=== PATIENT | female | born 1950 | race Hispanic/Latino ===

== ENCOUNTER 2018-01-16 10:42 | Inpatient (IN) | payer BC, OTHER ==
[2018-01-16 11:30] LABS: Protime INR 1.19
[2018-01-16 11:31] LABS: Absolute Lymphocytes (CBC) 0.1 K/uL (0.7-4.9); Absolute Monocytes 0.2 K/uL (0.1-1.3); Absolute Neutrophil 7.3 K/uL (1.8-8.0); Basophils % 0.2 % (0-1.3); Eosinophils % 0.1 % (0-4.4); Hematocrit 30.7 % (36.0-45.0); Lymphocytes % 1.5 % (15.3-44.8); MCH 28.7 pg (27.0-35.0); MCV 85.2 fL (80-100); MPV 8.5 fL (7.6-11.3); Monocytes % 2.5 % (3.3-12.3); RBC Red Blood Cell Count 3.61 M/uL (3.86-4.86)
--- NOTE | 2018-01-16 11:34 | RAD REPORT ---
EXAM DESCRIPTION: CT - CTHCSPWOC - 01/16/2018 11:22 am CLINICAL HISTORY: Trauma, head and neck injury. PAIN COMPARISON: No comparisons TECHNIQUE: Axial 5 mm thick images of the head were obtained. Axial 2 mm thick images of the cervical spine were obtained with sagittal and coronal reconstruction images generated and reviewed. All CT scans are performed using dose optimization technique as appropriate and may include automated exposure control or mA/KV adjustment according to patient size. FINDINGS: CT HEAD WITHOUT CONTRAST: No acute hemorrhage, hydrocephalus or extra-axial collection is identified.Advanced generalized brain atrophy is present with advanced periventricular and deep white matter chronic microvascular ischemi c changes.No areas of brain edema or midline shift. The paranasal sinuses and mastoids are clear.The calvarium is intact. CT CERVICAL SPINE WITHOUT CONTRAST: No fracture or subluxation.Mild lower cervical degenerative change.No prevertebral soft tissues swell ing is identified. Carotid artery calcification noted. IMPRESSION: No acute intracranial or cervical spine findings.
--- NOTE | 2018-01-16 11:46 | RAD REPORT ---
EXAM DESCRIPTION: RAD - Chest Single View - 01/16/2018 11:32 am CLINICAL HISTORY: MALAISE Chest pain. COMPARISON: Chest Pa And Lat (2 Views) dated 03/03/2016; CHEST PA AND LAT 2 VIEW dated 05/04/2015; CHES T PA AND LAT 2 VIEW dated 04/10/2014; CHEST PA AND LAT 2 VIEW dated 09/11/2013 FINDINGS: Portable technique limits examination quality. Ill-defined opacities in the parahilar region noted, probably related to prior therapy. A small focal infiltrate could be masked by these findings. The heart is normal in size. Right-sided port catheter tip in SVC.No displaced fracture is seen.
[2018-01-16 11:55] LABS: Albumin 3.2 g/dL (3.4-5.0); Bilirubin Direct 0.2 mg/dL (0-0.2); Bilirubin Total 0.5 mg/dL (0.2-1.0); Magnesium 1.6 mg/dL (1.8-2.4); Potassium 3.9 mmol/L (3.5-5.1); Protein, Total 7.6 g/dL (6.4-8.2)
[2018-01-16 12:01] LABS: Troponin (Emerg Dept Use Only) 0.56 ng/mL (0.0-0.045)
[2018-01-16 12:14] LABS: Anisocytosis 1+; Blood Morphology Comment NOTED (NOT SEEN); Elliptocytes 1+; Platelet Estimate ADEQ; Urine White Blood Cell Casts OK
--- NOTE | 2018-01-16 13:00 | RAD REPORT ---
EXAM DESCRIPTION: RAD - Wrist Left 3 View - 01/16/2018 12:41 pm CLINICAL HISTORY: Fall, wrist pain COMPARISON: None. FINDINGS: No fracture is identified. There is no dislocation or periosteal reaction noted. Scaphoid bone appearance is within normal limits. There are mild degenerative changes involving the trapezium articulation with the scaphoid and first metacarpal. No foreign body. No abnormal soft tissue calcif ication. IMPRESSION: No fracture or acute finding. Degenerative changes are present around the trapezium. If the patient has continued, unexplained symptoms, repeat imaging can be performed in 7 days.
--- NOTE | 2018-01-16 13:02 | RAD REPORT ---
EXAM DESCRIPTION: RAD - Knee Left 3 View - 01/16/2018 12:41 pm CLINICAL HISTORY: Fall, knee pain COMPARISON: None. FINDINGS: No fracture, dislocation or periosteal reaction.Minimal medial compartment narrowing is se en with marginal spurring. Arterial calcifications are present. No soft tissue abnormality. IMPRESSION: Mild degenerative change with no acute bone or joint finding. Clinical concerns for internal derangement or occult bony injury could be further assessed with MR im aging.
--- NOTE | 2018-01-16 13:04 | RAD REPORT ---
EXAM DESCRIPTION: RAD - Pelvis - 01/16/2018 12:41 pm CLINICAL HISTORY: Fall, pelvic and hip pain COMPARISON: None. TECHNIQUE: AP imaging of the pelvis was obtained. FINDINGS: No fracture of the bony pelvis. No fracture, dislocation or other acute hip joint finding. Mild SI joint degenerative changes are present. There are mild right hip joint degenerative changes seen. Lower lumbar degenerative changes are present partially imaged. Patient has numerous round clips from prior hernia repair. Iliac artery stents are identifiable. There prominent vascular calcifications. Surgical clips are seen in each inguinal canal region. No suspicious soft tissue finding. IMPRESSION: Pelvis and hip joint degenerative changes are present as detailed. No fracture or acute finding.
--- NOTE | 2018-01-16 13:23 | RAD REPORT ---
EXAM DESCRIPTION: CT - Spine Lumbar Wo Con - 01/16/2018 1:08 pm CLINICAL HISTORY: Fall, back pain, leg pain COMPARISON: CT abdomen imaging December 2014 TECHNIQUE: Thin section axial imaging of the lumbar spine was performed. Sagittal and coronal recon struction images were generated and reviewed. All CT scans are performed using dose optimization technique as appropriate and may include automated exposure control or mA/KV adjustment according to patient size. FINDINGS: The L1-L3 bodies show a very slight or subtle anterior wedging with posterior wall height preserved. No fracture lines are identifiable on the axial imaging. When compared with the lateral sc out film from 2015, the L1-L3 vertebrae are not clearly different. L4-5 vertebrae are normal in heigh t. No alignment abnormalities. No acute compression fracture is confirmed. No lytic, sclerotic or expansile bony destructive process seen. No paraspinal mass identified. Mild for age mid and lower lumbar facet joint degenerative weinstein ges are present. No pars defect. Central canal detail is inherently limited. Degenerative gas is present in the anterior aspect of the L1-2 disc space. There is posterior disc space narrowing at L2-3 and L3-4. No central spinal stenosi s or significant foraminal encroachment seen at these levels. Disc bulge at L5-S1 contacts the S1 ner ve roots but does not cause central spinal stenosis. SI joint degenerative changes are present primar enedelia sclerotic change to each ileum at the joint. No sacral ala fractures seen. IMPRESSION: No acute lumbar finding confirmed. The slight wedging of L1-L3 is not clearly different from a 2015 CT study. L5-S1 disc bulge changes contacting the S1 nerve roots. This cannot be determined to be acute or wiring mechanic tam. Central canal detail is inherently limited. No significant canal encroachment or significant foramina l encroachment.
--- NOTE | 2018-01-16 13:54 | EDPHYS ---
Physician Documentation [facility] Name: Jamaica Perez Age: 67 yrs Sex: Female : 1950 Arrival Date: 01/16/2018 Time: 10:43 Bed 16 Private MD: ED Physician Adrian Argueta HPI: 01/16 13:36 This 67 yrs old Female presents to ER via EMS with complaints of Fall Injury. gs 13:36 Details of fall: The patient fell from an upright position. Onset: The symptoms/episode gs began/occurred acutely, at an unknown time. last known well about 9pm last night, fall occurred between 5-9 this am. Associated injuries: The patient sustained face, pelvis, left hand and left leg. Severity of symptoms: At their worst the symptoms were mild, in the emergency department the symptoms are unchanged. The patient has experienced similar episodes in the past, a few times. pt and daughter state has weakness in left leg is new was present on wakening. Historical: - Home Meds: 10:56 Qz-[id number] 133 mg oral tab [Active]; metformin 500 mg Oral Tb24 1 tab 2 times per tw2 day [Active]; prochlorperazine maleate 10 mg oral tab [Active]; zolpidem 5 mg Oral tab 1 tab once daily [Active]; hydrocodone-acetaminophen 5-325 mg Oral tab 1 tab every 6 hours [Active]; nitroglycerin 0.4 mg SL subl 1 tab [Active]; ondansetron HCl 8 mg Oral tab 1 tab every 8 hours [Active]; Ambrose Aspirin 325 mg oral tab 1 tab once daily [Active]; Vitamin D Oral [Active]; Januvia 100 mg oral tab 1 tab once daily [Active]; bisacodyl 5 mg Oral TbEC 1 tab [Active]; losartan 100 mg oral tab 1 tab once daily [Active]; atorvastatin 40 mg oral tab 1 tab once daily [Active]; isosorbide mononitrate 30 mg Oral Tb24 1 tab once daily [Active]; montelukast 10 mg oral tab 1 tab once daily [Active]; metoprolol tartrate 25 mg Oral tab 1 tab once daily [Active]; levocetirizine 5 mg oral tab 1 tab once daily [Active]; ProAir HFA 90 mcg/actuation inhalation HFAA 1 puff every 4 hours [Active]; - PMHx: 10:56 Diabetes - NIDDM; Hyperlipidemia; Hypertension; tw2 - Immunization history:: Adult Immunizations. - Social history:: Smoking status: . - Ebola Screening: : Patient denies travel to an Ebola-affected area in the 21 days before illness onset. ROS: 13:36 All other systems are negative. gs Exam: 13:36 Head/Face: Normocephalic, atraumatic. Eyes: Pupils equal round and reactive to light, gs extra-ocular motions intact. Lids and lashes normal. Conjunctiva and sclera are non-icteric and not injected. Cornea within normal limits. Periorbital areas with no swelling, redness, or edema. ENT: Nares patent. No nasal discharge, no septal abnormalities noted. Tympanic membranes are normal and external auditory canals are clear. Oropharynx with no redness, swelling, or masses, exudates, or evidence of obstruction, uvula midline. Mucous membranes moist. 13:36 Chest/axilla: Normal chest wall appearance and motion. Nontender with no deformity. No lesions are appreciated. Cardiovascular: Regular rate and rhythm with a normal S1 and S2. No gallops, murmurs, or rubs. Normal PMI, no JVD. No pulse deficits. Respiratory: Lungs have equal breath sounds bilaterally, clear to auscultation and percussion. No rales, rhonchi or wheezes noted. No increased work of breathing, no retractions or nasal flaring. Abdomen/GI: Soft, non-tender, with normal bowel sounds. No distension or tympany. No guarding or rebound. No evidence of tenderness throughout. 13:36 Back: No spinal tenderness. No costovertebral tenderness. Full range of motion. Skin: Warm, dry with normal turgor. Normal color with no rashes, no lesions, and no evidence of cellulitis. 13:36 Constitutional: The patient appears alert, awake. 13:36 Neck: C-spine: vertebral tenderness, that is mild. 13:36 ECG was reviewed by the Attending Physician. 13:36 Musculoskeletal/extremity: Extremities: noted in the left knee: ecchymosis, pain, noted in the dorsal aspect of left wrist: ecchymosis, pain, noted in the left hip and right hip: tenderness, Circulation is intact in all extremities. 13:36 Neuro: Orientation: is normal, Cranial nerves: CN II- XII are normal as tested, Cerebellar function: is grossly normal, Motor: moves all fours, strength is 5/5 in the right arm, left arm and left leg, Strength is 3/5 in the right leg, Sensation: no obvious gross deficits. Vital Signs: 10:45 BP 119 / 58; Pulse 67; Resp 17; Temp 98.1; Pulse Ox 98% on R/A; Pain 0/10; tw2 11:43 BP 114 / 51; Pulse 65; Resp 17; Pulse Ox 100% on R/A; tw2 12:27 BP 109 / 45; Pulse 65; Resp 17; Pulse Ox 98% on R/A; tw2 13:22 BP 105 / 90; Pulse 68; Resp 20; Pulse Ox 98% on R/A; tw2 14:22 BP 117 / 153; Pulse 65; Resp 17; Pulse Ox 97% on R/A; tw2 15:28 BP 111 / 55; Pulse 63; Resp 20; Pulse Ox 97% on R/A; tw2 10:45 pt denies pain but states "if you move me it will hurt" tw2 MDM: 11:02 Patient medically screened. gs 13:36 Differential diagnosis: closed head injury, fracture, cva, mets to spine. Data gs reviewed: vital signs, nurses notes. Response to treatment: the patient's symptoms have markedly improved after treatment. Physician consultation: Dnadre Haas MD and will see patient in inpatient room. 14:04 ED course: pt with weakness, no other signs of cva, out of window so no tpa, will have gs evelyn see, alex will also see. 01/16 11:03 Order name: Basic Metabolic Panel; Complete Time: 12:06 01/16 11:03 Order name: CBC with Diff; Complete Time: 13:31 01/16 11:03 Order name: LFT's; Complete Time: 12:06 01/16 11:03 Order name: Magnesium; Complete Time: 12:06 01/16 11:03 Order name: NT PRO-BNP; Complete Time: 12:06 01/16 11:03 Order name: PT-INR; Complete Time: 12:06 01/16 11:03 Order name: Troponin (emerg Dept Use Only); Complete Time: 12:06 01/16 11:03 Order name: XRAY Chest (1 view); Complete Time: 12:06 01/16 11:03 Order name: AMMONIA; Complete Time: 12: 01/16 11:48 Order name: CBC Smear Scan; Complete Time: 13:31 EDMS 01/16 12:09 Order name: CPK; Complete Time: 13:54 01/16 14:04 Order name: Troponin I EDHI 01/16 14:04 Order name: Troponin I EDHI 01/16 14:04 Order name: Troponin I EDHI 01/16 11:03 Order name: EKG; Complete Time: 11:04 01/16 11:03 Order name: Cardiac monitoring; Complete Time: 11: 01/16 11:03 Order name: IV Saline Lock; Complete Time: 11:19 01/16 11:03 Order name: CT Head C Spine; Complete Time: 12:06 01/16 12:09 Order name: Knee Left 3 View XRAY; Complete Time: 13:31 01/16 12:09 Order name: Wrist Left (3 View) XRAY; Complete Time: 13:31 01/16 12:09 Order name: Pelvis XRAY; Complete Time: 13:31 01/16 12:22 Order name: Diet Heart Healthy; Complete Time: 12:22 tw2 01/16 12:32 Order name: CT Lumbar Spine Wo Con; Complete Time: 13:31 01/16 14:04 Order name: CONS Physician Consult EDHI 01/16 14:04 Order name: CONS Physician Consult EDHI 01/16 14:04 Order name: Consistent Carb (ADA) [address] EDHI 01/16 14:04 Order name: EKG Electrocardiogram EDHI 01/16 14:04 Order name: EKG Electrocardiogram EDHI 01/16 11:03 Order name: Labs collected and sent; Complete Time: 11:19 01/16 11:03 Order name: O2 Per Protocol; Complete Time: 11: 01/16 11:03 Order name: O2 Sat Monitoring; Complete Time: 11:19 gs EC:36 Rate is 63 beats/min. Rhythm is regular. PA interval is normal. QRS interval is gs prolonged. Q waves are Old in leads V1, V2. T waves are Flattened. Clinical impression: Abnormal EKG without significant change. Interpreted by me. Administered Medications: 14:08 Drug: Aspirin Chewable Tablet 324 mg Route: PO; tw2 14:24 Follow up: Response: No adverse reaction tw2 Disposition: 01/16/18 13:53 Hospitalization ordered by Lior Daniels for Inpatient Admission. Preliminary diagnosis are Weakness, Unstable angina. - Bed requested for Telemetry/MedSurg (Inpatient). - Status is Inpatient Admission. tw2 - Condition is Stable. - Problem is new. - Symptoms are unchanged. UTI on Admission? No Critical care time excluding procedures: 13:36 Critical care time: Bedside Care: 10 minutes, Consultation: 10 minutes, Family gs Intervention: 10 minutes. Total time: 30 minutes Signatures: Dispatcher [employer] EDMS Ila Sequeira Tara, RN RN tw2 Adrian Argueta MD MD gs Corrections: (The following items were deleted from the chart) 15:21 13:53 Hospitalization Ordered by Lior Daniels MD for Inpatient Admission. Preliminary bd diagnosis is Weakness; Unstable angina. Bed requested for Telemetry/MedSurg (Inpatient). Status is Inpatient Admission. Condition is Stable. Problem is new. Symptoms are unchanged. UTI on Admission? No. gs 15:32 15:21 01/16/2018 13:53 Hospitalization Ordered by Lior Daniels MD for Inpatient tw2 Admission. Preliminary diagnosis is Weakness; Unstable angina. Bed requested for Telemetry/MedSurg (Inpatient). Status is Inpatient Admission. Condition is Stable. Problem is new. Symptoms are unchanged. UTI on Admission? No. bd
--- NOTE | 2018-01-16 13:54 | ER ---
Nurse's Notes [facility] Name: Jamaica Perez Age: 67 yrs Sex: Female : 1950 Arrival Date: 01/16/2018 Time: 10:43 Bed 16 Private MD: Diagnosis: Weakness;Unstable angina Presentation: 01/16 10:38 Presenting complaint: EMS states: pt was going to the bathroom this morning and fell, tw2 refused c collar, vs stable. Transition of care: patient was not received from another setting of care. Onset of symptoms was January 16, 2018. Risk Assessment: Do you want to hurt yourself or someone else? Patient reports no desire to harm self or others. Initial Sepsis Screen: Does the patient meet any 2 criteria? No. Patient's initial sepsis screen is negative. Does the patient have a suspected source of infection? No. Patient's initial sepsis screen is negative. Care prior to arrival: None. 10:38 Method Of Arrival: EMS: [facility] tw2 11:01 Acuity: LIV 3 tw2 Historical: - Home Meds: 10:56 Fb-Srzf-Xdvdeax 133 mg oral tab [Active]; metformin 500 mg Oral Tb24 1 tab 2 times per tw2 day [Active]; prochlorperazine maleate 10 mg oral tab [Active]; zolpidem 5 mg Oral tab 1 tab once daily [Active]; hydrocodone-acetaminophen 5-325 mg Oral tab 1 tab every 6 hours [Active]; nitroglycerin 0.4 mg SL subl 1 tab [Active]; ondansetron HCl 8 mg Oral tab 1 tab every 8 hours [Active]; Ambrose Aspirin 325 mg oral tab 1 tab once daily [Active]; Vitamin D Oral [Active]; Januvia 100 mg oral tab 1 tab once daily [Active]; bisacodyl 5 mg Oral TbEC 1 tab [Active]; losartan 100 mg oral tab 1 tab once daily [Active]; atorvastatin 40 mg oral tab 1 tab once daily [Active]; isosorbide mononitrate 30 mg Oral Tb24 1 tab once daily [Active]; montelukast 10 mg oral tab 1 tab once daily [Active]; metoprolol tartrate 25 mg Oral tab 1 tab once daily [Active]; levocetirizine 5 mg oral tab 1 tab once daily [Active]; ProAir HFA 90 mcg/actuation inhalation HFAA 1 puff every 4 hours [Active]; - PMHx: 10:56 Diabetes - NIDDM; Hyperlipidemia; Hypertension; tw2 - Immunization history:: Adult Immunizations. - Social history:: Smoking status: . - Ebola Screening: : Patient denies travel to an Ebola-affected area in the 21 days before illness onset. Screenin:46 Abuse screen: Denies threats or abuse. Nutritional screening: No deficits noted. tw2 Tuberculosis screening: No symptoms or risk factors identified. Fall Risk None identified. 12:55 Patient has been NPO before screening. The patient is alert, able to follow commands. tw2 The patient does not exhibit slurred or garbled speech The patient is not exhibiting difficulty speaking. The patient is exhibiting difficulty understanding words. The patient is able to swallow own secretions with no drooling or need for suction. Patient tolerated one teaspoon of water. No drooling, immediate coughing, gurgling, or clearing of the throat was noted. The patient tolerated 90mL of water. No drooling, immediate coughing, gurgling, or clearing of the throat was noted. The patient passed the bedside swallow screening. Oral medications may be given as ordered. Contact Physician for further diet orders. Assessment: 10:45 General: Appears in no apparent distress. slender, Behavior is calm, cooperative, tw2 appropriate for age. Pain: Complains of pain in right leg and left leg. Neuro: Level of Consciousness is awake, alert, obeys commands, Oriented to person, place, situation. Cardiovascular: Denies chest pain, shortness of breath, Heart tones S1 S2 Capillary refill < 3 seconds Patient's skin is warm and dry. Respiratory: Airway is patent Respiratory effort is even, unlabored, Respiratory pattern is regular, symmetrical, Breath sounds are clear bilaterally. GI: No signs and/or symptoms were reported involving the gastrointestinal system. Abdomen is flat, Bowel sounds present X 4 quads. : No signs and/or symptoms were reported regarding the genitourinary system. EENT: No signs and/or symptoms were reported regarding the EENT system. Derm: Bruising that is bright red, dark purple, on left arm, right leg and left leg. Musculoskeletal: Reports "i cant move my legs". 11:43 Reassessment: Patient appears in no apparent distress at this time. No changes from tw2 previously documented assessment. Patient and/or family updated on plan of care and expected duration. Pain level reassessed. Patient is alert, oriented x 3, equal unlabored respirations, skin warm/dry/pink. pt requesting some coffee at this time, provider notified. 12:27 Reassessment: Patient appears in no apparent distress at this time. No changes from tw2 previously documented assessment. Patient and/or family updated on plan of care and expected duration. Pain level reassessed. Patient is alert, oriented x 3, equal unlabored respirations, skin warm/dry/pink. 13:22 Reassessment: Patient appears in no apparent distress at this time. No changes from tw2 previously documented assessment. Patient and/or family updated on plan of care and expected duration. Pain level reassessed. Patient is alert, oriented x 3, equal unlabored respirations, skin warm/dry/pink. pt sitting upright eating lunch tray at this time. 14:22 Reassessment: Patient appears in no apparent distress at this time. No changes from tw2 previously documented assessment. Patient and/or family updated on plan of care and expected duration. Pain level reassessed. Patient is alert, oriented x 3, equal unlabored respirations, skin warm/dry/pink. 15:29 Reassessment: Patient appears in no apparent distress at this time. No changes from tw2 previously documented assessment. Patient and/or family updated on plan of care and expected duration. Pain level reassessed. Patient is alert, oriented x 3, equal unlabored respirations, skin warm/dry/pink. Vital Signs: 10:45 BP 119 / 58; Pulse 67; Resp 17; Temp 98.1; Pulse Ox 98% on R/A; Pain 0/10; tw2 11:43 BP 114 / 51; Pulse 65; Resp 17; Pulse Ox 100% on R/A; tw2 12:27 BP 109 / 45; Pulse 65; Resp 17; Pulse Ox 98% on R/A; tw2 13:22 BP 105 / 90; Pulse 68; Resp 20; Pulse Ox 98% on R/A; tw2 14:22 BP 117 / 153; Pulse 65; Resp 17; Pulse Ox 97% on R/A; tw2 15:28 BP 111 / 55; Pulse 63; Resp 20; Pulse Ox 97% on R/A; tw2 10:45 pt denies pain but states "if you move me it will hurt" tw2 ED Course: 10:39 Bed in low position. Call light in reach. Side rails up X2. Adult w/ patient. Pulse ox tw2 on. NIBP on. Warm blanket given. 10:43 Patient arrived in ED. tw2 10:45 Triage completed. tw2 10:45 Adrian Argueta MD is Attending Physician. gs 10:45 Arm band placed on. tw2 11:00 Dacia Nj RN is Primary Nurse. tw2 11:10 wet machine tender on. Pulse ox on. NIBP on. tw2 11:10 Inserted saline lock: 22 gauge in right antecubital area, using aseptic technique. tw2 Blood collected. 11:[address] vr 11:21 Radiology exam delayed due to PT IN CT. jb2 11:23 CT Head C Spine In Process Unspecified. EDMS 11:31 X-ray completed. Patient tolerated procedure well. jb2 11:31 Patient moved back from radiology. jb2 11:32 XRAY Chest (1 view) In Process Unspecified. EDMS 12:03 EKG done, by senior engineering tech. reviewed by Adrian Argueta MD. at1 12:40 X-ray completed. Portable x-ray completed in exam room. Patient tolerated procedure jb2 well. 12:41 Knee Left 3 View XRAY In Process Unspecified. EDMS 12:41 Wrist Left (3 View) XRAY In Process Unspecified. EDMS 12:41 Pelvis XRAY In Process Unspecified. EDMS 13:09 CT Lumbar Spine Wo Con In Process Unspecified. EDMS 13:51 Lior Daniels MD is Hospitalizing Provider. gs 14:28 Troponin I Sent. tw2 15:30 No provider procedures requiring assistance completed. Patient admitted, IV remains in tw2 place. Administered Medications: 14:08 Drug: Aspirin Chewable Tablet 324 mg Route: PO; tw2 14:24 Follow up: Response: No adverse reaction tw2 Outcome: 13:53 Decision to Hospitalize by Provider. gs 15:30 Admitted to Med/surg accompanied by tech, via stretcher, room 214, with oxygen, with tw2 chart, Report called to ron dugan 15:30 Condition: stable 15:30 Instructed on the need for admit. 15:32 Patient left the ED. tw2 Signatures: Dispatcher [employer] EDMS Cesar Rockwell jb2 Gemma Joyner Amanda, relief driller EKG Tat1 aDcia Nj RN RN tw2 Adrian Argueta MD MD gs Corrections: (The following items were deleted from the chart) 11:01 10:38 Acuity: LIV 4 tw2 tw2 12:53 11:43 Reassessment: Patient appears in no apparent distress at this time. No changes tw2 from previously documented assessment. Patient and/or family updated on plan of care and expected duration. Pain level reassessed. Patient is alert, oriented x 3, equal unlabored respirations, skin warm/dry/pink. tw2 13:18 12:55 Patient has been NPO before screening. The patient is alert, able to follow tw2 commands. The patient does not exhibit slurred or garbled speech The patient is not exhibiting difficulty speaking. The patient is exhibiting difficulty understanding words. The patient is able to swallow own secretions with no drooling or need for suction. Patient tolerated one teaspoon of water. No drooling, immediate coughing, gurgling, or clearing of the throat was noted. The patient tolerated 90mL of water. No drooling, immediate coughing, gurgling, or clearing of the throat was noted. tw2
[2018-01-16] MEDS ORDERED: ACETAMINOPHEN 500 MG TAB PO PRN (14:02)
[2018-01-16] MEDS ORDERED: ASPIRIN 81 MG CHEWABLE TABLET ONE (14:14)
[2018-01-16 16:02] VITALS: BMI 21.3
[2018-01-16 16:41] LABS: Urine Appearance CLOUDY; Urine Bilirubin NEGATIVE (NEG); Urine Blood TRACE (NEG); Urine Color YELLOW; Urine Glucose NEGATIVE (NEG); Urine Protein TRACE (NEG); Urine Urobilinogen 0.2 mg/dL (0.2-1.0)
[2018-01-16 16:48] LABS: Urine Microscopic Reflex ORDER UMIC
[2018-01-16 16:57] LABS: Urine Bacteria LOADED /HPF (<20); Urine Culture Reflex Order REFLEXED; Urine Mucus 2+ /HPF (NONE SEEN)
[2018-01-16] MEDS ORDERED: PNEUMOCOCCAL VACCINE 0.5 ML IMVAC ONE (17:00)
[2018-01-16] MEDS ORDERED: NITROGLYCERIN 0.4 MG SL PRN (21:57)
[2018-01-16] MEDS ORDERED: [UNRECOGNIZED DRUG - OTHER] PO PRN (21:57)
[2018-01-16] MEDS ORDERED: ACETAMINOPHEN PO PRN (21:57)
[2018-01-16] MEDS ORDERED: HYDROCODONE BIT PO PRN ×2 (21:57)
[2018-01-16] MEDS ORDERED: [UNRECOGNIZED DRUG - OTHER] PO PRN (21:57)
[2018-01-16] MEDS ORDERED: ZOLPIDEM TARTRATE 5 MG PO PRN (21:57)
--- NOTE | 2018-01-17 04:43 | EKG ---
Test Date: 2018-01-16 Test Time: 11:45:38 Radiation Technician: ANA/Ngozi MEASUREMENT RESULTS: Intervals: Rate: 63 NV: 188 QRSD: 154 QT: 474 QTc: 485 [place]: P: 58 NV: 188 QRS: -11 T: 20 INTERPRETIVE STATEMENTS: Normal sinus rhythm Right bundle branch block Septal infarct, age undetermined Abnormal ECG Compared to ECG 08/05/2010 08:35:36 Myocardial infarct finding now present Electronically Signed On 01-17-18 04:41:45 CDT by Antione Cm
[2018-01-17] MEDS ORDERED: HOME MED 1 EA UNK (Sitagliptin Phosphate [Januvia*] 100 MG) PO SCH (08:00)
[2018-01-17] MEDS: levoFLOXacin 500 MG TAB PO SCH (08:37)
[2018-01-17] MEDS: ASPIRIN EC 81 MG TAB PO SCH (08:48)
[2018-01-17] MEDS ORDERED: MAGNESIUM OXIDE PO SCH (09:00)
[2018-01-17] MEDS ORDERED: HOME MED 1 EA UNK (Losartan Potassium [Losartan Potassium] 100 MG) PO SCH (09:00)
[2018-01-17] MEDS ORDERED: METFORMIN HCL 500 MG PO SCH (09:00)
[2018-01-17] MEDS ORDERED: ISOSORBIDE MONONITRATE 30 MG PO SCH (09:00)
[2018-01-17] MEDS ORDERED: HOME MED 1 EA UNK (Metoprolol Tartrate [Metoprolol Tartrate] 25 MG) PO SCH (09:00)
[2018-01-17] MEDS ORDERED: FOLIC ACID PO SCH (09:00)
[2018-01-17] MEDS ORDERED: COLLAGEN HYDROLY PO SCH (09:00)
[2018-01-17] MEDS ORDERED: D3 PO SCH (09:00)
[2018-01-17] MEDS ORDERED: MAG AA CHELATE PO SCH (09:00)
--- NOTE | 2018-01-17 10:48 | ECHO ---
HEIGHT: 4 ft 11.5 in WEIGHT: 107 lb 4.8 oz DATE OF STUDY: 01/17/[address]: Lior Daniels MD 2-DIMENSIONAL: YES M.MODE: YES DOPPLER: YES COLOR FLOW: YES TDS: NO PORTABLE: NO DEFINITY: NO BUBBLE STUDY: NO DIAGNOSIS: ABNORMAL CARDIAC ENZYME CARDIAC HISTORY: CATHERIZATION: SURGERY: PROSTHETIC VALVE: PACEMAKER: MEASUREMENTS (cm) DIASTOLIC (NORMALS) SYSTOLIC (NORMALS) IVSd 0.8 (0.6-1.2) LA Diam 3.2 (1.9-4.0) LVEF 72% LVIDd 4.9 (3.5-5.7) LVIDs 2.9 (2.0-3.5) %FS 41% LVPWd 0.9 (0.6-1.2) Ao Diam 2.5 (2.0-3.7) 2 DIMENSIONAL ASSESSMENT: RIGHT ATRIUM: NORMAL LEFT ATRIUM: NORMAL RIGHT VENTRICLE: NORMAL LEFT VENTRICLE: NORMAL TRICUSPID VALVE: NORMAL MITRAL VALVE: NORMAL PULMONIC VALVE: NORMAL AORTIC VALVE: NORMAL PERICARDIAL EFFUSION: NONE AORTIC ROOT: NORMAL LEFT VENTRICULAR WALL MOTION: POSTERIOR WALL HYPOKINESIS. DOPPLER/COLOR FLOW: NORMAL COMMENTS: NORMAL LEFT VENTRICULAR EJECTION FRACTION WITH POSTERIOR WALL HYPOKINESIS. OTHERWISE 2D ECHOCARDIOGRAM WITH DOPPLER. TECHNOLOGIST: Uri DEE
--- NOTE | 2018-01-17 11:42 | PN ---
Date of Progress Note: 01/17/2018 Subjective: The patient was seen this morning for followup. She was lying in bed, not in distress. Her was present with her at bedside. The patient reported that she did get out of bed 2 terri es during nighttime without any assistance. was standing next to her as a standby assist, bu t she was able to go to the bathroom and ambulate without much difficulty. No nausea, vomiting, diar jazmyn reported. Objective: Vital signs: Reviewed. Last temperature this morning 97.1, pulse 56, respiratory rate 1 6, blood pressure 116/53. HEENT: Unremarkable. Lungs: Clear to auscultation. Heart: Sounds normal. Abdomen: Soft. Bowel sounds normal. No guarding, rigidity, tenderness, or distention. Extremities: No leg edema. She does have some bruising on the left lateral knee aspect from fall ye at home. Laboratory Data: Last troponin 1.58 last night. Impression: 1.Urinary tract infection. 2.Acute bronchitis. 3.Generalized weakness. 4.Lung cancer with metastatic disease to liver. 5.Coronary artery disease. 6.Carotid artery stenosis. 7.Peripheral vascular disease. 8.Hypertension. 9.Type 2 diabetes mellitus. 10.Hyperlipidemia. 11.Anemia due to chronic gastrointestinal blood loss. Plan: We will continue current medications, antibiotic Levaquin will be given to help with acute bro nchitis and urinary tract infection problem. We will go ahead and follow up with neurologist as well as preforms laminator. Echocardiogram will be done today and depending on preforms laminator's recommendation a nd echocardiogram, we will decide if any further intervention needed or not, but medical management w ill be preferable for her cardiac problems because of her other underlying significant comorbidities mainly lung cancer. CALISTA/MODL Voice ID: [id number] Report ID: [id number]
--- NOTE | 2018-01-17 14:09 | CON ---
CARDIOLOGY CONSULT Chief Complaint: The patient fell yesterday. She seemed to be a little bit confused about what day it was. History Of Present Illness: Ms. Perez has metastatic lung cancer. She has had this since 2014. There has never been a resection and she has gone through quite a bit of chemotherapy in the past and most recently a plan was made to switch her to Opdivo. Although I do not have any notes from the on cologists there at [facility] in [place], I have to believe based on what we know so far that her prognosis simply from the lung cancer is very poor. The patient has chest pains intermittently. e does not pay much attention to them. She has been told in the past that they are most likely from lung cancer and not from blocked arteries in the heart, but it seems like in the middle of last week, she had a different kind of pain or more severe pain, she mentioned to her . No medical atte ntion was sought. When she came to the hospital, she was found to have very elevated troponin levels , 0.56, 1.28, 1.58 are what we see. Her sodium is very low. Creatinine is good at 0.7. She has an elevated N-terminal proBNP. She has a hemoglobin of 10.6. Her platelet count is 294. She is not duffy ving chest pain presently. Physical Examination: General: She appears to be older than her stated age of 67. She is 4 feet 11 inches, 107 pounds. Lungs: Reveal decreased breath sounds in both bases. Heart: Regular rate and rhythm. No significant murmur. Abdomen: Soft. Extremities: Reveal palpable, but diminished pulses. The patient has a history of aortobifemoral by pass, several other grafts in the legs. An angiogram done in 2014 showed that all of those were in p retty good shape. She has claudication, but no threatened tissue loss or source that are becoming in fected. Diagnostic Studies: Her electrocardiogram shows right bundle-branch block and septal infarct. It se ems like the septal infarct is new compared to 2011. There is no injury or ischemia. There is an ol d and completed infarction. Impression: The patient probably has had an myocardial infarction. It is probably not acute. It ma y be subacute. I am not sure if she may have had a stroke as well. I will recommend we do a pharmac ologic nuclear stress test and see if we think there is a reasonable chance of helping her by doing a cardiac cath and a stent. Overall, her prognosis is very poor, so we are unlikely to put a stent if we do not see a large amount of ischemia present or if she has symptoms suggesting she is unstable. I think, this is a completed myocardial infarction and we will try and learn more about it before en gaging in a heart catheterization. ANNA/TELLO Voice ID: [id number] Report ID: [id number]
--- NOTE | 2018-01-17 18:24 | HP ---
Date of Admission: 01/16/2018 Chief Complaint: Fall and inability to get up. History Of Present Illness: A 67-year-old female patient, who lives at home with her , has sm all cell lung cancer metastatic to liver and is currently under treatment at [facility], [place] with immunot herapy. Her last dose of immunotherapy was yesterday. The patient has some cough, chest congestion, coughing up some yellowish-colored mucus in last day or 2 days. No fever. No nausea, vomiting, yanni rrhea. No bleeding. The patient said that she was trying to get out of bed and she lost her balance and fell down next to the bed and she was able to get up and she got up and was trying to go to the bathroom. She fell down again. 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 She is not sure how long she stayed on the floor, but as family tells me that she was probably on the floor for almost 4 hours and somehow she managed to crawl where her phone was an d she was able to contact her family members, who came and she was brought into emergency room. Afte r she was evaluated in the ER, she was admitted to the hospital under my service. When I saw her, he r and daughter were present at bedside. Allergies: NO KNOWN ALLERGIES. Medications: List reviewed. Review of Systems: Constitutional: As mentioned above. Respiratory: As mentioned above. All other systems reviewed a nd negative. Social History: Positive for smoking. Use of alcohol, negative. Family History: Not pertinent. Past Medical History: Significant for hypertension, hyperlipidemia, type 2 diabetes mellitus, march ry artery disease, peripheral vascular disease, depression, gastroesophageal reflux disease, anemia d ue to chronic GI blood loss, COPD, carotid artery disease, and lung cancer with metastatic disease to liver and she is going to [facility], [place] regularly for her treatment. Past Surgical History: Significant for hysterectomy. Physical Examination: Vital Signs: Temperature 98.1, pulse 67, respiratory rate 17, blood pressure 119/58, oxygen saturati on 98%. Height 4 feet 11 inches, weight 107 pounds. General: Awake, alert, oriented, not in distress. HEENT: Head atraumatic, normocephalic. Conjunctivae nonerythematous. Sclerae white. Mouth, no thr ush or edema noted. Ears/Nose, no mass, lesion, discharge noted. Neck: Supple. No JVD, lymph nodes, bruit, thyromegaly noted. Lungs: Bilateral good equal air entry. Clear to auscultation. No rhonchi. Minimum rales noted in endy ng bases, not using accessory muscles of respiration. Heart: Normal heart sounds, no murmur or gallop. Abdomen: Soft, bowel sounds normal. No guarding, rigidity, tenderness, mass, hepatosplenomegaly, dis tention, or bruit noted. Extremities: No leg edema. No calf tenderness. Skin: No rash, ulcer, cellulitis. Lymphatics: No lymph node enlargement in neck, supraclavicular, infraclavicular region. ON SITE CONSTRUCTION SUPERINTENDENT: The patient is able to elevate both lower extremity up to about 30 to 40 degrees against gravit y. No focal weakness noted. No other focal neurological signs. Chest: Unremarkable. External Genitalia: Deferred. Rectal: Deferred. Laboratory Data: White count 7.6, hemoglobin 10.3, platelets 294. INR 1.19. Sodium 126, which is c hronic for her. Potassium 3.9, chloride 94, bicarb 23, BUN 12, creatinine 0.70, glucose 179, magnesi um 1.6. Liver function tests unremarkable. Ammonia less than 10. Initial troponin 0.56. Second tr oponin 1.28. Urinalysis, 3+ esterase more than 50 WBC bacteria loaded. Chest x-ray, ill-defined opa city in the parahilar region probably related to prior therapies. A small focal infiltrate could be masked by this finding. EKG, normal sinus rhythm, no acute ST-T changes. Knee and pelvis x-ray, no fracture. Wrist x-ray, no fracture. Lumbosacral spine CT scan shows old compression fracture. No a cute finding noted. CAT scan of the head and cervical spine, no acute intracranial or cervical spine finding noted. Impression: 1.Urinary tract infection. 2.Acute bronchitis. 3.Lung cancer with metastatic disease to liver. 4.Hyponatremia, chronic. 5.Coronary artery disease. 6.Abnormal cardiac enzymes. 7.Carotid artery stenosis. 8.Hypertension. 9.Hyperlipidemia. 10.Type 2 diabetes mellitus. 11.Peripheral vascular disease. 12.Anemia due to chronic gastrointestinal blood loss. Plan: Admit the patient to hospital for further evaluation and management of this problem. The zehra ent is appropriate for inpatient and is expected to spend 2 midnights in hospital. We will consult C ardiology, consult Neurology. Get echo with Doppler tomorrow. Continue home medications per order. Continue aspirin and because of multiple other comorbidities, I would suggest medical management for her cardiac problem. I am not convinced that she had any acute coronary syndrome. She does have si gnificant vascular disease and we will see what manager costing has to say, but definitely will be inter ested in looking at the echocardiogram and her left ventricular wall motion. We will start empiric a ntibiotics, want to cover bronchitis as well as urinary tract infection symptoms and tomorrow, we lindsay l also have physical therapy assist the patient with ambulation. Details and plan of treatment discu ssed with the patient. CALISTA/TELLO Voice ID: [id number]
--- NOTE | 2018-01-17 18:33 | CON ---
Reason For Consultation: Consultation called because of syncope. History Of Present Illness: Ms. Perez is a 67-year-old right-handed patient with hypertension, mzb-prttyau-jxyalituu diabetes mellitus, and dyslipidemia, who fell yesterday morning. Reportedly, her said she was in bed when he left at 5:30 in the morning, and sometime after that, she apparently got up and got to the bathroom and must have fallen or passed out and remained on the floor for several hours. Her son called to check on her around 9 a.m. She did not answer and she apparently called him back around 9: 30. His sister went over and checked on her and found her confused, disoriented , and brought her to [facility]. The patient said she just recalls being on the floor and being confused about what was going on, and she actually she does not remember calling her son, even though she did, and he of course is able to confirm, that she did call. At [facility], she did not have apparent focal face, arm, or leg weakness. She did have a trauma series CT scan , which showed, in the brain, no acute intracranial abnormality such as fracture or hemorrhage, however, there was advanced generalized brain atrophy and advanced periventricular deep white matter small vessel ischemic disease. Cervical spine showed no significant abnormalities. She also had lumbar spine CT scan, which showed an L5-S1 disk bulge contacting the S1 nerve root, cannot be determined if it is acute or not. Also, there is a slight wedging of L1-L3, but that is not thought to be different from a 2005 CT scan. Her EKG showed normal sinus rhythm with right bundle branch block, septal infarct age undetermined. A chest x-ray showed ill-defined opacities in the perihilar region. There is a small focal infiltrate. Heart is of normal size. Right Port-A-Cath tip is in the superior vena cava and she just recently had chemo through that for GI cancer. Since her admission, she has actually been back to her baseline level of functioning per family. They have assisted her to the bathroom and she ambulates without difficulty. She does have, as per the patient, some left shoulder pain from an impact on the floor and left thigh and leg pain from impacting there, but there are no fractures in those areas. Her white blood cell count on admission was 7.6, hemoglobin 10.3, hematocrit 30.7. INR was 1.19, and a mildly low sodium and otherwise some elevation in rapid troponin and troponin 1, which is being evaluated by Cardiology. Her magnesium was found to be low. Past Medical History: As indicated. Allergies: NO KNOWN DRUG ALLERGIES. Current Medications: Aspirin 81 mg daily and she did receive some levofloxacin in the emergency room and since admission, otherwise home medications did include MG Plus protein 133 mg daily, metformin 500 mg twice daily, prochlorperazine 10 mg daily, zolpidem 5 mg at night, hydrocodone/acetaminophen 5/325 one every 6 hours, nitroglycerin 0.4 mg as needed, Zofran 8 mg every 8 hours as needed, losartan 100 mg daily, atorvastatin 40 mg daily, isosorbide 30 mg daily, montelukast 10 mg daily, metoprolol 25 mg daily, levocetirizine 5 mg daily, and ProAir HFA 90 mcg per inhalation every 4 hours. Social History: No alcohol, tobacco, or IV drug use. Resides at home with and family. Review of Systems: No recent fevers or chills. No myalgias or arthralgias. No recent headaches, rash, weight change, psychiatric complaints, or other positives other than mentioned above on a 10-point systems review. Physical Examination: Vital signs: Blood pressure 120/56, pulse 54, respiratory rate 17, temperature 97.1, oxygen saturation 98% on room air. Weight 107 pounds, height 4 feet and 11.5 inches. General: Ms. Perez is resting comfortably in bed. She does have a mild cough. HEENT: She is otherwise normocephalic. Slight bruising on the left shoulder, left thigh and legs, otherwise atraumatic. Sclerae are anicteric. Oropharynx is moist. Neck: Supple. Chest: Clear. Heart: Regular. Extremities: Show no significant edema, cyanosis, or clubbing. Neurological: She is alert and oriented to person, place, time, and situation. She follows all commands appropriately. Fully oriented again location, date, time. Cranial nerves reveal no deficits on 2 through 12. On motor examination , she has some limitation due to pain in the left shoulder and left leg, but has 5/5 strength proximally and distally. Sensory exam shows a stocking-glove loss to light touch and temperature in the arms and legs. Reflexes are trace in the upper and absent in the lower extremities. Coordination is intact in the upper and lower extremities. Gait: ambulated with assistance, although slightly lightheaded as she stood. Assessment: Ms. Perez is a 67-year-old patient, who has a syncopal episode of unclear etiology. Differential diagnosis should include a complex partial seizure and potentially a transient ischemic attack, although less likely, also should be included cardiac etiologies. Plan: 1. We will do EEG to rule out epileptogenic focus. 2. If able to she should have a brain MRI with and without contrast stroke protocol. 3. She should have orthostatic blood pressure testing at bedside, and the patient was also instructed that if she has systolic blood pressures that are lower than the 120s, she may hold the next dosage of her antihypertensive medication. She also was instructed to maintain a careful diary of blood pressure and pulse, and return that to Dr. Daniels, her primary care physician. Followup with Dr. Haas in one month. NATHALIE/TELLO Voice ID: [id number] Report ID: [id number]
[2018-01-17] MEDS ORDERED: ALBUTEROL SULFATE IH SCH (21:00)
[2018-01-17] MEDS ORDERED: HOME MED 1 EA UNK (Levocetirizine Dihydrochloride [Xyzal] 5 MG) PO SCH (21:00)
[2018-01-17] MEDS ORDERED: MONTELUKAST SODIUM 10 MG PO SCH (21:00)
[2018-01-17] MEDS ORDERED: ATORVASTATIN CALCIUM 40 MG PO SCH (21:00)
[2018-01-18] MEDS ORDERED: REGADENOSON 0.4 MG/5 ML SYR IV ONE (07:42)
[2018-01-18] MEDS: ASPIRIN EC 81 MG TAB PO SCH (09:00)
--- NOTE | 2018-01-18 11:19 | RAD REPORT ---
EXAM DESCRIPTION: NM - Rest Stress Cardiac Imaging - 01/18/2018 11:02 am CLINICAL HISTORY: Chest pain COMPARISON: REST STRESS CARDIAC 08/06/2010 TECHNIQUE: The patient was administered 10.1 mCi of Tc 99m Sestamibi prior to resting SPECT imaging of the heart. The patient was then administered 30.5 mCi of Tc 99m Sestamibi following exercise or ph armacologic stress. Multiplanar SPECT images were reviewed. FINDINGS: The end diastolic volume is 85 ml, the end systolic volume is 33 ml, and the ejection frac tion is 61 %. No stress-induced ischemic changes identifiable. No areas of significant scarring identifiable. The 2 011 study showed areas of diminished or fixed activity in the inferior wall and anterior wall. Those are not evident on this examination. Patient has no known revascularization procedure. Prior findings may have and diaphragm or breast attenuation artifact. IMPRESSION: No stress-induced ischemic change identifiable. No area of scarring confirmed. The apparent fixed defects in the anterior wall and inferior wall and 2011 are not evident on this ex amination. Ejection fraction and ventricular volumes are well within normal range.
[2018-01-18] MEDS: levoFLOXacin 500 MG TAB PO SCH (11:39)
--- NOTE | 2018-01-19 02:07 | PN ---
Date of Progress Note: 01/18/2018 History Of Present Illness: The patient was seen this morning for followup. No new complaints or pr oblems reported by patient. Physical Examination: General: Lying in bed, not in any distress. Vital Signs: Reviewed. HEENT: Examination unremarkable. Lungs: Clear to auscultation. Heart: Sounds normal. Abdomen: Soft. Bowel sounds normal. No guarding, rigidity, tenderness, or distention. Extremities: No leg edema. Laboratory Data: Labs reviewed. Urine culture results reviewed. Impression: 1.Coronary artery disease. 2.Acute bronchitis. 3.Urinary tract infection. 4.Peripheral vascular disease. 5.Lung cancer with metastatic disease to liver. 6.Generalized weakness. Plan: We will go ahead and continue to follow with supervisor [employer] and neurologist and consultation fro m both physicians appreciated. The patient is going to have MRI of brain per neurologist and stress test per supervisor turkey farm today. We will continue antibiotics and other medical management. CALISTA/MODL Voice ID: [id number] Report ID: [id number]
--- NOTE | 2018-01-19 08:21 | TREADPHA ---
DX: CHEST PAIN Date of Study: 01/18/2018 Ht: 4 11.5 Wt: 107 lb 4.8 oz Consulting Physician: LIZ MEDICATIONS: TYLENOL, LEVEQUIN, ASPIRIN, METFORMIN, XYZAL, METOPROLOL, LOSARTAN, HYDROCODONE HISTORY: 67 YEAR OLD FEMALE WITH COMPLAINTS OF CHEST PAIN. HISTORY OF HYPERTENSION AND DIABETES MELLITUS. PHYSICIAL EXAMINATION: RESTING B.P.: 116/54 RESTING H.R.: 47 RESTING EKG: SINUS BRADYCARDIA, RIGHT BUNDLE BRANCH BLOCK. PROTOCOL: LEXISCAN EXERCISE TIME: 3:30 B.P. AT PEAK STRESS: 118/52 IMPRESSION: LEXISCAN INJECTED. CARDIOLITE INJECTED PER PROTOCOL. SEE NUCLEAR MEDICINE REPORT. NO CHEST PAIN. NO SUPRAVENTRICULAR TACHYCARDIA. NO VENTRICULAR TACHYCARDIA.
[2018-01-19] MEDS: ASPIRIN EC 81 MG TAB PO SCH (09:00)
[2018-01-19] MEDS: levoFLOXacin 500 MG TAB PO SCH (09:58)
--- NOTE | 2018-01-19 10:54 | EEG ---
CHART: [id number] TEST ID#: [id number] DATE OF STUDY: 01/17/2018 THE EEG WAS RECORDED PORTABLE IN THE PATIENTS ROOM ON A 17 CHANNEL MACHINE. ELECTRODES WERE APPLIED IN THE USUAL MANNER USING THE INTERNATIONAL 10-20 SYSTEM. THE WAKING BACKGROUND RHYTHM IN THIS RECORD CONSISTS OF FAIRLY WELL DEVELOPED AND FAIRLY WELL ORGANIZED WAVES OF 8.5 HZ., MAXIMAL IN THE POSTERIOR HEAD REGIONS WHICH ATTENUATE NORMALLY WITH EYE OPENING. LOW-VOLTAGE 18-22 HZ ACTIVITY IS EXPRESSED IN THE FRONTAL REGIONS. OCCASIONAL RHYTHMIC 6-7 HZ ACTIVITY IS EXPRESSED IN THE CENTRAL AND TEMPORAL REGIONS. THERE ARE NO FOCAL OR LATERALIZING FEATURES. NO EPILEPTIFORM ACTIVITY APPEARS. SLEEP DID NOT OCCUR. HYPERVENTILATION WAS NOT PERFORMED. PHOTIC STIMULATION PRODUCED POOR DRIVING BILATERALLY. IMPRESSION: NORMAL EEG FOR THE AGE OF THE PATIENT IN [place].
[2018-01-19 11:08] VITALS: O2SAT 98
--- NOTE | 2018-01-19 14:30 | RAD REPORT ---
EXAM DESCRIPTION: MRI - MRA Neck W/Wo Cont - 01/19/2018 2:01 pm CLINICAL HISTORY: Syncope, fall with head injury COMPARISON: CT head and cervical January 16 TECHNIQUE: MR angiography of the cervical vasculature performed. Coronal imaging plane acquisition u tilized. A 12 millimeter MultiHance contrast volume was utilized. Coronal reformatted images were gen erated and reviewed. Vertical axis 3D rotational projections obtained using maximum intensity project ion protocol. FINDINGS: Aortic arch is 3 vessel. No focal stenosis of the innominate or left subclavian origin. Th ere is minimal narrowing at the origin of the left common carotid artery not felt to be clinically si gnificant. Right vertebral artery is dominant. No vertebral artery origins stenosis. No vasculitis, dissection o r significant vertebral artery finding. Bilateral common carotid and internal carotid artery show no stenosis, dissection or vasculitis findi ngs. No acute or significant carotid finding. Right external carotid artery is poorly visualized. Thi s is potentially due to external carotid stenosis which is generally not clinically significant. IMPRESSION: MRA neck imaging shows no significant finding involving the carotid and vertebral vascul ature.
--- NOTE | 2018-01-19 14:50 | RAD REPORT ---
EXAM DESCRIPTION: MRI - MRA Head Wo Cont - 01/19/2018 2:00 pm CLINICAL HISTORY: Syncope COMPARISON: None. TECHNIQUE: Axial and coronal 3D [id number] image acquisition was performed. 3D rotational images were generated with source and reconstruction images reviewed. Horizontal and vertical axis rotation al views generated using MIP protocol. FINDINGS: Major venous sinuses are patent. No aneurysm or vascular malformation. No basilar artery abnormality seen. Distal internal carotid art eries show no stenosis or significant disease process. The anterior, middle and posterior cerebral ar jarod distributions show no occlusion or significant vascular disease. No vasculitis or other diffuse vascular process seen. IMPRESSION: MRA head examination shows no significant or suspicious finding. No vascular finding see n to explain the extensive white matter disease on MRI imaging.
--- NOTE | 2018-01-19 15:10 | RAD REPORT ---
EXAM DESCRIPTION: MRI - Brain W/Wo Cont - 01/19/2018 2:01 pm CLINICAL HISTORY: Syncope COMPARISON: CT head and cervical April 18 TECHNIQUE: Sagittal and axial T1-weighted images were obtained. Axial PD/heavily T2-weighted and T2- FLAIR images were obtained along with axial DWI/ADC mapping sequences. Coronal heavily T2 weighted s equence obtained. Axial and coronal post-contrast T1-weighted images were also obtained. A 12 ml Mul tihance contrast following utilized. FINDINGS: No intracranial hemorrhage, mass or acute infarction. There is no edema or shift of midli ne structures. No extra-axial fluid collections. Pierson-matter/white matter junction is preserved. Sig nal voids are seen as a normal finding in the major intracranial vessels. No cortical edema or sulcal effacement. Underlying atrophy changes are mild with ventricular size in proportion. Patient has a v johana pronounced confluent T2/IR white matter signal abnormality throughout the entirety of the cerebra l hemispheres. There is a corresponding T1 signal intensity. Cerebellum is spared. Brainstem involvem ent is mild. Basal ganglia and thalamus spared. Post-contrast images show normal enhancement. No dural thickening. Mastoid air cells and paranasal sinuses are clear. IMPRESSION: No acute infarction. No hemorrhage, mass or acute focal intracranial finding. Confluent diffuse white matter hyperintensities seen throughout the cerebral hemisphere is sparing th e basal ganglia, thalamus and cerebellum. Minimal signal abnormality in the brainstem. Pattern is nonspecific and can be seen in numerous etiologies. Finding is likely related to an advanc ed for age small vessel disease process.
[2018-01-19 17:15] VITALS: BP 131/60; TEMP 97.6
--- NOTE | 2018-01-21 05:15 | DS ---
Date of Discharge: 01/19/2018 CALISTA/MODL Voice ID: [id number] Report ID: [id number] MTDD
--- NOTE | 2018-01-21 11:40 | PN ---
Date of Progress Note: 01/18/2018 Ms. Perez is a 67 years old, was admitted by Dr. Daniels on 01/16/[address] Foster on 12/26. The plan was not to perform a heart catheterization unless she has large ischemia on the [place] iscan. Lexiscan was done on 01/18/2018 showing no ischemia. Echocardiogram, which was done on 01/17, is normal. We will continue medical therapy. No plan for intervention. The patient can go h ome whenever it is okay with Dr. Daniels. CORIN/TELLO Voice ID: [id number] Report ID: [id number]
--- NOTE | 2018-01-21 12:28 | DS ---
Date of Discharge: 01/19/2018 Disposition: Discharged to go home. Physical Examination: HEENT: Unremarkable. Lungs: Clear to auscultation. Heart: Sounds normal. Abdomen: Soft. Bowel sounds normal. No guarding, rigidity, tenderness, distention. Extremities: No leg edema. Discharge Medications And Instructions: 1. Continue prior home medication except lower losartan 100 mg, take half tablet p.o. daily in the evening, and lower metoprolol 25-mg dose, take 1 pill every morning. 2. Take Levaquin 500 mg p.o. daily for 5 days starting tomorrow. 3. Check blood pressure 3 times a day and record it and bring readings and machine to office at the time of followup visit. 4. Follow up at my office in 2 weeks. Hospital Course: This is a 67-year-old female patient who was admitted to the hospital under my service after she presented to emergency room with fall at home and inability to get up. Please see dictated H and P for more information. After the patient was evaluated in ER, she was admitted to the hospital. Her initial white count was normal at 7.6, hemoglobin 10.3, platelets 294. She did have urinary tract infection and symptoms of acute bronchitis. She was started on antibiotic Levaquin. Urine culture results came back, and Levaquin was appropriate antibiotic for enterobacter that she was growing in her urine. Physical Therapy was consulted. She started ambulating well. We also obtained consultation from neurologist, Dr. Haas and her cardiac enzymes were abnormal when she came in, so we also obtained consultation from Dr. Foster. The patient did not have any complaints of chest pain. She does have history of underlying coronary artery disease, carotid artery stenosis, peripheral vascular disease, etc. The patient is undergoing treatment at [facility] for her metastatic lung cancer. Echocardiogram came back showing normal ejection fraction, normal wall motions. Database Technician also ordered a stress test and her stress test came back negative for stress-induced ischemia. CAT scan of the brain was negative for any acute changes and Dr. Haas did want to get MRI of the brain done, which was done today on the day of discharge, and as per stroke protocol, this was negative MRI. I believe that her inability to get up was primarily due to her debility, deconditioned body and significant weakness, that when she went down on to the floor she was not able to get up because of her weakness. She will benefit from physical therapy at home. She has requested home health and home physical therapy and to contact office on Monday so we can make arrangements for that. Database Technician , Dr. Foster thought that she probably could have had small subacute myocardial infarction and that is why he wanted to do stress test which was done and reported as mentioned earlier. The patient's overall condition was stable and she was discharged to go home in stable condition with above-mentioned medication and instructions. Final Diagnoses: 1. Subacute myocardial infarction. 2. Urinary tract infection. 3. Acute bronchitis. 4. 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 5. Hyponatremia, chronic. 6. Coronary artery disease. 7. Carotid artery stenosis. 8. Hypertension. 9. Hyperlipidemia. 10. Type 2 diabetes mellitus. 11. Peripheral vascular disease. 12. Anemia due to chronic gastrointestinal blood loss. CALISTA/MODL Voice ID: [id number] Report ID: [id number]
== END 2018-01-19 18:58 | disposition home or self-care (01) | DRG 689 ==
LOC: ER 10:42 → ERHOLD 14:01 → 2ND 15:29
PROVIDERS: ADMIT Internal Medicine; ATTEND Internal Medicine
DX: N39.0 Urinary tract infection, site not specified (principal); I21.A9 Other myocardial infarction type; C34.90 Malignant neoplasm of unspecified part of unspecified bronchus or lung; C78.7 Secondary malignant neoplasm of liver and intrahepatic bile duct; I10 Essential (primary) hypertension; E78.5 Hyperlipidemia, unspecified; E11.9 Type 2 diabetes mellitus without complications; I25.10 Atherosclerotic heart disease of native coronary artery without angina pectoris; I73.9 Peripheral vascular disease, unspecified; F32.9 Major depressive disorder, single episode, unspecified; K21.9 Gastro-esophageal reflux disease without esophagitis; D50.0 Iron deficiency anemia secondary to blood loss (chronic); J44.9 Chronic obstructive pulmonary disease, unspecified; J20.9 Acute bronchitis, unspecified; I65.29 Occlusion and stenosis of unspecified carotid artery; B96.89 Other specified bacterial agents as the cause of diseases classified elsewhere
CPT/HCPCS: 36415; 70450; 70544; 70549; 70553; 71045; 72125; 72131; 72170; 78452; 80048; 80076; 81003; 81015; 82140; 82550; 82962; 83735; 83880; 84484; 85025; 85610; 87070; 87077; 87086; 87088; 87186; 87205; 93005; 93017; 93306; 95816; 97163; 99285; A9500; A9577; J2785

== ENCOUNTER 2018-06-06 09:01 | Observation (INO) | payer BC, OTHER ==
[2018-06-04 12:28] LABS: Absolute Lymphocytes (CBC) 0.5 K/uL (0.7-4.9); Absolute Monocytes 0.4 K/uL (0.1-1.3); Absolute Neutrophil 5.8 K/uL (1.8-8.0); Basophils % 0.5 % (0-1.3); Hematocrit 33.8 % (36.0-45.0); Lymphocytes % 7.6 % (15.3-44.8); MPV 9.1 fL (7.6-11.3); Monocytes % 5.6 % (3.3-12.3); RBC Red Blood Cell Count 3.78 M/uL (3.86-4.86)
[2018-06-04 12:35] LABS: Potassium 4.4 mmol/L (3.5-5.1)
[2018-06-04 12:46] LABS: Protime INR 1.04
[2018-06-04 12:57] LABS: Blood Morphology Comment NOT SEEN (NOT SEEN); Platelet Estimate ADEQ
--- NOTE | 2018-06-04 13:02 | RAD REPORT ---
EXAM DESCRIPTION: RAD - Chest Pa And Lat (2 Views) - 06/04/2018 12:55 pm CLINICAL HISTORY: preop Chest pain. COMPARISON: Chest Single View dated 01/16/2018; Chest Pa And Lat (2 Views) dated 03/03/2016; CHEST PA AND LAT 2 VIEW dated 05/04/2015; CHEST PA AND LAT 2 VIEW dated 04/10/2014 FINDINGS: Mildly emphysematous lung talbert are seen with bilateral parahilar scarring. The heart is normal in size. Right-sided port catheter has tip in the SVC. IMPRESSION: No acute or aggressive intrathoracic finding. Bilateral parahilar pulmonary scarring is again noted, unchanged.
--- NOTE | 2018-06-04 15:16 | EKG ---
Test Date: 2018-06-04 Test Time: 11:05:05 Pipe Coverer And Insulator: MAXIMUS MEASUREMENT RESULTS: Intervals: Rate: 76 TN: 178 QRSD: 142 QT: 422 QTc: 474 [place]: P: 83 TN: 178 QRS: 2 T: 55 INTERPRETIVE STATEMENTS: Normal sinus rhythm Right atrial enlargement Right bundle branch block Abnormal ECG Compared to ECG 01/16/2018 11:45:38 Atrial abnormality now present Myocardial infarct finding no longer present Electronically Signed On 06-04-18 15:14:49 CDT by Lucas Foster
[2018-06-06] MEDS ORDERED: NA CHLORIDE 0.9% 500 ML ONE (09:31)
--- OUTSIDE RECORDS SUMMARY | 2018-06-06 09:35 | XMS REPORT | Clinical Summary ---
:1950 [facility] [address] [place] [address] Care Team Providers Name Role Phone Unavailable Primary Care Provider Unavailable Allergies No Known Allergies Medications No known medications Active Problems Not on file Social History Tobacco Use Types Packs/Day Years Used Date Never Smoker Smokeless Tobacco: Never Used Alcohol Use Drinks/Week oz/Week Comments No Alcohol Habits Answer Date Recorded How often do you have a drink containing alcohol? Never 05/11/2018 How many drinks containing alcohol do you have on a typical Not asked day when you are drinking? How often do you have six or more drinks on one occasion? Not asked Sex Assigned at Date Recorded Not on file Job Start Date Occupation Industry Not on file Not on file Not on file Travel History Travel Start Travel End No recent travel history available. Last Filed Vital Signs Vital Sign Reading Time Taken Blood Pressure 180/70 05/11/2018 1:26 PM SEO MANAGER Pulse 70 05/11/2018 1:26 PM SEO MANAGER Temperature 36.4 C (97.6 F) 05/11/2018 1:26 PM SEO MANAGER Respiratory Rate 22 05/11/2018 1:26 PM SEO MANAGER Oxygen Saturation 99% 05/11/2018 1:26 PM SEO MANAGER Inhaled Oxygen Concentration - - Weight - - Height - - Body Mass Index - - Plan of Treatment Not on file Results Not on fileafter 06/05/2017 Advance Directives Patient has advance care planning documents on file. For more information, please contact:[id number] [place] [address]
[2018-06-06] MEDS ORDERED: ONDANSETRON 4 MG/2 ML VIAL IV PRN (12:49)
[2018-06-06] MEDS ORDERED: ZOLPIDEM TARTRATE 10 MG TABLET PO PRN (12:49)
[2018-06-06 13:33] VITALS: BMI 21.4
[2018-06-06] MEDS ORDERED: METFORMIN HCL 500 MG TAB PO SCH (17:00)
[2018-06-06] MEDS: METOPROLOL TAR 25 MG TAB PO SCH (17:59)
[2018-06-06] MEDS: FENTANYL CITR 100 MCG/2 ML IV PRN ×2 (17:59→21:45)
--- NOTE | 2018-06-06 18:15 | HP ---
Date of Admission: 06/06/2018 Reason For Admission: Severe leg pain. She needs narcotics to be able to handle it. She was scheduled for angiogram with runoffs to see if we could improve her peripheral vascular disea se, but it could not be done because of the pain and other consideration, so she is admitted to the [facility] and the plan is for her to do an abdominal angiogram with runoff, possible IRRIGATION SPECIALIST tomorrow. Ms. Perez has a history of aortobifem bypass some 15 years ago. Since then, she smokes heavily an d continues to smoke. Does not think she could ever stop smoking. Presently, if she takes a few jeanne ps, she is in a lot of pain, even standing hurts her left leg, even straightening her left leg hurts. When she walks, there is claudication. So we are here to do an angiogram. 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 Dr. Pop Choi is the one who did her aortobifem. She also has a history of metastatic lung cance r. Physical Examination: General: She is alert, oriented, pleasant, not in distress. She appears to be her stated age of 67 or older. She is 4 feet 11 inches, 107 pounds. Lungs: Clear. Heart: Reveals an S4 gallop. No significant murmur. Abdomen: Reveals multiple bruits, especially in the right femoral region. Distal pulses are absent. I do not feel any popliteal pulses or pulses distal to that. Impression: The patient will need abdominal angiogram with runoffs, some attempt at seeing if we can help her regarding her very severe other medical problems and wondering if she would be a candidate for repeat vascular surgery. ANNA/TELLO Voice ID: [id number]
[2018-06-06] MEDS ORDERED: ATORVASTATIN 40 MG TAB PO SCH (21:00)
[2018-06-07] MEDS: FENTANYL CITR 100 MCG/2 ML IV PRN ×3 (01:27→18:19)
[2018-06-07 03:28] LABS: Urine Appearance CLOUDY; Urine Bilirubin NEGATIVE (NEG); Urine Blood 1+ (NEG); Urine Color YELLOW; Urine Glucose NEGATIVE (NEG); Urine Protein 1+ (NEG); Urine Specific Gravity <=1.005 (1.005-1.030); Urine Urobilinogen 0.2 mg/dL (0.2-1.0); Urine pH 6.5 (5.0-7.0)
[2018-06-07 03:29] LABS: Urine Microscopic Reflex ORDER UMIC
[2018-06-07 04:44] LABS: Urine Bacteria >50 /HPF (<20); Urine Culture Reflex Order REFLEXED
[2018-06-07] MEDS: METOPROLOL TAR 25 MG TAB PO SCH ×2 (05:16→17:26)
[2018-06-07] MEDS ORDERED: HEPA 1000U/500MLS 2,000 UNIT/1,000 ML BAG IV ONE (07:19)
[2018-06-07] MEDS ORDERED: HEPARIN 5000 UNIT/ML 1 ML VIAL ONE (07:20)
[2018-06-07] MEDS ORDERED: NITROGLYCERIN 100 MCG/ML SYR (for cath lab use only) IV ONE (07:20)
[2018-06-07] MEDS ORDERED: NICARDIPINE HCL 25 MG/10 ML IV ONE (07:20)
[2018-06-07] MEDS ORDERED: ATROPINE SULF 1 MG/10 ML SYR IV ONE (07:20)
[2018-06-07] MEDS ORDERED: LIDOCAINE 1% MPF 30 ML VIAL ONE (07:20)
[2018-06-07] MEDS ORDERED: NITROGLYCERIN/D5W 0 MG/0 ML BTL IV ONE (07:21)
[2018-06-07] MEDS ORDERED: NA CHLORIDE 0.9% 0 ML ONE (07:21)
[2018-06-07] MEDS ORDERED: NA CHLORIDE 0.9% 500 ML ONE (08:11)
[2018-06-07] MEDS ORDERED: FENTANYL CITR 100 MCG/2 ML ONE ×2 (08:12→08:29)
[2018-06-07] MEDS ORDERED: MIDAZOLAM HCL 2 MG/2 ML INJ ONE ×2 (08:12→08:29)
[2018-06-07] MEDS ORDERED: HYDRALAZINE HCL 20 MG/ML VIAL ONE (08:27)
--- NOTE | 2018-06-07 08:28 | RAD REPORT ---
EXAM DESCRIPTION: MRI - Lumbar Spine Wo Con - 06/06/2018 10:37 pm CLINICAL HISTORY: Left leg radiculopathy COMPARISON: December 2017 cat scan TECHNIQUE: Sagittal T1, T2 and STIR weighted sequences were obtained. Axial T1 and T2 sequences were obtained through the lumbar disc levels. FINDINGS: L1-2, L2-3, L3-4 and L4-5 demonstrate no significant abnormality Small to moderate broad-based left paracentral disc herniation L5-S1 abuts the right and left S1 nerv e roots. Facet hypertrophy is present. Mild narrowing of the neural foramina bilaterally No significant abnormal signal within the bones IMPRESSION: Small to moderate broad-based left paracentral disc herniation L5-S1
[2018-06-07] MEDS ORDERED: ASPIRIN EC 81 MG TAB PO SCH (09:00)
[2018-06-07] MEDS ORDERED: LOSARTAN POTASSIUM 50 MG TABLET PO SCH (09:00)
[2018-06-07] MEDS ORDERED: ISOSORBIDE MONO SR 30 MG TAB PO SCH (09:00)
[2018-06-07] MEDS ORDERED: AMLODIPINE 2.5 MG TAB PO SCH (09:00)
[2018-06-07] MEDS ORDERED: SITAGLIPTIN PHOS 100 MG TAB PO SCH (09:00)
[2018-06-07] MEDS ORDERED: CLOPIDOGREL 75 MG TABLET PO SCH (09:00)
--- NOTE | 2018-06-07 09:21 | OP ---
Surgeon: Lucas Foster MD Procedure: Abdominal aortogram with runoffs. There was no opportunity to do any vascular interventi on. Procedure Findings: The patient has a modest left renal artery stenosis. 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 Her aorta and iliac are all synthetic graft material from an old aortobifemoral byp ass. The grafts on both sides extend down to the superficial femoral artery, and the left graft limb and [place] artery are both totally occluded. On the right, the graft is patent. It gives rise to a small superficial femoral that has diffuse disease proximally and then is totally occluded in its mi dsection. There is no opportunity for any kind of revascularization, surgical or otherwise. Procedure In Detail: The patient was brought to the cardiac laborer shellfish processing in a fasting state, sedated wit h Versed and fentanyl. Prepared and draped in usual sterile fashion. No left femoral pulse could be obtained. The right femoral pulse was strong. We were able to enter it with an 18-gauge needle, ca nnulated with a short J-wire to place a 4-Filipino sheath, and then we were able to advance of a 4-Fren ch straight pigtail into the descending aorta. We did one injection, and made all of our findings in addition to what is noted above. There was pseudoaneurysm or an aneurysmal anastomosis of the graft to the right superficial femoral. At the end of the procedure, the pigtail catheter was withdrawn o joey a wire. Sheath was flushed, removed, and arteriotomy closure was done using manual pressure. ANNA/TELLO Voice ID: [id number] Report ID: [id number]
[2018-06-07 17:28] VITALS: BP 160/60
[2018-06-07 17:35] VITALS: TEMP 97.8
[2018-06-07 18:17] VITALS: O2SAT 98
--- NOTE | 2018-06-08 07:14 | DS ---
Date of Discharge: 06/07/2018 Discharge Diagnoses: Severe peripheral arterial disease. Degenerative disk disease of the lumbosacr al spine and severe leg pain. Also, metastatic small cell carcinoma of the lung with pulmonary metas tases, chronic obstructive pulmonary disease, diabetes, hypertension, dyslipidemia, coronary heart di sease. Medications On Discharge: Identical to pre-admission medications. Procedures While In The Hospital: Abdominal angiogram with runoffs. No intervention or revasculariz ation procedure is possible. Her followup will be in [address] Cm and we plan to refer her to a pain specialist of her choice for chronic pain management. ANNA/TELLO Voice ID: [id number] Report ID: [id number]
== END 2018-06-07 18:35 | disposition home or self-care (01) ==
LOC: CCL 09:01 → 2ND 10:53 → INTOOBSV 10:53
PROVIDERS: ADMIT Internal Medicine; ATTEND Internal Medicine
PROC: B40DYZZ Plain Radiography of Aorta and Bilateral Lower Extremity Arteries using Other Contrast (ICD-10-PCS; principal; 2018-06-07)
PROC: B40DYZZ Plain Radiography of Aorta and Bilateral Lower Extremity Arteries using Other Contrast (ICD-10-PCS; 2018-06-07)
DX: I77.9 Disorder of arteries and arterioles, unspecified (principal); I73.9 Peripheral vascular disease, unspecified; M51.37 Other intervertebral disc degeneration, lumbosacral region; C34.90 Malignant neoplasm of unspecified part of unspecified bronchus or lung; J44.9 Chronic obstructive pulmonary disease, unspecified; E11.9 Type 2 diabetes mellitus without complications; I10 Essential (primary) hypertension; E78.5 Hyperlipidemia, unspecified; I25.10 Atherosclerotic heart disease of native coronary artery without angina pectoris
CPT/HCPCS: 36200; 36415; 71046; 72148; 75630; 80048; 81003; 81015; 82962; 85025; 85610; 85730; 87077; 87086; 87088; 87186; 93005; C1893; G0378; J0360; J0583; J1644; J2250; J3010

== ENCOUNTER 2018-09-18 10:25 | Inpatient (IN) | payer BC, OTHER ==
--- OUTSIDE RECORDS SUMMARY | 2018-09-18 10:31 | XMS REPORT | Clinical Summary ---
:1950 Author Organization [facility] Address [address] [place] [address] Care Team Providers Name Role Phone Lior Daniels MD Primary Care Provider Allergies No Known Allergies Medications Medication Sig Dispensed Refills Start End Date Status Date magnesium oxide 250 Take 133 mg by 0 Active mg magnesium tablet mouth 2 (two) times a day. losartan (COZAAR) Take 100 mg by 0 Active 100 MG tablet mouth nightly. fluticasone 1 spray by Each 0 Active (FLONASE) 50 Nare route 2 mcg/actuation nasal (two) times a spray day. metoprolol tartrate Take 25 mg by 0 Active (LOPRESSOR) 25 mg mouth daily. tablet sitaGLIPtin Take 100 mg by 0 Active (JANUVIA) 100 MG mouth daily. tablet folic acid Take 1 mg by 0 Active (FOLVITE) 1 MG mouth daily. tablet aspirin (ECOTRIN) Take 81 mg by 0 Active 81 MG enteric mouth daily. coated tablet albuterol (ACCUNEB) Take 2.5 mg by 0 Active 2.5 mg /3 mL (0.083 nebulization %) nebulizer every 6 (six) solution hours as needed for wheezing. montelukast Take 10 mg by 0 Active (SINGULAIR) 10 mg mouth nightly. tablet zolpidem (AMBIEN) Take 5 mg by 0 Active 10 mg tablet mouth nightly as needed for sleep. atorvastatin Take 40 mg by 0 Active (LIPITOR) 40 MG mouth nightly. tablet rivaroxaban Take 1 tablet 0 Active (XARELTO) 2.5 mg (2.5 mg total) 9 tablet tablet by mouth 2 (two) times a day. sodium chloride 1 Take 1 tablet (1 90 tablet 0 06/19/19 Active gram tablet g total) by 9 mouth 3 (three) times a day with meals. cholecalciferol, Take 2,000 Units 0 Active vitamin D3, by mouth daily. (VITAMIN D3) 2,000 unit capsule capsule isosorbide Take 30 mg by 0 06/20/19 Discontinued mononitrate (IMDUR) mouth nightly. 19 30 MG [address] 0.4 mg 0 07/15/19 Discontinued (NITROSTAT) 0.4 MG under the tongue 19 SL tablet every 5 (five) minutes as needed for chest pain. metFORMIN Take 500 mg by 0 06/20/19 Discontinued (GLUCOPHAGE) 500 mg mouth 2 (two) 19 tablet times a day with meals. HYDROcodone-acetami Take 1 tablet by 0 06/20/19 Discontinued nophen (NORCO) mouth every 6 19 5-325 mg per tablet (six) hours as needed for moderate pain. albuterol (PROAIR Inhale 2 puffs 0 06/20/19 Discontinued HFA,PROVENTIL every 6 (six) 19 HFA,VENTOLIN HFA) hours as needed 90 mcg/actuation for wheezing. inhaler isosorbide Take 1 tablet 30 tablet 0 07/15/19 Discontinued mononitrate (IMDUR) (60 mg total) by 12 13 60 MG 24 hr tablet mouth nightly. bisacodyl Insert 1 0 07/05/19 Discontinued (DULCOLAX) 10 mg suppository (10 19 suppository mg total) into the rectum daily as needed for constipation for up to 30 days. docusate sodium Take 1 capsule 60 capsule 0 07/05/19 Discontinued (COLACE) 100 MG (100 mg total) 9 capsule by mouth 2 (two) times a day for 30 days. gabapentin Take 2 capsules 180 capsule 0 07/15/19 Discontinued (NEURONTIN) 100 mg (200 mg total) 9 capsule by mouth 3 (three) times a day. polyethylene glycol Take 17 g by 30 packet 0 07/05/19 Discontinued (MIRALAX) 17 gram mouth daily for 9 19 packet 30 days. ondansetron ODT Take 1 tablet (4 0 07/20/19 (ZOFRAN-ODT) 4 MG mg total) by 12 13 disintegrating mouth every 8 tablet (eight) hours as needed for nausea or vomiting for up to 30 days. acetaminophen-codei Take 1 tablet by 0 07/20/19 ne (TYLENOL WITH mouth every 6 9 CODEINE #3) 300-30 (six) hours as mg per tablet needed for moderate pain for up to 30 days. acetaminophen Take 2 tablets 30 tablet 1 08/14/19 (TYLENOL) 325 MG (650 mg total) 9 19 tablet by mouth every 6 (six) hours as needed for fever (GREATER than 100.4) for up to 30 days. gabapentin Take 1 capsule 90 capsule 0 08/14/19 (NEURONTIN) 300 mg (300 mg total) 9 19 capsule by mouth 3 (three) times a day for 30 days. doxycycline Take 1 capsule 60 capsule 0 08/14/19 (VIBRAMYCIN) 100 MG (100 mg total) 9 19 capsule by mouth 2 (two) times a day with meals for 30 days. 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 Overview: Added automatically from request for surgery [id number] Ischemia of extremity 06/11/2018 Overview: Added automatically from request for surgery [id number] PVD (peripheral vascular disease) 06/11/2018 Encounters Date Type Specialty Care Team Description 09/01/19 Emergency Emergency Medicine Farida Rosas Pain in both lower extremities (Primary Dx); 19 MD Tim Generalized weakness; Leukocytosis, unspecified type 07/16/19 Intake Access N/A 19 07/11/19 Anesthesia Cardiothoracic Olivia Rollins 19 Event Surgery MD Bro 07/11/19 Surgery Cardiothoracic Tej, Zahra, RIGHT GROIN EXPLORATION, 19 Surgery RIGHT GROIN GRAFT EXCISION, RIGHT GROIN WOUND VAC PLACEMENT 07/05/19 Anesthesia Gastroenterology Luc, 19 Event Yosef Thompson MD 07/05/19 Surgery Gastroenterology Cade Delgado MD ESOPHAGOGASTRODUODENOSCOPY 19 (EGD) 07/04/19 [facility] Internal Eagle Martin Gastrointestinal hemorrhage with melena (Primary Dx); 19 - Encounter Medicine MD Flaco Symptomatic anemia; 07/15/19 Avery, Aneurysm of femoral artery (HCC); 19 MD Nani PVD (peripheral vascular disease) (HCC) Eagle Lopez MD 07/04/19 Telephone Cardiovascular Edith, 19 SUMA West 06/19/19 Telephone Cardiovascular Maxim, John Polanco RN 06/14/19 Surgery General Surgery LEFT ABOVE KNEE AMPUTATION , 19 GROIN EXPLORATION , OPEN THROMBECTOMY WITH PATCH ANGIOPLASTY , BILATERAL LEG ARTERIOGRAM 06/14/19 Anesthesia General Surgery Priscilla May 19 Event Santino, COMMERCIAL SHRIMPING CAPTAIN 06/13/19 Surgery Procedural Jay Left heart cath w lv gram 19 Cardiology MD Valentín cors [45019 (CPT)] 06/12/19 [facility] Avery, PVD (peripheral vascular disease) (HCC) (Primary Dx); 19 - Encounter Medicine Arben Thayer MD Atherosclerosis of [place] artery of left lower extremity with intermittent claudication (HCC); 06/20/19 Nathaniel Wynne, Ischemia of extremity 19 06/12/19 Office Visit Cardiovascular Luke Taylor PAD (peripheral artery disease) ([facility]) (Primary Dx); 19 MD Wendy Smoking; 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 06/12/19 Prep for Cardiovascular Maxim Atherosclerosis of [place] artery of left lower extremity with intermittent claudication (HCC) (Primary Dx) ; 19 Surgery Sherri, SUNDAR Ischemia of extremity 06/12/19 Orders Only Cardiovascular Maxim Atherosclerosis of [place] artery of left lower extremity with intermittent claudication (HCC) (Primary Dx) ; 19 SUNDAR Polanco Ischemia of extremity after 09/17/2017 Social History Tobacco Use Types Packs/Day Years Used Date Former Smoker 15 Quit: 06/14/2018 Smokeless Tobacco: Never Used Alcohol Use Drinks/Week oz/Week Comments Yes "Quit drinking 3 months ago" Alcohol Habits Answer Date Recorded How often [...] Vital Sign Reading Time Taken Blood Pressure 127/88 08/31/2018 2:13 PM CDT Pulse 92 08/31/2018 2:13 PM CDT Temperature 36.6 C (97.8 F) 08/31/2018 2:13 PM CDT Respiratory Rate 17 08/31/2018 2:13 PM CDT Oxygen Saturation 98% 08/31/2018 2:13 PM CDT Inhaled Oxygen Concentration - - Weight 47.2 kg (104 lb) 08/31/2018 2:13 PM CDT Height 149.9 cm (4' 11") 08/31/2018 2:13 PM CDT Body Mass Index 21.01 08/31/2018 2:13 PM CDT Plan of Treatment Health Maintenance Due Date Last Done Comments DIABETIC RETINAL EYE EXAM 1950 DIABETIC FOOT EXAM 10/31/1961 BREAST CANCER SCREENING 10/31/2001 COLONOSCOPY SCREENING 10/31/2001 SHINGLES VACCINES (#1) 10/31/2001 65+ PNEUMOCOCCAL VACCINE (1 of 2 - PCV13) 10/31/2016 INFLUENZA VACCINE 10/25/2018 01/15/2018 Implants Implanted Type Area State Archivist Device Shelf Model / Identifier Expiration Serial / Date Lot Patch Photofix Bovine Pericardium Sz 0.8cm X 8cm Tapred - Sx - [id number] Cardiovascular Left: [employer] 01/29/2020 [id number] / Implanted: Qty: 1 on 06/13/2018 by Luke Taylor MD Implants N/A X / [id number] Clip Ligtng Weck Hemoclip Plus W/ Tape Ti Sm Strngpnt - [id number] Medical Clips N/A: WECK CLOSURE [id number] / Implanted: 07/10/2018 (Quantity not on file) for Internal Use N/A SYSTEMS / Clip Ligtng Weck Hemoclip Plus W/ Tape Ti Sm Strngpnt - [id number] Medical Clips N/A: WECK CLOSURE [id number] / Implanted: 07/10/2018 (Quantity not on file) for Internal Use N/A SYSTEMS / Clip Ligtng Weck Hemoclip Plus W/ Tape Ti Lg - [id number] Medical Clips N/A: TELEFLEX [id number] / Implanted: 07/10/2018 (Quantity not on file) for Internal Use N/A MEDICAL / Clip Resolution 360 Mr Cndtl 235cm 2.8mm 11mm Opening - [id number] Surgical N /A: C ENDOSCOPY [id number] / Implanted: 07/04/2018 (Quantity not on file) Implants; N/A / Expanders; Extenders; Surgical Wires Gasquet Perph Vasclr Ptfe 1.2x10cm 1.65mm - [id number] Vascular Graft N/A: BARD 03/23/2023 [id number] / Implanted: 07/10/2018 (Quantity not on file) N/A PERIPHERAL / VASCULAR [id number] Graft Vasclr Propaten Thn-Wl Strtch Rmvbl Ringed [id number] 8mm - [id number] - [id number] Vascular Graft N/A: W L GORE 10/06/2021 [id number] / Implanted: Qty: 1 on 07/10/2018 by Zahra Burnham MD N/A [id number] / [id number] Port A Cath Chest Procedures Procedure Name Priority Date/Time Associated Comments Diagnosis B NATRIURETIC PEPTIDE STAT 08/31/2018 5:18 Results for this PM CDT procedure are in the results section. XR CHEST 1 VW PORTABLE STAT 08/31/2018 5:15 Results for this PM CDT procedure are in the results section. TROPONIN STAT 08/31/2018 3:25 Results for this PM CDT procedure are in the results section. ESTIMATED GFR STAT 08/31/2018 3:25 Results for this PM CDT procedure are in the results section. COMPREHENSIVE METABOLIC STAT 08/31/2018 3:25 Results for this PANEL PM CDT procedure are in the results section. PARTIAL THROMBOPLASTIN STAT 08/31/2018 3:25 Results for this TIME (PTT) PM CDT procedure are in the results section. PROTHROMBIN TIME WITH STAT 08/31/2018 3:25 Results for this INR PM CDT procedure are in the results section. HC COMPLETE BLD COUNT STAT 08/31/2018 3:25 Results for this W/AUTO DIFF PM CDT procedure are in the results section. ECG 12-LEAD STAT 08/31/2018 2:34 Results for this PM CDT procedure are in the results section. POC GLUCOSE Routine 07/14/2018 12:08 Results for this PM CDT procedure are in the results section. POC GLUCOSE Routine 07/14/2018 7:55 Results for this AM CDT procedure are in the results section. ESTIMATED GFR Routine 07/14/2018 5:00 Results for this AM CDT procedure are in the results section. COMPREHENSIVE METABOLIC Routine 07/14/2018 5:00 Results for this PANEL AM CDT procedure are in the results section. HC COMPLETE BLD COUNT Routine 07/14/2018 5:00 Results for this W/AUTO DIFF AM CDT procedure are in the results section. MAGNESIUM LEVEL Routine 07/14/2018 5:00 Results for this AM CDT procedure are in the results section. POC GLUCOSE Routine 07/13/2018 9:22 Results for this PM CDT procedure are in the results section. POC GLUCOSE Routine 07/13/2018 5:30 Results for this PM CDT procedure are in the results section. POC GLUCOSE Routine 07/13/2018 12:16 Results for this PM CDT procedure are in the results section. ECG 12-LEAD Routine 07/13/2018 10:16 Results for this AM CDT procedure are in the results section. POC GLUCOSE Routine 07/13/2018 8:10 Results for this AM CDT procedure are in the results section. HC COMPLETE BLD COUNT Routine 07/13/2018 4:28 Results for this W/AUTO DIFF AM CDT procedure are in the results section. ESTIMATED GFR Routine 07/13/2018 4:00 Results for this AM CDT procedure are in the results section. COMPREHENSIVE METABOLIC Routine 07/13/2018 4:00 Results for this PANEL AM CDT procedure are in the results section. POC GLUCOSE Routine 07/12/2018 11:11 Results for this PM CDT procedure are in the results section. HEMOGLOBIN & HEMATOCRIT Routine 07/12/2018 8:59 Results for this PM CDT procedure are in the results section. POC GLUCOSE Routine 07/12/2018 5:16 Results for this PM CDT procedure are in the results section. POC GLUCOSE Routine 07/12/2018 11:59 Results for this AM CDT procedure are in the results section. HEMOGLOBIN & HEMATOCRIT Routine 07/12/2018 11:20 Results for this AM CDT procedure are in the results section. PREPARE RBC Routine 07/12/2018 10:40 Results for this AM CDT procedure are in the results section. TYPE AND SCREEN Routine 07/12/2018 10:40 Results for this AM CDT procedure are in the results section. ECG 12-LEAD Routine 07/12/2018 9:50 Results for this AM CDT procedure are in the results section. SMEAR REVIEW Routine 07/12/2018 6:11 Results for this AM CDT procedure are in the results section. COMPREHENSIVE METABOLIC Routine 07/12/2018 6:11 Results for this PANEL AM CDT procedure are in the results section. HC COMPLETE BLD COUNT Routine 07/12/2018 6:11 Results for this W/AUTO DIFF AM CDT procedure are in the results section. ESTIMATED GFR Routine 07/12/2018 6:11 Results for this AM CDT procedure are in the results section. PHOSPHORUS LEVEL Routine 07/12/2018 6:11 Results for this AM CDT procedure are in the results section. IONIZED CALCIUM Routine 07/12/2018 6:11 Results for this AM CDT procedure are in the results section. MAGNESIUM LEVEL Routine 07/12/2018 6:11 Results for this AM CDT procedure are in the results section. POC GLUCOSE Routine 07/11/2018 9:51 Results for this PM CDT procedure are in the results section. POC GLUCOSE Routine 07/11/2018 5:04 Results for this PM CDT procedure are in the results section. POC GLUCOSE Routine 07/11/2018 11:46 Results for this AM CDT procedure are in the results section. POC GLUCOSE Routine 07/11/2018 7:25 Results for this AM CDT procedure are in the results section. XR CHEST 1 VW PORTABLE Routine 07/11/2018 6:47 Results for this AM CDT procedure are in the results section. POC GLUCOSE Routine 07/11/2018 4:49 Results for this AM CDT procedure are in the results section. ECG 12-LEAD Routine 07/11/2018 4:04 Results for this AM CDT procedure are in the results section. POC GLUCOSE Routine 07/11/2018 12:23 Results for this AM CDT procedure are in the results section. ESTIMATED GFR Routine 07/11/2018 12:07 Results for this AM CDT procedure are in the results section. SMEAR REVIEW Routine 07/11/2018 12:07 Results for this AM CDT procedure are in the results section. PARTIAL THROMBOPLASTIN Routine 07/11/2018 12:07 Results for this TIME (PTT) AM CDT procedure are in the results section. PROTHROMBIN TIME WITH Routine 07/11/2018 12:07 Results for this INR AM CDT procedure are in the results section. IONIZED CALCIUM Routine 07/11/2018 12:07 Results for this AM CDT procedure are in the results section. PHOSPHORUS LEVEL Routine 07/11/2018 12:07 Results for this AM CDT procedure are in the results section. MAGNESIUM LEVEL Routine 07/11/2018 12:07 Results for this AM CDT procedure are in the results section. BASIC METABOLIC PANEL Routine 07/11/2018 12:07 Results for this AM CDT procedure are in the results section. HC COMPLETE BLD COUNT Routine 07/11/2018 12:07 Results for this W/AUTO DIFF AM CDT procedure are in the results section. POC GLUCOSE Routine 07/10/2018 9:09 Results for this PM CDT procedure are in the results section. XR CHEST 1 VW PORTABLE STAT 07/10/2018 5:43 Results for this PM CDT procedure are in the results section. ECG 12-LEAD STAT 07/10/2018 5:10 Results for this PM CDT procedure are in the results section. POC GLUCOSE Routine 07/10/2018 5:05 Results for this PM CDT procedure are in the results section. SMEAR REVIEW Routine 07/10/2018 4:39 Results for this PM CDT procedure are in the results section. ESTIMATED GFR Routine 07/10/2018 4:39 Results for this PM CDT procedure are in the results section. PARTIAL THROMBOPLASTIN Routine 07/10/2018 4:39 Results for this TIME (PTT) PM CDT procedure are in the results section. PROTHROMBIN TIME WITH Routine 07/10/2018 4:39 Results for this INR PM CDT procedure are in the results section. PHOSPHORUS LEVEL Routine 07/10/2018 4:39 Results for this PM CDT procedure are in the results section. MAGNESIUM LEVEL Routine 07/10/2018 4:39 Results for this PM CDT procedure are in the results section. HC COMPLETE BLD COUNT Routine 07/10/2018 4:39 Results for this W/AUTO DIFF PM CDT procedure are in the results section. BASIC METABOLIC PANEL Routine 07/10/2018 4:39 Results for this PM CDT procedure are in the results section. IONIZED CALCIUM, Routine 07/10/2018 4:30 Results for this ARTERIAL PM CDT procedure are in the results section. ARTERIAL BLOOD GAS Routine 07/10/2018 4:30 Results for this PM CDT procedure are in the results section. GLUCOSE LEVEL, SYRINGE STAT 07/10/2018 3:03 Results for this PM CDT procedure are in the results section. IONIZED CALCIUM, STAT 07/10/2018 3:03 Results for this ARTERIAL PM CDT procedure are in the results section. HEMOGLOBIN, SYRINGE STAT 07/10/2018 3:03 Results for this PM CDT procedure are in the results section. POTASSIUM, SYRINGE STAT 07/10/2018 3:03 Results for this PM CDT procedure are in the results section. SODIUM LEVEL, SYRINGE STAT 07/10/2018 3:03 Results for this PM CDT procedure are in the results section. ARTERIAL BLOOD GAS, STAT 07/10/2018 3:03 Results for this CORRECTED PM CDT procedure are in the results section. ACTIVATED CLOTTING TIME Routine 07/10/2018 3:00 Results for this PM CDT procedure are in the results section. ACTIVATED CLOTTING TIME Routine 07/10/2018 2:51 Results for this PM CDT procedure are in the results section. ACTIVATED CLOTTING TIME Routine 07/10/2018 2:37 Results for this PM CDT procedure are in the results section. TISSUE CULTURE Timed 07/10/2018 2:31 Results for this PM CDT procedure are in the results section. AFB STAIN Timed 07/10/2018 2:31 Results for this PM CDT procedure are in the results section. AFB CULTURE Timed 07/10/2018 2:31 Results for this PM CDT procedure are in the results section. FUNGUS SMEAR Timed 07/10/2018 2:31 Results for this PM CDT procedure are in the results section. GRAM STAIN Timed 07/10/2018 2:31 Results for this PM CDT procedure are in the results section. FUNGUS CULTURE Timed 07/10/2018 2:31 Aneurysm of Results for this PM CDT femoral artery procedure are in (HCC) the results section. ANAEROBIC CULTURE Timed 07/10/2018 2:31 Aneurysm of Results for this PM CDT femoral artery procedure are in (HCC) the results section. FUNGUS SMEAR Timed 07/10/2018 2:29 Results for this PM CDT procedure are in the results section. FUNGUS CULTURE Timed 07/10/2018 2:29 Results for this PM CDT procedure are in the results section. ANAEROBIC CULTURE Timed 07/10/2018 2:29 Results for this PM CDT procedure are in the results section. AFB STAIN Timed 07/10/2018 2:29 Results for this PM CDT procedure are in the results section. GRAM STAIN Timed 07/10/2018 2:29 Results for this PM CDT procedure are in the results section. AFB CULTURE Timed 07/10/2018 2:29 Aneurysm of Results for this PM CDT femoral artery procedure are in (HCC) the results section. TISSUE CULTURE Timed 07/10/2018 2:29 Aneurysm of Results for this PM CDT femoral artery procedure are in (HCC) the results section. ACTIVATED CLOTTING TIME Routine 07/10/2018 2:25 Results for this PM CDT procedure are in the results section. TRANSFUSE RED BLOOD Routine 07/10/2018 1:40 CELLS PM CDT ARTERIAL BLOOD GAS, STAT 07/10/2018 1:25 Results for this CORRECTED PM CDT procedure are in the results section. SODIUM LEVEL, SYRINGE STAT 07/10/2018 1:25 Results for this PM CDT procedure are in the results section. POTASSIUM, SYRINGE STAT 07/10/2018 1:25 Results for this PM CDT procedure are in the results section. IONIZED CALCIUM, STAT 07/10/2018 1:25 Results for this ARTERIAL PM CDT procedure are in the results section. HEMOGLOBIN, SYRINGE STAT 07/10/2018 1:25 Results for this PM CDT procedure are in the results section. GLUCOSE LEVEL, SYRINGE STAT 07/10/2018 1:25 Results for this PM CDT procedure are in the results section. ACTIVATED CLOTTING TIME Routine 07/10/2018 1:10 Results for this PM CDT procedure are in the results section. ACTIVATED CLOTTING TIME Routine 07/10/2018 1:03 Results for this PM CDT procedure are in the results section. ACTIVATED CLOTTING TIME Routine 07/10/2018 12:57 Results for this PM CDT procedure are in the results section. ACTIVATED CLOTTING TIME Routine 07/10/2018 12:40 Results for this PM CDT procedure are in the results section. ACTIVATED CLOTTING TIME Routine 07/10/2018 12:35 Results for this PM CDT procedure are in the results section. ACTIVATED CLOTTING TIME Routine 07/10/2018 12:21 Results for this PM CDT procedure are in the results section. GLUCOSE LEVEL, SYRINGE STAT 07/10/2018 12:10 Results for this PM CDT procedure are in the results section. IONIZED CALCIUM, STAT 07/10/2018 12:10 Results for this ARTERIAL PM CDT procedure are in the results section. HEMOGLOBIN, SYRINGE STAT 07/10/2018 12:10 Results for this PM CDT procedure are in the results section. SODIUM LEVEL, SYRINGE STAT 07/10/2018 12:10 Results for this PM CDT procedure are in the results section. POTASSIUM, SYRINGE STAT 07/10/2018 12:10 Results for this PM CDT procedure are in the results section. ARTERIAL BLOOD GAS, STAT 07/10/2018 12:10 Results for this CORRECTED PM CDT procedure are in the results section. ARTERIAL LINE Routine 07/10/2018 10:56 AM CDT Procedure Note - Toni Lao CRNA - 07/10/2018 10:56 AM CDT Arterial line Performed by: Toni Lao CRNA Authorized by: Olivia Rollins MD Patient Location: OR Staff: Anesthesiologist: Olivia Rollins MD Performed by: Anesthesiologist Pre-procedure: patient identified, IV checked, site and side verified, risks and benefits discussed, procedure verified, surgical consent complete, patient position confirmed, monitors and equipment checked and pre-op evaluation complete MSBT: antiseptic used, all elements of maximal sterile barrier technique followed, hand hygiene performed, cap/gown used by other personnel and solutions labeled Indications: Indications: multiple ABGs and hemodynamic monitoring Anesthesia: Anesthesia: General Procedure Details: Arterial Line placement: Placed post induction Line placement site: Brachial Line placement side: Right Arterial line gauge: 20 G Number of attempts: 1 Ultrasound guidance used: Yes Post-procedure: Post-procedure: Sterile dressing applied Post procedure circulation, sensation, movement: Normal and unchanged Patient tolerance: Patient tolerated the procedure well with no immediate complications [place] AN ELECTIVE ENDOTRACHEAL AIRWAY Routine 07/10/2018 10:55 AM CDT Procedure Note - Toni Lao CRNA - 07/10/2018 10:55 AM CDT Airway Performed by: Toni Lao CRNA Authorized by: Olivia Rollins MD Location: OR Urgency: Elective Difficult Airway: No Anesthesiologist: Olivia Rollins MD Resident/COMMERCIAL SHRIMPING CAPTAIN/AA: Toni Lao CRNA Performed by: resident/COMMERCIAL SHRIMPING CAPTAIN/AA Preoxygenated with 100% O2: Yes C-spine Precautions Maintained Throughout: Yes Mask Ventilation: Easy mask Final Airway Type: Endotracheal airway Final Endotracheal Airway: ETT Cuffed: Yes Technique Used: Direct laryngoscopy Devices/Methods Used in Placement: Intubating stylet Blade Type: Dubose Laryngoscope Blade/Videolaryngoscope Blade Size: 2 ETT Size (mm): 7.0 Cuff at minimum occlusion pressure: Yes Measured from: Lips ETT to Lips (cm): 21 ETT to Teeth (cm): 21 Placement Verified by: CO2 detection, direct visualization and equal breath sounds Laryngoscopic view: Grade IIa - partial view of glottis Rapid Sequence Induction (RSI): No Modified RSI: No Number of Attempts at Approach: 1 Easy, atraumatic intubation ARTERIAL BLOOD GAS, CORRECTED STAT 07/10/2018 Results for 10:41 AM CDT this procedure are in the results section. SODIUM LEVEL, SYRINGE STAT 07/10/2018 Results for 10:41 AM CDT this procedure are in the results section. POTASSIUM, SYRINGE STAT 07/10/2018 Results for 10:41 AM CDT this procedure are in the results section. HEMOGLOBIN, SYRINGE STAT 07/10/2018 Results for 10:41 AM CDT this procedure are in the results section. GLUCOSE LEVEL, SYRINGE STAT 07/10/2018 Results for 10:41 AM CDT this procedure are in the results section. IONIZED CALCIUM, ARTERIAL STAT 07/10/2018 Results for 10:41 AM CDT this procedure are in the results section. ACTIVATED CLOTTING TIME Routine 07/10/2018 Results for 10:38 AM CDT this procedure are in the results section. GRAM STAIN Routine 07/10/2018 Results for 7:54 AM CDT this procedure are in the results section. URINE CULTURE Routine 07/10/2018 Results for 7:54 AM CDT this procedure are in the results section. POC GLUCOSE Routine 07/10/2018 Results for 7:29 AM CDT this procedure are in the results section. SMEAR REVIEW Routine 07/10/2018 Results for 5:12 AM CDT this procedure are in the results section. HC COMPLETE BLD COUNT W/AUTO Routine 07/10/2018 Results for DIFF 5:12 AM CDT this procedure are in the results section. URINALYSIS SCREEN AND Routine 07/10/2018 Results for MICROSCOPY, WITH REFLEX TO 5:02 AM CDT this CULTURE procedure are in the results section. ESTIMATED GFR Routine 07/10/2018 Results for 4:00 AM CDT this procedure are in the results section. COMPREHENSIVE METABOLIC PANEL Routine 07/10/2018 Results for 4:00 AM CDT this procedure are in the results section. POC GLUCOSE Routine 07/09/2018 Results for 8:51 PM CDT this procedure are in the results section. PROTHROMBIN TIME WITH INR Routine 07/09/2018 Results for 5:09 PM CDT this procedure are in the results section. PARTIAL THROMBOPLASTIN TIME Routine 07/09/2018 Results for (PTT) 5:09 PM CDT this procedure are in the results section. US HEPATIC Routine 07/09/2018 Results for 4:03 PM CDT this procedure are in the results section. POC GLUCOSE Routine 07/09/2018 Results for 2:59 PM CDT this procedure are in the results section. POC GLUCOSE Routine 07/09/2018 Results for 11:56 AM CDT this procedure are in the results section. OCCULT BLOOD, STOOL Routine 07/09/2018 Results for 8:50 AM CDT this procedure are in the results section. POC GLUCOSE Routine 07/09/2018 Results for 8:13 AM CDT this procedure are in the results section. SMEAR REVIEW Routine 07/09/2018 Results for 5:00 AM CDT this procedure are in the results section. HC COMPLETE BLD COUNT W/AUTO Routine 07/09/2018 Results for DIFF 5:00 AM CDT this procedure are in the results section. ESTIMATED GFR Routine 07/09/2018 Results for 4:00 AM CDT this procedure are in the results section. COMPREHENSIVE METABOLIC PANEL Routine 07/09/2018 Results for 4:00 AM CDT this procedure are in the results section. GRAM STAIN Routine 07/08/2018 Results for 9:04 PM CDT this procedure are in the results section. URINE CULTURE Routine 07/08/2018 Results for 9:04 PM CDT this procedure are in the results section. POC GLUCOSE Routine 07/08/2018 Results for 8:59 PM CDT this procedure are in the results section. CT ANGIOGRAM ABDOMINAL AORTA STAT 07/08/2018 Results for AND BILATERAL ILIOFEMORAL 8:08 PM CDT this RUNOFF W WO CONTRAST procedure are in the results section. URINALYSIS SCREEN AND Routine 07/08/2018 Results for MICROSCOPY, WITH REFLEX TO 6:57 PM CDT this CULTURE procedure are in the results section. POC GLUCOSE Routine 07/08/2018 Results for 4:30 PM CDT this procedure are in the results section. POC GLUCOSE Routine 07/08/2018 Results for 11:55 AM CDT this procedure are in the results section. US DUPLEX ARTERIAL LOWER STAT 07/08/2018 Results for EXTREMITY RIGHT 10:34 AM CDT this procedure are in the results section. POC GLUCOSE Routine 07/08/2018 Results for 8:13 AM CDT this procedure are in the results section. CT CHEST WO CONTRAST STAT 07/08/2018 Results for 7:38 AM CDT this procedure are in the results section. CBC WITH PLATELET AND Routine 07/08/2018 Results for DIFFERENTIAL 5:20 AM CDT this procedure are in the results section. ESTIMATED GFR Routine 07/08/2018 Results for 4:00 AM CDT this procedure are in the results section. COMPREHENSIVE METABOLIC PANEL Routine 07/08/2018 Results for 4:00 AM CDT this procedure are in the results section. TRANSFUSE RED BLOOD CELLS Routine 07/08/2018 1:09 AM CDT POC GLUCOSE Routine 07/08/2018 Results for 12:27 AM CDT this procedure are in the results section. POC GLUCOSE Routine 07/07/2018 Results for 10:01 PM CDT this procedure are in the results section. CT ABDOMEN PELVIS WO CONTRAST Routine 07/07/2018 Results for 7:18 PM CDT this procedure are in the results section. POC GLUCOSE Routine 07/07/2018 Results for 4:42 PM CDT this procedure are in the results section. TRANSFUSE RED BLOOD CELLS Routine 07/07/2018 3:19 PM CDT POC GLUCOSE Routine 07/07/2018 Results for 11:56 AM CDT this procedure are in the results section. PREPARE RBC Routine 07/07/2018 Results for 11:15 AM CDT this procedure are in the results section. PREPARE RBC Routine 07/07/2018 Results for 11:15 AM CDT this procedure are in the results section. TYPE AND SCREEN Routine 07/07/2018 Results for 11:15 AM CDT this procedure are in the results section. OCCULT BLOOD, STOOL Routine 07/07/2018 Results for 10:33 AM CDT this procedure are in the results section. POC GLUCOSE Routine 07/07/2018 Results for 8:10 AM CDT this procedure are in the results section. SMEAR REVIEW Routine 07/07/2018 Results for 5:49 AM CDT this procedure are in the results section. HC COMPLETE BLD COUNT W/AUTO Routine 07/07/2018 Results for DIFF 5:49 AM CDT this procedure are in the results section. POC GLUCOSE Routine 07/06/2018 Results for 10:09 PM CDT this procedure are in the results section. POC GLUCOSE Routine 07/06/2018 Results for 4:53 PM CDT this procedure are in the results section. POC GLUCOSE Routine 07/06/2018 Results for 11:54 AM CDT this procedure are in the results section. POC GLUCOSE Routine 07/06/2018 Results for 8:09 AM CDT this procedure are in the results section. ESTIMATED GFR Routine 07/06/2018 Results for 4:00 AM CDT this procedure are in the results section. COMPREHENSIVE METABOLIC PANEL Routine 07/06/2018 Results for 4:00 AM CDT this procedure are in the results section. SMEAR REVIEW Routine 07/06/2018 Results for 3:30 AM CDT this procedure are in the results section. HC COMPLETE BLD COUNT W/AUTO Routine 07/06/2018 Results for DIFF 3:30 AM CDT this procedure are in the results section. POC GLUCOSE Routine 07/05/2018 Results for 11:21 PM CDT this procedure are in the results section. POC GLUCOSE Routine 07/05/2018 Results for 5:29 PM CDT this procedure are in the results section. POC GLUCOSE Routine 07/05/2018 Results for 12:07 PM CDT this procedure are in the results section. HEMOGLOBIN & HEMATOCRIT Routine 07/05/2018 Results for 10:33 AM CDT this procedure are in the results section. POC GLUCOSE Routine 07/05/2018 Results for 8:45 AM CDT this procedure are in the results section. POC GLUCOSE Routine 07/05/2018 Results for 6:30 AM CDT this procedure are in the results section. SMEAR REVIEW Routine 07/05/2018 Results for 5:00 AM CDT this procedure are in the results section. CBC WITH PLATELET AND Routine 07/05/2018 Results for DIFFERENTIAL 5:00 AM CDT this procedure are in the results section. ESTIMATED GFR Routine 07/05/2018 Results for 4:00 AM CDT this procedure are in the results section. COMPREHENSIVE METABOLIC PANEL Routine 07/05/2018 Results for 4:00 AM CDT this procedure are in the results section. POC GLUCOSE Routine 07/05/2018 Results for 12:59 AM CDT this procedure are in the results section. POC GLUCOSE Routine 07/04/2018 Results for 9:31 PM CDT this procedure are in the results section. POC GLUCOSE Routine 07/04/2018 Results for 6:12 PM CDT this procedure are in the results section. POC GLUCOSE Routine 07/04/2018 Results for 1:57 PM CDT this procedure are in the results section. SURGICAL PATHOLOGY REQUEST Routine 07/04/2018 Results for 1:32 PM CDT this procedure are in the results section. POC GLUCOSE Routine 07/04/2018 Results for 12:59 PM CDT this procedure are in the results section. COLONOSCOPY 07/04/2018 Gastrointestinal 11:00 AM CDT hemorrhage with melena ESOPHAGOGASTRODUODENOSCOPY 07/04/2018 Gastrointestinal (EGD) 11:00 AM CDT hemorrhage with melena POC GLUCOSE Routine 07/04/2018 Results for 8:30 AM CDT this procedure are in the results section. POC GLUCOSE Routine 07/04/2018 Results for 5:09 AM CDT this procedure are in the results section. MANUAL DIFFERENTIAL Routine 07/04/2018 Results for 4:20 AM CDT this procedure are in the results section. CBC WITH PLATELET AND Routine 07/04/2018 Results for DIFFERENTIAL 4:20 AM CDT this procedure are in the results section. ESTIMATED GFR Routine 07/04/2018 Results for 4:00 AM CDT this procedure are in the results section. COMPREHENSIVE METABOLIC PANEL Routine 07/04/2018 Results for 4:00 AM CDT this procedure are in the results section. POC GLUCOSE Routine 07/04/2018 Results for 1:11 AM CDT this procedure are in the results section. POC GLUCOSE Routine 07/03/2018 Results for 9:06 PM CDT this procedure are in the results section. TRANSFUSE RED BLOOD CELLS STAT 07/03/2018 4:48 PM CDT TRANSFUSE RED BLOOD CELLS STAT 07/03/2018 4:31 PM CDT PREPARE RBC STAT 07/03/2018 Results for 12:07 PM CDT this procedure are in the results section. SMEAR REVIEW STAT 07/03/2018 Results for 12:07 PM CDT this procedure are in the results section. ESTIMATED GFR STAT 07/03/2018 Results for 12:07 PM CDT this procedure are in the results section. COMPREHENSIVE METABOLIC PANEL STAT 07/03/2018 Results for 12:07 PM CDT this procedure are in the results section. TYPE AND SCREEN STAT 07/03/2018 Results for 12:07 PM CDT this procedure are in the results section. PARTIAL THROMBOPLASTIN TIME STAT 07/03/2018 Results for (PTT) 12:07 PM CDT this procedure are in the results section. PROTHROMBIN TIME WITH INR STAT 07/03/2018 Results for 12:07 PM CDT this procedure are in the results section. HC COMPLETE BLD COUNT W/AUTO STAT 07/03/2018 Results for DIFF 12:07 PM CDT this procedure are in the results section. ECG 12-LEAD STAT 07/03/2018 Results for 11:49 AM CDT this procedure are in the results section. POC GLUCOSE Routine 06/19/2018 Results for 12:13 PM CDT this procedure are in the results section. POC GLUCOSE Routine 06/19/2018 Results for 7:54 AM CDT this procedure are in the results section. POC GLUCOSE Routine 06/18/2018 Results for 9:36 PM CDT this procedure are in the results section. POC GLUCOSE Routine 06/18/2018 Results for 4:55 PM CDT this procedure are in the results section. POC GLUCOSE Routine 06/18/2018 Results for 11:48 AM CDT this procedure are in the results section. ESTIMATED GFR Routine 06/18/2018 Results for 5:20 AM CDT this procedure are in the results section. MAGNESIUM LEVEL Routine 06/18/2018 Results for 5:20 AM CDT this procedure are in the results section. BASIC METABOLIC PANEL Routine 06/18/2018 Results for 5:20 AM CDT this procedure are in the results section. POC GLUCOSE Routine 06/17/2018 Results for 9:03 PM CDT this procedure are in the results section. POC GLUCOSE Routine 06/17/2018 Results for 4:39 PM CDT this procedure are in the results section. POC GLUCOSE Routine 06/17/2018 Results for 11:56 AM CDT this procedure are in the results section. POC GLUCOSE Routine 06/17/2018 Results for 7:39 AM CDT this procedure are in the results section. ESTIMATED GFR Routine 06/17/2018 Results for 4:55 AM CDT this procedure are in the results section. BASIC METABOLIC PANEL Routine 06/17/2018 Results for 4:55 AM CDT this procedure are in the results section. HC COMPLETE BLD COUNT W/AUTO Routine 06/17/2018 Results for DIFF 4:55 AM CDT this procedure are in the results section. POC GLUCOSE Routine 06/16/2018 Results for 9:23 PM CDT this procedure are in the results section. POC GLUCOSE Routine 06/16/2018 Results for 4:57 PM CDT this procedure are in the results section. POC GLUCOSE Routine 06/16/2018 Results for 12:56 PM CDT this procedure are in the results section. POC GLUCOSE Routine 06/16/2018 Results for 7:21 AM CDT this procedure are in the results section. ESTIMATED GFR Routine 06/16/2018 Results for 4:45 AM CDT this procedure are in the results section. BASIC METABOLIC PANEL Routine 06/16/2018 Results for 4:45 AM CDT this procedure are in the results section. HC COMPLETE BLD COUNT W/AUTO Routine 06/16/2018 Results for DIFF 4:45 AM CDT this procedure are in the results section. POC GLUCOSE Routine 06/15/2018 Results for 9:02 PM CDT this procedure are in the results section. POC GLUCOSE Routine 06/15/2018 Results for 5:12 PM CDT this procedure are in the results section. POC GLUCOSE Routine 06/15/2018 Results for 12:15 PM CDT this procedure are in the results section. POC GLUCOSE Routine 06/15/2018 Results for 7:28 AM CDT this procedure are in the results section. ESTIMATED GFR Timed 06/15/2018 Results for 6:00 AM CDT this procedure are in the results section. MAGNESIUM LEVEL Timed 06/15/2018 Results for 6:00 AM CDT this procedure are in the results section. BASIC METABOLIC PANEL Timed 06/15/2018 Results for 6:00 AM CDT this procedure are in the results section. HEPARIN PF4 ANTIBODY (IGG) STAT 06/15/2018 Results for 4:48 AM CDT this procedure are in the results section. ESTIMATED GFR Routine 06/15/2018 Results for 2:35 AM CDT this procedure are in the results section. ANTI XA, UNFRACTIONATED Routine 06/15/2018 Results for 2:35 AM CDT this procedure are in the results section. MAGNESIUM LEVEL Routine 06/15/2018 Results for 2:35 AM CDT this procedure are in the results section. COMPREHENSIVE METABOLIC PANEL Routine 06/15/2018 Results for 2:35 AM CDT this procedure are in the results section. HC COMPLETE BLD COUNT W/AUTO Routine 06/15/2018 Results for DIFF 2:35 AM CDT this procedure are in the results section. POC GLUCOSE Routine 06/14/2018 Results for 9:57 PM CDT this procedure are in the results section. ANTI XA, UNFRACTIONATED Routine 06/14/2018 Results for 6:00 PM CDT this procedure are in the results section. POC GLUCOSE Routine 06/14/2018 Results for 4:48 PM CDT this procedure are in the results section. POC GLUCOSE Routine 06/14/2018 Results for 11:53 AM CDT this procedure are in the results section. POC GLUCOSE Routine 06/14/2018 Results for 7:24 AM CDT this procedure are in the results section. MAGNESIUM LEVEL Routine 06/14/2018 Results for 4:15 AM CDT this procedure are in the results section. ESTIMATED GFR Routine 06/14/2018 Results for 4:15 AM CDT this procedure are in the results section. BASIC METABOLIC PANEL Routine 06/14/2018 Results for 4:15 AM CDT this procedure are in the results section. HC COMPLETE BLD COUNT W/AUTO Routine 06/14/2018 Results for DIFF 4:15 AM CDT this procedure are in the results section. PROTHROMBIN TIME WITH INR Routine 06/14/2018 Results for 4:15 AM CDT this procedure are in the results section. PARTIAL THROMBOPLASTIN TIME Routine 06/14/2018 Results for (PTT) 4:15 AM CDT this procedure are in the results section. PHOSPHORUS LEVEL Routine 06/14/2018 Results for 4:12 AM CDT this procedure are in the results section. IONIZED CALCIUM Routine 06/14/2018 Results for 4:12 AM CDT this procedure are in the results section. POC GLUCOSE Routine 06/14/2018 Results for 12:59 AM CDT this procedure are in the results section. ESTIMATED GFR Routine 06/13/2018 Results for 8:06 PM CDT this procedure are in the results section. BASIC METABOLIC PANEL Routine 06/13/2018 Results for 8:06 PM CDT this procedure are in the results section. PROTHROMBIN TIME WITH INR Routine 06/13/2018 Results for 8:06 PM CDT this procedure are in the results section. PARTIAL THROMBOPLASTIN TIME Routine 06/13/2018 Results for (PTT) 8:06 PM CDT this procedure are in the results section. HC COMPLETE BLD COUNT W/AUTO Routine 06/13/2018 Results for DIFF 8:06 PM CDT this procedure are in the results section. ARTERIAL BLOOD GAS Routine 06/13/2018 Results for 8:06 PM CDT this procedure are in the results section. PHOSPHORUS LEVEL STAT 06/13/2018 Results for 8:06 PM CDT this procedure are in the results section. MAGNESIUM LEVEL STAT 06/13/2018 Results for 8:06 PM CDT this procedure are in the results section. OR FL < 1 HOUR Routine 06/13/2018 Results for 7:22 PM CDT this procedure are in the results section. HEMOGLOBIN, SYRINGE Routine 06/13/2018 Results for 6:52 PM CDT this procedure are in the results section. IONIZED CALCIUM, ARTERIAL Routine 06/13/2018 Results for 6:52 PM CDT this procedure are in the results section. MAGNESIUM LEVEL Routine 06/13/2018 Results for 6:52 PM CDT this procedure are in the results section. POTASSIUM, SYRINGE Routine 06/13/2018 Results for 6:52 PM CDT this procedure are in the results section. SODIUM LEVEL, SYRINGE Routine 06/13/2018 Results for 6:52 PM CDT this procedure are in the results section. GLUCOSE LEVEL, SYRINGE Routine 06/13/2018 Results for 6:52 PM CDT this procedure are in the results section. ARTERIAL BLOOD GAS, CORRECTED Routine 06/13/2018 Results for 6:52 PM CDT this procedure are in the results section. MAGNESIUM LEVEL Routine 06/13/2018 Results for 6:02 PM CDT this procedure are in the results section. IONIZED CALCIUM, ARTERIAL Routine 06/13/2018 Results for 6:02 PM CDT this procedure are in the results section. GLUCOSE LEVEL, SYRINGE Routine 06/13/2018 Results for 6:02 PM CDT this procedure are in the results section. HEMOGLOBIN, SYRINGE Routine 06/13/2018 Results for 6:02 PM CDT this procedure are in the results section. POTASSIUM, SYRINGE Routine 06/13/2018 Results for 6:02 PM CDT this procedure are in the results section. SODIUM LEVEL, SYRINGE Routine 06/13/2018 Results for 6:02 PM CDT this procedure are in the results section. ARTERIAL BLOOD GAS, CORRECTED Routine 06/13/2018 Results for 6:02 PM CDT this procedure are in the results section. ACTIVATED CLOTTING TIME Routine 06/13/2018 Results for 5:48 PM CDT this procedure are in the results section. TRANSFUSE RED BLOOD CELLS Routine 06/13/2018 5:39 PM CDT TRANSFUSE RED BLOOD CELLS Routine 06/13/2018 5:24 PM CDT GLUCOSE LEVEL, SYRINGE Routine 06/13/2018 Results for 4:24 PM CDT this procedure are in the results section. MAGNESIUM LEVEL Routine 06/13/2018 Results for 4:24 PM CDT this procedure are in the results section. IONIZED CALCIUM, ARTERIAL Routine 06/13/2018 Results for 4:24 PM CDT this procedure are in the results section. HEMOGLOBIN, SYRINGE Routine 06/13/2018 Results for 4:24 PM CDT this procedure are in the results section. POTASSIUM, SYRINGE Routine 06/13/2018 Results for 4:24 PM CDT this procedure are in the results section. SODIUM LEVEL, SYRINGE Routine 06/13/2018 Results for 4:24 PM CDT this procedure are in the results section. ARTERIAL BLOOD GAS, CORRECTED Routine 06/13/2018 Results for 4:24 PM CDT this procedure are in the results section. CENTRAL LINE Routine 06/13/2018 3:21 PM CDT Procedure Note - Prakash Reese MD - 06/13/2018 3:21 PM CDT Central line Performed by: Prakash Reese MD Authorized by: Prakash Reese MD Patient Location: OR Start Time: 06/13/2018 3:00 PM End Time: 06/13/2018 3:01 PM Staff: Anesthesiologist: Prakash Reese MD Performed by: Anesthesiologist Preprocedure:patient identified, IV checked, site and side verified, risks and benefits discussed, procedure verified, surgical consent complete, patient position confirmed, monitors and equipment checked and pre-op evaluation complete MSBT: antiseptic used during central venous catheter insertion, all elements of maximal sterile barrier technique followed, hand hygiene performed prior to central venous catheter insertion, cap/gown used by other personnel during central venous catheter insertion, solutions labeled and all ports not used during insertion clamped TIme Out Performed: 06/13/2018 2:10 PM Indications: Indications: Central pressure monitoring and vascular access Anesthesia: Anesthesia: General Procedure details: Patient position: Supine Catheter Type: Double lumen Catheter Size: 8 Fr Catheter Site: internal jugular vein Catheter site laterality: Left Pre-procedure: Landmarks identified Ultrasound guidance used: Yes Ultrasound image saved: Yes Pressure transduced: Pressure transduced prior to dilator Number of attempts: 1 Successful placement: Yes Guidewire removal: Guidewire removal is confirmed Guidewire removal witnessed by: Priscilla May CRNA Post-procedure: Post-procedure: line sutured, sterile dressing applied per protocol and ports flushed with saline Post-procedure: Sterile caps on all hubs and blood cleaned with CHG Assessment: Blood return through all ports and free fluid flow Patient tolerance: Patient tolerated the procedure well with no immediate complications ARTERIAL LINE Routine 06/13/2018 3:17 PM CDT Procedure Note - Prakash Reese MD - 06/13/2018 3:17 PM CDT Arterial line Performed by: Prakash Reese MD Authorized by: Prakash Reese MD Patient Location: OR Start Time: 06/13/2018 2:10 PM End Time: 06/13/2018 2:13 PM Staff: Anesthesiologist: Prakash Reese MD Resident/JAY/AA: Priscilla May CRNA Performed by: Resident/JAY/AA Pre-procedure: patient identified, IV checked, site and side verified, risks and benefits discussed, procedure verified, surgical consent complete, patient position confirmed, monitors and equipment checked and pre-op evaluation complete MSBT: antiseptic used, all elements of maximal sterile barrier technique followed, hand hygiene performed, cap/gown used by other personnel and solutions labeled TIme Out Performed: 06/13/2018 2:10 PM Indications: Indications: hemodynamic monitoring Anesthesia: Anesthesia: Local infiltration Procedure Details: Arterial Line placement: Placed pre-induction Line placement site: Radial Line placement side: Left Arterial line gauge: 20 G Number of attempts: 2 Ultrasound guidance used: No Post-procedure: Post-procedure: Sterile dressing applied Post procedure circulation, sensation, movement: Normal and unchanged Patient tolerance: Patient tolerated the procedure well with no immediate complications MN AN ELECTIVE ENDOTRACHEAL AIRWAY Routine 06/13/2018 3:16 PM CDT Procedure Note - Prakash Reese MD - 06/13/2018 3:16 PM CDT Airway Date/Time: 06/13/2018 2:40 PM Performed by: Prakash Reese MD Authorized by: Prakash Reese MD Location: OR Urgency: Elective Difficult Airway: No Anesthesiologist: Prakash Reese MD Resident/COMMERCIAL SHRIMPING CAPTAIN/AA: Priscilla May CRNA Performed by: resident/COMMERCIAL SHRIMPING CAPTAIN/AA Preoxygenated with 100% O2: Yes C-spine Precautions Maintained Throughout: Yes Mask Ventilation: Easy mask Final Airway Type: Endotracheal airway Final Endotracheal Airway: ETT Cuffed: Yes Technique Used: Direct laryngoscopy Devices/Methods Used in Placement: Intubating stylet Insertion Site: Oral Blade Type: Dubose Laryngoscope Blade/Videolaryngoscope Blade Size: 2 ETT Size (mm): 7.0 Cuff at minimum occlusion pressure: Yes Measured from: Lips ETT to Lips (cm): 21 Placement Verified by: CO2 detection and direct visualization Laryngoscopic view: Grade IIa - partial view of glottis Rapid Sequence Induction (RSI): No Modified RSI: No Number of Attempts at Approach: 1 Placed LMA succesfullly then decided to use ETT since the case with be long in duration. MAGNESIUM LEVEL Routine 06/13/2018 2:55 PM CDT GLUCOSE LEVEL, SYRINGE Routine 06/13/2018 2:55 PM CDT HEMOGLOBIN, SYRINGE Routine 06/13/2018 2:55 PM CDT IONIZED CALCIUM, ARTERIAL Routine 06/13/2018 2:55 PM CDT POTASSIUM, SYRINGE Routine 06/13/2018 2:55 PM CDT SODIUM LEVEL, SYRINGE Routine 06/13/2018 2:55 PM CDT ARTERIAL BLOOD GAS, Routine 06/13/2018 2:55 PM CDT Results for this CORRECTED procedure are in the results section. ACTIVATED CLOTTING TIME Routine 06/13/2018 2:53 PM CDT POC GLUCOSE Routine 06/13/2018 11:31 AM CDT ESTIMATED GFR Timed 06/13/2018 9:37 AM CDT ANTI XA, UNFRACTIONATED Routine 06/13/2018 9:37 AM CDT MAGNESIUM LEVEL Timed 06/13/2018 9:37 AM CDT BASIC METABOLIC PANEL Timed 06/13/2018 9:37 AM CDT SURGICAL PATHOLOGY REQUEST Routine 06/13/2018 8:25 AM CDT POC GLUCOSE Routine 06/13/2018 7:38 AM CDT XR CHEST 1 VW PORTABLE STAT 06/13/2018 7:00 AM CDT US DUPLEX ARTERIAL LOWER Routine 06/13/2018 12:19 AM CDT Results for this EXTREMITY BILATERAL procedure are in the results section. MAGNESIUM LEVEL Timed 06/13/2018 12:00 AM CDT ESTIMATED GFR Timed 06/13/2018 12:00 AM CDT HC COMPLETE BLD COUNT W/AUTO Routine 06/13/2018 12:00 AM CDT Results for this DIFF procedure are in the results section. BASIC METABOLIC PANEL Timed 06/13/2018 12:00 AM CDT ANTI XA, UNFRACTIONATED STAT 06/12/2018 11:30 PM CDT POC GLUCOSE Routine 06/12/2018 8:50 PM CDT AORTAGRAM ABDOMEN WITH RUN Routine 06/12/2018 4:49 PM CDT Results for this OFF procedure are in the results section. CV LEFT HEART CATH LV GRAM Routine 06/12/2018 4:49 PM CDT Results for this WITH CORS procedure are in the results section. OSMOLALITY, URINE Routine 06/12/2018 12:43 PM CDT SODIUM LEVEL, URINE, RANDOM Routine 06/12/2018 12:43 PM CDT ECHOCARDIOGRAM 2D COMPLETE W Routine 06/12/2018 12:36 PM CDT Results for this MMODE SPECTRAL COLOR DOPPLER procedure are in the ([id number]) results section. ESTIMATED GFR Routine 06/12/2018 11:35 AM CDT BASIC METABOLIC PANEL Routine 06/12/2018 11:35 AM CDT ANTI XA, UNFRACTIONATED Routine 06/12/2018 11:35 AM CDT SODIUM LEVEL Routine 06/12/2018 11:35 AM CDT OSMOLALITY, SERUM Routine 06/12/2018 11:35 AM CDT POC GLUCOSE Routine 06/12/2018 11:15 AM CDT POC GLUCOSE Routine 06/12/2018 7:39 AM CDT ECG PRE/POST OP Routine 06/12/2018 6:45 AM CDT PREPARE RBC Routine 06/12/2018 3:15 AM CDT TYPE AND SCREEN Routine 06/12/2018 3:15 AM CDT ESTIMATED GFR Routine 06/12/2018 3:15 AM CDT ANTI XA, UNFRACTIONATED Routine 06/12/2018 3:15 AM CDT MAGNESIUM LEVEL Routine 06/12/2018 3:15 AM CDT BASIC METABOLIC PANEL Routine 06/12/2018 3:15 AM CDT HC COMPLETE BLD COUNT W/AUTO Routine 06/12/2018 3:15 AM CDT Results for this DIFF procedure are in the results section. URINE CULTURE Routine 06/12/2018 1:42 AM CDT GRAM STAIN Routine 06/12/2018 1:42 AM CDT OSMOLALITY, URINE Routine 06/12/2018 1:00 AM CDT SODIUM LEVEL, URINE, RANDOM Routine 06/12/2018 1:00 AM CDT URINALYSIS SCREEN AND Routine 06/12/2018 1:00 AM CDT Results for this MICROSCOPY, WITH REFLEX TO procedure are in the CULTURE results section. OCCULT BLOOD, STOOL Routine 06/11/2018 11:20 PM CDT POC GLUCOSE Routine 06/11/2018 8:46 PM CDT TROPONIN Routine 06/11/2018 6:53 PM CDT ESTIMATED GFR Routine 06/11/2018 6:53 PM CDT MAGNESIUM LEVEL Routine 06/11/2018 6:53 PM CDT COMPREHENSIVE METABOLIC Routine 06/11/2018 6:53 PM CDT Results for this PANEL procedure are in the results section. PARTIAL THROMBOPLASTIN TIME Routine 06/11/2018 6:53 PM CDT Results for this (PTT) procedure are in the results section. PROTHROMBIN TIME WITH INR Routine 06/11/2018 6:53 PM CDT HC COMPLETE BLD COUNT W/AUTO Routine 06/11/2018 6:53 PM CDT Results for this DIFF procedure are in the results section. ANTI XA, UNFRACTIONATED STAT 06/11/2018 6:50 PM CDT POC GLUCOSE Routine 06/11/2018 4:53 PM CDT after 09/17/2017 Results B natriuretic peptide (08/31/2018 5:18 PM CDT) BNP 207 (H) 0 - 100 pg/mL [facility] Specimen Performing Organization Address City/State/Zipcode Phone Number [facility] DEPARTMENT OF PATHOLOGY AND [address] [place] [address] GENOMIC MEDICINE [facility] [address] [place] [address] XR Chest 1 Vw Portable (08/31/2018 5:15 PM CDT)Only the most recent of4 resultswithin the time period is included. Specimen Narrative Performed At EXAMINATION:XR CHEST 1 VW PORTABLE RADIANT CLINICAL HISTORY: sob COMPARISON:07/11/2018 IMPRESSION: Cardiomediastinal silhouette stable with bilateral hilar mass irregular parenchymal consolidation. Mild diffuse interstitial prominence and emphysematous change, similar to prior study. No new infiltrate noted. There is no pneumothorax or significant effusion. A right jugular chest port extends to SVC. Bones are mildly demineralized. [facility] Procedure Note Hm Interface, Radiology Results Incoming - 08/31/2018 5:24 PM CDT EXAMINATION: XR CHEST 1 VW PORTABLE CLINICAL HISTORY: sob COMPARISON: 07/11/2018 IMPRESSION: Cardiomediastinal silhouette stable with bilateral hilar mass irregular parenchymal consolidation. Mild diffuse interstitial prominence and emphysematous change, similar to prior study. No new infiltrate noted. There is no pneumothorax or significant effusion. A right jugular chest port extends to SVC. Bones are mildly demineralized. [facility] Performing Organization Address City/[facility] Phone Number [facility] [address] [place] [phone] Estimated GFR (08/31/2018 3:25 PM CDT)Only the most recent of25 resultswithin the time period is included. Pathologist [facility] Estimated GFR >=90 mL/min/1.73 [facility] Comment: [address] CatergoryUnitsInterpretation G1 >=90 Normal or high G2 60-89Mildly decreased [id number] to moderately decreased [id number] to severely decreased G4 15-29Severely decreased G5 <15Kidney failure The eGFR was calculated using the Chronic Kidney Disease Epidemiology Collaboration (CKD-EPI) equation. Interpretation is based on recommendations of the National Kidney Foundation-Kidney Disease Outcomes Quality Initiative (NKF-KDOQI) published in 2014. Specimen Plasma specimen Performing Organization Address City/[facility]/Zipcode Phone Number [facility] DEPARTMENT OF PATHOLOGY AND [address] [place] [address] GEN[address] [address] Troponin (08/31/2018 3:25 PM CDT)Only the most recent of2 resultswithin the time period is included. Pathologist [facility] Troponin 0.017 0.000 - 0.040 [facility] Comment: ng/mL [facility] changed methodology effective: 07/31/2018 at 10:00 am The new method has a 99th percentile cutoff of 0.040 ng/mL Specimen Plasma specimen Performing Organization Address City/[facility] Phone Number [facility] DEPARTMENT OF PATHOLOGY AND [address] [place] [phone] [place] [address] Partial thromboplastin time, activated (08/31/2018 3:25 PM CDT)Only the most recent of8 resultswithin the time period is included. Pathologist [facility] PTT 34.9 23.0 - 36.0 [facility] Comment: [facility] PTT therapeutic range for unfractionated heparin is 61.0-112.0 seconds which corresponds to Anti-Xa 0.3-0.7 U/ml. Specimen Blood Performing Organization Address [facility] Phone Number [facility] DEPARTMENT OF PATHOLOGY AND [address] [place] [address] Prothrombin time with INR (08/31/2018 3:25 PM CDT)Only the most recent of8 resultswithin the time period is included. [facility] Prothrombin time 14.0 11.5 - 14.5 [facility] INR 1.1 [facility] Comment: YAZDANISM [facility] International Normalized Ratio (INR) is a therapeutic HOSPITAL monitoring tool for patients who are stable on oral anticoagulant therapy. An INR of 2.0-3.0 is suggested for deep vein thrombosis/pulmonary embolism. Specimen Blood Performing Organization Address [facility] Phone Number [facility] DEPARTMENT OF PATHOLOGY AND [address] [place] [phone] [place] [phone] CBC with platelet and differential (08/31/2018 3:25 PM CDT)Only the most recent of22 resultswithin the time period is included. Pathologist [facility] WBC 12.34 (H) 4.50 - 11.00 [facility] RBC 3.31 (L) 4.20 - 5.50 [facility] HGB 10.9 (L) 12.0 - 16.0 [facility] g/dL [facility] HCT 34.1 (L) 37.0 - 47.0 % [facility] MCV 103.0 (H) 82.0 - 100.0 [facility] MCH 32.9 27.0 - 34.0 pg [facility] MCHC 32.0 31.0 - 37.0 [facility] g/dL HOSPITAL RDW - SD 55.8 (H) 37.0 - 55.0 fL [facility] MPV 10.5 8.8 - 13.2 fL [facility] Platelet count 262 150 - 400 k/uL [facility] Nucleated RBC 0.00 /100 WBC [facility] Neutrophils 91.6 (H) 39.0 - 69.0 % [facility] Lymphocytes 3.0 (L) 25.0 - 45.0 % [facility] Monocytes 4.2 0.0 - 10.0 % [facility] Eosinophils 0.2 0.0 - 5.0 % [facility] Basophils 0.4 0.0 - 1.0 % [facility] Immature granulocytes 0.6Comment: 0.0 - 1.0 % [facility] "[facility] granulocytes" (promyelocytes , myelocytes, metamyelocytes ) Specimen Blood Performing Organization Address City/State/Zipcode Phone Number [facility] DEPARTMENT OF PATHOLOGY AND [address] [place] [address] GENOMIC MEDICINE [address] [address] Comprehensive metabolic panel (08/31/2018 3:25 PM CDT)Only the most recent of13 resultswithin the time period is included. Sodium 130 (L) 135 - 148 [facility] mEq/L [facility] Potassium 3.7 3.5 - 5.0 [facility] mEq/L [facility] Chloride 93 (L) 98 - 112 mEq/L [facility] CO2 20 (L) 24 - 31 mEq/L [facility] Anion gap 17@ANIO (H) 7 - 15 mEq/L [facility] BUN 12 8 - 23 mg/dL [facility] Creatinine 0.63 0.50 - 0.90 [facility] mg/dL HOSPITAL Glucose 244 (H) 65 - 99 mg/dL [facility] Calcium 9.2 8.8 - 10.2 [facility] mg/dL [facility] Protein 7.5 6.3 - 8.3 g/dL [facility] Comment: HOSPITAL Sneads 4.6-7.0 g/dL 1 week 4.4-7.6 g/dL 7 months-1year5.1-7.3 g/dL 1-2 years5.6-7.5 g/dL >3 years6.0-8.0 g/dL 18-150 6.3-8.3 g/dL Albumin 3.0 (L) 3.5 - 5.0 g/dL [facility] A/G ratio 0.7 0.7 - 3.8 [facility] Alkaline phosphatase 105 (H) 35 - 104 U/L [facility] AST 19 10 - 35 U/L [facility] ALT 9 5 - 50 U/L [facility] Total bilirubin 0.3 0.0 - 1.2 [facility] mg/dL HOSPITAL Specimen Plasma specimen Performing Organization Address City/[facility] Phone Number [facility] DEPARTMENT OF PATHOLOGY AND [address] [place] [address] GEN[address] MED[address] [address] ECG 12 lead (08/31/2018 2:34 PM CDT)Only the most recent of6 resultswithin the time period is included. Ventricular rate 91 [facility] Atrial rate 91 [facility] MN interval 170 [facility] QRSD interval 152 [facility] QT interval 400 [facility] QTC interval 492 [facility] P axis 1 80 [facility] QRS axis 1 5 [facility] T wave axis 36 [facility] EKG impression Normal sinus rhythm-Right bundle branch block-Abnormal ECG-In automated comparison with ECG of 13-JUL-2018 10:16,-Criteria for Septal infarct are no longer present-T wave inversion more evident in Anterior leads- Specimen Narrative Performed At Performing Organization Address City/[facility] Phone Number [facility] MUSE [address] [place] [address] POC glucose (07/14/2018 12:08 PM CDT)Only the most recent of78 resultswithin the time period is included. POC glucose 133 (H) 65 - 99 mg/dL [facility] Comment: HOSPITAL COUNT INCLUDES THE [facility] Notified RN Meter ID: [id number] Jet Engine Mechanic: Miah Soto Specimen Performing Organization Address City/State/Zipcode Phone Number [facility] DEPARTMENT OF PATHOLOGY AND [address] [place] [phone] [address] Magnesium level (07/14/2018 5:00 AM CDT)Only the most recent of17 resultswithin the time period is included. Magnesium 1.4 (L) 1.6 - 2.4 mg/dL [facility] Specimen Plasma specimen Performing Organization Address City/[facility] Phone Number [facility] DEPARTMENT OF PATHOLOGY AND [address] [place] [phone] [address] Hemoglobin & hematocrit (07/12/2018 8:59 PM CDT)Only the most recent of3 resultswithin the time period is included. HGB 9.6 (L) 12.0 - 16.0 g/dL [facility] HCT 29.2 (L) 37.0 - 47.0 % [facility] Specimen Performing Organization Address [facility] Phone Number [facility] DEPARTMENT OF PATHOLOGY AND [address] [place] [phone] [place] [phone] Prepare RBC, 2 Units (07/12/2018 10:40 AM CDT)Only the most recent of5 resultswithin the time period is included. Product name Red Blood Cells [facility] -[facility], [facility] Unit number [id number] [facility] Product code [id number] [facility] Dispense status Transfused [facility] Blood expiration [facility] Blood type code 5100 [facility] Blood type O POSITIVE [facility] Product name Red Blood Cells [facility] 1, [facility] Unit number [id number] [facility] Product code [id number] [facility] Dispense status Transfused [facility] Blood expiration [id number] [facility] Blood type code 5100 [facility] Blood type O POSITIVE [facility] Specimen Blood Performing Organization Address City/[facility] Phone Number [facility] DEPARTMENT OF PATHOLOGY AND [address] [place], [place] [phone] [place] [phone] Type and screen (07/12/2018 10:40 AM CDT)Only the most recent of4 resultswithin the time period is included. ABO grouping O [facility] Rh type POS [facility] Antibody screen (gel) NEG [facility] Specimen Blood Performing Organization Address [facility] Phone Number [facility] DEPARTMENT OF PATHOLOGY AND [address] [place] [address] Smear review (07/12/2018 6:11 AM CDT)Only the most recent of9 resultswithin the time period is included. Platelet slide review Kimberly slt decr [facility] Anisocytosis Moderate [facility] Basophilic stippling Occasional [facility] Ovalocytes Moderate [facility] Parsons cells Moderate (A) [facility] Specimen Performing Organization Address [facility] Phone Number [facility] DEPARTMENT OF PATHOLOGY AND [address] [place] [phone] Phosphorus level (07/12/2018 6:11 AM CDT)Only the most recent of5 resultswithin the time period is included. Phosphorus 2.8 2.4 - 4.5 mg/dL [facility] Specimen Plasma specimen Performing Organization Address [facility] Phone Number [facility] DEPARTMENT OF PATHOLOGY AND [address] [place] [phone] Ionized calcium (07/12/2018 6:11 AM CDT)Only the most recent of3 resultswithin the time period is included. pH 7.66 [facility] Ionized calcium 1.07 (L) 1.11 - 1.32 [facility] mmol/L HOSPITAL Specimen Plasma specimen Performing Organization Address [facility] Phone Number [facility] DEPARTMENT OF PATHOLOGY AND [address] [place], [place] [phone] [address] [address] Basic metabolic panel (07/11/2018 12:07 AM CDT)Only the most recent of12 resultswithin the time period is included. Sodium 134 (L) 135 - 148 mEq/L [facility] Potassium 3.9 3.5 - 5.0 mEq/L [facility] Chloride 106 98 - 112 mEq/L [facility] CO2 18 (L) 24 - 31 mEq/L [facility] Anion gap 10@ANIO 7 - 15 mEq/L [facility] BUN 17 8 - 23 mg/dL [facility] Creatinine 0.61 0.50 - 0.90 mg/dL [facility] Glucose 245 (H) 65 - 99 mg/dL [facility] Calcium 8.2 (L) 8.8 - 10.2 mg/dL [facility] Specimen Plasma specimen Performing Organization Address City/[facility] Phone Number [facility] DEPARTMENT OF PATHOLOGY AND [address] [place] [address] Ionized calcium, arterial (07/10/2018 4:30 PM CDT)Only the most recent of9 resultswithin the time period is included. Ionized calcium, 1.16 1.11 - 1.32 [facility] arterial mmol/L HOSPITAL Specimen Blood Performing Organization Address [facility] Phone Number [facility] DEPARTMENT OF PATHOLOGY AND [address] [place] [phone] Arterial blood gas (07/10/2018 4:30 PM CDT)Only the most recent of2 resultswithin the time period is included. pH, arterial 7.36 7.35 - 7.45 [facility] pCO2, arterial 35 35 - 45 mmHg [facility] pO2, arterial 135 (H) 80 - 90 mmHg [facility] Bicarbonate, 19.7 (L) 21.0 - 28.0 [facility] mmol/L HOSPITAL Base excess, -5 (L) -2 - 2 mEq/L [facility] [place] [place] O2 saturation, 99 95 - 100 % [facility] [place] [place] Specimen Blood Performing Organization Address City/[facility] Phone Number [facility] DEPARTMENT OF PATHOLOGY AND [address] [place], [place] [phone] [place] [address] Sodium level, syringe (07/10/2018 3:03 PM CDT)Only the most recent of8 resultswithin the time period is included. Sodium, syringe 134 (L) 135 - 148 mEq/L [facility] Specimen Blood Performing Organization Address City/[facility] Phone Number [facility] DEPARTMENT OF PATHOLOGY AND [address] [place] [phone] Potassium, syringe (07/10/2018 3:03 PM CDT)Only the most recent of8 resultswithin the time period is included. Potassium, syringe 3.9 3.5 - 5.0 mEq/L [facility] Specimen Blood Performing Organization Address [facility] Phone Number [facility] DEPARTMENT OF PATHOLOGY AND [address] [place] [phone] Hemoglobin, syringe (07/10/2018 3:03 PM CDT)Only the most recent of8 resultswithin the time period is included. Hemoglobin, syringe 9.3 (L) 12.0 - 16.0 g/dL [facility] Specimen Blood Performing Organization Address [facility] Phone Number [facility] DEPARTMENT OF PATHOLOGY AND [address] [place] [phone] Glucose level, syringe (07/10/2018 3:03 PM CDT)Only the most recent of8 resultswithin the time period is included. Glucose, syringe 183 (H) 65 - 99 mg/dL [facility] Specimen Blood Performing Organization Address City/[facility] Phone Number [facility] DEPARTMENT OF PATHOLOGY AND [address] [place] [phone] Arterial blood gas, corrected (07/10/2018 3:03 PM CDT)Only the most recent of8 resultswithin the time period is included. pH, arterial 7.32 (L) 7.35 - 7.45 [facility] pCO2, arterial 36 35 - 45 mmHg [facility] pO2, arterial 255 (H) 80 - 90 mmHg [facility] Temperature, Celsius 37.0 Degrees C [facility] O2 saturation, 100 95 - 100 % [facility] HOSPITAL pH, arterial 7.32 [facility] HOSPITAL pCO2, arterial 36 mmHg [facility] HOSPITAL pO2, arterial 255 mmHg [facility] HOSPITAL Base excess, arterial -7 (L) -2 - 2 mEq/L [facility] Specimen Blood Performing Organization Address City/[facility] Phone Number [facility] DEPARTMENT OF PATHOLOGY AND [address] [place] [phone] [place] [phone] Activated clotting time (07/10/2018 3:00 PM CDT)Only the most recent of13 resultswithin the time period is included. Activated clotting 86 (L) 96 - 152 sec [facility] time Comment: HOSPITAL Meter ID: [id number] Jet Engine Mechanic: Shilo Muñoz Specimen Performing Organization Address [facility] Phone Number [facility] DEPARTMENT OF PATHOLOGY AND [address] [place] [phone] [place] [phone] Fungus smear (07/10/2018 2:31 PM CDT)Only the most recent of2 resultswithin the time period is included. Fungus smear No fungi observed. [facility] Comment: HOSPITAL Specimen Information Specimen Source: Tissue Specimen Site: RIGHT FEMORAL FRAFT Specimen Tissue Performing Organization Address [facility] Phone Number [facility] DEPARTMENT OF PATHOLOGY AND [address] [place] [phone] AFB culture (07/10/2018 2:31 PM CDT)Only the most recent of2 resultswithin the time period is included. AFB culture No growth after 6 weeks of incubation. [facility] isolate Comment: HOSPITAL Specimen Information Specimen Source: Tissue Specimen Site: RIGHT FEMORAL FRAFT Specimen Tissue Performing Organization Address City/[facility] Phone Number [facility] DEPARTMENT OF PATHOLOGY AND [address] [place] [address] [place] [address] Tissue culture (07/10/2018 2:31 PM CDT)Only the most recent of2 resultswithin the time period is included. Tissue culture No growth after 3 days. [facility] isolate Comment: HOSPITAL Specimen Information Specimen Source: Tissue Specimen Site: RIGHT FEMORAL FRAFT Specimen Tissue Performing Organization Address City/[facility] Phone Number [facility] DEPARTMENT OF PATHOLOGY AND [address] [place] [phone] [place] [phone] Gram stain (07/10/2018 2:31 PM CDT)Only the most recent of5 resultswithin the time period is included. Gram stain isolate Rare WBC's [facility] No organisms seen HOSPITAL Comment: Specimen Information Specimen Source: Tissue Specimen Site: RIGHT FEMORAL FRAFT Specimen Tissue Performing Organization Address [facility] Phone Number [facility] DEPARTMENT OF PATHOLOGY AND [address] [place] [phone] [place] [phone] AFB stain (07/10/2018 2:31 PM CDT)Only the most recent of2 resultswithin the time period is included. AFB stain No acid fast bacilli (AFB) seen. [facility] Comment: HOSPITAL Specimen Information Specimen Source: Tissue Specimen Site: RIGHT FEMORAL FRAFT Specimen Tissue Performing Organization Address [facility] Phone Number [facility] DEPARTMENT OF PATHOLOGY AND [address] [place] [phone] [place] [phone] Fungus culture (07/10/2018 2:31 PM CDT)Only the most recent of2 resultswithin the time period is included. Fungus culture No growth after 4 weeks of incubation. [facility] isolate Comment: HOSPITAL Specimen Information Specimen Source: Tissue Specimen Site: RIGHT FEMORAL FRAFT Specimen Tissue - Other- Detailed Description Required Performing Organization Address City/[facility] Phone Number [facility] DEPARTMENT OF PATHOLOGY AND [address] [place] [phone] [address] Anaerobic culture (07/10/2018 2:31 PM CDT)Only the most recent of2 resultswithin the time period is included. Anaerobic culture No anaerobic organisms isolated. [facility] Comment: HOS[facility]ITAL Specimen Information Specimen Source: Tissue Specimen Site: RIGHT FEMORAL FRAFT Specimen Tissue - Other- Detailed Description Required Performing Organization Address City/State/Zipcode Phone Number [facility] DEPARTMENT OF PATHOLOGY AND [address] [place] [address] Transfuse RBC (07/10/2018 1:40 PM CDT)Only the most recent of6 resultswithin the time period is included.Urine culture (07/10/2018 7:54 AM CDT)Only the most recent of3 resultswithin the time period is included. Urine culture Mixed michael <=10-3 col/cc [facility] isolate Comment: HOSPITAL Specimen Information Specimen Source: Urine Specimen Site: Catheterized Specimen Urine - Catheterized Performing Organization Address City/[facility] Phone Number [facility] DEPARTMENT OF PATHOLOGY AND [address] [place] [address] Urinalysis screen and microscopy, with reflex to culture (07/10/2018 5:02 AM CDT)Only the most recent of3 resultswithin the time period is included. Specimen site Catheterized [facility] Color, UA Straw [facility] Appearance, UA Clear [facility] Specific gravity, UA 1.006 1.001 - 1.035 [facility] pH, UA 7.0 5.0 - 8.5 [facility] Protein, UA Negative Negative [facility] Glucose, UA Negative Negative [facility] Ketones, UA Negative Negative [facility] Bilirubin, UA Negative Negative [facility] Blood, UA Large (A) Negative [facility] Nitrite, UA Negative Negative [facility] Urobilinogen, UA <2.0 <2.0 [facility] Leukocyte esterase, Small (A) Negative [facility] Epithelial cells, UA 1 /HPF [facility] Round epithelial <1 0 - 1 /HPF [facility] WBC, UA 11 (H) 0 - 4 /HPF [facility] RBC, UA <1 0 - 5 /HPF [facility] Bacteria, UA None seen None seen [facility] Yeast, UA Many (A) [facility] Yeast with None seen [facility] pseudohyphae, HOSPITAL Amorphous crystals Few [facility] Specimen Urine Performing Organization Address City/[facility]/Zipcode Phone Number [facility] DEPARTMENT OF PATHOLOGY AND [address] [place] [phone] [address] [place] Hepatic (07/09/2018 4:03 PM CDT) Specimen Narrative Performed At EXAMINATION:US HEPATIC [facility] CLINICAL HISTORY:Hepatitis (non A) COMPARISON:None. TECHNIQUE:Ultrasound evaluation of the liver. IMPRESSION: LIVER:No focal lesions.Normal echogenicity. BILIARY:Common bile duct measures 6 mm, upper normal caliber. Gallbladder is mildly distended without evidence of stones. VASCULATURE:Portal vein is patent and normal in size. PERITONEUM:No ascites in the right upper quadrant. [facility]-[id number] Procedure Note Hm Interface, Radiology Results Incoming - 07/09/2018 4:42 PM CDT EXAMINATION: US HEPATIC CLINICAL HISTORY: Hepatitis (non A) COMPARISON: None. TECHNIQUE: Ultrasound evaluation of the liver. IMPRESSION: LIVER: No focal lesions. Normal echogenicity. BILIARY: Common bile duct measures 6 mm, upper normal caliber. Gallbladder is mildly distended without evidence of stones. VASCULATURE: Portal vein is patent and normal in size. PERITONEUM: No ascites in the right upper quadrant. [facility]-[id number] Performing Organization Address City/[facility] Phone Number [facility] [address] [place] [phone] Occult blood, stool (07/09/2018 8:50 AM CDT)Only the most recent of3 resultswithin the time period is included. Occult blood, Negative for occult blood. [facility] stool Comment: HOSPITAL Specimen Information Specimen Source: Stool Specimen Site: Nonpreserved Specimen Stool - Nonpreserved Performing Organization Address City/State/Zipcode Phone Number [facility] DEPARTMENT OF PATHOLOGY AND [address] [place] [phone] [address] CTA Abdominal Aorta And Bilateral Iliofemoral Runoff W Wo Contrast (07/08/2018 8:08 PM CDT) Specimen Narrative Performed At EXAMINATION:CT ANGIOGRAM ABDOMINAL AORTA AND BILATERAL ILIOFEMORAL HM [facility] RUNOFF W WO CONTRAST CLINICAL HISTORY:hx of aortobifemR PSAevaluate anastomosis TECHNIQUE: Multiple CT angiographic images of the abdomen, pelvis, and bilateral lower extremities were obtained during intravenous administration of iodinated contrast. Multiple computerized reformatted images as well as 3-D volume rendered images were also obtained. CT imaging was performed with iterative reconstruction techniques and/or automated exposure control to reduce radiation dose. COMPARISON:CT, 07/07/2018 FINDINGS: Soft tissue findings: Lung bases demonstrate peripheral interstitial scarring and dependent atelectasis. No focal consolidation. No sizable pleural effusion. Heart is within normal limits of size. No sizable pericardial effusion. Visualized esophagus is unremarkable. Liver is without evidence of suspicious focal hepatic lesion. Gallbladder is unremarkable in appearance. Pancreas is without evidence of suspicious focal pancreatic mass or pancreatic ductal dilatation. Spleen demonstrates physiological heterogenous arterial attenuation. Stomach is unremarkable in appearance. Small and large bowel are normal in caliber. No focal fluid collection or free fluid is seen. No pneumoperitoneum is identified. Evidence for prior ventral abdominal wall repair. Bilateral adrenal glands are unremarkable in appearance. Kidneys enhance symmetrically in the cortical/medullary phase. No evidence for irregular renal mass, obstructing calculus, hydronephrosis, or hydroureter. Bladder is unremarkable in appearance. Uterus is surgically absent. No lymphadenopathy is identified. Small left paracentral fat-containing hernia measuring 1 cm at the base seen (axial image 136, series 2). No acute osseous abnormality identified. CTA: Partially visualized pulmonary arteries are patent and without evidence of intraluminal filling defect. Partially visualized nondilated descending thoracic aorta demonstrates a mild amount of atherosclerotic calcifications but is otherwise unremarkable. Nondilated suprarenal abdominal aorta demonstrates a mild amount of atherosclerotic calcifications. Mild calcification seen at the origin of the celiac artery. No significant plaque seen at the origin of the superior mesenteric artery. Moderate plaque/calcifications seen at the origins of the bilateral main renal arteries. Nondilated infrarenal abdominal aorta demonstrates advanced plaque and calcifications with occlusion at the bifurcation and bilateral nulato common iliac arteries extending distally. The patient is status post infrarenal aortobifemoral graft which is patent throughout. It is again important to note that there is contour irregularity and a saccular outpouching at the right femoral anastomotic site (for example, axial image 145, series 2), concerning for a pseudoaneurysm. No active extravasation seen on the current imaging. Targeted ultrasound is again recommended for further evaluation. The nulato right femoral arteries demonstrate a moderate amount of atherosclerotic calcifications but are patent to the level of the ankle-foot. The patient is status post left [id number]-ytv-exaz amputation. The nulato left femoral profundus demonstrates a moderate amount of atherosclerotic changes. The left superficial femoral artery is occluded shortly after its takeoff. 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 Of note, there is contour irregularity at the right femoral anastomotic site with a saccular outpouching concerning for a pseudoaneurysm. No evidence for active extravasation on the current examination. Again, targeted ultrasound is recommended for further evaluation. 2.Patient is status post left lzsok-rxx-hydl amputation. 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 3.Partially visualized right breast demonstrates subareolar nodularity. Correlate findings with most recent mammography report. If not performed within the last year, repeat mammographic imaging is recommended. 4.Additional chronic findings as listed. [facility]-[id number] Procedure Note [facility], Radiology Results Incoming - 07/08/2018 8:31 PM CDT EXAMINATION: CT ANGIOGRAM ABDOMINAL AORTA AND BILATERAL ILIOFEMORAL RUNOFF W WO CONTRAST CLINICAL HISTORY: hx of aortobifem R PSA evaluate anastomosis TECHNIQUE: Multiple CT angiographic images of the abdomen, pelvis, and bilateral lower extremities were obtained during intravenous administration of iodinated contrast. Multiple computerized reformatted images as well as 3-D volume rendered images were also obtained. CT imaging was performed with iterative reconstruction techniques and/or automated exposure control to reduce radiation dose. COMPARISON: CT, 07/07/2018 FINDINGS: Soft tissue findings: Lung bases demonstrate peripheral interstitial scarring and dependent atelectasis. No focal consolidation. No sizable pleural effusion. Heart is within normal limits of size. No sizable pericardial effusion. Visualized esophagus is unremarkable. Liver is without evidence of suspicious focal hepatic lesion. Gallbladder is unremarkable in appearance. Pancreas is without evidence of suspicious focal pancreatic mass or pancreatic ductal dilatation. Spleen demonstrates physiological heterogenous arterial attenuation. Stomach is unremarkable in appearance. Small and large bowel are normal in caliber. No focal fluid collection or free fluid is seen. No pneumoperitoneum is identified. Evidence for prior ventral abdominal wall repair. Bilateral adrenal glands are unremarkable in appearance. Kidneys enhance symmetrically in the cortical/medullary phase. No evidence for irregular renal mass, obstructing calculus, hydronephrosis, or hydroureter. Bladder is unremarkable in appearance. Uterus is surgically absent. No lymphadenopathy is identified. Small left paracentral fat-containing hernia measuring 1 cm at the base seen ( axial image 136, series 2). No acute osseous abnormality identified. CTA: Partially visualized pulmonary arteries are patent and without evidence of intraluminal filling defect. Partially visualized nondilated descending thoracic aorta demonstrates a mild amount of atherosclerotic calcifications but is otherwise unremarkable. Nondilated suprarenal abdominal aorta demonstrates a mild amount of atherosclerotic calcifications. Mild calcification seen at the origin of the celiac artery. No significant plaque seen at the origin of the superior mesenteric artery. Moderate plaque/calcifications seen at the origins of the bilateral main renal arteries. Nondilated infrarenal abdominal aorta demonstrates advanced plaque and calcifications with occlusion at the bifurcation and bilateral nulato common iliac arteries extending distally. The patient is status post infrarenal aortobifemoral graft which is patent throughout. It is again important to note that there is contour irregularity and a saccular outpouching at the right femoral anastomotic site (for example, axial image 145, series 2), concerning for a pseudoaneurysm. No active extravasation seen on the current imaging. Targeted ultrasound is again recommended for further evaluation. The nulato right femoral arteries demonstrate a moderate amount of atherosclerotic calcifications but are patent to the level of the ankle-foot. The patient is status post left miwwy-srk-keos amputation. The nulato left femoral profundus demonstrates a moderate amount of atherosclerotic changes. The left superficial femoral artery is occluded shortly after its takeoff. IMPRESSION: 1. 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 Of note, there is contour irregularity at the right femoral anastomotic site with a saccular outpouching concerning for a pseudoaneurysm. No evidence for active extravasation on the current examination. Again, targeted ultrasound is recommended for further evaluation. 2. Patient is status post left dmvqn-czs-bnjw amputation. 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 3. Partially visualized right breast demonstrates subareolar nodularity. Correlate findings with most recent mammography report. If not performed within the last year, repeat mammographic imaging is recommended. 4. Additional chronic findings as listed. [facility]-[id number] Performing Organization Address City/State/Zipcode Phone Number [facility] [address] [place] [address] Us duplex arterial lower extremity (07/08/2018 10:34 AM CDT)Only the most recent of2 resultswithin the time period is included. Specimen Narrative Performed At [facility] Lower Extremity Arterial Duplex Report [id number] [facility], [facility] [address], [place] [address] Pat.Name:Teresa MENDEZ.ID:[id number] .Date: 07/08/2018 Refer.MD:EAGLE LOPEZ MD Exam Time: 9:42:00 AMStudy Type:LE Arterial DOBAge:1950,67YSex: FEMALE Sonogrphr: Alison Matthew. Stat.:Inpatient Room:[id number]: [facility] - 4: [id number] Echo Event ID:[id number] Order ID:[id number] Reason for Study:Right groin pain and swelling; Rule out pseudoaneurysm. Diabetic, HTN. Hystory of bypasses. Procedures:Colorflow, Grayscale/2D, Pulsed wave Doppler Race:C SUMMARY: DUPLEX SCAN OBSERVATIONS: RIGHT:The common femoral artery and vein is visualized .A simple pseudoaneurysm is visualized with colorflow and Doppler signals present .The pseudoaneurysm measures 2.60 cm x 2.28 cm.No neck can be tracked.Distally the superficial femoral artery and vein are present. PRELIMINARY FINDINGS: 1.A simple pseudoaneurysm is visualized with colorflow and Doppler signals present .The pseudoaneurysm measures 2.60 cm x 2.28 cm there is partially thrombosed. PHYSICIAN INTERPRETATION: A simple pseudoaneurysm is visualized with colorflow and Doppler signals present .The pseudoaneurysm measures 2.60 cm x 2.28 cm there is partially thrombosed. Signed 07/08/2018 02:06 PM Ryan Cox MD, RPVI Procedure Note Interface, Radiology Results In - 07/08/2018 2:06 PM CDT [facility] Lower Extremity Arterial Duplex Report [id number] [facility] [address], [place] [address] Pat.Name: J[place] MENDEZ.ID: [id number] .Date: 07/08/2018 Refer.MD: EAGLE LOPEZ MD Exam Time: 9:42:00 AM Study Type:LE Arterial Age: 9 1950,67Y Sex: FEMALE Sonogrphr: LU Matthew Pat. Stat.:Inpatient Room: [address] Vol: FE, CPT - 4: [address] Echo Event ID:[id number] Order ID: [id number] Reason for Study:Right groin pain and swelling; Rule out pseudoaneurysm. Diabetic, HTN. Hystory of bypasses. Procedures:Colorflow, Grayscale/2D, Pulsed wave Doppler Race: C SUMMARY: DUPLEX SCAN OBSERVATIONS: RIGHT: The common femoral artery and vein is visualized . A simple pseudoaneurysm is visualized with colorflow and Doppler signals present .The pseudoaneurysm measures 2.60 cm x 2.28 cm. No neck can be tracked. Distally the superficial femoral artery and vein are present. PRELIMINARY FINDINGS: 1. A simple pseudoaneurysm is visualized with colorflow and Doppler signals present .The pseudoaneurysm measures 2.60 cm x 2.28 cm there is partially thrombosed. PHYSICIAN INTERPRETATION: A simple pseudoaneurysm is visualized with colorflow and Doppler signals present .The pseudoaneurysm measures 2.60 cm x 2.28 cm there is partially thrombosed. Signed 07/08/2018 02:06 PM Ryan Cox MD, ANDREVI Performing Organization Address City/State/Zipcode Phone Number [facility] [id number] Chest Wo Contrast (07/08/2018 7:38 AM CDT) Specimen Narrative Performed At EXAMINATION: CT CHEST WO CONTRAST HM [facility] CLINICAL HISTORY: r o PNA vs mass TECHNIQUE: Multiple axial images of the chest were obtained without intravenous contrast. The lack of intravenous contrast reduces the sensitivity of detecting solid organ disease and evaluating vasculature. Sagittal and coronal computerized reformatted images were also obtained. Radiation dose reduction technique was utilized. COMPARISON: None. IMPRESSION: 1.There is pulmonary consolidation involving both hilar regions of the lungs, affecting mostly the superior segments of the lower lobes. There is some paramediastinal fibrosis seen in the upper lobes. Appearance is not typical for acute pneumonia. Findings may be related to tumor and/or radiation fibrosis. Suggest comparison with prior cross-sectional imaging of the chest. 2.Emphysematous changes are seen in the upper lobes. 2 small less than 1 cm nodules are seen in the right upper lobe which cannot cephalic. Peripheral fibrotic changes are seen in both lower lobes. 3.There is a portable Central venous catheter present. 4.There are no enlarged mediastinal lymph nodes. 5.There are coronary artery calcifications. 6.There are no pleural effusions. 7.Limited scans through the upper abdomen do not demonstrate any masses. 8.Bone settings do not demonstrate any destructive lesions. [facility]-[id number] Procedure Note Interface, Radiology Results Incoming - 07/08/2018 8:01 AM CDT EXAMINATION: CT CHEST WO CONTRAST CLINICAL HISTORY: r o PNA vs mass TECHNIQUE: Multiple axial images of the chest were obtained without intravenous contrast. The lack of intravenous contrast reduces the sensitivity of detecting solid organ disease and evaluating vasculature. Sagittal and coronal computerized reformatted images were also obtained. Radiation dose reduction technique was utilized. COMPARISON: None. IMPRESSION: 1. There is pulmonary consolidation involving both hilar regions of the lungs , affecting mostly the superior segments of the lower lobes. There is some paramediastinal fibrosis seen in the upper lobes. Appearance is not typical for acute pneumonia. Findings may be related to tumor and/or radiation fibrosis. Suggest comparison with prior cross-sectional imaging of the chest. 2. Emphysematous changes are seen in the upper lobes. 2 small less than 1 cm nodules are seen in the right upper lobe which cannot cephalic. Peripheral fibrotic changes are seen in both lower lobes. 3. There is a portable Central venous catheter present. 4. There are no enlarged mediastinal lymph nodes. 5. There are coronary artery calcifications. 6. There are no pleural effusions. 7. Limited scans through the upper abdomen do not demonstrate any masses. 8. Bone settings do not demonstrate any destructive lesions. [facility]-[id number] Performing Organization Address City/State/Zipcode Phone Number [facility] [phone] [place] [address] CT Abdomen Pelvis Wo Contrast (07/07/2018 7:18 PM CDT) Specimen Narrative Performed At EXAMINATION:CT ABDOMEN PELVIS WO CONTRAST [facility] CLINICAL HISTORY:r o retroperitoneal hemarrhage TECHNIQUE: Multiple axial images of the abdomen and pelvis were obtained without intravenous administration of iodinated contrast. Sagittal and coronal computerized reformatted images were also obtained. The lack of intravenous contrast reduces the sensitivity of detecting solid organ disease. CT imaging was performed with iterative reconstruction technique and/or automated exposure control to reduce radiation dose. COMPARISON:None. IMPRESSION: Confluent airspace infiltration of the lower lobes is seen at the edge of the film series, suspicious for multifocal pneumonia or masses. This would be better assessed with dedicated CT chest. Chronic interstitial changes are seen of the lower lobes. There is a 0.7 cm nodule in the lingula. Coronary artery calcifications, aortic valve, and mitral valve calcifications are seen. Liver, gallbladder, spleen, pancreas, adrenal glands are normal. Kidneys, ureters and bladder are normal. No free intraperitoneal fluid or air. Anterior abdominal wall mesh hernia repair is identified. Diverticulosis is seen without diverticulitis. Appendix is not seen. No gastrointestinal tract obstruction. Atherosclerotic vascular calcifications are seen. Changes of aorto bifemoral bypass graft are noted. At the anastomosis with the common femoral artery on the right, a saccular outpouching is seen measuring 2.8 x 2.5 cm, concerning for pseudoaneurysm. This would be better assessed with dedicated right inguinal region vascular ultrasound. No acute osseous abnormalities. Summary: Changes of aortobifemoral bypass graft are seen. At the anastomosis with the right common femoral artery, there is a 2.8 x 2.5 cm saccular outpouching, concerning for pseudoaneurysm. This would be better assessed with dedicated right inguinal region vascular ultrasound. Confluent airspace infiltration of the lower lobes is seen at the edge of the film series, suspicious for multifocal pneumonia or masses. This would be better assessed with dedicated CT chest. A 0.7 cm nodule is seen in the lingula. Findings were discussed with and read back by Nurse Maher at 07/07/2018 11:31 PM who verbalized understanding. [facility]-[id number] Procedure Note Interface, Radiology Results Incoming - 07/07/2018 11:38 PM CDT EXAMINATION: CT ABDOMEN PELVIS WO CONTRAST CLINICAL HISTORY: r o retroperitoneal hemarrhage TECHNIQUE: Multiple axial images of the abdomen and pelvis were obtained without intravenous administration of iodinated contrast. Sagittal and coronal computerized reformatted images were also obtained. The lack of intravenous contrast reduces the sensitivity of detecting solid organ disease. CT imaging was performed with iterative reconstruction technique and/or automated exposure control to reduce radiation dose. COMPARISON: None. IMPRESSION: Confluent airspace infiltration of the lower lobes is seen at the edge of the film series, suspicious for multifocal pneumonia or masses. This would be better assessed with dedicated CT chest. Chronic interstitial changes are seen of the lower lobes. There is a 0.7 cm nodule in the lingula. Coronary artery calcifications, aortic valve, and mitral valve calcifications are seen. Liver, gallbladder, spleen, pancreas, adrenal glands are normal. Kidneys, ureters and bladder are normal. No free intraperitoneal fluid or air. Anterior abdominal wall mesh hernia repair is identified. Diverticulosis is seen without diverticulitis. Appendix is not seen. No gastrointestinal tract obstruction. Atherosclerotic vascular calcifications are seen. Changes of aorto bifemoral bypass graft are noted. At the anastomosis with the common femoral artery on the right, a saccular outpouching is seen measuring 2.8 x 2.5 cm, concerning for pseudoaneurysm. This would be better assessed with dedicated right inguinal region vascular ultrasound. No acute osseous abnormalities. Summary: Changes of aortobifemoral bypass graft are seen. At the anastomosis with the right common femoral artery, there is a 2.8 x 2.5 cm saccular outpouching, concerning for pseudoaneurysm. This would be better assessed with dedicated right inguinal region vascular ultrasound. Confluent airspace infiltration of the lower lobes is seen at the edge of the film series, suspicious for multifocal pneumonia or masses. This would be better assessed with dedicated CT chest. A 0.7 cm nodule is seen in the lingula. Findings were discussed with and read back by Nurse Maher at 07/07/2018 11:31 PM who verbalized understanding. [facility]-[id number] Performing Organization Address City/State/Zipcode Phone Number [facility] [address] [place] [address] Surgical pathology request (07/04/2018 1:32 PM CDT)Only the most recent of2 resultswithin the time period is included. [facility] DEPARTMENT OF PATHOLOGY AND GENOMIC MEDICINE Surgical pathology See link below [facility] DEPARTMENT OF report for PDF Lab PATHOLOGY AND Report GENOMIC MEDICINE Result status This is Final [facility] DEPARTMENT OF Report for PATHOLOGY AND [id number] GENOMIC MEDICINE Specimen Performing Organization Address City/[facility]/Zipcode Phone Number [facility] DEPARTMENT OF PATHOLOGY AND [address] [place] [address] Manual differential (07/04/2018 4:20 AM CDT) [facility] Manual differential PERFORMED [facility] Neutrophils 85.0 (H) 39.0 - 69.0 % [facility] Lymphocytes 5.0 (L) 25.0 - 45.0 % [facility] Monocytes 10.0 0.0 - 10.0 % [facility] Eosinophils 0.0 0.0 - 5.0 % [facility] Basophils 0.0 0.0 - 1.0 % [facility] Metamyelocytes 0 % [facility] Promyelocytes 0 % [facility] Platelet slide review Kimberly adequate [facility] Anisocytosis Moderate [facility] Specimen Performing Organization Address City/[facility] Phone Number [facility] DEPARTMENT OF PATHOLOGY AND [address] [place] [address] Heparin PF4 antibody (IgG) (06/15/2018 4:48 AM CDT) [facility] Heparin PF4 Ab OD 0.072 0.000 - 0.399 [facility] Heparin PF4 Ab, IgG Negative Negative [facility] Specimen Blood Performing Organization Address City/[facility]/Zipcode Phone Number [facility] DEPARTMENT OF PATHOLOGY AND [address] [place] [address] Anti Xa, unfractionated (06/15/2018 2:35 AM CDT)Only the most recent of7 resultswithin the time period is included. Pathologist [facility] Anti Xa, 0.23Comment: U/mL [place] unfractionated Therapeutic Range: YAZDANISM SUGAR 0.30 - 0.70 U/mL [facility] Specimen Blood Performing Organization Address City/[facility]/Zipcode Phone Number [facility] DEPARTMENT OF PATHOLOGY [address] [place] [address] AND [facility] MEDICINE [place] YAZDANISM [place] [address] [facility] [place] [address] HOSPITAL OR [place] < 1 Hour (06/13/2018 7:22 PM CDT) Specimen Narrative Performed At OR [place] 1 HOUR [facility] CLINICAL HISTORY: IMPRESSION: Fluoroscopy was provided. No radiologist present.Please see procedure report for discussion of procedure, findings and fluoroscopic time. [id number] Procedure Note Interface, Radiology Results Incoming - 06/13/2018 7:33 PM CDT [place] 1 HOUR CLINICAL HISTORY: IMPRESSION: Fluoroscopy was provided. No radiologist present. Please see procedure report for discussion of procedure, findings and fluoroscopic time. [id number] Performing Organization Address [facility] Phone Number [facility] [phone] [place] [address] Cv botany laboratory assistant procedure (06/12/2018 4:49 PM CDT) Specimen Narrative Performed At Procedure(s): Lightning Gaming[employer] Left heart cath w lv gram cors Abdominal Angiogram with Run off Tolerated procedure well Condition: stable Complications:None; patient tolerated the procedure well. Findings: RCA is large vessel calcified with moderate disease in proximal to mid RCA. 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 Total volume, urine 60 mL [facility] Urine sodium 74 mEq/L [place] YAZDANISM concentration [facility] Urine sodium excretion 4Comment: [place] YAZDANISM Varies with [facility] diet. HOSPITAL Specimen Urine Performing Organization Address City/[facility]/Zipcode Phone Number [facility] DEPARTMENT OF PATHOLOGY [address] [place] [address] AND GENOMIC MEDICINE [address] Osmolality, urine (06/12/2018 12:43 PM CDT)Only the most recent of2 resultswithin the time period is included. Osmolality, urine 239 50 - 1,400 mOsm/kg [facility] Specimen Urine Performing Organization Address City/[facility]/Zipcode Phone Number [facility] DEPARTMENT OF PATHOLOGY [address] [place] [address] [address] Echocardiogram complete w contrast and 3D if needed (06/12/2018 12:36 PM CDT) Velocity Ratio (V1/V2) 0.85 m/s [facility] IVS,d 0.77 cm [facility] EF 59.64 % [facility] LVPWD,d 0.78 cm [facility] AoV Mean PG 2.17 mmHg [facility] AV LVOT peak gradient 2.53 mmHg [facility] MV valve area p 1/2 method 2.99 cm2 [facility] PV Pk Grad 3.18 mmHg [facility] E/A ratio 0.53 [facility] E wave decelartion time 253.72 msec [facility] LVOT Diam,S 1.94 cm [facility] LVOT area 2.95 cm2 [facility] LVOT Vmax 0.80 m/s [facility] LVOT VTI 0.17 m [facility] AoV Peak PG 3.55 mmHg [facility] MV Peak E Agusto 0.42 m/s [facility] MV stenosis pressure 1/2 time 73.58 ms [facility] MV Peak A Agusto 0.80 m/s [facility] Ao Root Diameter 2.92 cm [facility] AoV Area, Vmax 2.50 cm2 [facility] AoV Area, VTI 2.53 cm2 HM [facility] AoV Vmax 0.94 m/s HM [facility] IVS/LVPW,2D 0.99 HM [facility] Left Atrium Dimension Anterior 2.67 cm HM [facility] LV,d 4.35 cm HM [facility] LV,s 2.98 cm HM [facility] PV VMAX 0.89 m/s HM [facility] TR Vpeak 1.66 mm/s HM [facility] MV E A ratio 0.53 HM [facility] TR pk grad 11.08 mmHg HM [facility] MR peak grad 12.26 mmHg HM [facility] Ao Root Diameter 2.92 cm HM [facility] LV SYS VOL 34.54 ml HM [facility] LV SPANGLER VOL 85.59 ml HM [facility] LV SV Teich 2D 51.05 ml HM [facility] LV Vol s Teich PSAX 34.54 ml HM [facility] AoV Vmn 0.71 [facility] LV FS Cube 2D 31.48 [facility] LV FS Teich 2D 31.48 [facility] AoV VTI 0.20 m HM [facility] LV EF,2D 67.84 % [facility] MR Vmax 1.75 m/s [facility] MV AE ratio 1.90 [facility] LVOT Vmn 0.53 [facility] Aov area Vmn 2.19 cm2 HM [facility] LVOT mean grad 1.26 mmHg HM [facility] MAX Pred HR 153.39 [facility] 85 of MPHR 130.38 [facility] Calc MPHR 153.39 bpm HM [facility] LV SV Cube 2D 56.03 ml HM [facility] LV vol d cube 2D 82.60 ml HM [facility] LV vol s cube 2D 26.57 ml HM [facility] MV Decel slope 1.67 m/s2 HM [facility] Pred Exer Dur R1 7.19 [facility] Pred METS R1 6.04 HM [facility] Specimen Narrative Performed At Left ventricular systolic function is normal. HM [facility] Left Ventricular ejection fraction is 60 - 65%. Spectral Doppler shows impaired relaxation pattern of left ventricular diastolic filling. Stage I diastolic dysfunction. Right Ventricle: Normal right ventricular size, wall thickness and global function. No evidence of pulmonary hypertension present. Pericardium: No pericardial effusion seen. Performing Organization Address City/State/Zipcode Phone Number [facility] [address] [place] [address] Sodium level (06/12/2018 11:35 AM CDT) Sodium 120 (LL) 135 - 148 mEq/L [facility] Comment: [facility] Final results called to and read back by Tiffany uW/Hetal 06/12/201812: 13 OST Specimen Plasma specimen Performing Organization Address City/[facility]/Zipcode Phone Number [facility] DEPARTMENT OF PATHOLOGY [id number] [place] [address] Osmolality, serum (06/12/2018 11:35 AM CDT) Osmolality 256 (L) 275 - 295 mOsm/kg [facility] Specimen Blood Performing Organization Address [facility]/Zipcode Phone Number [facility] DEPARTMENT OF PATHOLOGY [address] [place] [address] ECG Pre/Post Op (06/12/2018 6:45 AM CDT) Ventricular rate 77 [facility] Atrial rate 77 [facility] MN interval 176 [facility] QRSD interval 138 [facility] QT interval 428 [facility] QTC interval 484 [facility] P axis 1 75 [facility] QRS axis 1 -15 [facility] T wave axis 47 [facility] EKG impression Normal sinus [facility] rhythm-Right bundle branch block-Abnormal ECG-No previous ECGs available-Electronicall y Signed By Napoleon Jamison MD (2024) on 06/14/2018 4:45:25 AM Specimen Narrative Performed At Performing Organization Address City/[facility] Phone Number [facility] MUSE [address] [place] [address] after 09/17/2017 Advance Directives Patient has advance care planning documents, and code status on file. For more information, please contact:Gene Charlton[address] [place] [address] Code Status Date Activated Date Inactivated Comments Full Code 07/04/2018 12:36 PM 07/14/2018 9:20 PM Code Status decision reached by: Patient
--- OUTSIDE RECORDS SUMMARY | 2018-09-18 10:33 | XMS REPORT ---
:1950 Author Organization [facility] Address [address] [place] [address] Care Team Providers Name Role Phone Unavailable Unavailable Unavailable Payers Payer Name Policy Type Policy Number Effective Date Expiration Date Problems This patient has no known problems. Allergies, Adverse Reactions, Alerts Allergy Name Allergy Status Severity Reaction(s) Onset Inactive Treating Comments Type Date Date Clinician No Known DA Active U 2018- Allergies 5- 00:00: 00 No Known Drug DA Active U 2000-0 Intolerances 5-17 00:00: 00 Medications This patient has no known medications. Results Test Description Test Time Test Comments Text Results Atomic Results Result Comments GLUCOSE BEDSIDE TESTING 2018-08-01 16:50:00 Test Item Value Reference Range Comments GLUCOSE BEDSIDE TESTING (test code=GLUBED) 144 mg/dL 70-110 GLUCOSE BEDSIDE [id number] 12:12:00 Test Item Value Reference Range Comments GLUCOSE BEDSIDE TESTING (test code=GLUBED) 128 mg/dL 70-110 GLUCOSE BEDSIDE [id number] 07:56:00 Test Item Value Reference Range Comments GLUCOSE BEDSIDE TESTING (test code=GLUBED) 105 mg/dL 70-110 GLUCOSE BEDSIDE [id number] 20:53:00 Test Item Value Reference Range Comments GLUCOSE BEDSIDE TESTING (test code=GLUBED) 157 mg/dL 70-110 GLUCOSE BEDSIDE [id number] 17:15:00 Test Item Value Reference Range Comments GLUCOSE BEDSIDE TESTING (test code=GLUBED) 190 mg/dL 70-110 GLUCOSE BEDSIDE [id number] 11:57:00 Test Item Value Reference Range Comments GLUCOSE BEDSIDE TESTING (test code=GLUBED) 121 mg/dL 70-110 GLUCOSE BEDSIDE [id number] 08:12:00 Test Item Value Reference Range Comments GLUCOSE BEDSIDE TESTING (test code=GLUBED) 120 mg/dL 70-110 BASIC METABOLIC [id number] 05:25:00 Test Item Value Reference Range Comments SODIUM (test code=NA) 140 mmol/L 134-147 POTASSIUM (test code=K) 3.3 mmol/L 3.4-5.0 CHLORIDE (test code=CL) 108 mmol/L 100-108 CARBON DIOXIDE (test code=CO2) 26 mmol/L 21-32 ANION GAP (test code=GAP) 6.0 GAP calc 4.0-15.0 GLUCOSE (test code=GLU) 135 MG/DL 70-110 BLOOD UREA NITROGEN (test code=BUN) 7 MG/DL 7-18 GLOMERULAR FILTRATION RATE (test >=60 max estimate estGFR >60 code=GFR) CREATININE (test code=CREAT) 0.5 MG/DL 0.6-1.0 CALCIUM (test code=CA) 7.9 MG/DL 8.5-10.1 CBC W/AUTO [id number] 04:53:00 Test Item Value Reference Range Comments WHITE BLOOD CELL (test code=WBC) 5.7 K/mm3 3.5-11.0 RED BLOOD CELL (test code=RBC) 2.62 M/mm3 4.70-6.10 HEMOGLOBIN (test code=HGB) 8.5 G/DL 10.4-14.9 HEMATOCRIT (test code=HCT) 27.3 % 31.5-44.1 MEAN CELL VOLUME (test code=MCV) 104.2 Fl 84.5-98.6 MEAN CELL HGB (test code=MCH) 32.4 pg 27.0-34.2 MEAN CELL HGB CONCETRATION (test code=MCHC) 31.1 G/DL 31.5-34.0 RED CELL DISTRIBUTION WIDTH (test code=RDW) 18.9 SD 11.5-14.5 PLATELET COUNT (test code=PLT) 201.0 K/mm3 150-450 MEAN PLATELET VOLUME (test code=MPV) 10.60 fL 7.0-10.5 NEUTROPHIL % (test code=NT%) 79.4 % 40-76 LYMPHOCYTE % (test code=LY%) 10.9 % 20.5-51.1 MONOCYTE % (test code=MO%) 8.8 % 1.7-9.3 EOSINOPHIL % (test code=EO%) 0.7 % 0.0-6.0 BASOPHIL % (test code=BA%) 0.2 % 0.0-2.0 NEUTROPHIL # (test code=NT#) 4.53 K/mm3 1.8-7.6 LYMPHOCYTE # (test code=LY#) 0.6 K/mm3 0.6-3.2 MONOCYTE # (test code=MO#) 0.5 K/mm3 0.3-1.1 EOSINOPHIL # (test code=EO#) 0.0 K/mm3 0.0-0.4 BASOPHIL # (test code=BA#) 0.0 K/mm3 0.0-0.1 MANUAL DIFF REQUIRED (test code=MDIFF) NO DIFF/SCN CRITERIA GLUCOSE BEDSIDE [id number] 20:48:00 Test Item Value Reference Range Comments GLUCOSE BEDSIDE TESTING (test code=GLUBED) 183 mg/dL 70-110 GLUCOSE BEDSIDE [id number] 17:46:00 Test Item Value Reference Range Comments GLUCOSE BEDSIDE TESTING (test code=GLUBED) 153 mg/dL 70-110 GLUCOSE BEDSIDE [id number] 12:16:00 Test Item Value Reference Range Comments GLUCOSE BEDSIDE TESTING (test code=GLUBED) 231 mg/dL 70-110 - XR CHEST 2 [id number] 10:00:00 Name: CONSUELO MENDEZ [place] : 1950 Age/S: 67 / F [id number] Unit #: [id number] Loc: [place] [address] Phys: Bea Childers MD Acct: [id number] Dis Date: Status: ADM IN PHONE #: [phone] Exam Date: 07/30/2018 0958 FAX #: Reason: pneumonia, lung ca EXAMS: CPT: [id number] XR CHEST 2 V [id number] Fluoro Time: DAP (Gy m2): Air Kerma (mGy): Chest x-ray 2 views History: pneumonia, lung ca Comparison: July 25, 2018 Location: R16 Number of images: 2 The heart appears unchanged in size. There are patchy opacities in the perihilar regions bilaterally. The bones appear unchanged. Please refer tothe recent CT scan of the chest report performed July 25, 2018 for more detailed information of the findings in the lungs. IMPRESSION: There are patchy opacities in the perihilar regions bilaterally. This could be due to pneumonia. An underlying neoplastic process is possible. Compared to the prior exam, there has been little change. at 1000 Reported and signed by: Eagle Maguire M.D. CC: Bea Childers MD; Heavenly Reyes MD; Sophia Kennedy MD PAGE 1 Signed Report Name: [place] : 1950 Age/S: 67 / F [id number] Unit #: [id number] Loc: [place] [address] Phys: Bea Childers MD Acct: [id number] Dis Date : Status: ADM IN PHONE #: [phone] Exam Date: 07/30/2018 0958 FAX #: Reason: pneumonia, lung ca EXAMS: CPT : [id number] XR CHEST 2 V [id number] Fluoro Time: DAP (Gy m2): Air Kerma (mGy): < Continued> Technologist: Yoandy Brar, RT(R)(CT) Trnscb Date/Time: 07/30/2018 (1000) [email or web address] Orig Print D/T: S: 07/30/2018 (1003) PAGE 2 Signed ReportGLUCOSE BEDSIDE [id number] 07:56:00 Test Item Value Reference Range Comments GLUCOSE BEDSIDE TESTING (test code=GLUBED) 78 mg/dL 70-110 GLUCOSE BEDSIDE [id number] 20:05:00 Test Item Value Reference Range Comments GLUCOSE BEDSIDE TESTING (test code=GLUBED) 82 mg/dL 70-110 GLUCOSE BEDSIDE [id number] 17:04:00 Test Item Value Reference Range Comments GLUCOSE BEDSIDE TESTING (test code=GLUBED) 152 mg/dL 70-110 GLUCOSE BEDSIDE [id number] 11:44:00 Test Item Value Reference Range Comments GLUCOSE BEDSIDE TESTING (test code=GLUBED) 80 mg/dL 70-110 CBC W/AUTO [id number] 11:03:00 Test Item Value Reference Range Comments WHITE BLOOD CELL (test 8.1 K/mm3 3.5-11.0 code=WBC) RED BLOOD CELL (test code=RBC) 2.69 M/mm3 4.70-6.10 HEMOGLOBIN (test code=HGB) 8.8 G/DL 10.4-14.9 HEMATOCRIT (test code=HCT) 27.8 % 31.5-44.1 MEAN CELL VOLUME (test 103.3 Fl 84.5-98.6 code=MCV) MEAN CELL HGB (test code=MCH) 32.7 pg 27.0-34.2 MEAN CELL HGB CONCETRATION 31.7 G/DL 31.5-34.0 (test code=MCHC) RED CELL DISTRIBUTION WIDTH 19.3 SD 11.5-14.5 (test code=RDW) PLATELET COUNT (test code=PLT) 216.0 K/mm3 150-450 MEAN PLATELET VOLUME (test 9.90 fL 7.0-10.5 code=MPV) NEUTROPHIL % (test code=NT%) 86.8 % 40-76 LYMPHOCYTE % (test code=LY%) 6.0 % 20.5-51.1 MONOCYTE % (test code=MO%) 6.8 % 1.7-9.3 EOSINOPHIL % (test code=EO%) 0.4 % 0.0-6.0 BASOPHIL % (test code=BA%) 0.0 % 0.0-2.0 NEUTROPHIL # (test code=NT#) 7.00 K/mm3 1.8-7.6 LYMPHOCYTE # (test code=LY#) 0.5 K/mm3 0.6-3.2 MONOCYTE # (test code=MO#) 0.6 K/mm3 0.3-1.1 EOSINOPHIL # (test code=EO#) 0.0 K/mm3 0.0-0.4 BASOPHIL # (test code=BA#) 0.0 K/mm3 0.0-0.1 MANUAL DIFF REQUIRED (test NO DIFF/SCN CRITERIA SLIDE REVIEW CONSISTANT code=MDIFF) WITH AUTO DIFFERENTIAL. BASIC METABOLIC [id number] 09:34:00 Test Item Value Reference Range Comments SODIUM (test code=NA) 137 mmol/L 134-147 POTASSIUM (test code=K) 3.4 mmol/L 3.4-5.0 CHLORIDE (test code=CL) 106 mmol/L 100-108 CARBON DIOXIDE (test code=CO2) 25 mmol/L 21-32 ANION GAP (test code=GAP) 6.0 GAP calc 4.0-15.0 GLUCOSE (test code=GLU) 92 MG/DL 70-110 BLOOD UREA NITROGEN (test code=BUN) 8 MG/DL 7-18 GLOMERULAR FILTRATION RATE (test >=60 max estimate estGFR >60 code=GFR) CREATININE (test code=CREAT) 0.5 MG/DL 0.6-1.0 CALCIUM (test code=CA) 8.1 MG/DL 8.5-10.1 CBC W/AUTO [id number] 09:27:00 Test Item Value Reference Range Comments WHITE BLOOD CELL (test code=WBC) 8.1 K/mm3 3.5-11.0 RED BLOOD CELL (test code=RBC) 2.69 M/mm3 4.70-6.10 HEMOGLOBIN (test code=HGB) 8.8 G/DL 10.4-14.9 HEMATOCRIT (test code=HCT) 27.8 % 31.5-44.1 MEAN CELL VOLUME (test code=MCV) 103.3 Fl 84.5-98.6 MEAN CELL HGB (test code=MCH) 32.7 pg 27.0-34.2 MEAN CELL HGB CONCETRATION (test code=MCHC) 31.7 G/DL 31.5-34.0 RED CELL DISTRIBUTION WIDTH (test code=RDW) 19.3 SD 11.5-14.5 PLATELET COUNT (test code=PLT) 216.0 K/mm3 150-450 MEAN PLATELET VOLUME (test code=MPV) 9.90 fL 7.0-10.5 NEUTROPHIL % (test code=NT%) % 40-76 LYMPHOCYTE % (test code=LY%) % 20.5-51.1 MONOCYTE % (test code=MO%) % 1.7-9.3 EOSINOPHIL % (test code=EO%) % 0.0-6.0 BASOPHIL % (test code=BA%) % 0.0-2.0 NEUTROPHIL # (test code=NT#) K/mm3 1.8-7.6 LYMPHOCYTE # (test code=LY#) K/mm3 0.6-3.2 MONOCYTE # (test code=MO#) K/mm3 0.3-1.1 EOSINOPHIL # (test code=EO#) K/mm3 0.0-0.4 BASOPHIL # (test code=BA#) K/mm3 0.0-0.1 MANUAL DIFF REQUIRED (test code=MDIFF) DIFF/SCN CRITERIA GLUCOSE BEDSIDE [id number] 07:33:00 Test Item Value Reference Range Comments GLUCOSE BEDSIDE TESTING (test code=GLUBED) 87 mg/dL 70-110 VANCOMYCIN [id number] 01:34:00 Test Item Value Reference Range Comments VANCOMYCIN TROUGH (test code=VANCT) 5.9 mcG/ML 5-15 GLUCOSE BEDSIDE [id number] 19:40:00 Test Item Value Reference Range Comments GLUCOSE BEDSIDE TESTING (test code=GLUBED) 129 mg/dL 70-110 GLUCOSE BEDSIDE [id number] 18:04:00 Test Item Value Reference Range Comments GLUCOSE BEDSIDE TESTING (test code=GLUBED) 143 mg/dL 70-110 GLUCOSE BEDSIDE [id number] 11:29:00 Test Item Value Reference Range Comments GLUCOSE BEDSIDE TESTING (test code=GLUBED) 188 mg/dL 70-110 GLUCOSE BEDSIDE [id number] 07:51:00 Test Item Value Reference Range Comments GLUCOSE BEDSIDE TESTING (test code=GLUBED) 112 mg/dL 70-110 GLUCOSE BEDSIDE [id number] 20:00:00 Test Item Value Reference Range Comments GLUCOSE BEDSIDE TESTING (test code=GLUBED) 161 mg/dL 70-110 GLUCOSE BEDSIDE [id number] 16:40:00 Test Item Value Reference Range Comments GLUCOSE BEDSIDE TESTING (test code=GLUBED) 170 mg/dL 70-110 GLUCOSE BEDSIDE [id number] 11:49:00 Test Item Value Reference Range Comments GLUCOSE BEDSIDE TESTING (test code=GLUBED) 163 mg/dL 70-110 GLUCOSE BEDSIDE [id number] 07:37:00 Test Item Value Reference Range Comments GLUCOSE BEDSIDE TESTING (test code=GLUBED) 156 mg/dL 70-110 CBC W/AUTO [id number] 06:30:00 Test Item Value Reference Range Comments WHITE BLOOD CELL (test 9.9 K/mm3 3.5-11.0 code=WBC) RED BLOOD CELL (test code=RBC) 2.59 M/mm3 4.70-6.10 HEMOGLOBIN (test code=HGB) 8.4 G/DL 10.4-14.9 HEMATOCRIT (test code=HCT) 26.7 % 31.5-44.1 MEAN CELL VOLUME (test 103.1 Fl 84.5-98.6 code=MCV) MEAN CELL HGB (test code=MCH) 32.4 pg 27.0-34.2 MEAN CELL HGB CONCETRATION 31.5 G/DL 31.5-34.0 (test code=MCHC) RED CELL DISTRIBUTION WIDTH 19.6 SD 11.5-14.5 (test code=RDW) PLATELET COUNT (test code=PLT) 237.0 K/mm3 150-450 MEAN PLATELET VOLUME (test 10.50 fL 7.0-10.5 code=MPV) NEUTROPHIL % (test code=NT%) 89.8 % 40-76 LYMPHOCYTE % (test code=LY%) 3.7 % 20.5-51.1 MONOCYTE % (test code=MO%) 6.5 % 1.7-9.3 EOSINOPHIL % (test code=EO%) 0.0 % 0.0-6.0 BASOPHIL % (test code=BA%) 0.0 % 0.0-2.0 NEUTROPHIL # (test code=NT#) 8.87 K/mm3 1.8-7.6 LYMPHOCYTE # (test code=LY#) 0.4 K/mm3 0.6-3.2 MONOCYTE # (test code=MO#) 0.6 K/mm3 0.3-1.1 EOSINOPHIL # (test code=EO#) 0.0 K/mm3 0.0-0.4 BASOPHIL # (test code=BA#) 0.0 K/mm3 0.0-0.1 MANUAL DIFF REQUIRED (test NO DIFF/SCN CRITERIA SLIDE REVIEW CONSISTANT code=MDIFF) WITH AUTO DIFFERENTIAL. BASIC METABOLIC [id number] 05:36:00 Test Item Value Reference Range Comments SODIUM (test code=NA) 138 mmol/L 134-147 POTASSIUM (test code=K) 3.8 mmol/L 3.4-5.0 CHLORIDE (test code=CL) 110 mmol/L 100-108 CARBON DIOXIDE (test code=CO2) 21 mmol/L 21-32 ANION GAP (test code=GAP) 7.0 GAP calc 4.0-15.0 GLUCOSE (test code=GLU) 190 MG/DL 70-110 BLOOD UREA NITROGEN (test code=BUN) 16 MG/DL 7-18 GLOMERULAR FILTRATION RATE (test >=60 max estimate estGFR >60 code=GFR) CREATININE (test code=CREAT) 0.5 MG/DL 0.6-1.0 CALCIUM (test code=CA) 7.9 MG/DL 8.5-10.1 CBC W/AUTO [id number] 05:20:00 Test Item Value Reference Range Comments WHITE BLOOD CELL (test code=WBC) 9.9 K/mm3 3.5-11.0 RED BLOOD CELL (test code=RBC) 2.59 M/mm3 4.70-6.10 HEMOGLOBIN (test code=HGB) 8.4 G/DL 10.4-14.9 HEMATOCRIT (test code=HCT) 26.7 % 31.5-44.1 MEAN CELL VOLUME (test code=MCV) 103.1 Fl 84.5-98.6 MEAN CELL HGB (test code=MCH) 32.4 pg 27.0-34.2 MEAN CELL HGB CONCETRATION (test code=MCHC) 31.5 G/DL 31.5-34.0 RED CELL DISTRIBUTION WIDTH (test code=RDW) 19.6 SD 11.5-14.5 PLATELET COUNT (test code=PLT) 237.0 K/mm3 150-450 MEAN PLATELET VOLUME (test code=MPV) 10.50 fL 7.0-10.5 NEUTROPHIL % (test code=NT%) 89.8 % 40-76 LYMPHOCYTE % (test code=LY%) 3.7 % 20.5-51.1 MONOCYTE % (test code=MO%) 6.5 % 1.7-9.3 EOSINOPHIL % (test code=EO%) 0.0 % 0.0-6.0 BASOPHIL % (test code=BA%) 0.0 % 0.0-2.0 NEUTROPHIL # (test code=NT#) 8.87 K/mm3 1.8-7.6 LYMPHOCYTE # (test code=LY#) 0.4 K/mm3 0.6-3.2 MONOCYTE # (test code=MO#) 0.6 K/mm3 0.3-1.1 EOSINOPHIL # (test code=EO#) 0.0 K/mm3 0.0-0.4 BASOPHIL # (test code=BA#) 0.0 K/mm3 0.0-0.1 MANUAL DIFF REQUIRED (test code=MDIFF) NO DIFF/SCN CRITERIA GLUCOSE BEDSIDE [id number] 20:10:00 Test Item Value Reference Range Comments GLUCOSE BEDSIDE TESTING (test code=GLUBED) 254 mg/dL 70-110 GLUCOSE BEDSIDE [id number] 16:51:00 Test Item Value Reference Range Comments GLUCOSE BEDSIDE TESTING (test code=GLUBED) 290 mg/dL 70-110 GLUCOSE BEDSIDE [id number] 12:14:00 Test Item Value Reference Range Comments GLUCOSE BEDSIDE TESTING (test code=GLUBED) 248 mg/dL 70-110 GLUCOSE BEDSIDE [id number] 08:46:00 Test Item Value Reference Range Comments GLUCOSE BEDSIDE TESTING (test code=GLUBED) 237 mg/dL 70-110 BASIC METABOLIC [id number] 07:54:00 Test Item Value Reference Range Comments SODIUM (test code=NA) 135 mmol/L 134-147 POTASSIUM (test code=K) 3.7 mmol/L 3.4-5.0 CHLORIDE (test code=CL) 105 mmol/L 100-108 CARBON DIOXIDE (test code=CO2) 19 mmol/L 21-32 ANION GAP (test code=GAP) 11.0 GAP calc 4.0-15.0 GLUCOSE (test code=GLU) 195 MG/DL 70-110 BLOOD UREA NITROGEN (test code=BUN) 17 MG/DL 7-18 GLOMERULAR FILTRATION RATE (test >=60 max estimate estGFR >60 code=GFR) CREATININE (test code=CREAT) 0.6 MG/DL 0.6-1.0 CALCIUM (test code=CA) 8.5 MG/DL 8.5-10.1 Completed by Nursing: [id number] 07:54:00 Test Item Value Reference Range Comments TROPONIN-I (test 1.430 NG/ML 0.000-0.045 Negative: </=0.045 Positive: code=TROPI) >/=0.046 Correlation with serial results, other cardiac markers, and clinical findings is necessary to determine the clinical significance of this result. Quantitative results using different methodologies should not be compared to one another as numerical results may varyby method. Completed by Nursing: NOCBC W/AUTO [id number] 07:38:00 Test Item Value Reference Range Comments WHITE BLOOD CELL (test 11.4 K/mm3 3.5-11.0 code=WBC) RED BLOOD CELL (test code=RBC) 3.42 M/mm3 4.70-6.10 HEMOGLOBIN (test code=HGB) 11.1 G/DL 10.4-14.9 HEMATOCRIT (test code=HCT) 34.3 % 31.5-44.1 MEAN CELL VOLUME (test 100.3 Fl 84.5-98.6 code=MCV) MEAN CELL HGB (test code=MCH) 32.5 pg 27.0-34.2 MEAN CELL HGB CONCETRATION 32.4 G/DL 31.5-34.0 (test code=MCHC) RED CELL DISTRIBUTION WIDTH 19.5 SD 11.5-14.5 (test code=RDW) PLATELET COUNT (test code=PLT) 232.0 K/mm3 150-450 MEAN PLATELET VOLUME (test 11.00 fL 7.0-10.5 code=MPV) NEUTROPHIL % (test code=NT%) 95.3 % 40-76 LYMPHOCYTE % (test code=LY%) 2.4 % 20.5-51.1 MONOCYTE % (test code=MO%) 2.2 % 1.7-9.3 EOSINOPHIL % (test code=EO%) 0.0 % 0.0-6.0 BASOPHIL % (test code=BA%) 0.1 % 0.0-2.0 NEUTROPHIL # (test code=NT#) 10.85 K/mm3 1.8-7.6 LYMPHOCYTE # (test code=LY#) 0.3 K/mm3 0.6-3.2 MONOCYTE # (test code=MO#) 0.3 K/mm3 0.3-1.1 EOSINOPHIL # (test code=EO#) 0.0 K/mm3 0.0-0.4 BASOPHIL # (test code=BA#) 0.0 K/mm3 0.0-0.1 MANUAL DIFF REQUIRED (test NO DIFF/SCN CRITERIA SLIDE REVIEW CONSISTANT code=MDIFF) WITH AUTO DIFFERENTIAL. BASIC METABOLIC [id number] 07:36:00 Test Item Value Reference Range Comments SODIUM (test code=NA) mmol/L 134-147 POTASSIUM (test code=K) mmol/L 3.4-5.0 CHLORIDE (test code=CL) mmol/L 100-108 CARBON DIOXIDE (test code=CO2) mmol/L 21-32 ANION GAP (test code=GAP) GAP calc 4.0-15.0 GLUCOSE (test code=GLU) MG/DL 70-110 BLOOD UREA NITROGEN (test code=BUN) MG/DL 7-18 GLOMERULAR FILTRATION RATE (test code=GFR) estGFR >60 CREATININE (test code=CREAT) MG/DL 0.6-1.0 CALCIUM (test code=CA) MG/DL 8.5-10.1 Completed by Nursing: [id number] 07:36:00 Test Item Value Reference Range Comments TROPONIN-I (test 1.430 NG/ML 0.000-0.045 Negative: </=0.045 Positive: code=TROPI) >/=0.046 Correlation with serial results, other cardiac markers, and clinical findings is necessary to determine the clinical significance of this result. Quantitative results using different methodologies should not be compared to one another as numerical results may varyby method. Completed by Nursing: NOCBC W/AUTO [id number] 07:07:00 Test Item Value Reference Range Comments WHITE BLOOD CELL (test code=WBC) 11.4 K/mm3 3.5-11.0 RED BLOOD CELL (test code=RBC) 3.42 M/mm3 4.70-6.10 HEMOGLOBIN (test code=HGB) 11.1 G/DL 10.4-14.9 HEMATOCRIT (test code=HCT) 34.3 % 31.5-44.1 MEAN CELL VOLUME (test code=MCV) 100.3 Fl 84.5-98.6 MEAN CELL HGB (test code=MCH) 32.5 pg 27.0-34.2 MEAN CELL HGB CONCETRATION (test code=MCHC) 32.4 G/DL 31.5-34.0 RED CELL DISTRIBUTION WIDTH (test code=RDW) 19.5 SD 11.5-14.5 PLATELET COUNT (test code=PLT) 232.0 K/mm3 150-450 MEAN PLATELET VOLUME (test code=MPV) 11.00 fL 7.0-10.5 NEUTROPHIL % (test code=NT%) % 40-76 LYMPHOCYTE % (test code=LY%) % 20.5-51.1 MONOCYTE % (test code=MO%) % 1.7-9.3 EOSINOPHIL % (test code=EO%) % 0.0-6.0 BASOPHIL % (test code=BA%) % 0.0-2.0 NEUTROPHIL # (test code=NT#) K/mm3 1.8-7.6 LYMPHOCYTE # (test code=LY#) K/mm3 0.6-3.2 MONOCYTE # (test code=MO#) K/mm3 0.3-1.1 EOSINOPHIL # (test code=EO#) K/mm3 0.0-0.4 BASOPHIL # (test code=BA#) K/mm3 0.0-0.1 MANUAL DIFF REQUIRED (test code=MDIFF) DIFF/SCN CRITERIA CBC W/AUTO [id number] 06:46:00 Test Item Value Reference Range Comments WHITE BLOOD CELL (test 11.1 K/mm3 3.5-11.0 code=WBC) RED BLOOD CELL (test code=RBC) 2.16 M/mm3 4.70-6.10 HEMOGLOBIN (test code=HGB) 6.9 G/DL 10.4-14.9 HEMATOCRIT (test code=HCT) 22.2 % 31.5-44.1 MEAN CELL VOLUME (test 102.8 Fl 84.5-98.6 code=MCV) MEAN CELL HGB (test code=MCH) 31.9 pg 27.0-34.2 MEAN CELL HGB CONCETRATION 31.1 G/DL 31.5-34.0 (test code=MCHC) RED CELL DISTRIBUTION WIDTH 19.2 SD 11.5-14.5 (test code=RDW) PLATELET COUNT (test code=PLT) 220.0 K/mm3 150-450 MEAN PLATELET VOLUME (test 10.80 fL 7.0-10.5 code=MPV) NEUTROPHIL % (test code=NT%) 91.0 % 40-76 LYMPHOCYTE % (test code=LY%) 4.8 % 20.5-51.1 MONOCYTE % (test code=MO%) 4.0 % 1.7-9.3 EOSINOPHIL % (test code=EO%) 0.1 % 0.0-6.0 BASOPHIL % (test code=BA%) 0.1 % 0.0-2.0 NEUTROPHIL # (test code=NT#) 10.07 K/mm3 1.8-7.6 LYMPHOCYTE # (test code=LY#) 0.5 K/mm3 0.6-3.2 MONOCYTE # (test code=MO#) 0.4 K/mm3 0.3-1.1 EOSINOPHIL # (test code=EO#) 0.0 K/mm3 0.0-0.4 BASOPHIL # (test code=BA#) 0.0 K/mm3 0.0-0.1 MANUAL DIFF REQUIRED (test NO DIFF/SCN CRITERIA SLIDE REVIEW CONSISTANT code=MDIFF) WITH AUTO DIFFERENTIAL. BASIC METABOLIC [id number] 06:07:00 Test Item Value Reference Range Comments SODIUM (test code=NA) 140 mmol/L 134-147 POTASSIUM (test code=K) 3.0 mmol/L 3.4-5.0 CHLORIDE (test code=CL) 113 mmol/L 100-108 CARBON DIOXIDE (test code=CO2) 18 mmol/L 21-32 ANION GAP (test code=GAP) 9.0 GAP calc 4.0-15.0 GLUCOSE (test code=GLU) 148 MG/DL 70-110 BLOOD UREA NITROGEN (test code=BUN) 15 MG/DL 7-18 GLOMERULAR FILTRATION RATE (test >=60 max estimate estGFR >60 code=GFR) CREATININE (test code=CREAT) 0.4 MG/DL 0.6-1.0 CALCIUM (test code=CA) 6.8 MG/DL 8.5-10.1 CBC W/AUTO [id number] 06:00:00 Test Item Value Reference Range Comments WHITE BLOOD CELL (test code=WBC) 11.1 K/mm3 3.5-11.0 RED BLOOD CELL (test code=RBC) 2.16 M/mm3 4.70-6.10 HEMOGLOBIN (test code=HGB) 6.9 G/DL 10.4-14.9 HEMATOCRIT (test code=HCT) 22.2 % 31.5-44.1 MEAN CELL VOLUME (test code=MCV) 102.8 Fl 84.5-98.6 MEAN CELL HGB (test code=MCH) 31.9 pg 27.0-34.2 MEAN CELL HGB CONCETRATION (test code=MCHC) 31.1 G/DL 31.5-34.0 RED CELL DISTRIBUTION WIDTH (test code=RDW) 19.2 SD 11.5-14.5 PLATELET COUNT (test code=PLT) 220.0 K/mm3 150-450 MEAN PLATELET VOLUME (test code=MPV) 10.80 fL 7.0-10.5 NEUTROPHIL % (test code=NT%) % 40-76 LYMPHOCYTE % (test code=LY%) % 20.5-51.1 MONOCYTE % (test code=MO%) % 1.7-9.3 EOSINOPHIL % (test code=EO%) % 0.0-6.0 BASOPHIL % (test code=BA%) % 0.0-2.0 NEUTROPHIL # (test code=NT#) K/mm3 1.8-7.6 LYMPHOCYTE # (test code=LY#) K/mm3 0.6-3.2 MONOCYTE # (test code=MO#) K/mm3 0.3-1.1 EOSINOPHIL # (test code=EO#) K/mm3 0.0-0.4 BASOPHIL # (test code=BA#) K/mm3 0.0-0.1 MANUAL DIFF REQUIRED (test code=MDIFF) DIFF/SCN CRITERIA [id number] 01:26:00 Test Item Value Reference Range Comments TROPONIN-I (test 2.330 NG/ML 0.000-0.045 Negative: </=0.045 Positive: code=TROPI) >/=0.046 Correlation with serial results, other cardiac markers, and clinical findings is necessary to determine the clinical significance of this result. Quantitative results using different methodologies should not be compared to one another as numerical results may varyby method. Completed by Nursing: NOLACTIC [id number] 01:08:00 Test Item Value Reference Range Comments LACTIC ACID (test code=LACT) 1.0 mmol/L 0.4-2.0 UA RFLX MICR CULT IF [id number] 22:53:00 Test Item Value Reference Range Comments UA COLOR (test code=COLU) YELLOW discript YEL/STRAW UA APPEARANCE (test code=APPU) CLEAR discript CLEAR UA GLUCOSE DIPSTICK (test code=DGLUU) NEGATIVE mg/dL NEG UA BILIRUBIN DIPSTICK (test code=BILU) NEGATIVE mg/DL (NEG) 0 UA KETONE DIPSTICK (test code=KETU) NEGATIVE mg/DL (NEG) 0 UA SPECIFIC GRAVITY (test code=SGU) 1.000 SG 1.005-1.030 UA BLOOD DIPSTICK (test code=KERA) 250 (3+) Richy/mcL (NEG) 0 UA PH DIPSTICK (test code=JEN) 7.0 pH UNITS 5.0-7.0 UA PROTEIN DIPSTICK (test code=PROU) 1+ mg/DL <30 UA UROBILINIOGEN DIPSTICK (test NORMAL mg/DL (NORM) <2.0 code=URO) UA NITRITE DIPSTICK (test code=JOSELINE) NEGATIVE SCREEN NEG UA LEUKOCYTE ESTERASE DIPSTICK (test NEGATIVE Leuk/mcL (NEG) 0 code=LEUU) UA WBC (test code=WBCU) NONE SEEN #WBC/HPF 0-3 UA RBC (test code=RBCU) 5-10 #RBC/HPF 0-3 UA BACTERIA (test code=BACU) 1+ /HPF NONE-TRACE UA SQUAMOUS CELLS (test code=SQU) 1+ /HPF NONE UA CULTURE NEEDED? (test code=UACULT) NO, WBC<10 Criteria Culture CHK SOURCE OF URINE: CLEAN CATCHless than 18 yrs old, neutropenic, or urological surgery? NOPrimary Indication for Culture: Delirium No Other SourceTROPONIN- [id number] 22:24:00 Test Item Value Reference Range Comments TROPONIN-I (test 2.060 NG/ML 0.000-0.045 Negative: </=0.045 Positive: code=TROPI) >/=0.046 Correlation with serial results, other cardiac markers, and clinical findings is necessary to determine the clinical significance of this result. Quantitative results using different methodologies should not be compared to one another as numerical results may varyby method. Completed by Nursing: EMILIANO ROBX MICR CULT IF [id number] 22:04:00 Test Item Value Reference Range Comments UA COLOR (test code=COLU) YELLOW discript YEL/STRAW UA APPEARANCE (test code=APPU) CLEAR discript CLEAR UA GLUCOSE DIPSTICK (test code=DGLUU) NEGATIVE mg/dL NEG UA BILIRUBIN DIPSTICK (test code=BILU) NEGATIVE mg/DL (NEG) 0 UA KETONE DIPSTICK (test code=KETU) NEGATIVE mg/DL (NEG) 0 UA SPECIFIC GRAVITY (test code=SGU) 1.000 SG 1.005-1.030 UA BLOOD DIPSTICK (test code=KERA) 250 (3+) Richy/mcL (NEG) 0 UA PH DIPSTICK (test code=JEN) 7.0 pH UNITS 5.0-7.0 UA PROTEIN DIPSTICK (test code=PROU) 1+ mg/DL <30 UA UROBILINIOGEN DIPSTICK (test code=URO) NORMAL mg/DL (NORM) <2.0 UA NITRITE DIPSTICK (test code=JOSELINE) NEGATIVE SCREEN NEG UA LEUKOCYTE ESTERASE DIPSTICK (test NEGATIVE Leuk/mcL (NEG) 0 code=LEUU) UA CULTURE NEEDED? (test code=UACULT) Criteria Culture CHK SOURCE OF URINE: CLEAN CATCHless than 18 yrs old, neutropenic, or urological surgery? NOPrimary Indication for Culture: Delirium No Other Source- CT CHEST W/ [id number] 21:31:00 Name: CONSUELO MENDEZ [place] : 1950 Age/S: 67 / F [id number] [address] Unit #: [id number] Loc: [place] [address] Phys: Heavenly Reyes MD Acct: [id number] Dis Date: Status: ADM IN PHONE #: [phone] Exam Date: 07/25/2018 2103 FAX #: Reason: SEPSIS EXAMS: CPT: [id number] CT CHEST W/CONTRAST 07732 Location:T18 Chest CT , 07/25/18 TECHNIQUE: Chest CT with IV contrast was performed on a helical scanner. Patient given 75 mL of Isovue 300 for contrast scanning from thoracic inlet through diaphragms. Direct 5 mm contiguous axial slice thickness acquired . Theexamination was conducted on a [facility] helical CT scanner utilizing low-dose radiation technique. Automatic exposure time was utilized to reduce radiation dose CLINICAL HISTORY: Sepsis. COMPARISON EXAMS: Chest x-ray exam conducted on 07/25/08 FINDINGS: There is presence of bullous emphysematous changes in the upper lobes with probable interstitial fibrosis seen also medially in both upper lobes in particular. There is presence of dense consolidation in the superior segment of both lower lobes ,left greater right ,somewhat accounting for the chest x-ray findings. Additionally identified is a hypodense lesion with wall enhancement in the superior segment of the left lower lobe. This in particular is seen on images #26 through 28 of series 2 and on sagittal imaging on image #82. It measures approximately 2.5 cm in transverse dimension by 2.1 cm in AP dimension by approximately 2.1 cm in CC dimension. It is of concern for a lung abscess versus a necrotic tumor. Finding does abut the pleural surface with very small amount of left- sided pleural effusion. No definite discrete endobronchial lesion is identified. Chronic interstitial fibrosis and honeycombing seen more inferiorly in both lower lobes. Do not see any definite pathologically enlarged hilar or mediastinal nodes. No large central PE. There is presence of coronary artery vascular calcifications. No active CHF. IMPRESSION: Infiltrates seenin both superior segments of both lower lobes of concern for multilobar pneumonia, left moreso than right. Additionally seen is a necrotic appearing lesion with wall enhancement in the superior segment of the left lower lobe of concern for abscess formation versus possible necrotic tumor. Bullous emphysematous particularly involving the upper lobes and interstitial fibrosis seen elsewhere as noted above PAGE 1 Signed Report (CONTINUED) Name: CONSUELO MENDEZ : 1950 Age/S: 67 / F [id number] [address] Unit #: [id number] Loc: [place] [address] Phys: Heavenly Reyes MD Acct: [id number] Dis Date: Status: ADM IN PHONE #: [phone] Exam Date: 07/25/2018 2105 FAX #: Reason: SEPSIS EXAMS: CPT: [id number] CT CHEST W/CONTRAST 17997 <Continued> at 2130 Reported and signed by: Ameena Oswald M.D. CC: Ashutosh Myles MD; Tracey SANCHEZ; Heavenly Reyes MD; Sophia Kennedy MD Technologist:COY MEADOWS, RT(R)(CT)(MR) CTDI: DLP : Trnscb Date/Time: 07/25/2018 (2130) [email or web address] Orig Print D/T: S: 07/25/2018 (5625) CTDI: DLP: PAGE 2 Signed ReportTROPONIN I [id number] 21:14:00 Test Item Value Reference Range Comments TROPONIN I RAPID (test 0.14 ng/mL 0.00-0.08 Results above 0.08 are code=TROPIRAP) consistent with NACB IFCCCommittee recommendations to use the 99th percentile of anormal population as a reference decision-limit. - The use of serial sampling and testingprotocol is arecommended practice.- An elevated troponinlevel alone is often not sufficientfor diagnosis of myocardial infraction. CBC W/AUTO [id number] 20:11:00 Test Item Value Reference Range Comments WHITE BLOOD CELL (test 12.1 K/mm3 3.5-11.0 code=WBC) RED BLOOD CELL (test code=RBC) 3.84 M/mm3 4.70-6.10 HEMOGLOBIN (test code=HGB) 12.6 G/DL 10.4-14.9 HEMATOCRIT (test code=HCT) 38.6 % 31.5-44.1 MEAN CELL VOLUME (test 100.5 Fl 84.5-98.6 code=MCV) MEAN CELL HGB (test code=MCH) 32.8 pg 27.0-34.2 MEAN CELL HGB CONCETRATION 32.6 G/DL 31.5-34.0 (test code=MCHC) RED CELL DISTRIBUTION WIDTH 18.9 SD 11.5-14.5 (test code=RDW) PLATELET COUNT (test code=PLT) 258.0 K/mm3 150-450 MEAN PLATELET VOLUME (test 10.60 fL 7.0-10.5 code=MPV) NEUTROPHIL % (test code=NT%) 88.6 % 40-76 LYMPHOCYTE % (test code=LY%) 3.7 % 20.5-51.1 MONOCYTE % (test code=MO%) 7.4 % 1.7-9.3 EOSINOPHIL % (test code=EO%) 0.2 % 0.0-6.0 BASOPHIL % (test code=BA%) 0.1 % 0.0-2.0 NEUTROPHIL # (test code=NT#) 10.72 K/mm3 1.8-7.6 LYMPHOCYTE # (test code=LY#) 0.5 K/mm3 0.6-3.2 MONOCYTE # (test code=MO#) 0.9 K/mm3 0.3-1.1 EOSINOPHIL # (test code=EO#) 0.0 K/mm3 0.0-0.4 BASOPHIL # (test code=BA#) 0.0 K/mm3 0.0-0.1 MANUAL DIFF REQUIRED (test NO DIFF/SCN CRITERIA SLIDE REVIEW CONSISTANT code=MDIFF) WITH AUTO DIFFERENTIAL. - XR CHEST 1 [id number] 20:00:00 Name: CONSUELO MENDEZ [place] : 1950 Age/S: 67 / F [address] [address] Unit #: [id number] Loc: [place] [address] Phys: Alex Sheffield MD Acct: [id number] Dis Date: Status: REG ER PHONE #: [phone] Exam Date: 07/25/20181917 FAX #: Reason: Suspected Sepsis EXAMS: CPT: [id number] XR CHEST 1 V 83387 Fluoro Time: DAP (Gy m2): Air Kerma (mGy): Single View Chest. Location: Clinical Indication: 67-year-old with sepsis Comparison: None Findings: An AP view of the chest was obtained. A right IJ chest port is present. Heart size is normal. There is nodular prominence of the bilateral pulmonary abdullahi, left greater than right. No pneumothorax or pleural effusion. No acute osseous abnormality. Prior abdominal wall hernia repair. There appears to be a right arm "midline" catheter. Impression: Nodular prominence of the pulmonary abdullahi, left greater than right. Differential considerations include neoplasm, pneumonia, and atelectasis. This may be better characterized with CT chest if clinically warranted. at 2000 Reported and signed by: Gustavo Miranda M.D. CC : Alex Sheffield MD; Sophia Kennedy MD PAGE 1 Signed Report Name: CONSUELO MENDEZ [place] : 1950 Age/S: 67 / F [address] [address] Unit #: [id number] Loc: [place] [address] Phys: Alex Sheffield MD Acct: [id number] Dis Date: Status: REG ER PHONE #: [phone] Exam Date: 07/25 FAX #: Reason: Suspected Sepsis EXAMS: CPT:[id number] XR CHEST 1 V 10078 Fluoro Time: DAP (Gy m2): Air Kerma (mGy): <Continued> Technologist: Zulma Crowley, RT(R)(CT)(MRI) Trnscb Date/Time: 07/25/2018 (1999) [email or web address] OrigPrint D/T: S: 07/25/2018 (2002) PAGE 2 Signed Report- CT HEAD/BRAIN W/O [id number] 19:43:00 Name: CONSUELO MENDEZ : 1950 Age/S: 67 / F [address] [address] Unit #: [id number] Loc: [place] [address] Phys: Alex Sheffield MD Acct: [id number] Dis Date : Status: REG ER PHONE #: [phone] Exam Date: 07/25/20181911 FAX #: Reason: AMS EXAMS: CPT: [id number] CT HEAD/BRAIN W /O CONT 31845 EXAM: CT Head without contrast Location code:J9 HISTORY: Altered mental status COMPARISON: None available. TECHNIQUE: Multiple transaxial images of the brain were obtained without intravenous contrast using 5mm slices. FINDINGS: There is no acute intracranial hemorrhage. There is no mass, mass effect, midline shift or extra-axial fluid collection.The ventricles and sulci are mildly enlarged. Low- attenuation is notedthroughout the periventricular and deep white matter of the supratentorium. Pierson-white differentiation is maintained. There is no evidence for acute major vessel infarct. Paranasal sinuses,mastoid air cells and visualized orbital contents are within normal limits. Osseous structures are within normal limits. IMPRESSION: 1. No acute hemorrhage. 2. Confluent high T2 signal is noted throughout the periventricular and deep white matter of the supratentorium which is nonspecific and may be related to vasculopathy, advanced chronic small vessel ischemia, or an infectious or inflammatory condition. Please clinically correlate. at 1943 Reported and signed by: Wes Souza M.D. CC: Alex Sheffield MD; Sophia Arndt Technologist:Zulma Crowley, RT( R)(CT)(MRI) CTDI: DLP: Trnscb Date/Time: 07/25/2018(1942) [email or web address] Orig Print D/T: S: 07/25/2018 (1945) CTDI : DLP: PAGE 1 Signed ReportCBC W/AUTO [id number] 19:15:00 Test Item Value Reference Range Comments WHITE BLOOD CELL (test code=WBC) 12.1 K/mm3 3.5-11.0 RED BLOOD CELL (test code=RBC) 3.84 M/mm3 4.70-6.10 HEMOGLOBIN (test code=HGB) 12.6 G/DL 10.4-14.9 HEMATOCRIT (test code=HCT) 38.6 % 31.5-44.1 MEAN CELL VOLUME (test code=MCV) 100.5 Fl 84.5-98.6 MEAN CELL HGB (test code=MCH) 32.8 pg 27.0-34.2 MEAN CELL HGB CONCETRATION (test code=MCHC) 32.6 G/DL 31.5-34.0 RED CELL DISTRIBUTION WIDTH (test code=RDW) 18.9 SD 11.5-14.5 PLATELET COUNT (test code=PLT) 258.0 K/mm3 150-450 MEAN PLATELET VOLUME (test code=MPV) 10.60 fL 7.0-10.5 NEUTROPHIL % (test code=NT%) % 40-76 LYMPHOCYTE % (test code=LY%) % 20.5-51.1 MONOCYTE % (test code=MO%) % 1.7-9.3 EOSINOPHIL % (test code=EO%) % 0.0-6.0 BASOPHIL % (test code=BA%) % 0.0-2.0 NEUTROPHIL # (test code=NT#) K/mm3 1.8-7.6 LYMPHOCYTE # (test code=LY#) K/mm3 0.6-3.2 MONOCYTE # (test code=MO#) K/mm3 0.3-1.1 EOSINOPHIL # (test code=EO#) K/mm3 0.0-0.4 BASOPHIL # (test code=BA#) K/mm3 0.0-0.1 MANUAL DIFF REQUIRED (test code=MDIFF) DIFF/SCN CRITERIA LACTIC ACID [id number] 19:15:00 Test Item Value Reference Range Comments LACTIC ACID POC (test code=LACTP) 1.21 MMOL/L 0.90-1.70 COMPREHENSIVE METABOLIC [id number] 19:03:00 Test Item Value Reference Range Comments SODIUM (test code=NA) 130 mmol/L 134-147 POTASSIUM (test code=K) 4.6 mmol/L 3.4-5.0 CHLORIDE (test code=CL) 96 mmol/L 100-108 CARBON DIOXIDE (test code=CO2) 26 mmol/L 21-32 ANION GAP (test code=GAP) 8.0 GAP calc 4.0-15.0 GLUCOSE (test code=GLU) 146 MG/DL 70-110 BLOOD UREA NITROGEN (test code=BUN) 23 MG/DL 7-18 GLOMERULAR FILTRATION RATE (test >=60 max estimate estGFR >60 code=GFR) CREATININE (test code=CREAT) 0.7 MG/DL 0.6-1.0 TOTAL PROTEIN (test code=PROT) 8.7 G/DL 6.4-8.2 ALBUMIN (test code=ALB) 3.1 G/DL 3.4-5.0 GLOBULIN (test code=GLOB) 5.6 GM/dL ALBUMIN/GLOBULIN RATIO (test 0.6 RATIO 1.2-2.2 code=A/G) CALCIUM (test code=CA) 9.3 MG/DL 8.5-10.1 BILIRUBIN TOTAL (test code=BILT) 3.50 MG/DL 0.2-1.2 SGOT/AST (test code=AST) 82 Unit/L 15-37 SGPT/ALT (test code=ALT) 29 Unit/L 12-78 ALKALINE PHOSPHATASE TOTAL (test 158 Unit/L 45-117 code=ALKP) CBC W/AUTO [id number] 19:27:00 Test Item Value Reference Range Comments WHITE BLOOD CELL (test 4.2 K/mm3 3.5-11.0 code=WBC) RED BLOOD CELL (test code=RBC) 2.55 M/mm3 4.70-6.10 HEMOGLOBIN (test code=HGB) 8.0 G/DL 10.4-14.9 HEMATOCRIT (test code=HCT) 25.3 % 31.5-44.1 MEAN CELL VOLUME (test 99.2 Fl 84.5-98.6 code=MCV) MEAN CELL HGB (test code=MCH) 31.4 pg 27.0-34.2 MEAN CELL HGB CONCETRATION 31.6 G/DL 31.5-34.0 (test code=MCHC) RED CELL DISTRIBUTION WIDTH 20.9 SD 11.5-14.5 (test code=RDW) PLATELET COUNT (test code=PLT) 255.0 K/mm3 150-450 MEAN PLATELET VOLUME (test 10.80 fL 7.0-10.5 code=MPV) NEUTROPHIL % (test code=NT%) 74.5 % 40-76 LYMPHOCYTE % (test code=LY%) 10.5 % 20.5-51.1 MONOCYTE % (test code=MO%) 14.1 % 1.7-9.3 EOSINOPHIL % (test code=EO%) 0.7 % 0.0-6.0 BASOPHIL % (test code=BA%) 0.2 % 0.0-2.0 NEUTROPHIL # (test code=NT#) 3.11 K/mm3 1.8-7.6 LYMPHOCYTE # (test code=LY#) 0.4 K/mm3 0.6-3.2 MONOCYTE # (test code=MO#) 0.6 K/mm3 0.3-1.1 EOSINOPHIL # (test code=EO#) 0.0 K/mm3 0.0-0.4 BASOPHIL # (test code=BA#) 0.0 K/mm3 0.0-0.1 MANUAL DIFF REQUIRED (test NO DIFF/SCN CRITERIA SLIDE REVIEW CONSISTANT code=MDIFF) WITH AUTO DIFFERENTIAL. CBC W/AUTO [id number] 18:32:00 Test Item Value Reference Range Comments WHITE BLOOD CELL (test code=WBC) 4.2 K/mm3 3.5-11.0 RED BLOOD CELL (test code=RBC) 2.55 M/mm3 4.70-6.10 HEMOGLOBIN (test code=HGB) 8.0 G/DL 10.4-14.9 HEMATOCRIT (test code=HCT) 25.3 % 31.5-44.1 MEAN CELL VOLUME (test code=MCV) 99.2 Fl 84.5-98.6 MEAN CELL HGB (test code=MCH) 31.4 pg 27.0-34.2 MEAN CELL HGB CONCETRATION (test code=MCHC) 31.6 G/DL 31.5-34.0 RED CELL DISTRIBUTION WIDTH (test code=RDW) 20.9 SD 11.5-14.5 PLATELET COUNT (test code=PLT) 255.0 K/mm3 150-450 MEAN PLATELET VOLUME (test code=MPV) 10.80 fL 7.0-10.5 NEUTROPHIL % (test code=NT%) % 40-76 LYMPHOCYTE % (test code=LY%) % 20.5-51.1 MONOCYTE % (test code=MO%) % 1.7-9.3 EOSINOPHIL % (test code=EO%) % 0.0-6.0 BASOPHIL % (test code=BA%) % 0.0-2.0 NEUTROPHIL # (test code=NT#) K/mm3 1.8-7.6 LYMPHOCYTE # (test code=LY#) K/mm3 0.6-3.2 MONOCYTE # (test code=MO#) K/mm3 0.3-1.1 EOSINOPHIL # (test code=EO#) K/mm3 0.0-0.4 BASOPHIL # (test code=BA#) K/mm3 0.0-0.1 MANUAL DIFF REQUIRED (test code=MDIFF) DIFF/SCN CRITERIA - CT ABD PELVIS W/O [id number] 13:51:00 Name: CONSUELO MENDEZ [place] : 1950 Age/S: 67 / F [address] [facility] [address] Unit #: [id number] Loc: [place] [address] Phys: Sophia Kennedy MD Acct: [id number] Dis Date: Status : REG REF PHONE #: [phone] Exam Date: 07/01/2018 1321 FAX #: Reason: R/O RETRO PERITONEAL BLEED EXAMS: CPT: [id number] CT ABD PELVIS W/O CONT 43149 NoncontrastCT of the abdomen and pelvis CLINICAL INDICATION: Rule out Retroperitoneal bleed Comparison none Location R [address] is obtained from lung bases to inferior pubic rami without contrast and with axial, coronal and sagittal reconstructions provided. One or more the following dose reduction techniques were used: Automated exposure control , adjustment of mA and/or kV according to patient size, and use of iterative reconstruction technique. DLP 221.93 mGy-cm. There is honeycombing at thelung bases consistent with mild to moderate interstitial fibrosis. Lung bases are otherwise clear. Heart is normal in size. Great vessels are normal in caliber. The unenhanced liver, spleen, gallbladder, stomach, pancreas, kidneys and adrenal glands are unremarkable. 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 On the right there is a 3 cm, lobulated fluid collection in the right groin, contiguous with the right common femoral artery which could represent pseudoaneurysm or hematoma. Consideration for correlation with ultrasound is recommended. There is no evidence of retroperitoneal hematoma. The urinary bladder is dilated measuring 12 cm in AP diameter, 11 cm in width and nearly 15 cm in length. The unopacified bowel demonstrates increased feces consistent with constipation. There is extensive radiopaque abdominal mesh in place in the anterior abdominal wall. Uterus is not identified. Bony structures are without gross destructive lesions. IMPRESSION: PAGE 1 Signed Report ( CONTINUED) Name: [facility] : 1950 Age/S: 67 / F [address] [address] Unit #: [id number] Loc: [place] [address] Phys: Sophia Kennedy MD Acct: [id number] Dis Date: Status: REG REF PHONE #: [phone] Exam Date: 07/01/2018 1326 FAX #: Reason: R/O RETRO PERITONEAL BLEED EXAMS: CPT: [id number] CT ABD PELVIS W/O CONT 36951 <Continued> 1. Aortobiiliac bypass graft. 2. Marked bladder distention measuring over 12 cm. 3. 3 cm lobulated fluid collection within the right groin may represent hematoma or pseudoaneurysm. Correlation with Doppler ultrasound may be appropriate. 4. Lower lobe pulmonary interstitial fibrosis at 1351 Reported and signed by: Oneida Sexton M.D. CC: Sophia Kennedy MD Technologist:RT Jose(R)(CT) CTDI: DLP : Trnscb Date/Time: 07/01/2018 (9171) t.[email or web address] Orig Print D/T: S: 07/01/2018 (2950) CTDI: DLP: PAGE 2 Signed ReportCBC W/AUTO [id number] 22:11:00 Test Item Value Reference Range Comments WHITE BLOOD CELL (test code=WBC) 4.7 K/mm3 3.5-11.0 RED BLOOD CELL (test code=RBC) 2.00 M/mm3 4.70-6.10 HEMOGLOBIN (test code=HGB) 6.3 G/DL 10.4-14.9 HEMATOCRIT (test code=HCT) 20.4 % 31.5-44.1 MEAN CELL VOLUME (test code=MCV) 102.0 Fl 84.5-98.6 MEAN CELL HGB (test code=MCH) 31.5 pg 27.0-34.2 MEAN CELL HGB CONCETRATION (test code=MCHC) 30.9 G/DL 31.5-34.0 RED CELL DISTRIBUTION WIDTH (test code=RDW) 22.1 SD 11.5-14.5 PLATELET COUNT (test code=PLT) 380.0 K/mm3 150-450 MEAN PLATELET VOLUME (test code=MPV) 10.40 fL 7.0-10.5 NEUTROPHIL % (test code=NT%) 74.5 % 40-76 LYMPHOCYTE % (test code=LY%) 13.7 % 20.5-51.1 MONOCYTE % (test code=MO%) 9.0 % 1.7-9.3 EOSINOPHIL % (test code=EO%) 2.4 % 0.0-6.0 BASOPHIL % (test code=BA%) 0.4 % 0.0-2.0 NEUTROPHIL # (test code=NT#) 3.48 K/mm3 1.8-7.6 LYMPHOCYTE # (test code=LY#) 0.6 K/mm3 0.6-3.2 MONOCYTE # (test code=MO#) 0.4 K/mm3 0.3-1.1 EOSINOPHIL # (test code=EO#) 0.1 K/mm3 0.0-0.4 BASOPHIL # (test code=BA#) 0.0 K/mm3 0.0-0.1 MANUAL DIFF REQUIRED (test code=MDIFF) NO DIFF/SCN CRITERIA RBC [id number] 22:11:00 Test Item Value Reference Range Comments POIKILOCYTOSIS (test code=POIK) TRACE ON SCAN NONE ANISOCYTOSIS (test code=ANISO) 1+ NONE ELLIPTOCYTES (test code=ELL) TRACE ON SCAN NONE NINI CELLS (test code=BUR) TRACE ON SCAN NONE CBC W/AUTO [id number] 22:10:00 Test Item Value Reference Range Comments WHITE BLOOD CELL (test code=WBC) 4.7 K/mm3 3.5-11.0 RED BLOOD CELL (test code=RBC) 2.00 M/mm3 4.70-6.10 HEMOGLOBIN (test code=HGB) 6.3 G/DL 10.4-14.9 HEMATOCRIT (test code=HCT) 20.4 % 31.5-44.1 MEAN CELL VOLUME (test code=MCV) 102.0 Fl 84.5-98.6 MEAN CELL HGB (test code=MCH) 31.5 pg 27.0-34.2 MEAN CELL HGB CONCETRATION (test code=MCHC) 30.9 G/DL 31.5-34.0 RED CELL DISTRIBUTION WIDTH (test code=RDW) 22.1 SD 11.5-14.5 PLATELET COUNT (test code=PLT) 380.0 K/mm3 150-450 MEAN PLATELET VOLUME (test code=MPV) 10.40 fL 7.0-10.5 NEUTROPHIL % (test code=NT%) 74.5 % 40-76 LYMPHOCYTE % (test code=LY%) 13.7 % 20.5-51.1 MONOCYTE % (test code=MO%) 9.0 % 1.7-9.3 EOSINOPHIL % (test code=EO%) 2.4 % 0.0-6.0 BASOPHIL % (test code=BA%) 0.4 % 0.0-2.0 NEUTROPHIL # (test code=NT#) 3.48 K/mm3 1.8-7.6 LYMPHOCYTE # (test code=LY#) 0.6 K/mm3 0.6-3.2 MONOCYTE # (test code=MO#) 0.4 K/mm3 0.3-1.1 EOSINOPHIL # (test code=EO#) 0.1 K/mm3 0.0-0.4 BASOPHIL # (test code=BA#) 0.0 K/mm3 0.0-0.1 MANUAL DIFF REQUIRED (test code=MDIFF) NO DIFF/SCN CRITERIA CBC W/AUTO [id number] 22:10:00 Test Item Value Reference Range Comments WHITE BLOOD CELL (test code=WBC) 4.7 K/mm3 3.5-11.0 RED BLOOD CELL (test code=RBC) 2.00 M/mm3 4.70-6.10 HEMOGLOBIN (test code=HGB) 6.3 G/DL 10.4-14.9 HEMATOCRIT (test code=HCT) 20.4 % 31.5-44.1 MEAN CELL VOLUME (test code=MCV) 102.0 Fl 84.5-98.6 MEAN CELL HGB (test code=MCH) 31.5 pg 27.0-34.2 MEAN CELL HGB CONCETRATION (test code=MCHC) 30.9 G/DL 31.5-34.0 RED CELL DISTRIBUTION WIDTH (test code=RDW) 22.1 SD 11.5-14.5 PLATELET COUNT (test code=PLT) 380.0 K/mm3 150-450 MEAN PLATELET VOLUME (test code=MPV) 10.40 fL 7.0-10.5 NEUTROPHIL % (test code=NT%) 74.5 % 40-76 LYMPHOCYTE % (test code=LY%) 13.7 % 20.5-51.1 MONOCYTE % (test code=MO%) 9.0 % 1.7-9.3 EOSINOPHIL % (test code=EO%) 2.4 % 0.0-6.0 BASOPHIL % (test code=BA%) 0.4 % 0.0-2.0 NEUTROPHIL # (test code=NT#) 3.48 K/mm3 1.8-7.6 LYMPHOCYTE # (test code=LY#) 0.6 K/mm3 0.6-3.2 MONOCYTE # (test code=MO#) 0.4 K/mm3 0.3-1.1 EOSINOPHIL # (test code=EO#) 0.1 K/mm3 0.0-0.4 BASOPHIL # (test code=BA#) 0.0 K/mm3 0.0-0.1 MANUAL DIFF REQUIRED (test code=MDIFF) NO DIFF/SCN CRITERIA
[2018-09-18 11:07] LABS: Absolute Lymphocytes (CBC) 0.7 K/uL (0.7-4.9); Basophils % 0.5 % (0-1.3); Eosinophils % 0.1 % (0-4.4); Hematocrit 40.1 % (36.0-45.0); Lymphocytes % 4.2 % (15.3-44.8); MPV 8.4 fL (7.6-11.3); Monocytes % 3.2 % (3.3-12.3); RBC Red Blood Cell Count 4.06 M/uL (3.86-4.86)
--- NOTE | 2018-09-18 11:12 | RAD REPORT ---
EXAM DESCRIPTION: CT - Head Brain Wo Cont - 09/18/2018 11:01 am CLINICAL HISTORY: CONFUSED Headache, drowsiness COMPARISON: Brain W/Wo Cont dated 01/19/2018; MRA Neck W/Wo Cont dated 01/19/2018; Head C Spine Mpr Wo Con dated 01/16/2018 TECHNIQUE: All CT scans are performed using dose optimization technique as appropriate and may inclu de automated exposure control or mA/KV adjustment according to patient size. FINDINGS: No intracranial hemorrhage, hydrocephalus or extra-axial fluid collection.Mild brain atrop hy is seen.Significant periventricular hypodensity and deep white matter hypodensity is seen, unchang ed. This is likely chronic microvascular ischemia, but is somewhat advanced for age. The paranasal sinuses and mastoids are clear. The calvarium is intact. IMPRESSION: No acute intracranial abnormality.
--- NOTE | 2018-09-18 11:17 | RAD REPORT ---
EXAM DESCRIPTION: RAD - Chest Single View - 09/18/2018 11:12 am CLINICAL HISTORY: CONGESTION Chest pain. COMPARISON: Chest Single View dated 08/10/2018; Chest Pa And Lat (2 Views) dated 08/09/2018Chest Pa An d Lat (2 Views) dated 06/04/2018; Chest Single View dated 01/16/2018; Chest Pa And Lat (2 Views) dated 03/03/2016; CHEST PA AND LAT 2 VIEW dated 05/04/2015 FINDINGS: Portable technique limits examination quality. Poorly defined bilateral parahilar opacities are noted, that appeared chronic. A focal pulmonary infi ltrate is not seen. The heart is normal in size. Right-sided port catheter its tip in the SVC.
[2018-09-18 11:19] LABS: Protime INR 1.05
[2018-09-18 11:24] LABS: ALT/SGPT 14 U/L (12-78); AST/SGOT 12 U/L (15-37); Alkaline Phosphatase 104 U/L (45-117); BUN Blood Urea Nitrogen 8 mg/dL (7-18); Bicarbonate 27 mmol/L (21-32); Bilirubin Direct 0.1 mg/dL (0-0.2); Bilirubin Total 0.4 mg/dL (0.2-1.0); CKMB Creatine Kinase MB < 1.0 ng/mL (0.3-3.6); Creatine Phosphokinase 12 U/L (26-192); Glucose Level 107 mg/dL (74-106); Lipase 56 U/L (73-393); Potassium 3.9 mmol/L (3.5-5.1); Protein, Total 7.9 g/dL (6.4-8.2); Sodium Level 132 mmol/L (136-145); Troponin (Emerg Dept Use Only) < 0.02 ng/mL (0.0-0.045)
[2018-09-18] MEDS ORDERED: CEFEPIME 1 GM/100 ML BAG IV ONE (11:24)
[2018-09-18] MEDS ORDERED: NA CHLORIDE 0.9% 2,000 ML ONE (11:24)
[2018-09-18 11:26] LABS: Urine Bacteria LOADED /HPF (<20); Urine Culture Reflex Order NOT NEEDED; Urine RBC NONE SEEN /HPF (NONE SEEN)
[2018-09-18] MEDS ORDERED: VANCOMYCIN/NS 1 gm 1 GM/250 ML BAG IV ONE (11:30)
[2018-09-18] MEDS ORDERED: ACETAMINOPHEN 160 MG/5 ML UCUP ONE (11:47)
[2018-09-18 11:49] LABS: Blood Morphology Comment NOT SEEN (NOT SEEN); Platelet Estimate ADEQ; Urine White Blood Cell Casts OK
--- NOTE | 2018-09-18 12:17 | ER ---
Nurse's Notes [facility] Name: Jamaica Perez Age: 67 yrs Sex: Female : 1950 Arrival Date: 09/18/2018 Time: 10:37 Bed 8 Private MD: Diagnosis: Sepsis due to other Gram-negative organisms;Cystitis, unspecified without hematuria Presentation: 09/18 10:38 Transition of care: patient was not received from another setting of care. Onset of ph symptoms was September 18, 2018. Risk Assessment: Do you want to hurt yourself or someone else? Patient reports no desire to harm self or others. Initial Sepsis Screen: Does the patient meet any 2 criteria? Altered Mental Status. HR > 90 bpm. Yes Does the patient have a suspected source of infection? Yes: Dysuria/Frequency/Urgency/UTI. 10:38 Acuity: LIV 2 ph 10:38 Method Of Arrival: EMS: [facility] ph 10:38 Presenting complaint: EMS states: pt family/caretakers report the pt having a decrease sg in awareness at home, reports her just being very quiet and not wanting to move, pt is normal aa\T\Ox4, also reports having urinary incontinence in adult briefs for a day. Care prior to arrival: Glucose check: 134. Historical: - Allergies: 11:00 No Known Allergies; sg - PMHx: 11:00 Diabetes - NIDDM; Hyperlipidemia; Hypertension; sg 11:00 Sepsis; sg - Immunization history:: Adult Immunizations unknown. - Social history:: Smoking status: unknown Patient/guardian denies using alcohol, street drugs, The patient lives with family. - Ebola Screening: : Patient negative for fever greater than or equal to 101.5 degrees Fahrenheit, and additional compatible Ebola Virus Disease symptoms Patient denies exposure to infectious person Patient denies travel to an Ebola-affected area in the 21 days before illness onset No symptoms or risks identified at this time. - Family history:: not pertinent. Screenin:00 Abuse screen: Denies threats or abuse. Denies injuries from another. Nutritional sg screening: No deficits noted. Tuberculosis screening: No symptoms or risk factors identified. Never had TB. Fall Risk None identified. Assessment: 10:38 Reassessment: Codee sepsis activated green sheet on chart. sg 10:42 Reassessment: pt cleaned of urine incontinence, placed into a clean gown, a new brief sg has been applied. General: Appears ill, well groomed, well developed, well nourished, Behavior is drowsy, listless. Pain: Complains of pain in right leg Noted to be grimacing, when right leg moved for straight cath insertion. Neuro: Level of Consciousness is listless, Facial symmetry appears normal. Cardiovascular: Heart tones S1 S2 present Patient's skin is warm and dry. Respiratory: Airway is patent Respiratory effort is even, unlabored, Respiratory pattern is regular, symmetrical, Breath sounds are clear. GI: Abdomen is flat, non-distended. : Genitalia appear normal smells of urine, a urine saturated brief is noted. EENT: No deficits noted. Derm: Skin is moist, Skin is normal, Wound noted right femoral area and medial aspect of left knee. Musculoskeletal: Circulation, motion, and sensation intact. Swelling absent Left BKA. 11:45 Reassessment: pt family remains at bedside at this time, pt appears more alert and sg responsive, answering daughter questions appropriately, bed in low and locked position, call light within reach, IV ABX infusing as ordered, pt IVF infusing as ordered, awaiting update from , will continue to [facility]. 12:20 Reassessment: Patient appears in no apparent distress at this time. Patient and/or sg family updated on plan of care and expected duration. Pain level reassessed. pt denies any pain at this time, awaiting new orders, pt family remains at bedside at this time Patient states feeling better. 12:30 Reassessment: notified pt family requesting to speak with him at this time, sg awaiting new orders, will continue to monitor Patient denies pain at this time. 13:21 Reassessment: Patient appears in no apparent distress at this time. Patient and/or sg family updated on plan of care and expected duration. Pain level reassessed. pt family remains at bedside at this time, notified pt family requesting to speak with him Patient states feeling better. 13:25 Reassessment: at bedside updating pt and pt family at this time. sg 14:19 Reassessment: Patient appears in no apparent distress at this time. Patient and/or ss family updated on plan of care and expected duration. Pain level reassessed. pt family at bedside at this time, tolerating PO diet tray at this time, pt alert and oriented at this time, instructed on a bed assignment, pt and pt family stated understanding, will continue to monitor. Vital Signs: 10:37 BP 146 / 55; Pulse 103; Resp 18; Temp 99.6(A); Pulse Ox 96% on R/A; ph 10:45 Temp 102.4(R); sg 11:04 Weight 56.7 kg (R); sg 11:25 Pulse 94; Resp 20; Pulse Ox 98% on R/A; sg 11:46 BP 132 / 85; Pulse 90; Resp 18 S; Pulse Ox 98% on R/A; sg 13:00 BP 116 / 44; Pulse 76; Resp 18 S; Pulse Ox 98% on R/A; sg 13:24 Temp 98.2; sg 14:28 BP 113 / 49; Pulse 84; Resp 18; Temp 98.4; Pulse Ox 99% on R/A; Pain 0/10; ss 14:41 BP 120 / 64; Pulse 76; Resp 19 S; Pulse Ox 99% on R/A; sg 15:15 BP 118 / 50; Pulse 80; Resp 17 S; Pulse Ox 99% on R/A; sg 11:04 per family sg ED Course: 10:37 Patient arrived in ED. ph 10:40 Initial lab(s) drawn, by me, sent to lab. First set of blood cultures drawn by me. sg Inserted saline lock: 22 gauge in right antecubital area, using aseptic technique. Blood collected. 10:42 Kadi Belle MD is Attending Physician. ma2 10:43 Triage completed. ph 10:45 Patient has correct armband on for positive identification. Bed in low position. Call ss light in reach. ekg monitor on. Pulse ox on. NIBP on. Warm blanket given. Head of bed elevated. 10:50 Straight cath inserted, using sterile technique, 16 Fr. Specimen obtained. Returned sg clear yellow urine. Patient tolerated well. 300 mL output noted. 10:52 Wound culture swab sent to lab. sg 10:59 Anselmo Lainez, RN is Primary Nurse. sg 10:59 Arm band placed on. sg 11:[address] via stretcher. sg 11:04 CT Head Brain wo Cont In Process Unspecified. EDMS 11:15 Chest Single View XRAY In Process Unspecified. EDMS 11:16 EKG done, by technology assistant. reviewed by Kadi Belle MD. 3 12:16 Lior Daniels MD is Hospitalizing Provider. ma2 14:22 No provider procedures requiring assistance completed. Patient admitted, IV remains in ss place. intact, No redness/swelling at site. 14:41 Assisted with bedpan. sg 15:38 Assisted with bedpan. sg Administered Medications: 11:10 Drug: NS 0.9% (30 ml/kg) 30 ml/kg Route: IV; Rate: bolus; Site: right antecubital; sg 13:00 Follow up: Response: No adverse reaction; IV Status: Completed infusion; IV Intake: sg 1900ml 11:10 Drug: Cefepime 1 grams Route: IVPB; Rate: 200 ml/hr; Infused Over: 30 mins; Site: right sg antecubital; 11:40 Follow up: Response: No adverse reaction; IV Status: Completed infusion ss 11:38 Drug: Tylenol 15 mg/kg Route: PO; sg 12:11 Follow up: Response: No adverse reaction sg 12:00 Drug: vancoMYCIN 1 grams Route: IVPB; Infused Over: 2 hrs; Site: right antecubital; sg 14:00 Follow up: Response: No adverse reaction; IV Status: Completed infusion ss Intake: 13:00 IV: 1900ml; Total: 1900ml. sg Output: 15:15 Urine: 500ml (Voided); Total: 500ml. sg Outcome: 12:17 Decision to Hospitalize by Provider. ma2 15:27 Admitted to Tele accompanied by tech, family with patient, via stretcher, room 406, sg with chart, Report called to Germania KWOK 15:27 Condition: improved 15:27 Instructed on the need for admit, safety practices. 15:45 Patient left the ED. Signatures: Dispatcher [employer] EDAnselmo Carter RN RN sg Smirch, Shelby, RN RN Deana Huntley RN RN Kadi Belle MD MD ct2 Daisy Young 3 Corrections: (The following items were deleted from the chart) 11:28 11:20 NS 0.9% (30 ml/kg) 30 ml/kg IV at bolus in right antecubital sg sg 13:06 13:00 Reassessment: sg sg
--- NOTE | 2018-09-18 12:17 | EDPHYS ---
Physician Documentation [facility] Name: Jamaica Perez Age: 67 yrs Sex: Female : 1950 Arrival Date: 09/18/2018 Time: 10:37 Bed 8 Private MD: ED Physician Kadi Belle HPI: 09/18 12:12 This 67 yrs old Female presents to ER via EMS with complaints of Altered ma2 Mental Status, Urinary Incontinence. 12:12 The patient presents with confusion. Onset: The symptoms/episode began/occurred ma2 gradually. Onset: The symptoms/episode began/occurred 2 day(s) ago. Associated signs and symptoms: Pertinent negatives: agitation, blurred vision, diaphoresis, diarrhea. Current symptoms: In the emergency department the patient's symptoms are unchanged from the initial presentation. The patient has experienced a previous episode, The patient has experienced similar episodes in the past. Historical: - Allergies: 11:00 No Known Allergies; sg - PMHx: 11:00 Diabetes - NIDDM; Hyperlipidemia; Hypertension; sg 11:00 Sepsis; sg - Immunization history:: Adult Immunizations unknown. - Social history:: Smoking status: unknown Patient/guardian denies using alcohol, street drugs, The patient lives with family. - Ebola Screening: : Patient negative for fever greater than or equal to 101.5 degrees Fahrenheit, and additional compatible Ebola Virus Disease symptoms Patient denies exposure to infectious person Patient denies travel to an Ebola-affected area in the 21 days before illness onset No symptoms or risks identified at this time. - Family history:: not pertinent. ROS: 12:12 Constitutional: Negative for fever, chills, and weight loss. ma2 12:12 All other systems are negative. Exam: 12:12 Constitutional: This is a well developed, well nourished patient who is awake, alert, ma2 and in no acute distress. Chest/axilla: Normal chest wall appearance and motion. Nontender with no deformity. No lesions are appreciated. Cardiovascular: Regular rate and rhythm with a normal S1 and S2. No gallops, murmurs, or rubs. Normal PMI, no JVD. No pulse deficits. Respiratory: Lungs have equal breath sounds bilaterally, clear to auscultation and percussion. No rales, rhonchi or wheezes noted. No increased work of breathing, no retractions or nasal flaring. Abdomen/GI: Soft, non-tender, with normal bowel sounds. No distension or tympany. No guarding or rebound. No evidence of tenderness throughout. MS/ Extremity: Pulses equal, no cyanosis. Neurovascular intact. Full, normal range of motion. Neuro: Awake and alert, GCS 15, oriented to person, place, time, and situation. Cranial nerves II-XII grossly intact. Motor strength 5/5 in all extremities. Sensory grossly intact. Cerebellar exam normal. Normal gait. Vital Signs: 10:37 BP 146 / 55; Pulse 103; Resp 18; Temp 99.6(A); Pulse Ox 96% on R/A; ph 10:45 Temp 102.4(R); sg 11:04 Weight 56.7 kg (R); sg 11:25 Pulse 94; Resp 20; Pulse Ox 98% on R/A; sg 11:46 BP 132 / 85; Pulse 90; Resp 18 S; Pulse Ox 98% on R/A; sg 13:00 BP 116 / 44; Pulse 76; Resp 18 S; Pulse Ox 98% on R/A; sg 13:24 Temp 98.2; sg 14:28 BP 113 / 49; Pulse 84; Resp 18; Temp 98.4; Pulse Ox 99% on R/A; Pain 0/10; ss 14:41 BP 120 / 64; Pulse 76; Resp 19 S; Pulse Ox 99% on R/A; sg 15:15 BP 118 / 50; Pulse 80; Resp 17 S; Pulse Ox 99% on R/A; sg 11:04 per family sg MDM: 10:42 Patient medically screened. [facility] 12:12 Differential Diagnosis: pneumonia, sepsis, UTI, volume depletion. Data reviewed: vital [facility] signs, nurses notes. Counseling: I had a detailed discussion with the patient and/or guardian regarding: the historical points, exam findings, and any diagnostic results supporting the discharge/admit diagnosis, the presence of at least one elevated blood pressure reading (>120/80) during this emergency department visit, the need for outpatient follow up. Response to treatment: the patient's symptoms have markedly improved after treatment. 12:15 ED course: discussed with dr. Daniels . ca2 09/18 10:44 Order name: Wound Culture ca2 09/18 10:44 Order name: Urine Culture ca09/18 10:44 Order name: Basic Metabolic Panel; Complete Time: 12:10 ca09/18 10:44 Order name: Blood Culture Adult (2) ca09/18 10:44 Order name: CBC with Diff; Complete Time: 12:10 ca09/18 10:44 Order name: Ckmb; Complete Time: 12:10 ca09/18 10:44 Order name: CPK; Complete Time: 12:10 ca09/18 10:44 Order name: Lactate; Complete Time: 12:10 09/18 10:44 Order name: LFT's; Complete Time: 12:10 ca09/18 10:44 Order name: Lipase; Complete Time: 12:10 ca09/18 10:44 Order name: Procalcitonin; Complete Time: 12:10 09/18 10:44 Order name: Protime (+inr); Complete Time: 12:10 ca09/18 10:44 Order name: Ptt, Activated; Complete Time: 12:10 ca09/18 10:44 Order name: Troponin (emerg Dept Use Only); Complete Time: 12:10 ca09/18 10:44 Order name: Urine Microscopic Only; Complete Time: 12:10 ca09/18 10:44 Order name: Chest Single View XRAY; Complete Time: 12:10 09/18 10:44 Order name: Accucheck; Complete Time: 11:03 ca09/18 10:44 Order name: Cardiac monitoring; Complete Time: 11:03 ca09/18 10:44 Order name: EKG - Nurse/Tech; Complete Time: 11:03 ca09/18 10:44 Order name: IV Saline Lock - Large Bore; Complete Time: 11:03 ca09/18 10:44 Order name: Labs collected and sent; Complete Time: 11:03 ca09/18 10:44 Order name: CT Head Brain wo Cont; Complete Time: 12:10 ca09/18 10:59 Order name: Urine Dipstick--Ancillary (enter results) ag 09/18 11:50 Order name: CBC Smear Scan; Complete Time: 12:10 EDMS 09/18 12:03 Order name: EKG Electrocardiogram; Complete Time: 12:04 EDMS 09/18 13:33 Order name: Diet Ada 1800 Leighton; Complete Time: 13:34 jb1 09/18 10:44 Order name: O2 Per Protocol; Complete Time: 11:03 [facility] 09/18 10:44 Order name: O2 Sat Monitoring; Complete Time: 11:03 [facility] 09/18 10:44 Order name: Urine Dipstick-Ancillary (obtain specimen); Complete Time: 11:03 [facility] 09/18 11:03 Order name: Straight Cath; Complete Time: 11:03 sg Administered Medications: 11:10 Drug: NS 0.9% (30 ml/kg) 30 ml/kg Route: IV; Rate: bolus; Site: right antecubital; sg 13:00 Follow up: Response: No adverse reaction; IV Status: Completed infusion; IV Intake: sg 1900ml 11:10 Drug: Cefepime 1 grams Route: IVPB; Rate: 200 ml/hr; Infused Over: 30 mins; Site: right sg antecubital; 11:40 Follow up: Response: No adverse reaction; IV Status: Completed infusion 11:38 Drug: Tylenol 15 mg/kg Route: PO; sg 12:11 Follow up: Response: No adverse reaction sg 12:00 Drug: vancoMYCIN 1 grams Route: IVPB; Infused Over: 2 hrs; Site: right antecubital; sg 14:00 Follow up: Response: No adverse reaction; IV Status: Completed infusion Disposition: 09/18/18 12:17 Hospitalization ordered by Lior Daniels for Inpatient Admission. Preliminary diagnosis are Sepsis due to other Gram-negative organisms, Cystitis, unspecified without hematuria. - Bed requested for Telemetry/MedSurg (Inpatient). - Status is Inpatient Admission. ss - Condition is Stable. - Problem is new. - Symptoms are unchanged. UTI on Admission? Yes Signatures: Dispatcher [facility] Hospital[facility]ice Hankins RN RN dw Gay, Steven, RN RN sg Smirch, Shelby, RN RN Deana Huntley RN RN Kadi Belle MD MD ca2 Corrections: (The following items were deleted from the chart) 13:54 12:17 Hospitalization Ordered by Lior Daniels MD for Inpatient Admission. Preliminary dw diagnosis is Sepsis due to other Gram-negative organisms; Cystitis, unspecified without hematuria. Bed requested for Telemetry/MedSurg (Inpatient). Status is Inpatient Admission. Condition is Stable. Problem is new. Symptoms are unchanged. UTI on Admission? Yes. ma2 15:45 13:54 09/18/2018 12:17 Hospitalization Ordered by Lior Daniels MD for Inpatient ss Admission. Preliminary diagnosis is Sepsis due to other Gram-negative organisms; Cystitis, unspecified without hematuria. Bed requested for Telemetry/MedSurg (Inpatient). Status is Inpatient Admission. Condition is Stable. Problem is new. Symptoms are unchanged. UTI on Admission? Yes. dw
[2018-09-18 13:55] LABS: Urine Blood NEGATIVE (NEG); Urine Glucose NEGATIVE (NEG); Urine Protein 1+ (NEG)
--- NOTE | 2018-09-18 14:48 | EKG ---
Test Date: 2018-09-18 Test Time: 11:12:16 Surgery Scheduling Coordinator: ALONZO MEASUREMENT RESULTS: Intervals: Rate: 101 VT: 160 QRSD: 148 QT: 368 QTc: 477 [place]: P: 70 VT: 160 QRS: -64 T: 63 INTERPRETIVE STATEMENTS: Sinus tachycardia Right bundle branch block Left anterior fascicular block Bifascicular block Abnormal ECG Compared to ECG 06/04/2018 11:05:05 Left anterior fascicular block now present Bifascicular block now present Sinus rhythm no longer present Atrial abnormality no longer present Electronically Signed On 09-18-18 14:47:11 CDT by Antione Cm
[2018-09-18] MEDS: D5 0.45 NS 1,000 ML IV SCH ×2 (17:10→21:00)
[2018-09-18 17:21] VITALS: BMI 25.2
[2018-09-18] MEDS ORDERED: CEFEPIME 1 GM/VIAL IV SCH (21:00)
[2018-09-18] MEDS: CEFEPIME/SWI 1gm 10 ML IV SCH (22:42)
[2018-09-18] MEDS ORDERED: HYDROCODONE/APAP 5/325 MG TAB PO PRN (22:49)
--- NOTE | 2018-09-19 02:43 | HP ---
Date of Admission: 09/18/2018 Chief Complaint: Confusion, fever, and urinary complaints. History Of Present Illness: This is a 67-year-old female patient who had left [id number] amputat ion for peripheral vascular disease in June of this year and she has a small wound on the dorsum asp ect of the stump, which is improving with home health care dressing changes as she reported today whe n I saw her. She was brought into the emergency room today by family because of confusion, altered m ental status that started today. Yesterday, she was doing fine like her normal usual self. For last 2 days, she is having some burning sensation on urination and her urine has a very strong order and she talked to her home health nurse who advised her to take some cranberry pills that she started yes terday. Today, she ends up in emergency room. After she was evaluated, she was admitted to the hosp ital. She has some lower abdominal pain which is nothing new for her, also has back pain which she s ays nothing new for her. Allergies: NO KNOWN ALLERGIES. Medications: List reviewed. Review of Systems: Genitourinary: As mentioned above. Musculoskeletal: As mentioned above. GI: As mentioned above. All other systems reviewed and negative. Social History: Positive for smoking. Use of alcohol negative. Family History: Not pertinent. Past Surgical History: Significant for hysterectomy and left above-knee amputation done in June of this year due to peripheral vascular disease. Past Medical History: Hypertension, hyperlipidemia, type 2 diabetes mellitus, coronary artery diseas e, peripheral vascular disease, which was determined to be inoperable after doing angiogram this year in May 2018. Past medical history also significant for depression, gastroesophageal reflux diseas e, anemia due to chronic GI blood loss, COPD, carotid artery disease, lung cancer with metastatic dis ease to liver and the patient is undergoing immunotherapy at [facility] about every 2 weeks . Her next scheduled treatment is this week on Monday. Physical Examination: Vital Signs: When she first came into emergency room, temperature 99.3 and . Initial puls e rate 103, saturation 96%. General: Awake, alert, oriented, not in distress. HEENT: Head atraumatic, normocephalic. Conjunctivae nonerythematous. Sclerae white. Mouth, no thr ush or edema noted. Ears/Nose, no mass, lesion, discharge noted. Neck: Supple. No JVD, lymph nodes, bruit, thyromegaly noted. Lungs: Bilateral good equal air entry. Clear to auscultation. No rhonchi. No rales. Heart: Presence of systolic murmur. No gallop. Abdomen: Soft, bowel sounds normal. No guarding, rigidity, tenderness, mass, hepatosplenomegaly, di stention, or bruit noted. Extremities: Left leg shows above-knee amputation with dorsum aspect of the stump has 3-4 mm open wo und, which was actually covered with the dressing. No discharge, bleeding. No redness surrounding. Skin: No rash, ulcer, cellulitis. Lymphatics: No lymph node enlargement in neck, supraclavicular, infraclavicular region. Neuro: No focal neurological deficit. Chest: Unremarkable. External Genitalia: Deferred. Rectal: Deferred. Laboratory Data: White count , platelets 288. Sodium 132, potassium 3.9, chloride 97, bic arb 27, BUN 8, creatinine 0.61, glucose 107. Lactic acid 1, procalcitonin less than 0.05. Liver fun ction tests unremarkable. Urinalysis; 1+ leukocyte esterase, WBC TNTC, bacteria loaded. Chest x-ray ; poorly defined bilateral opacities, focal pulmonary infiltrate not seen. CAT scan of th e head; no acute intracranial changes. EKG; sinus tachycardia, right bundle-branch block, left anter ior fascicular block. Impression: 1.Acute pyelonephritis. 2.Rule out sepsis. 3.Hyponatremia. 4.Peripheral vascular disease. 5.Lung cancer with metastatic disease to liver. 6.COPD. 7.Carotid artery stenosis. 8.Gastroesophageal reflux disease. 9.Hypertension. 10.Hyperlipidemia. 11.Type 2 diabetes mellitus. 12.Coronary artery disease. 13.Depression. Plan: Admit the patient to hospital for further evaluation and management of this problem. The zehra ent is appropriate for inpatient and is expected to spend 2 midnights in hospital. At this point, th ere is no evidence of sepsis, but we definitely have concerns about it. We will see what the blood c ulture looks like. IV fluid was given in the emergency room. We will continue IV antibiotics per or virgilio. Follow up on culture results. Depending on final report on the culture, we will decide about c ulture-specific antibiotics. The patient's home medications will be continued per order. I did ask the patient if she would allow us to access her Port-A-Cath and at this time, she is refusing for us to access that and she wants us to continue to use her peripheral IV access. I have advised the zehra ent's family that they should contact her [facility] physician tomorrow to notify that she is in the hospital with kidney infection problem and she should cancel her immunotherapy for this week and upo n discharge from the hospital, she should continue to follow up at [facility] for continuation of he r immunotherapy. I will see her tomorrow for followup. I have ordered renal ultrasound, which will be done tomorrow morning. The patient to stay n.p.o. after midnight. CALISTA/ALLENL Voice ID: [id number]
[2018-09-19] MEDS: D5 0.45 NS 1,000 ML IV SCH ×2 (05:00→18:37)
[2018-09-19] MEDS ORDERED: VANCOMYCIN/NS 1 gm 1 GM/250 ML BAG IV SCH (06:00)
[2018-09-19 06:05] LABS: Absolute Lymphocytes (CBC) 0.7 K/uL (0.7-4.9); Basophils % 0.1 % (0-1.3); Eosinophils % 0.1 % (0-4.4); Hematocrit 31.4 % (36.0-45.0); Lymphocytes % 5.7 % (15.3-44.8); MPV 8.4 fL (7.6-11.3); Monocytes % 3.5 % (3.3-12.3); RBC Red Blood Cell Count 3.16 M/uL (3.86-4.86)
[2018-09-19 06:25] LABS: ALT/SGPT 12 U/L (12-78); AST/SGOT 11 U/L (15-37); Albumin 2.3 g/dL (3.4-5.0); Alkaline Phosphatase 90 U/L (45-117); BUN Blood Urea Nitrogen 6 mg/dL (7-18); Bicarbonate 25 mmol/L (21-32); Bilirubin Direct 0.1 mg/dL (0-0.2); Bilirubin Total 0.4 mg/dL (0.2-1.0); Glucose Level 142 mg/dL (74-106); Lipase 29 U/L (73-393); Potassium 3.2 mmol/L (3.5-5.1); Sodium Level 132 mmol/L (136-145)
[2018-09-19] MEDS ORDERED: ZOLPIDEM TARTRATE 5 MG TABLET PO PRN (08:09)
[2018-09-19] MEDS ORDERED: MONTELUKAST 10 MG TAB PO PRN (08:09)
[2018-09-19] MEDS ORDERED: HOME MED 1 EA UNK (Levocetirizine Dihydrochloride [Allergy Relief] 5 MG) PO PRN (08:09)
[2018-09-19] MEDS: FLUTICASONE 50MCG NASAL SPRAY NAS SCH (09:00)
[2018-09-19] MEDS: [UNRECOGNIZED DRUG - OTHER] IH SCH (09:00)
--- NOTE | 2018-09-19 09:59 | RAD REPORT ---
EXAM DESCRIPTION: US - Renal Ultrasound-Complete - 09/19/2018 9:28 am CLINICAL HISTORY: acute pyelonephritis Flank pain COMPARISON: RP EXAM COMPLETE dated 11/07/2011 FINDINGS: Both kidneys are normal in size, shape and echotexture. The right kidney measures 11.1 x 5.2 x 5.0 cm. No hydronephrosis, focal mass or perinephric fluid. The left kidney measures 9.3 x 5.3 x 4.7 cm. No hydronephrosis, focal mass or perinephric fluid. The urinary bladder is incompletely distended without gross abnormality seen. IMPRESSION: Unremarkable renal sonogram.
[2018-09-19] MEDS: GABAPENTIN 400 MG CAP PO SCH ×3 (10:11→20:25)
[2018-09-19] MEDS: FERROUS SULFATE 325 MG TAB PO SCH (10:11)
[2018-09-19] MEDS: VITAMIN D 1000 UNIT TAB PO SCH (10:11)
[2018-09-19] MEDS: MAGNESIUM OXIDE 400 MG TAB PO SCH ×2 (10:12→20:25)
[2018-09-19] MEDS: PANTOPRAZOLE 40MG TABLET PO SCH ×2 (10:12→20:26)
[2018-09-19] MEDS: HYDROCODONE/APAP 5/325 MG TAB PO PRN ×2 (10:12→20:25)
[2018-09-19] MEDS: predniSONE 5 MG TAB PO SCH ×2 (10:12→20:25)
[2018-09-19] MEDS: FOLIC ACID 1 MG TABLET PO SCH (10:13)
[2018-09-19] MEDS: CEFEPIME/SWI 1gm 10 ML IV SCH ×2 (10:13→20:25)
--- NOTE | 2018-09-19 10:15 | RAD REPORT ---
EXAM DESCRIPTION: RAD - Hip Bilateral With Pelvis - 09/19/2018 9:52 am CLINICAL HISTORY: fall History of fall, left-sided pain COMPARISON: Pelvis dated 01/16/2018 FINDINGS: Mild osteoarthritic changes involve both hips. No AVN pattern. No acute fracture or disloc ation. Extensive bilateral vascular stenting seen. IMPRESSION: No acute finding evident.
--- NOTE | 2018-09-19 10:17 | RAD REPORT ---
EXAM DESCRIPTION: RAD - Spine Lumbar W obliques - 09/19/2018 9:52 am CLINICAL HISTORY: fall Radiculopathy COMPARISON: No comparisons FINDINGS: Vertebral body heights appear maintained. No compression fracture noted. Disc spaces are m aintained. Mild spondylosis in the form of disc thinning and posterior osteophyte seen lower lumbar l evels. Vascular calcification is noted. IMPRESSION: No acute lumbar spine finding evident.
[2018-09-19] MEDS: SODIUM CHLORIDE 1 GM TAB PO SCH ×3 (12:42→20:25)
[2018-09-19] MEDS: VANCOMYCIN/NS 1 gm 1 GM/250 ML BAG IV SCH (18:41)
[2018-09-19] MEDS ORDERED: ATORVASTATIN 40 MG TAB PO SCH (21:00)
[2018-09-19] MEDS ORDERED: ZOLPIDEM TARTRATE 5 MG TABLET PO SCH (21:00)
[2018-09-19] MEDS ORDERED: POTASSIUM CL SA 10 MEQ TAB PO ONE (21:24)
--- NOTE | 2018-09-20 01:50 | PN ---
Date of Progress Note: 09/19/2018 Subjective: The patient was seen this morning for followup. She was lying in bed, not in distress. No new complaints or problems reported by her. No abdominal pain. No nausea, vomiting. Objective: Vital Signs: Reviewed. HEENT: Examination unremarkable. Lungs: Clear to auscultation. Heart: Sounds normal. Abdomen: Soft. Bowel sounds normal. No guarding, rigidity, tenderness, or distention. Extremities: No leg edema. Laboratory Data: White count 12.5, hemoglobin 10.5, platelets 227. Sodium 132, potassium 3.2, chlor misti 101, bicarb 25, BUN 6, creatinine 0.41, glucose 142. Liver function tests unremarkable. Blood c ulture negative. Urine culture pending. Bilateral hip and pelvis x-ray shows mild osteoarthritic changes involving both hips. No avascular n ecrosis. No fracture. Extensive vascular calcification noted. X-ray of lumbar spine, no evidence o f any compression fracture. Osteophytes with mild spondylosis present in lumbar spine region. Vascu lar calcification present. Renal ultrasound unremarkable. Impression: 1.Acute pyelonephritis. 2.Rule out sepsis. 3.Peripheral vascular disease. 4.Iron deficiency anemia due to chronic gastrointestinal blood loss. 5.Hypokalemia. Plan: We will go ahead and continue current antibiotics. The patient is responding well to antibiot ics. White count is improving. We will follow up on culture results. Once final report on the cult ure is available, we will decide about culture specific antibiotics to discharge home with. Home med ications will be continued per order and we will see her tomorrow for followup. We will go ahead and repeat blood work tomorrow morning and r eplace potassium per order. CALISTA/MODL Voice ID: [id number] Report ID: [id number]
[2018-09-20] MEDS: D5 0.45 NS 1,000 ML IV SCH (05:00)
[2018-09-20 05:28] LABS: Absolute Lymphocytes (CBC) 0.5 K/uL (0.7-4.9); Basophils % 0.3 % (0-1.3); Eosinophils % 0.1 % (0-4.4); Lymphocytes % 4.3 % (15.3-44.8); MPV 8.4 fL (7.6-11.3); Monocytes % 2.6 % (3.3-12.3); RBC Red Blood Cell Count 3.35 M/uL (3.86-4.86)
[2018-09-20 05:34] VITALS: O2SAT 97
[2018-09-20 05:43] LABS: BUN Blood Urea Nitrogen 5 mg/dL (7-18); Bicarbonate 26 mmol/L (21-32); Glucose Level 207 mg/dL (74-106); Magnesium 1.9 mg/dL (1.8-2.4); Sodium Level 135 mmol/L (136-145)
[2018-09-20] MEDS: VANCOMYCIN/NS 1 gm 1 GM/250 ML BAG IV SCH (06:18)
[2018-09-20 06:22] VITALS: TEMP 97.5
[2018-09-20] MEDS: [UNRECOGNIZED DRUG - OTHER] IH SCH (09:00)
[2018-09-20] MEDS: FLUTICASONE 50MCG NASAL SPRAY NAS SCH (09:00)
[2018-09-20] MEDS: SODIUM CHLORIDE 1 GM TAB PO SCH (09:51)
[2018-09-20] MEDS: VITAMIN D 1000 UNIT TAB PO SCH (09:51)
[2018-09-20] MEDS: MAGNESIUM OXIDE 400 MG TAB PO SCH (09:51)
[2018-09-20] MEDS: FOLIC ACID 1 MG TABLET PO SCH (09:52)
[2018-09-20] MEDS: FERROUS SULFATE 325 MG TAB PO SCH (09:52)
[2018-09-20] MEDS: PANTOPRAZOLE 40MG TABLET PO SCH (09:52)
[2018-09-20] MEDS: GABAPENTIN 400 MG CAP PO SCH (09:52)
[2018-09-20] MEDS: predniSONE 5 MG TAB PO SCH (09:52)
[2018-09-20] MEDS: CEFEPIME/SWI 1gm 10 ML IV SCH (09:53)
[2018-09-20 10:29] VITALS: BP 117/65
--- NOTE | 2018-09-21 07:07 | DS ---
Date of Discharge: 09/20/2018 Disposition: Discharged to go home. Physical Examination: HEENT: Unremarkable. Lungs: Clear to auscultation. Heart: Sounds normal. Abdomen: Soft. Bowel sounds normal. No guarding, rigidity, tenderness, or distention. Extremities: No leg edema. Laboratory Data: Upon admission, white count 17.7, hemoglobin 13.2, platelets 288. This morning; wh ite count 11.9, hemoglobin 10.9, platelets 240. Last chemistry today; sodium 135, potassium 4, chlor misti 104, bicarb 26, 0.46, glucose 207. Her urine culture grew klebsiella and wound cultur e also grew same organism. Hospital Course: A 67-year-old female patient admitted to the hospital after she came into emergency room with confusion, fever, urinary complaints. Please see dictated H and P for more information. The patient was evaluated in the ER, admitted to hospital. Blood culture was done. Urine culture wa s done. Wound culture was done in the emergency room. The patient has right groin superficial wound which is improving as the patient's family reported and wound care dressing changes being provided b y home health nursing staff. The patient has not been to my office in a long time. 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 She was started on IV fluid, IV antibiotics. Overall, her condition improved. White count came down to almost john l and final report on the culture came back today. Blood culture remained negative. X-ray of lumbar spine and bilateral hip shows evidence of arthritis. No fracture. Renal ultrasound was unremarkabl e. Final Diagnoses: 1.Acute pyelonephritis. 2.Hyponatremia. 3.Peripheral vascular disease. 4.Lung cancer with metastatic disease to liver. 5.Chronic obstructive pulmonary disease. 6.Carotid artery stenosis. 7.Gastroesophageal reflux disease. 8.Hypertension. 9.Hyperlipidemia. 10.Type 2 diabetes mellitus. 11.Coronary artery disease. 12.Depression. 13.Iron deficiency anemia secondary to chronic gastrointestinal loss. Discharge Medications And Instructions: 1.Continue all prior home medications. 2.Follow up at my office in October 2018. 3.Augmentin 500 mg twice a day for 10 days. CALISTA/MODL Voice ID: [id number] Report ID: [id number]
== END 2018-09-20 10:00 | disposition home health service (06) | DRG 690 ==
LOC: ER 10:25 → ERHOLD 12:22 → 4TH 15:27
PROVIDERS: ADMIT Internal Medicine; ATTEND Internal Medicine
DX: N10 Acute pyelonephritis (principal); E87.1 Hypo-osmolality and hyponatremia; C34.90 Malignant neoplasm of unspecified part of unspecified bronchus or lung; C78.7 Secondary malignant neoplasm of liver and intrahepatic bile duct; K92.2 Gastrointestinal hemorrhage, unspecified; T87.89 Other complications of amputation stump; Y83.5 Amputation of limb(s) as the cause of abnormal reaction of the patient, or of later complication, without mention of misadventure at the time of the procedure; B96.1 Klebsiella pneumoniae [K. pneumoniae] as the cause of diseases classified elsewhere; E11.51 Type 2 diabetes mellitus with diabetic peripheral angiopathy without gangrene; J44.9 Chronic obstructive pulmonary disease, unspecified; I65.29 Occlusion and stenosis of unspecified carotid artery; F17.210 Nicotine dependence, cigarettes, uncomplicated; K21.9 Gastro-esophageal reflux disease without esophagitis; E78.5 Hyperlipidemia, unspecified; I25.10 Atherosclerotic heart disease of native coronary artery without angina pectoris; F32.9 Major depressive disorder, single episode, unspecified; D50.0 Iron deficiency anemia secondary to blood loss (chronic); E87.6 Hypokalemia; M47.9 Spondylosis, unspecified; M16.0 Bilateral primary osteoarthritis of hip; Z89.612 Acquired absence of left leg above knee
CPT/HCPCS: 36415; 51702; 70450; 71045; 72110; 73521; 76770; 80048; 80076; 80202; 81003; 81015; 82550; 82553; 82962; 83605; 83690; 83735; 84145; 84484; 85025; 85610; 85730; 87040; 87070; 87077; 87086; 87088; 87186; 87205; 93005; 96365; 96366; 96367; 96368; 99285; J0692; J3370; J7030; J7512

== ENCOUNTER 2018-09-27 09:16 | Inpatient (IN) | payer BC, OTHER ==
--- OUTSIDE RECORDS SUMMARY | 2018-09-27 09:23 | XMS REPORT | Clinical Summary ---
:1950 Author Organization [place] [facility] Address [address] [place] [address] Care Team Providers Name Role Phone Lior [...] Gastrointestinal hemorrhage with melena 07/03/2018 Atherosclerosis of [place] artery of left lower extremity with intermittent [...] Cade Delgado MD ESOPHAGOGASTRODUODENOSCOPY 19 (EGD) 07/04/19 [facility] Internal [place] Gastrointestinal hemorrhage with melena [...] General Surgery Priscilla May 19 Event Santino, ASSISTANT CUSTOMER SERVICE MANAGER 06/13/19 Surgery Procedural Jay Left heart cath w lv gram 19 Cardiology MD Valentín cors [33398 (CPT)] 06/12/19 [facility] Avery, PVD (peripheral vascular disease) (HCC) (Primary Dx); 19 - Encounter Medicine Arben Thayer MD Atherosclerosis of [place] artery of left lower extremity with intermittent claudication (HCC); 06/20/19 Nathaniel Wynne, Ischemia of extremity 19 06/12/19 Office Visit Cardiovascular Luke Taylor PAD (peripheral artery disease) ([facility]) (Primary Dx); 19 MD Wendy Smoking; 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 06/12/19 Prep for Cardiovascular Maxim Atherosclerosis of [place] artery of left lower extremity with intermittent claudication (HCC) (Primary Dx) ; 19 Surgery Sherri, SUNDAR Ischemia of extremity 06/12/19 Orders Only Cardiovascular Maxim Atherosclerosis of [place] artery of left lower extremity with intermittent claudication (HCC) (Primary Dx) ; 19 SUNDAR Polanco Ischemia of extremity after 09/26/2017 Social History Tobacco Use Types Packs/Day Years [...] VACCINE 10/25/2018 01/15/2018 Implants Implanted Type Area Lang Path Therapist Device Shelf Model / Identifier Expiration Serial / Date Lot Patch Photofix Bovine Pericardium Sz 0.8cm X 8cm Tapred - Sx - [id number] Cardiovascular Left: [employer] 01/29/2020 [id number] / Implanted: Qty: 1 on 06/13/2018 by Luke Taylor MD Implants N/A X / [id number] Clip Ligtng Weck Hemoclip Plus W/ Tape Ti Sm Strngpnt - [id number] Medical Clips N/A: WECK CLOSURE [id number] / Implanted: 07/10/2018 (Quantity not on file) for Internal Use N/A SYSTEMS / Clip Ligtng Weck Hemoclip Plus W/ Tape Ti Sm Strngpnt - [id number] Medical Clips N/A: WECK CLOSURE [id number] / Implanted: 07/10/2018 (Quantity not on file) for Internal Use N/A SYSTEMS / Clip Ligtng Weck Hemoclip Plus W/ Tape Ti Lg - [id number] Medical Clips N/A: TELEFLEX [id number] / Implanted: 07/10/2018 (Quantity not on file) for Internal Use N/A MEDICAL / Clip Resolution 360 Mr Cndtl 235cm 2.8mm 11mm Opening - [id number] Surgical N /A: C ENDOSCOPY [id number] / Implanted: 07/04/2018 (Quantity not on file) Implants; N/A / Expanders; Extenders; Surgical Wires [place] Perph Vasclr Ptfe 1.2x10cm 1.65mm - [id number] Vascular Graft N/A: BARD 03/23/2023 [id number] / Implanted: 07/10/2018 (Quantity not on file) N/A PERIPHERAL / VASCULAR [id number] Graft Vasclr Propaten Thn-Wl Strtch Rmvbl Ringed [id number] 8mm - [id number] - [id number] Vascular Graft N/A: W L GORE 10/06/2021 [id number] / Implanted: Qty: 1 on 07/10/2018 by Zahra Burnham MD N/A [id number] / [id number] Port A Cath Chest Procedures Procedure Name [...] the procedure well with no immediate complications [place] AN ELECTIVE ENDOTRACHEAL AIRWAY Routine 07/10/2018 10:55 AM CDT Procedure Note - Toni Lao CRNA - 07/10/2018 10:55 AM CDT Airway Performed by: Toni Lao CRNA Authorized by: Olivia Rollins MD Location: OR Urgency: Elective Difficult Airway: No Anesthesiologist: Olivia Rollins MD Resident/ASSISTANT CUSTOMER SERVICE MANAGER/AA: Toni Lao CRNA Performed by: resident/ASSISTANT CUSTOMER SERVICE MANAGER/AA Preoxygenated with 100% O2: Yes C-spine Precautions [...] Time: 06/13/2018 2:13 PM Staff: Anesthesiologist: Prakash eRese MD Resident/JAY/AA: Priscilla May CRNA Performed by: [...] the procedure well with no immediate complications [place] AN ELECTIVE ENDOTRACHEAL AIRWAY Routine 06/13/2018 3:16 PM CDT Procedure Note - Prakash Reese MD - 06/13/2018 3:16 PM CDT Airway Date/Time: 06/13/2018 2:40 PM Performed by: Prakash Reese MD Authorized by: Prakash Reese MD Location: OR Urgency: Elective Difficult Airway: No Anesthesiologist: Prakash Reese MD Resident/ASSISTANT CUSTOMER SERVICE MANAGER/AA: Priscilla May CRNA Performed by: resident/ASSISTANT CUSTOMER SERVICE MANAGER/AA Preoxygenated with 100% O2: Yes C-spine Precautions [...] SPECTRAL COLOR DOPPLER procedure are in the (58045) results section. ESTIMATED GFR Routine 06/12/2018 11:35 [...] GLUCOSE Routine 06/11/2018 4:53 PM CDT after 09/26/2017 Results B natriuretic peptide (08/31/2018 5:18 PM CDT) BNP 207 (H) 0 - 100 pg/mL [facility] Specimen Performing Organization Address City/State/Zipcode Phone Number [facility] DEPARTMENT OF PATHOLOGY AND [address] [place] [address] GENOMIC MEDICINE [facility] [address] [place] [address] XR Chest 1 Vw Portable (08/31/2018 5:15 [...] are mildly demineralized. HMRM-SPHYAAL Performing Organization Address City/[facility] [place] [facility] Centercode Phone Number [facility] [address] [place] [phone] Estimated GFR (08/31/2018 3:25 PM CDT)Only the most recent of25 resultswithin the time period is included. Pathologist [facility] Estimated GFR >=90 mL/min/1.73 [facility] Comment: [address] CatergoryUnitsInterpretation G1 >=90 Normal or high G2 60-89Mildly decreased Y0j62-09Dkivrz to moderately decreased M4j94-20Nhcyfojvdb to severely decreased G4 15-29Severely decreased G5 <15Kidney failure The eGFR was calculated using the Chronic Kidney Disease Epidemiology Collaboration (CKD-EPI) equation. Interpretation is based on recommendations of the National Kidney Foundation-Kidney Disease Outcomes Quality Initiative (NKF-KDOQI) published in 2014. Specimen Plasma specimen Performing Organization Address City/[facility]/Zipcode Phone Number [facility] DEPARTMENT OF PATHOLOGY AND [address] [place] [address] [address] [address] Troponin (08/31/2018 3:25 PM CDT)Only the most recent of2 resultswithin the time period is included. Pathologist [facility] Troponin 0.017 0.000 - 0.040 [facility] Comment: ng/mL [facility] changed methodology effective: 07/31/2018 at 10:00 am The new method has a 99th percentile cutoff of 0.040 ng/mL Specimen Plasma specimen Performing Organization Address City/[facility]/[place] [facility] Cent[facility]ode Phone Number [facility] DEPARTMENT OF PATHOLOGY AND [address] [place] [phone] [place] [address] Partial thromboplastin time, activated (08/31/2018 3:25 PM CDT)Only the most recent of8 resultswithin the time period is included. Pathologist [facility] PTT 34.9 23.0 - 36.0 [facility] Comment: [facility] PTT therapeutic range for unfractionated heparin is 61.0-112.0 seconds which corresponds to Anti-Xa 0.3-0.7 U/ml. Specimen Blood Performing Organization Address [facility] [place] [facility] Centercode Phone Number [facility] DEPARTMENT OF PATHOLOGY AND [address] [place] [address] Prothrombin time with INR (08/31/2018 3:25 PM CDT)Only the most recent of8 resultswithin the time period is included. [facility] Prothrombin time 14.0 11.5 - 14.5 [facility] INR 1.1 [place] Comment: SIKHISM [facility] International Normalized Ratio (INR) is a therapeutic HOSPITAL monitoring tool for patients who are stable on oral anticoagulant therapy. An INR of 2.0-3.0 is suggested for deep vein thrombosis/pulmonary embolism. Specimen Blood Performing Organization Address [facility] [place] [facility] Centercoid Phone Number [facility] DEPARTMENT OF PATHOLOGY AND [address] [place] [phone] [place] [phone] CBC with platelet and differential (08/31/2018 3:25 PM CDT)Only the most recent of22 resultswithin the time period is included. Pathologist [facility] WBC 12.34 (H) 4.50 - 11.00 [facility] RBC 3.31 (L) 4.20 - 5.50 [facility] HGB 10.9 (L) 12.0 - 16.0 [facility] g/dL [facility] HCT 34.1 (L) 37.0 - 47.0 % [facility] MCV 103.0 (H) 82.0 - 100.0 [facility] MCH 32.9 27.0 - 34.0 pg [facility] MCHC 32.0 31.0 - 37.0 [facility] g/dL HOSPITAL RDW - SD 55.8 (H) 37.0 - 55.0 fL [facility] MPV 10.5 8.8 - 13.2 fL [facility] Platelet count 262 150 - 400 k/uL [facility] Nucleated RBC 0.00 /100 WBC [facility] Neutrophils 91.6 (H) 39.0 - 69.0 % [facility] Lymphocytes 3.0 (L) 25.0 - 45.0 % [facility] Monocytes 4.2 0.0 - 10.0 % [facility] Eosinophils 0.2 0.0 - 5.0 % [facility] Basophils 0.4 0.0 - 1.0 % [facility] Immature granulocytes 0.6Comment: 0.0 - 1.0 % [facility] "[facility] granulocytes" (promyelocytes , myelocytes, metamyelocytes ) Specimen Blood Performing Organization Address City/State/Zipcode Phone Number [facility] DEPARTMENT OF PATHOLOGY AND [address] [place] [address] GENOM[address] MED[address] [address] Comprehensive metabolic panel (08/31/2018 3:25 PM CDT)Only the most recent of13 resultswithin the time period is included. Sodium 130 (L) 135 - 148 [facility] mEq/L [facility] Potassium 3.7 3.5 - 5.0 [facility] mEq/L [facility] Chloride 93 (L) 98 - 112 mEq/L [facility] CO2 20 (L) 24 - 31 mEq/L [facility] Anion gap 17@ANIO (H) 7 - 15 mEq/L [facility] BUN 12 8 - 23 mg/dL [facility] Creatinine 0.63 0.50 - 0.90 [facility] mg/dL HOSPITAL Glucose 244 (H) 65 - 99 mg/dL [facility] Calcium 9.2 8.8 - 10.2 [facility] mg/dL [facility] Protein 7.5 6.3 - 8.3 g/dL [facility] Comment: HOSPITAL 4.6-7.0 g/dL 1 week 4.4-7.6 g/dL 7 months-1year5.1-7.3 g/dL 1-2 years5.6-7.5 g/dL >3 years6.0-8.0 g/dL 18-150 6.3-8.3 g/dL Albumin 3.0 (L) 3.5 - 5.0 g/dL [facility] A/G ratio 0.7 0.7 - 3.8 [facility] Alkaline phosphatase 105 (H) 35 - 104 U/L [facility] AST 19 10 - 35 U/L [facility] ALT 9 5 - 50 U/L [facility] Total bilirubin 0.3 0.0 - 1.2 [facility] mg/dL HOSPITAL Specimen Plasma specimen Performing Organization Address City/[facility]/[place] [facility] Centercode Phone Number [facility] DEPARTMENT OF PATHOLOGY AND [address] [place] [address] GENOMIC MED[address] [address] ECG 12 lead (08/31/2018 2:34 PM CDT)Only the most recent of6 resultswithin the time period is included. Ventricular rate 91 [facility] MUSE Atrial rate 91 HM MUSE [place] interval 170 HM MUSE QRSD interval 152 [...] Specimen Narrative Performed At Performing Organization Address City/[facility] [place] [facility] Centercode Phone Number [facility] MUSE [address] [place] [address] POC glucose (07/14/2018 12:08 PM CDT)Only the most recent of78 resultswithin the time period is included. POC glucose 133 (H) 65 - 99 mg/dL [facility] Comment: HOSPITAL [facility] Notified RN Meter ID: [id number] Forestry Crew Chief: Miah Soto Specimen Performing Organization Address City/State/Zipcode Phone Number [facility] DEPARTMENT OF PATHOLOGY AND [address] [place] [phone] [address] Magnesium level (07/14/2018 5:00 AM CDT)Only the most recent of17 resultswithin the time period is included. Magnesium 1.4 (L) 1.6 - 2.4 mg/dL [facility] Specimen Plasma specimen Performing Organization Address City/[facility] [place] [facility] Centercode Phone Number [facility] DEPARTMENT OF PATHOLOGY AND [address] [place] [phone] [address] Hemoglobin & hematocrit (07/12/2018 8:59 PM CDT)Only the most recent of3 resultswithin the time period is included. HGB 9.6 (L) 12.0 - 16.0 g/dL [facility] HCT 29.2 (L) 37.0 - 47.0 % [facility] Specimen Performing Organization Address [facility] Phone Number [facility] DEPARTMENT OF PATHOLOGY AND [address] [place] [phone] [place] [phone] Prepare RBC, 2 Units (07/12/2018 10:40 AM CDT)Only the most recent of5 resultswithin the time period is included. Product name Red Blood Cells [facility] -1, [facility] Unit number [id number] [facility] Product code [id number] [facility] Dispense status Transfused [facility] Blood expiration [facility] Blood type code 5100 [facility] Blood type O POSITIVE [facility] Product name Red Blood Cells [facility] 1, [facility] Unit number [id number] [facility] Product code [id number] [facility] Dispense status Transfused [facility] Blood expiration [id number] [facility] Blood type code 5100 [facility] Blood type O POSITIVE [facility] Specimen Blood Performing Organization Address City/[facility] [place] [facility] Centercode Phone Number [facility] DEPARTMENT OF PATHOLOGY AND [address] [place], [place] [phone] [place] [phone] Type and screen (07/12/2018 10:40 AM CDT)Only the most recent of4 resultswithin the time period is included. ABO grouping O [facility] Rh type POS [facility] Antibody screen (gel) NEG [facility] Specimen Blood Performing Organization Address [facility] Phone Number [facility] DEPARTMENT OF PATHOLOGY AND [address] [place] [address] Smear review (07/12/2018 6:11 AM CDT)Only the most recent of9 resultswithin the time period is included. Platelet slide review Kimberly slt decr [facility] Anisocytosis Moderate [facility] Basophilic stippling Occasional [facility] Ovalocytes Moderate [facility] [place] cells Moderate (A) [facility] Specimen Performing Organization Address [facility] Phone Number [facility] DEPARTMENT OF PATHOLOGY AND [address] [place] [phone] Phosphorus level (07/12/2018 6:11 AM CDT)Only the most recent of5 resultswithin the time period is included. Phosphorus 2.8 2.4 - 4.5 mg/dL [facility] Specimen Plasma specimen Performing Organization Address [facility] Phone Number [facility] DEPARTMENT OF PATHOLOGY AND [address] [place] [phone] Ionized calcium (07/12/2018 6:11 AM CDT)Only the most recent of3 resultswithin the time period is included. pH 7.66 [facility] Ionized calcium 1.07 (L) 1.11 - 1.32 [facility] mmol/L HOSPITAL Specimen Plasma specimen Performing Organization Address [facility] [place] [facility] Centercode Phone Number [facility] DEPARTMENT OF PATHOLOGY AND [address] [place], [place] [phone] [address] Basic metabolic panel (07/11/2018 12:07 AM CDT)Only the most recent of12 resultswithin the time period is included. Sodium 134 (L) 135 - 148 mEq/L [facility] Potassium 3.9 3.5 - 5.0 mEq/L [facility] Chloride 106 98 - 112 mEq/L [facility] CO2 18 (L) 24 - 31 mEq/L [facility] Anion gap 10@ANIO 7 - 15 mEq/L [facility] BUN 17 8 - 23 mg/dL [facility] Creatinine 0.61 0.50 - 0.90 mg/dL [facility] Glucose 245 (H) 65 - 99 mg/dL [facility] Calcium 8.2 (L) 8.8 - 10.2 mg/dL [facility] Specimen Plasma specimen Performing Organization Address City/[facility] Phone Number [facility] DEPARTMENT OF PATHOLOGY AND [address] [place] [address] Ionized calcium, arterial (07/10/2018 4:30 PM CDT)Only the most recent of9 resultswithin the time period is included. Ionized calcium, 1.16 1.11 - 1.32 [facility] arterial mmol/L HOSPITAL Specimen Blood Performing Organization Address [facility] Phone Number [facility] DEPARTMENT OF PATHOLOGY AND [address] [place] [phone] Arterial blood gas (07/10/2018 4:30 PM CDT)Only the most recent of2 resultswithin the time period is included. pH, arterial 7.36 7.35 - 7.45 [facility] pCO2, arterial 35 35 - 45 mmHg [facility] pO2, arterial 135 (H) 80 - 90 mmHg [facility] Bicarbonate, 19.7 (L) 21.0 - 28.0 [facility] mmol/L HOSPITAL Base excess, -5 (L) -2 - 2 mEq/L [facility] O2 saturation, 99 95 - 100 % [facility] Specimen Blood Performing Organization Address City/[facility] [place] [facility] Centercode Phone Number [facility] DEPARTMENT OF PATHOLOGY AND [address] [place], [place] [phone] [place] [address] Sodium level, syringe (07/10/2018 3:03 PM CDT)Only the most recent of8 resultswithin the time period is included. Sodium, syringe 134 (L) 135 - 148 mEq/L [facility] Specimen Blood Performing Organization Address City/[facility] [place] [facility] Centercode Phone Number [facility] DEPARTMENT OF PATHOLOGY AND [address] [place] [phone] Potassium, syringe (07/10/2018 3:03 PM CDT)Only the most recent of8 resultswithin the time period is included. Potassium, syringe 3.9 3.5 - 5.0 mEq/L [facility] Specimen Blood Performing Organization Address [facility] [place] [facility] Centercoid Phone Number [facility] DEPARTMENT OF PATHOLOGY AND [address] [place] [phone] Hemoglobin, syringe (07/10/2018 3:03 PM CDT)Only the most recent of8 resultswithin the time period is included. Hemoglobin, syringe 9.3 (L) 12.0 - 16.0 g/dL [facility] Specimen Blood Performing Organization Address [facility] Phone Number [facility] DEPARTMENT OF PATHOLOGY AND [address] [place] [phone] Glucose level, syringe (07/10/2018 3:03 PM CDT)Only the most recent of8 resultswithin the time period is included. Glucose, syringe 183 (H) 65 - 99 mg/dL [facility] Specimen Blood Performing Organization Address City/[facility] [place] [facility] Centercode Phone Number [facility] DEPARTMENT OF PATHOLOGY AND [address] [place] [phone] Arterial blood gas, corrected (07/10/2018 3:03 PM CDT)Only the most recent of8 resultswithin the time period is included. pH, arterial 7.32 (L) 7.35 - 7.45 [facility] pCO2, arterial 36 35 - 45 mmHg [facility] pO2, arterial 255 (H) 80 - 90 mmHg [facility] Temperature, Celsius 37.0 Degrees C [facility] O2 saturation, 100 95 - 100 % [facility]OSPITAL pH, arterial 7.32 [facility] pCO2, arterial 36 mmHg [facility] pO2, arterial 255 mmHg [facility] Base excess, arterial -7 (L) -2 - 2 mEq/L [facility] Specimen Blood Performing Organization Address City/[facility] [place] [facility] Centercoid Phone Number [facility] DEPARTMENT OF PATHOLOGY AND [address] [place] [phone] [place] [phone] Activated clotting time (07/10/2018 3:00 PM CDT)Only the most recent of13 resultswithin the time period is included. Activated clotting 86 (L) 96 - 152 sec [facility] time Comment: HOSPITAL Meter ID: [id number] Forestry Crew Chief: Shilo uMñoz Specimen Performing Organization Address [facility] Phone Number [facility] DEPARTMENT OF PATHOLOGY AND [address] [place] [phone] [place] [phone] Fungus smear (07/10/2018 2:31 PM CDT)Only the most recent of2 resultswithin the time period is included. Fungus smear No fungi observed. [facility] Comment: HOSPITAL Specimen Information Specimen Source: Tissue Specimen Site: RIGHT FEMORAL FRAFT Specimen Tissue Performing Organization Address [facility] Phone Number [facility] DEPARTMENT OF PATHOLOGY AND [address] [place] [phone] AFB culture (07/10/2018 2:31 PM CDT)Only the most recent of2 resultswithin the time period is included. AFB culture No growth after 6 weeks of incubation. [facility] [facility] isolate Comment: HOSPITAL Specimen Information Specimen Source: Tissue Specimen Site: RIGHT FEMORAL FRAFT Specimen Tissue Performing Organization Address City/[facility] Phone Number [facility] DEPARTMENT OF PATHOLOGY AND [address] [place] [address] [place] [address] Tissue culture (07/10/2018 2:31 PM CDT)Only the most recent of2 resultswithin the time period is included. Tissue culture No growth after 3 days. [facility] isolate Comment: HOSPITAL Specimen Information Specimen Source: Tissue Specimen Site: RIGHT FEMORAL FRAFT Specimen Tissue Performing Organization Address City/[facility] Phone Number [facility] DEPARTMENT OF PATHOLOGY AND [address] [place] [phone] [place] [phone] Gram stain (07/10/2018 2:31 PM CDT)Only the most recent of5 resultswithin the time period is included. Gram stain isolate Rare WBC's [facility] No organisms seen HOSPITAL Comment: Specimen Information Specimen Source: Tissue Specimen Site: RIGHT FEMORAL FRAFT Specimen Tissue Performing Organization Address [facility] Phone Number [facility] DEPARTMENT OF PATHOLOGY AND [address] [place] [phone] [place] [phone] AFB stain (07/10/2018 2:31 PM CDT)Only the most recent of2 resultswithin the time period is included. AFB stain No acid fast bacilli (AFB) seen. [facility] Comment: HOSPITAL Specimen Information Specimen Source: Tissue Specimen Site: RIGHT FEMORAL FRAFT Specimen Tissue Performing Organization Address [facility] Phone Number [facility] DEPARTMENT OF PATHOLOGY AND [address] [place] [phone] [place] [phone] Fungus culture (07/10/2018 2:31 PM CDT)Only the most recent of2 resultswithin the time period is included. Fungus culture No growth after 4 weeks of incubation. [facility] isolate Comment: HOSPITAL Specimen Information Specimen Source: Tissue Specimen Site: RIGHT FEMORAL FRAFT Specimen Tissue - Other- Detailed Description Required Performing Organization Address City/[facility] [place] [facility]ode Phone Number [facility] DEPARTMENT OF PATHOLOGY AND [address] [place] [phone] [address] Anaerobic culture (07/10/2018 2:31 PM CDT)Only the most recent of2 resultswithin the time period is included. Anaerobic culture No anaerobic organisms isolated. [facility] Comment: [facility] Specimen Information Specimen Source: Tissue Specimen Site: RIGHT FEMORAL FRAFT Specimen Tissue - Other- Detailed Description Required Performing Organization Address City/State/Zipcode Phone Number [facility] DEPARTMENT OF PATHOLOGY AND [address] [place] [address] Transfuse RBC (07/10/2018 1:40 PM CDT)Only the most recent of6 resultswithin the time period is included.Urine culture (07/10/2018 7:54 AM CDT)Only the most recent of3 resultswithin the time period is included. Urine culture Mixed michael <=10-3 col/cc [facility] isolate Comment: HOSPITAL Specimen Information Specimen Source: Urine Specimen Site: Catheterized Specimen Urine - Catheterized Performing Organization Address City/[facility] Phone Number [facility] DEPARTMENT OF PATHOLOGY AND [address] [place] [address] Urinalysis screen and microscopy, with reflex to culture (07/10/2018 5:02 AM CDT)Only the most recent of3 resultswithin the time period is included. Specimen site Catheterized [facility] Color, UA Straw [facility] Appearance, UA Clear [facility] Specific gravity, UA 1.006 1.001 - 1.035 [facility] pH, UA 7.0 5.0 - 8.5 [facility] Protein, UA Negative Negative [facility] Glucose, UA Negative Negative [facility] Ketones, UA Negative Negative [facility] Bilirubin, UA Negative Negative [facility] Blood, UA Large (A) Negative [facility] Nitrite, UA Negative Negative [facility] Urobilinogen, UA <2.0 <2.0 [facility] Leukocyte esterase, Small (A) Negative [facility] Epithelial cells, UA 1 /HPF [facility] Round epithelial <1 0 - 1 /HPF [facility] WBC, UA 11 (H) 0 - 4 /HPF [facility] RBC, UA <1 0 - 5 /HPF [facility] Bacteria, UA None seen None seen [facility] Yeast, UA Many (A) [facility] Yeast with None seen [facility] pseudohyphae, HOSPITAL Amorphous crystals Few [facility] Specimen Urine Performing Organization Address City/[facility]/Zipcode Phone Number [facility] DEPARTMENT OF PATHOLOGY AND [address] [place] [phone] [address] [place] Hepatic (07/09/2018 4:03 PM CDT) Specimen Narrative Performed At EXAMINATION:[facility]PAT[facility] CLINICAL HISTORY:Hepatitis (non A) COMPARISON:None. TECHNIQUE:Ultrasound evaluation of the liver. IMPRESSION: LIVER:No focal lesions.Normal echogenicity. BILIARY:Common bile duct measures 6 mm, upper normal caliber. Gallbladder is mildly distended without evidence of stones. VASCULATURE:Portal vein is patent and normal in size. PERITONEUM:No ascites in the right upper quadrant. [id number]-[id number] Procedure Note Hm Interface, Radiology Results Incoming [...] No ascites in the right upper quadrant. [id number]-[id number] Performing Organization Address City/[facility] [place] [facility] Cent[facility]ode Phone Number [facility] [address] [place] [phone] Occult blood, stool (07/09/2018 8:50 AM CDT)Only the most recent of3 resultswithin the time period is included. Occult blood, Negative for occult blood. [facility] stool Comment: HOSPITAL Specimen Information Specimen Source: Stool Specimen Site: Nonpreserved Specimen Stool - Nonpreserved Performing Organization Address City/State/Zipcode Phone Number [facility] DEPARTMENT OF PATHOLOGY AND [address] [place] [phone] [address] CTA Abdominal Aorta And Bilateral Iliofemoral Runoff [...] with occlusion at the bifurcation and bilateral [place] common iliac arteries extending distally. The patient [...] is again recommended for further evaluation. The [place] right femoral arteries demonstrate a moderate amount of atherosclerotic calcifications but are patent to the level of the ankle-foot. The patient is status post left zmadi-tdh-mhax amputation. The [place] left femoral profundus demonstrates a moderate amount [...] further evaluation. 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 3.Partially visualized right breast demonstrates subareolar nodularity. Correlate findings with most recent mammography report. If not performed within the last year, repeat mammographic imaging is recommended. 4.Additional chronic findings as listed. 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 The patient [...] is again recommended for further evaluation. The [place] right femoral arteries demonstrate a moderate amount of atherosclerotic calcifications but are patent to the level of the ankle-foot. The patient is status post left vwayv-ada-ekua amputation. The [place] left femoral profundus demonstrates a moderate amount [...] evaluation. 2. Patient is status post left gbaqo-znm-ujgd amputation. 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 3. Partially visualized right breast demonstrates subareolar nodularity. Correlate findings with most recent mammography report. If not performed within the last year, repeat mammographic imaging is recommended. 4. Additional chronic findings as listed. [facility]-[id number] Performing Organization Address City/State/Zipcode Phone Number [facility] [address] [place] [address] Us duplex arterial lower extremity (07/08/2018 10:34 AM CDT)Only the most recent of2 resultswithin the time period is included. Specimen Narrative Performed At [facility] Lower Extremity Arterial Duplex Report [address] [facility], [facility] [address], [place] [address] Pat.Name:Teresa MENDEZ.ID:[id number] .Date: 07/08/2018 Refer.MD:EAGLE LOPEZ MD Exam Time: 9:42:00 AMStudy Type:LE Arterial DOBAge:1950,67YSex: FEMALE Sonogrphr: Alison Matthew. Stat.:Inpatient Room:U57-31JdetDma: [facility] - 4: 32202 Echo Event ID:[id number] Order ID:[id number] Reason for Study:Right groin pain and swelling; [...] Ultrasound Laboratory Lower Extremity Arterial Duplex Report [address] [facility] [address], [place] [address] Pat.Name: [place] MENDEZ.ID: [id number] .Date: 07/08/2018 Refer.MD: EAGLE LOPEZ MD Exam Time: 9:42:00 AM Study Type:LE Arterial Age: 9 1950,67Y Sex: FEMALE Sonogrphr: LU Matthew Pat. Stat.:Inpatient Room: [address] Vol: FE, CPT - 4: 28411 Echo Event ID:[id number] Order ID: [id number] Reason for Study:Right groin pain and swelling; [...] Performing Organization Address City/State/Zipcode Phone Number [facility] [phone] Chest Wo Contrast (07/08/2018 7:38 AM [...] settings do not demonstrate any destructive lesions. [facility]-[id number] Procedure Note Interface, Radiology Results Incoming - [...] settings do not demonstrate any destructive lesions. [facility]-[id number] Performing Organization Address City/State/Zipcode Phone Number URIEL ORNELAS [address] [place] [address] CT Abdomen Pelvis Wo Contrast (07/07/2018 7:18 [...] at 07/07/2018 11:31 PM who verbalized understanding. [facility]-[id number] Procedure Note Interface, Radiology Results Incoming - [...] at 07/07/2018 11:31 PM who verbalized understanding. [facility]-[id number] Performing Organization Address City/State/Zipcode Phone Number [facility] [address] [place] [address] Surgical pathology request (07/04/2018 1:32 PM CDT)Only the most recent of2 resultswithin the time period is included. [facility] DEPARTMENT OF PATHOLOGY AND GENOMIC MEDICINE Surgical pathology See link below [facility] DEPARTMENT OF report for PDF Lab PATHOLOGY AND Report GENOMIC MEDICINE Result status This is Final [facility] DEPARTMENT OF Report for PATHOLOGY AND [id number] GENOMIC MEDICINE Specimen Performing Organization Address City/[facility]/Zipcode Phone Number [facility] DEPARTMENT OF PATHOLOGY AND [address] [place] [address] Manual differential (07/04/2018 4:20 AM CDT) [facility] Manual differential PERFORMED [facility] Neutrophils 85.0 (H) 39.0 - 69.0 % [facility] Lymphocytes 5.0 (L) 25.0 - 45.0 % [facility] Monocytes 10.0 0.0 - 10.0 % [facility] Eosinophils 0.0 0.0 - 5.0 % [facility] Basophils 0.0 0.0 - 1.0 % [facility] Metamyelocytes 0 % [facility] Promyelocytes 0 % [facility] Platelet slide review Kimberly adequate [facility] Anisocytosis Moderate [facility] Specimen Performing Organization Address City/[facility] [place] [facility] Centercode Phone Number [facility] DEPARTMENT OF PATHOLOGY AND [address] [place] [phone] Heparin PF4 antibody (IgG) (06/15/2018 4:48 AM CDT) [facility] Heparin PF4 Ab OD 0.072 0.000 - 0.399 [facility] Heparin PF4 Ab, IgG Negative Negative [facility] Specimen Blood Performing Organization Address City/[facility]/Zipcode Phone Number [facility] DEPARTMENT OF PATHOLOGY AND [address] [place] [address] Anti Xa, unfractionated (06/15/2018 2:35 AM CDT)Only the most recent of7 resultswithin the time period is included. Pathologist [facility] Anti Xa, 0.23Comment: U/mL [place] unfractionated Therapeutic Range: SIKHISM SUGAR 0.30 - 0.70 U/mL [facility] Specimen Blood Performing Organization Address City/[facility]/Zipcode Phone Number [facility] DEPARTMENT OF PATHOLOGY [address] [place] [address] AND [facility] [place] SIKHISM [place] [address] [facility] [place] [address] HOSPITAL OR [place] < 1 Hour (06/13/2018 7:22 PM CDT) Specimen Narrative Performed At OR [place] 1 HOUR [facility] CLINICAL HISTORY: IMPRESSION: Fluoroscopy was provided. No radiologist present.Please see procedure report for discussion of procedure, findings and fluoroscopic time. [id number] Procedure Note Interface, Radiology Results Incoming - 06/13/2018 7:33 PM CDT [place] 1 HOUR CLINICAL HISTORY: IMPRESSION: Fluoroscopy was provided. No radiologist present. Please see procedure report for discussion of procedure, findings and fluoroscopic time. [facility] [place][id number] Performing Organization Address [facility] [place] [facility] Centercode Phone Number [employer] [address] [place] [address] Cv label remover procedure (06/12/2018 4:49 PM CDT) Specimen Narrative Performed At Procedure(s): Ariel WayO Left heart cath w lv gram cors [...] Discussed with Dr Garza Performing Organization Address City/[facility]/Zipcode Phone Number [facility] [address] [place] [address] Sodium level, urine, random (06/12/2018 12:43 PM CDT)Only the most recent of2 resultswithin the time period is included. Total volume, urine [address] [facility] Urine sodium 74 mEq/L MILLS SIKHISM concentration [facility] Urine sodium excretion 4Comment: MILLS SIKHISM Varies with SUGAR [facility] diet. HOSPITAL Specimen Urine Performing Organization Address City/[facility]/Zipcode Phone Number [facility] DEPARTMENT OF PATHOLOGY [address] [place] [address] AND GENOMIC MEDICINE [address] Osmolality, urine (06/12/2018 12:43 PM CDT)Only the most recent of2 resultswithin the time period is included. Osmolality, urine 239 50 - 1,400 mOsm/kg [facility] Specimen Urine Performing Organization Address City/[facility]/Zipcode Phone Number [facility] DEPARTMENT OF PATHOLOGY [address] [place] [address] [address] Echocardiogram complete w contrast and 3D [...] Organization Address City/State/Zipcode Phone Number [facility] [address] [place] [address] Sodium level (06/12/2018 11:35 AM CDT) Sodium 120 (LL) 135 - 148 mEq/L [facility] Comment: [facility] Final results called to and read back by Tiffany Wu/Hetal 06/12/201812: 13 OST Specimen Plasma specimen Performing Organization Address City/[facility]/Zipcode Phone Number [facility] DEPARTMENT OF PATHOLOGY [phone] [place] [address] Osmolality, serum (06/12/2018 11:35 AM CDT) Osmolality 256 (L) 275 - 295 mOsm/kg [facility] Specimen Blood Performing Organization Address [facility]/Zipcode Phone Number [facility] DEPARTMENT OF PATHOLOGY [address] [place] [address] ECG Pre/Post Op (06/12/2018 6:45 AM CDT) Ventricular rate 77 [facility] Atrial rate 77 [facility] [place] interval 176 [facility] QRSD interval 138 [...] Specimen Narrative Performed At Performing Organization Address City/[facility] [place] [facility] Centercode Phone Number [facility] MUSE [address] [place] [address] after 09/26/2017 Advance Directives Patient has advance care planning documents, and code status on file. For more information, please contact:Gene Charlton[address] [place] [address] Code Status Date Activated Date Inactivated Comments Full Code 07/04/2018 12:36 PM 07/14/2018 9:20 PM Code Status decision reached by: Patient
--- OUTSIDE RECORDS SUMMARY | 2018-09-27 09:24 | XMS REPORT ---
:1950 [facility] [address] [place] [address] Care Team Providers Name Role Phone Unavailable [...] (test code=GLUBED) 144 mg/dL 70-110 GLUCOSE BEDSIDE [id number] 12:12:00 Test Item Value Reference Range Comments GLUCOSE BEDSIDE TESTING (test code=GLUBED) 128 mg/dL 70-110 GLUCOSE BEDSIDE [id number] 07:56:00 Test Item Value Reference Range Comments GLUCOSE BEDSIDE TESTING (test code=GLUBED) 105 mg/dL 70-110 GLUCOSE BEDSIDE [id number] 20:53:00 Test Item Value Reference Range Comments GLUCOSE BEDSIDE TESTING (test code=GLUBED) 157 mg/dL 70-110 GLUCOSE BEDSIDE [id number] 17:15:00 Test Item Value Reference Range Comments GLUCOSE BEDSIDE TESTING (test code=GLUBED) 190 mg/dL 70-110 GLUCOSE BEDSIDE [id number] 11:57:00 Test Item Value Reference Range Comments GLUCOSE BEDSIDE TESTING (test code=GLUBED) 121 mg/dL 70-110 GLUCOSE BEDSIDE [id number] 08:12:00 Test Item Value Reference Range Comments GLUCOSE BEDSIDE TESTING (test code=GLUBED) 120 mg/dL 70-110 BASIC METABOLIC [id number] 05:25:00 Test Item Value Reference Range Comments [...] (test code=CA) 7.9 MG/DL 8.5-10.1 CBC W/AUTO [id number] 04:53:00 Test Item Value Reference Range Comments [...] (test code=MDIFF) NO DIFF/SCN CRITERIA GLUCOSE BEDSIDE [id number] 20:48:00 Test Item Value Reference Range Comments GLUCOSE BEDSIDE TESTING (test code=GLUBED) 183 mg/dL 70-110 GLUCOSE BEDSIDE [id number] 17:46:00 Test Item Value Reference Range Comments GLUCOSE BEDSIDE TESTING (test code=GLUBED) 153 mg/dL 70-110 GLUCOSE BEDSIDE [id number] 12:16:00 Test Item Value Reference Range Comments GLUCOSE BEDSIDE TESTING (test code=GLUBED) 231 mg/dL 70-110 - XR CHEST 2 [id number] 10:00:00 Name: CONSUELO MENDEZ [place] : 1950 Age/S: 67 / F [address] Unit #: [id number] Loc: [place] [address] Phys: Bea Childers MD Acct: [id number] Dis Date: Status: ADM IN PHONE #: [phone] Exam Date: 07/30/2018 0958 FAX #: Reason: pneumonia, lung ca EXAMS: CPT: [id number] XR CHEST 2 V 20173 Fluoro Time: DAP (Gy m2): Air Kerma [...] [place] : 1950 Age/S: 67 / F [address] Unit #: [id number] Loc: [place] [address] Phys: Bea Childers MD Acct: [id number] Dis Date : Status: ADM IN PHONE #: [phone] Exam Date: 07/30/2018 0958 FAX #: Reason: pneumonia, lung ca EXAMS: CPT : [id number] XR CHEST 2 V 67271 Fluoro Time: DAP (Gy m2): Air Kerma (mGy): < Continued> Technologist: Yoandy Brar, RT(R)(CT) Trnscb Date/Time: 07/30/2018 (1000) [email or web address] Orig Print D/T: S: 07/30/2018 (1003) PAGE 2 Signed ReportGLUCOSE BEDSIDE [id number] 07:56:00 Test Item Value Reference Range Comments GLUCOSE BEDSIDE TESTING (test code=GLUBED) 78 mg/dL 70-110 GLUCOSE BEDSIDE [id number] 20:05:00 Test Item Value Reference Range Comments GLUCOSE BEDSIDE TESTING (test code=GLUBED) 82 mg/dL 70-110 GLUCOSE BEDSIDE [id number] 17:04:00 Test Item Value Reference Range Comments GLUCOSE BEDSIDE TESTING (test code=GLUBED) 152 mg/dL 70-110 GLUCOSE BEDSIDE [id number] 11:44:00 Test Item Value Reference Range Comments GLUCOSE BEDSIDE TESTING (test code=GLUBED) 80 mg/dL 70-110 CBC W/AUTO [id number] 11:03:00 Test Item Value Reference Range Comments [...] CONSISTANT code=MDIFF) WITH AUTO DIFFERENTIAL. BASIC METABOLIC [id number] 09:34:00 Test Item Value Reference Range Comments [...] (test code=CA) 8.1 MG/DL 8.5-10.1 CBC W/AUTO [id number] 09:27:00 Test Item Value Reference Range Comments [...] REQUIRED (test code=MDIFF) DIFF/SCN CRITERIA GLUCOSE BEDSIDE [id number] 07:33:00 Test Item Value Reference Range Comments GLUCOSE BEDSIDE TESTING (test code=GLUBED) 87 mg/dL 70-110 VANCOMYCIN [id number] 01:34:00 Test Item Value Reference Range Comments VANCOMYCIN TROUGH (test code=VANCT) 5.9 mcG/ML 5-15 GLUCOSE BEDSIDE [id number] 19:40:00 Test Item Value Reference Range Comments GLUCOSE BEDSIDE TESTING (test code=GLUBED) 129 mg/dL 70-110 GLUCOSE BEDSIDE [id number] 18:04:00 Test Item Value Reference Range Comments GLUCOSE BEDSIDE TESTING (test code=GLUBED) 143 mg/dL 70-110 GLUCOSE BEDSIDE [id number] 11:29:00 Test Item Value Reference Range Comments GLUCOSE BEDSIDE TESTING (test code=GLUBED) 188 mg/dL 70-110 GLUCOSE BEDSIDE [id number] 07:51:00 Test Item Value Reference Range Comments GLUCOSE BEDSIDE TESTING (test code=GLUBED) 112 mg/dL 70-110 GLUCOSE BEDSIDE [id number] 20:00:00 Test Item Value Reference Range Comments GLUCOSE BEDSIDE TESTING (test code=GLUBED) 161 mg/dL 70-110 GLUCOSE BEDSIDE [id number] 16:40:00 Test Item Value Reference Range Comments GLUCOSE BEDSIDE TESTING (test code=GLUBED) 170 mg/dL 70-110 GLUCOSE BEDSIDE [id number] 11:49:00 Test Item Value Reference Range Comments GLUCOSE BEDSIDE TESTING (test code=GLUBED) 163 mg/dL 70-110 GLUCOSE BEDSIDE [id number] 07:37:00 Test Item Value Reference Range Comments GLUCOSE BEDSIDE TESTING (test code=GLUBED) 156 mg/dL 70-110 CBC W/AUTO [id number] 06:30:00 Test Item Value Reference Range Comments [...] CONSISTANT code=MDIFF) WITH AUTO DIFFERENTIAL. BASIC METABOLIC [id number] 05:36:00 Test Item Value Reference Range Comments [...] (test code=CA) 7.9 MG/DL 8.5-10.1 CBC W/AUTO [id number] 05:20:00 Test Item Value Reference Range Comments [...] (test code=MDIFF) NO DIFF/SCN CRITERIA GLUCOSE BEDSIDE [id number] 20:10:00 Test Item Value Reference Range Comments GLUCOSE BEDSIDE TESTING (test code=GLUBED) 254 mg/dL 70-110 GLUCOSE BEDSIDE [id number] 16:51:00 Test Item Value Reference Range Comments GLUCOSE BEDSIDE TESTING (test code=GLUBED) 290 mg/dL 70-110 GLUCOSE BEDSIDE [id number] 12:14:00 Test Item Value Reference Range Comments GLUCOSE BEDSIDE TESTING (test code=GLUBED) 248 mg/dL 70-110 GLUCOSE BEDSIDE [id number] 08:46:00 Test Item Value Reference Range Comments GLUCOSE BEDSIDE TESTING (test code=GLUBED) 237 mg/dL 70-110 BASIC METABOLIC [id number] 07:54:00 Test Item Value Reference Range Comments [...] code=CA) 8.5 MG/DL 8.5-10.1 Completed by Nursing: [id number] 07:54:00 Test Item Value Reference Range Comments TROPONIN-I (test 1.430 NG/ML 0.000-0.045 Negative: </=0.045 Positive: code=TROPI) >/=0.046 Correlation with serial results, other cardiac markers, and clinical findings is necessary to determine the clinical significance of this result. Quantitative results using different methodologies should not be compared to one another as numerical results may varyby method. Completed by Nursing: NOCBC W/AUTO [id number] 07:38:00 Test Item Value Reference Range Comments [...] CONSISTANT code=MDIFF) WITH AUTO DIFFERENTIAL. BASIC METABOLIC [id number] 07:36:00 Test Item Value Reference Range Comments [...] (test code=CA) MG/DL 8.5-10.1 Completed by Nursing: [id number] 07:36:00 Test Item Value Reference Range Comments TROPONIN-I (test 1.430 NG/ML 0.000-0.045 Negative: </=0.045 Positive: code=TROPI) >/=0.046 Correlation with serial results, other cardiac markers, and clinical findings is necessary to determine the clinical significance of this result. Quantitative results using different methodologies should not be compared to one another as numerical results may varyby method. Completed by Nursing: NOCBC W/AUTO [id number] 07:07:00 Test Item Value Reference Range Comments [...] REQUIRED (test code=MDIFF) DIFF/SCN CRITERIA CBC W/AUTO [id number] 06:46:00 Test Item Value Reference Range Comments [...] CONSISTANT code=MDIFF) WITH AUTO DIFFERENTIAL. BASIC METABOLIC [id number] 06:07:00 Test Item Value Reference Range Comments [...] (test code=CA) 6.8 MG/DL 8.5-10.1 CBC W/AUTO [id number] 06:00:00 Test Item Value Reference Range Comments [...] MANUAL DIFF REQUIRED (test code=MDIFF) DIFF/SCN CRITERIA [id number] 01:26:00 Test Item Value Reference Range Comments TROPONIN-I (test 2.330 NG/ML 0.000-0.045 Negative: </=0.045 Positive: code=TROPI) >/=0.046 Correlation with serial results, other cardiac markers, and clinical findings is necessary to determine the clinical significance of this result. Quantitative results using different methodologies should not be compared to one another as numerical results may varyby method. Completed by Nursing: NOLACTIC [id number] 01:08:00 Test Item Value Reference Range Comments LACTIC ACID (test code=LACT) 1.0 mmol/L 0.4-2.0 UA RFLX MICR CULT IF [id number] 22:53:00 Test Item Value Reference Range Comments [...] Indication for Culture: Delirium No Other SourceTROPONIN- [id number] 22:24:00 Test Item Value Reference Range Comments TROPONIN-I (test 2.060 NG/ML 0.000-0.045 Negative: </=0.045 Positive: code=TROPI) >/=0.046 Correlation with serial results, other cardiac markers, and clinical findings is necessary to determine the clinical significance of this result. Quantitative results using different methodologies should not be compared to one another as numerical results may varyby method. Completed by Nursing: EMILIANO ROBX MICR CULT IF [id number] 22:04:00 Test Item Value Reference Range Comments [...] Delirium No Other Source- CT CHEST W/ [id number] 21:31:00 Name: CONSUELO MENDEZ [place] : 1950 Age/S: 67 / F [address] Unit #: [id number] Loc: [place] [address] Phys: Heavenly Reyes MD Acct: [id number] Dis Date: Status: ADM IN PHONE #: [phone] Exam Date: 07/25/2018 2105 FAX #: Reason: SEPSIS EXAMS: CPT: [id number] CT CHEST W/CONTRAST 03488 Location:T18 Chest CT , 07/25/18 TECHNIQUE: Chest CT with IV contrast was performed on a helical scanner. Patient given 75 mL of Isovue 300 for contrast scanning from thoracic inlet through diaphragms. Direct 5 mm contiguous axial slice thickness acquired . Theexamination was conducted on a [facility] helical [facility] scanner utilizing low-dose radiation technique. [...] MENDE[place] : 1950 Age/S: 67 / F [address] Unit #: [id number] Loc: [place] [address] Phys: Heavenly Reyes MD Acct: [id number] Dis Date: Status: ADM IN PHONE #: [phone] Exam Date: 07/25/2018 2103 FAX #: Reason: SEPSIS EXAMS: CPT: [id number] CT CHEST W/CONTRAST 87727 <Continued> at 2130 Reported and signed by: Ameena Oswald M.D. CC: Ashutosh Myles MD; Tracey SANCHEZ; Heavenly Reyes MD; Sophia Kennedy MD Technologist:COY MEADOWS, RT(R)(CT)(MR) CTDI: DLP : Trnscb Date/Time: 07/25/2018 (2130) [email or web address] Orig Print D/T: S: 07/25/2018 (8094) CTDI: DLP: PAGE 2 Signed ReportTROPONIN I [id number] 21:14:00 Test Item Value Reference Range Comments TROPONIN I RAPID (test 0.14 ng/mL 0.00-0.08 Results above 0.08 are code=TROPIRAP) consistent with NACB IFCCCommittee recommendations to use the 99th percentile of anormal population as a reference decision-limit. - The use of serial sampling and testingprotocol is arecommended practice.- An elevated troponinlevel alone is often not sufficientfor diagnosis of myocardial infraction. CBC W/AUTO [id number] 20:11:00 Test Item Value Reference Range Comments [...] WITH AUTO DIFFERENTIAL. - XR CHEST 1 [id number] 20:00:00 Name: CONSUELO MENDEZ [place] : 1950 Age/S: 67 / F [address] Unit #: [id number] Loc: [place] [address] Phys: Alex Sheffield MD Acct: [id number] Dis Date: Status: REG ER PHONE #: [phone] Exam Date: 07/25/20181917 FAX #: Reason: Suspected Sepsis EXAMS: CPT: [id number] XR CHEST 1 V 13425 Fluoro Time: DAP (Gy m2): Air Kerma [...] PAGE 1 Signed Report Name: CONSUELO MENDEZ [place] : 1950 Age/S: 67 / F [address] Unit #: [id number] Loc: [place] [address] Phys: Alex Sheffield MD Acct: [id number] Dis Date: Status: REG ER PHONE #: [phone] Exam Date: 07/25 FAX #: Reason: Suspected Sepsis EXAMS: CPT:[id number] XR CHEST 1 V 05248 Fluoro Time: DAP (Gy m2): Air Kerma (mGy): <Continued> Technologist: Zulma Crowley, RT(R)(CT)(MRI) Trnscb Date/Time: 07/25/2018 (1999) [email or web address] OrigPrint D/T: S: 07/25/2018 (2002) PAGE 2 Signed Report- CT HEAD/BRAIN W/O [id number] 19:43:00 Name: CONSUELO MENDEZ : 1950 Age/S: 67 / F [address] Unit #: [id number] Loc: [place] [address] Phys: Alex Sheffield MD Acct: [id number] Dis Date : Status: REG ER PHONE #: [phone] Exam Date: 07/25/20181911 FAX #: Reason: AMS EXAMS: CPT: [id number] CT HEAD/BRAIN W /O CONT 31864 EXAM: CT Head without contrast Location code:J9 [...] : DLP: PAGE 1 Signed ReportCBC W/AUTO [id number] 19:15:00 Test Item Value Reference Range Comments [...] REQUIRED (test code=MDIFF) DIFF/SCN CRITERIA LACTIC ACID [id number] 19:15:00 Test Item Value Reference Range Comments LACTIC ACID POC (test code=LACTP) 1.21 MMOL/L 0.90-1.70 COMPREHENSIVE METABOLIC [id number] 19:03:00 Test Item Value Reference Range Comments [...] (test 158 Unit/L 45-117 code=ALKP) CBC W/AUTO [id number] 19:27:00 Test Item Value Reference Range Comments [...] CONSISTANT code=MDIFF) WITH AUTO DIFFERENTIAL. CBC W/AUTO [id number] 18:32:00 Test Item Value Reference Range Comments [...] DIFF/SCN CRITERIA - CT ABD PELVIS W/O [id number] 13:51:00 Name: CONSUELO MENDEZ [place] : 1950 Age/S: 67 / F [address] [facility] [address] Unit #: [id number] Loc: [place] [address] Phys: Sophia Kennedy MD Acct: [id number] Dis Date: Status : REG REF PHONE #: [phone] Exam Date: 07/01/2018 1329 FAX #: Reason: R/O RETRO PERITONEAL BLEED EXAMS: CPT: [id number] CT ABD PELVIS W/O CONT 26770 NoncontrastCT of the abdomen and pelvis CLINICAL [...] Signed Report ( CONTINUED) Name: CONSUEL[facility]EN[facility]Z [facility] : 1950 Age/S: 67 / F [address] Unit #: [id number] Loc: [place] [address] Phys: Sophia Kennedy MD Acct: [id number] Dis Date: Status: REG REF PHONE #: [phone] Exam Date: 07/01/2018 1326 FAX #: Reason: R/O RETRO PERITONEAL BLEED EXAMS: CPT: [id number] CT ABD PELVIS W/O CONT 89278 <Continued> 1. Aortobiiliac bypass graft. 2. Marked bladder distention measuring over 12 cm. 3. 3 cm lobulated fluid collection within the right groin may represent hematoma or pseudoaneurysm. Correlation with Doppler ultrasound may be appropriate. 4. Lower lobe pulmonary interstitial fibrosis at 1351 Reported and signed by: Oneida Sexton M.D. CC: Sophia Kennedy MD Technologist:RT Jose(R)(CT) CTDI: DLP : Trnscb Date/Time: 07/01/2018 (9161) t.[email or web address] Orig Print D/T: S: 07/01/2018 (3792) CTDI: DLP: PAGE 2 Signed ReportCBC W/AUTO [id number] 22:11:00 Test Item Value Reference Range Comments [...] REQUIRED (test code=MDIFF) NO DIFF/SCN CRITERIA RBC [id number] 22:11:00 Test Item Value Reference Range Comments POIKILOCYTOSIS (test code=POIK) TRACE ON SCAN NONE ANISOCYTOSIS (test code=ANISO) 1+ NONE ELLIPTOCYTES (test code=ELL) TRACE ON SCAN NONE NINI CELLS (test code=BUR) TRACE ON SCAN NONE CBC W/AUTO [id number] 22:10:00 Test Item Value Reference Range Comments [...] (test code=MDIFF) NO DIFF/SCN CRITERIA CBC W/AUTO [id number] 22:10:00 Test Item Value Reference Range Comments [...]
[2018-09-27] MEDS ORDERED: NA CHLORIDE 0.9% 1,000 ML ONE (10:21)
--- NOTE | 2018-09-27 10:28 | RAD REPORT ---
EXAM DESCRIPTION: CT - Head Brain Wo Cont - 09/27/2018 10:20 am CLINICAL HISTORY: Alteration of awareness/confusion COMPARISON: September 21, 2018 TECHNIQUE: Computed axial tomography of the head was obtained. IV contrast was not requested. All CT scans are performed using dose optimization technique as appropriate and may include automated exposure control or mA/KV adjustment according to patient size. FINDINGS: An intracranial bleed is not seen . The ventricles are normal in caliber. No extra-axial fluid collection is noted. Extensive low-density areas within periventricular, deep and subcortical white matter are unchanged f rom prior exam Fluid within the sinuses/ mastoids is not seen. IMPRESSION: Extensive bilateral low-density areas within periventricular, deep and subcortical white matter. This may represent ischemic changes secondary to small vessel disease. A demyelinating process can also have this appearance
[2018-09-27] MEDS ORDERED: FOLIC ACID 1 MG in NA CHLORIDE 0.9% 50 ML IV ONE (10:30)
--- NOTE | 2018-09-27 10:37 | RAD REPORT ---
EXAM DESCRIPTION: CT - Stone Protocol - 09/27/2018 10:20 am CLINICAL HISTORY: Abdominal pain. COMPARISON: September 21, 2018 TECHNIQUE: Computed axial tomography of the abdomen pelvis was obtained without oral or IV contrast. Lack of IV and oral contrast limits evaluation of solid organs, bowel, and vessels. Coronal reformat waleska images were obtained and reviewed. All CT scans are performed using dose optimization technique as appropriate and may include automated exposure control or mA/KV adjustment according to patient size. FINDINGS: 6 centimeter left lower lobe opacity The liver, spleen, pancreas, adrenal and kidneys appear unremarkable. There is no evidence of diverticulitis. Bladder distention Ventral hernia repair. Aorto bi femoral graft. Right iliac graft. 2 centimeter linear opaque structure in the stomach which should be confirmed clinically. Ventral her cortez repair Most superior slices demonstrate a 3 centimeter left lower lobe opacity Moderate amount stool within the colon IMPRESSION: Negative for a genitourinary calculus 6 centimeter left lower lobe opacity may represent a combination of mass and postobstructive pneumoni a or pneumonia
--- NOTE | 2018-09-27 10:39 | RAD REPORT ---
EXAM DESCRIPTION: Shelbyt Single View09/27/2018 10:07 am CLINICAL HISTORY: Chest pain COMPARISON: September 21, 2018 FINDINGS: Central venous lines remain place Partial resolution in right lung opacities. 6 centimeter left lung opacity The heart is normal size
[2018-09-27 11:19] LABS: Absolute Lymphocytes (CBC) 0.8 K/uL (0.7-4.9); Lymphocytes % 4.7 % (15.3-44.8); Protime INR 1.05
[2018-09-27 11:21] LABS: Eosinophils % 0.3 % (0-4.4); Hematocrit 36.2 % (36.0-45.0); MPV 8.7 fL (7.6-11.3); Monocytes % 2.5 % (3.3-12.3); RBC Red Blood Cell Count 3.71 M/uL (3.86-4.86)
[2018-09-27 11:37] LABS: Blood Morphology Comment NOT SEEN (NOT SEEN); Platelet Estimate ADEQ
--- NOTE | 2018-09-27 11:57 | EDPHYS ---
Physician Documentation [facility] Name: Jamaica Perez Age: 67 yrs Sex: Female : 1950 Arrival Date: 09/27/2018 Time: 09:18 Bed 14 Private MD: ED Physician Misha Louis HPI: 09/27 09:55 This 67 yrs old Female presents to ER via EMS with complaints of Altered leann Mental Status. 09:55 The patient presents with decreased mental status, decreased responsiveness, trouble leann concentrating. Onset: The symptoms/episode began/occurred 2 day(s) ago. Possible causes: unknown. Associated signs and symptoms: Pertinent positives: confusion. Current symptoms: In the emergency department the patient's symptoms are unchanged from the initial presentation. Patient's baseline: Neuro: alert and fully oriented. The patient has not experienced similar symptoms in the past. Historical: - Allergies: 09:09 PENICILLINS; rb1 - Home Meds: :09 metformin 500 mg Oral Tb24 1 tab 2 times per day [Active]; pantoprazole 40 mg Oral TbEC rb1 1 tab 2 times per day [Active]; magnesium oxide 400 mg Oral tab 400 mg twice a day [Active]; gabapentin 400 mg Oral cap 1 cap 3 times per day [Active]; sodium chloride 1 gram Oral tab three times a day [Active]; zolpidem 5 mg Oral tab 1 tab once daily [Active]; atorvastatin 40 mg Oral tab 1 tab at bedtime [Active]; hydrocodone-acetaminophen 5-325 mg Oral tab 1 tab every 6 hours as needed for pain [Active]; levocetirizine 5 mg Oral tab 1 tab once daily [Active]; montelukast 10 mg Oral tab 1 tab once daily [Active]; prednisone 5 mg Oral tab 1 tab 2 times per day [Active]; Vitamin D Oral [Active]; Januvia 100 mg Oral tab 1 tab once daily [Active]; folic acid 1 mg Oral tab 1 tab once daily [Active]; ferrous sulfate 325 mg (65 mg iron) Oral TbEC daily [Active]; fluticasone 50 mcg/actuation nasal spsn 1 spray once daily [Active]; Anoro Ellipta 62.5-25 mcg/actuation inhalation dsdv 1 puff once daily [Active]; meropenem intravenous intravenous [Active]; - PMHx: 09:09 Diabetes - NIDDM; rb1 09:09 DVT; Hyperlipidemia; Hypertension; lung cancer- finished chemo and radiation, now rb1 undergoing immunotherapy; Sepsis; stents in legs; - PSHx: 09:09 Left BKA; rb1 09:09 Left AKA; skin grafts; rb1 - Immunization history:: Adult Immunizations up to date. - Family history:: not pertinent. - Ebola Screening: : Patient negative for fever greater than or equal to 101.5 degrees Fahrenheit, and additional compatible Ebola Virus Disease symptoms. - Social history:: Smoking status: Patient uses tobacco products, smokes one-half pack cigarettes per day. ROS: 09:55 Constitutional: Negative for fever, chills, and weight loss, Eyes: Negative for injury, leann pain, redness, and discharge, ENT: Negative for injury, pain, and discharge, Neck: Negative for injury, pain, and swelling, Cardiovascular: Negative for chest pain, palpitations, and edema, Respiratory: Negative for shortness of breath, cough, wheezing, and pleuritic chest pain, Back: Negative for injury and pain, : Negative for injury, bleeding, discharge, and swelling. 09:55 Skin: Negative for injury, rash, and discoloration. 09:55 Abdomen/GI: Positive for abdominal pain, of the right lower quadrant and left lower quadrant. 09:55 MS/extremity: Positive for of the left leg, left aka. Exam: 09:55 Constitutional: This is a well developed, well nourished patient who is awake, alert, leann and in no acute distress. Head/Face: Normocephalic, atraumatic. Eyes: Pupils equal round and reactive to light, extra-ocular motions intact. Lids and lashes normal. Conjunctiva and sclera are non-icteric and not injected. Cornea within normal limits. Periorbital areas with no swelling, redness, or edema. ENT: Nares patent. No nasal discharge, no septal abnormalities noted. Tympanic membranes are normal and external auditory canals are clear. Oropharynx with no redness, swelling, or masses, exudates, or evidence of obstruction, uvula midline. Mucous membranes moist. Neck: Trachea midline, no thyromegaly or masses palpated, and no cervical lymphadenopathy. Supple, full range of motion without nuchal rigidity, or vertebral point tenderness. No Meningismus. Chest/axilla: Normal chest wall appearance and motion. Nontender with no deformity. No lesions are appreciated. Cardiovascular: Regular rate and rhythm with a normal S1 and S2. No gallops, murmurs, or rubs. Normal PMI, no JVD. No pulse deficits. Respiratory: Lungs have equal breath sounds bilaterally, clear to auscultation and percussion. No rales, rhonchi or wheezes noted. No increased work of breathing, no retractions or nasal flaring. Abdomen/GI: Soft, non-tender, with normal bowel sounds. No distension or tympany. No guarding or rebound. No evidence of tenderness throughout. Back: No spinal tenderness. No costovertebral tenderness. Full range of motion. Skin: Warm, dry with normal turgor. Normal color with no rashes, no lesions, and no evidence of cellulitis. Psych: Awake, alert, with orientation to person, place and time. Behavior, mood, and affect are within normal limits. 09:55 Musculoskeletal/extremity: ROM: full active range of motion, full passive range of motion, Circulation is intact in all extremities. Sensation intact. Compartment Syndrome exam of affected extremity: is normal. DVT Exam: No signs of deep vein thrombosis. no pain, no swelling, no tenderness, negative Homans' sign noted on exam, no appreciated bluish discoloration, no erythema, no increased warmth, left aka. 12:12 Neck: ROM/movement: is normal, no acute changes, limited range of motion, is not leann appreciated, Meningeal signs: are not present, Kernig's sign is negative, Brudzinski's sign is negative. 12:35 Neck: ROM/movement: nuchal rigidity, is not appreciated. leann Vital Signs: 09:13 BP 127 / 56; Pulse 83; Resp 17; Temp 98.5(TE); Pulse Ox 100% on R/A; Weight 45.36 kg rb1 (R); Height 4 ft. 11 in. (149.86 cm) (R); Pain 0/10; 10:13 BP 119 / 51; Pulse 84; Resp 17; Temp 97.9(TE); Pulse Ox 98% on R/A; Pain 0/10; rb1 11:13 BP 98 / 82; Pulse 81; Resp 16; Temp 98.1(O); Pulse Ox 99% on R/A; Pain 0/10; rb1 12:12 BP 122 / 79; Pulse 85; Resp 18; Temp 97.9(TE); Pulse Ox 99% on R/A; Pain 0/10; rb1 13:08 BP 130 / 64; Pulse 82; Resp 17; Temp 97.3(TE); Pulse Ox 99% on R/A; Pain 0/10; rb1 09:13 Body Mass Index 20.20 (45.36 kg, 149.86 cm) [facility] MDM: 09:23 Patient medically screened. [facility] 09:55 Data reviewed: vital signs, nurses notes, lab test result(s), EKG, radiologic studies, [facility] CT scan, plain films. 09/27 09:53 Order name: Basic Metabolic Panel [facility] 09/27 09:53 Order name: CBC with Diff [facility] 09/27 09:53 Order name: LFT's [facility] 09/27 09:53 Order name: Magnesium [facility] 09/27 09:53 Order name: NT PRO-BNP [facility] 09/27 09:53 Order name: PT-INR [facility] 09/27 09:53 Order name: Troponin (emerg Dept Use Only) [facility] 09/27 09:53 Order name: Lipase [facility] 09/27 09:53 Order name: Blood Culture Adult (2) [facility] 09/27 09:53 Order name: Urine Culture [facility] 09/27 09:53 Order name: Procalcitonin; Complete Time: 12:13 [facility] 09/27 09:53 Order name: Lactate; Complete Time: 11:50 [facility] 09/27 09:54 Order name: Basic Metabolic Panel [facility] 09/27 09:54 Order name: CBC with Automated Diff; Complete Time: 11:50 [facility] 09/27 09:53 Order name: XRAY Chest (1 view); Complete Time: 10:42 [facility] 09/27 09:53 Order name: CT Head Brain wo Cont; Complete Time: 10:42 [facility] 09/27 09:53 Order name: CT Stone Protocol; Complete Time: 10:42 [facility] 09/27 09:54 Order name: Liver (Hepatic) Function [facility] 09/27 09:54 Order name: Magnesium [facility] 09/27 09:54 Order name: NT PRO-BNP [facility] 09/27 09:54 Order name: Protime (+INR); Complete Time: 11:50 [facility] 09/27 09:54 Order name: Troponin (Emerg Dept Use Only) [facility] 09/27 11:32 Order name: Urine Dipstick--Ancillary (enter results) 09/27 11:37 Order name: Manual Differential; Complete Time: 11:50 [facility] 09/27 09:53 Order name: EKG; Complete Time: 09:55 [facility] 09/27 09:53 Order name: Cardiac monitoring; Complete Time: 10:12 [facility] 09/27 09:53 Order name: EKG - Nurse/Tech; Complete Time: 10:12 [facility] 09/27 09:53 Order name: IV Saline Lock; Complete Time: 15:47 [facility] 09/27 09:53 Order name: Labs collected and sent; Complete Time: 15:47 [facility] 09/27 09:53 Order name: O2 Per Protocol; Complete Time: 10:12 [facility] 09/27 09:53 Order name: O2 Sat Monitoring; Complete Time: 10:12 [facility] 09/27 09:53 Order name: Urine Dipstick-Ancillary (obtain specimen); Complete Time: 11:30 [facility] Administered Medications: 11:00 Drug: NS 0.9% 250 ml Route: IV; Rate: bolus; Site: right upper arm; rb1 11:16 Follow up: IV Status: Completed infusion rb1 11:00 Drug: NS 0.9% 1000 ml Route: IV; Rate: 125 ml/hr; Site: right upper arm; rb1 14:05 Follow up: IV Status: Infusion continued upon admission rb1 11:25 Drug: foLIC Acid 1 mg Route: IVPB; Site: right upper arm; rb1 12:12 Follow up: Response: No adverse reaction; IV Status: Completed infusion rb1 12:46 Drug: Clindamycin 600 mg Route: IVPB; Infused Over: 30 mins; Site: right upper arm; rb1 13:12 Follow up: Response: No adverse reaction; IV Status: Completed infusion rb1 13:00 Not Given (Other Intervention Used): Cathflo Activase 2 mg IV Thrombolytics once; into iw each catheter lumen, may repeat once 13:14 Drug: vancoMYCIN 1 grams Route: IVPB; Infused Over: 2 hrs; Site: right upper arm; rb1 14:05 Follow up: Response: No adverse reaction; IV Status: Infusion continued upon admission rb1 Point of Care Testing: Blood Glucose: 09:23 Blood Glucose: 131 mg/dL; rb1 Ranges: Critical Glucose Levels:Adult <50 mg/dl or >400 mg/dl <40 mg/dl or >180 mg/dl Disposition: 09/27/18 11:56 Hospitalization ordered by Lior Daniels for Inpatient Admission. Preliminary diagnosis are Altered mental status, unspecified, Pneumonia, unspecified organism - post obstructive, Type 2 diabetes mellitus, Elevated white blood cell count. - Bed requested for Telemetry/MedSurg (Inpatient). - Status is Inpatient Admission. rb1 - Condition is Fair. - Problem is new. - Symptoms have improved. UTI on Admission? No Signatures: Dispatcher [employer] EDOR Bernice Keith RN RN dw Misha Louis MD MD cha Barber, Rebecca, SUNDAR RN rb1 Suzanne Elaine RN Corrections: (The following items were deleted from the chart) 12:45 11:56 Hospitalization Ordered by Lior Daniels MD for Inpatient Admission. Preliminary dw diagnosis is Altered mental status, unspecified; Pneumonia, unspecified organism - post obstructive; Type 2 diabetes mellitus; Elevated white blood cell count. Bed requested for Telemetry/MedSurg (Inpatient). Status is Inpatient Admission. Condition is Fair. Problem is new. Symptoms have improved. UTI on Admission? No. leann 14:05 12:45 09/27/2018 11:56 Hospitalization Ordered by Lior Daniels MD for Inpatient rb1 Admission. Preliminary diagnosis is Altered mental status, unspecified; Pneumonia, unspecified organism - post obstructive; Type 2 diabetes mellitus; Elevated white blood cell count. Bed requested for Telemetry/MedSurg (Inpatient). Status is Inpatient Admission. Condition is Fair. Problem is new. Symptoms have improved. UTI on Admission? No. dw
--- NOTE | 2018-09-27 11:57 | ER ---
Nurse's Notes [facility] Name: Jamaica Perez Age: 67 yrs Sex: Female : 1950 Arrival Date: 09/27/2018 Time: 09:18 Bed 14 Private MD: Diagnosis: Altered mental status, unspecified;Pneumonia, unspecified organism-post obstructive;Type 2 diabetes mellitus;Elevated white blood cell count Presentation: 09/27 09:15 Presenting complaint: EMS states: family reports AMS today, drowsy, pt currently on iw Merrem IV antibiotics for ESBL in urine, was recently discharged two days ago, pt oriented to person and place, awakens easily to verbal stimuli. 09:48 Transition of care: patient was not received from another setting of care. Onset of iw symptoms was September 27, 2018. Risk Assessment: Do you want to hurt yourself or someone else? Patient reports no desire to harm self or others. Initial Sepsis Screen: Does the patient meet any 2 criteria? No. Patient's initial sepsis screen is negative. Does the patient have a suspected source of infection? No. Patient's initial sepsis screen is negative. Care prior to arrival: Glucose check: 125. 09:48 Method Of Arrival: EMS: [facility] iw 09:48 Acuity: LIV 3 iw Triage Assessment: 09:09 General: Appears in no apparent distress. comfortable, Behavior is calm, cooperative, rb1 Reports fever for Temp. 100.1. General: Pt. was discharged on Monday after being hospitalized for a UTI. Was sent home with a PICC line in the left upper arm.. Pain: Denies pain. Neuro: Level of Consciousness is awake, obeys commands, Oriented to person, place. Cardiovascular: Capillary refill < 3 seconds is brisk in bilateral fingers. Respiratory: Airway is patent Respiratory effort is even, unlabored, Respiratory pattern is regular, symmetrical. GI: No signs and/or symptoms were reported involving the gastrointestinal system. : Parent/caregiver report the patient having Currently receiving Meropenum IV antibiotics at home for a UTI. Derm: Skin is pink, warm \T\ dry. Musculoskeletal: Amputation of left lower quadrant. Historical: - Allergies: 09:09 PENICILLINS; rb1 - Home Meds: 09:09 metformin 500 mg Oral Tb24 1 tab 2 times per day [Active]; pantoprazole 40 mg Oral TbEC rb1 1 tab 2 times per day [Active]; magnesium oxide 400 mg Oral tab 400 mg twice a day [Active]; gabapentin 400 mg Oral cap 1 cap 3 times per day [Active]; sodium chloride 1 gram Oral tab three times a day [Active]; zolpidem 5 mg Oral tab 1 tab once daily [Active]; atorvastatin 40 mg Oral tab 1 tab at bedtime [Active]; hydrocodone-acetaminophen 5-325 mg Oral tab 1 tab every 6 hours as needed for pain [Active]; levocetirizine 5 mg Oral tab 1 tab once daily [Active]; montelukast 10 mg Oral tab 1 tab once daily [Active]; prednisone 5 mg Oral tab 1 tab 2 times per day [Active]; Vitamin D Oral [Active]; Januvia 100 mg Oral tab 1 tab once daily [Active]; folic acid 1 mg Oral tab 1 tab once daily [Active]; ferrous sulfate 325 mg (65 mg iron) Oral TbEC daily [Active]; fluticasone 50 mcg/actuation nasal spsn 1 spray once daily [Active]; Anoro Ellipta 62.5-25 mcg/actuation inhalation dsdv 1 puff once daily [Active]; meropenem intravenous intravenous [Active]; - PMHx: 09:09 Diabetes - NIDDM; rb1 09:09 DVT; Hyperlipidemia; Hypertension; lung cancer- finished chemo and radiation, now rb1 undergoing immunotherapy; Sepsis; stents in legs; - PSHx: 09:09 Left BKA; rb1 09:09 Left AKA; skin grafts; rb1 - Immunization history:: Adult Immunizations up to date. - Family history:: not pertinent. - Ebola Screening: : Patient negative for fever greater than or equal to 101.5 degrees Fahrenheit, and additional compatible Ebola Virus Disease symptoms. - Social history:: Smoking status: Patient uses tobacco products, smokes one-half pack cigarettes per day. Screenin:09 Abuse screen: Denies threats or abuse. Nutritional screening: No deficits noted. rb1 Tuberculosis screening: No symptoms or risk factors identified. 09:09 Fall Risk No fall in past 12 months (0 pts). Secondary diagnosis (15 points) confused. rb1 IV access (20 points). Ambulatory Aid- None/Bed Rest/Nurse Assist (0 pts). Gait- Normal/Bed Rest/Wheelchair (0 pts) Mental Status- Overestimates/Forgets Limitations (15 pts.). Total Goldberg Fall Scale indicates High Risk Score (45 or more points). Fall prevention measures have been instituted. Side Rails Up X 2 Placed Close to Nursing Station 1:1 Attendant Assigned Frequent Obs/Assessments Occuring Family Present and informed to notify staff if the need to leave the bedside As available patient and family educated on Fall Prevention Program and Strategies. Assessment: 09:09 General: See triage assessment. Pain: Denies pain. rb1 10:00 Reassessment: Patient appears in no apparent distress at this time. No changes from rb1 previously documented assessment. 10:11 Reassessment: Pt. went to CT. rb1 11:00 Reassessment: Patient appears in no apparent distress at this time. Patient and/or rb1 family updated on plan of care and expected duration. Pain level reassessed. Patient is alert, oriented x 3, equal unlabored respirations, skin warm/dry/pink. 12:00 Reassessment: Patient appears in no apparent distress at this time. No changes from rb1 previously documented assessment. Dr. Daniels at bedside. 13:00 Reassessment: Patient appears in no apparent distress at this time. Patient and/or rb1 family updated on plan of care and expected duration. Pain level reassessed. Patient is alert, oriented x 3, equal unlabored respirations, skin warm/dry/pink. ELÍAS Palacios changed the caps on the PICC Line and it is functioning now without the administrations of Cathflo Activase. Both ports give good blood return and flush with ease. Patient denies pain at this time. 13:17 Reassessment: Tried to call report but was left on hold. rb1 13:22 Reassessment: Called report to SUNDAR Mena. Information from the SBAR was given. All rb1 questions asked and answered. 14:00 Reassessment: Patient appears in no apparent distress at this time. Patient and/or rb1 family updated on plan of care and expected duration. Pain level reassessed. Patient is alert, oriented x 3, equal unlabored respirations, skin warm/dry/pink. Family at bedside. Patient denies pain at this time. Vital Signs: 09:13 BP 127 / 56; Pulse 83; Resp 17; Temp 98.5(TE); Pulse Ox 100% on R/A; Weight 45.36 kg rb1 (R); Height 4 ft. 11 in. (149.86 cm) (R); Pain 0/10; 10:13 BP 119 / 51; Pulse 84; Resp 17; Temp 97.9(TE); Pulse Ox 98% on R/A; Pain 0/10; rb1 11:13 BP 98 / 82; Pulse 81; Resp 16; Temp 98.1(O); Pulse Ox 99% on R/A; Pain 0/10; rb1 12:12 BP 122 / 79; Pulse 85; Resp 18; Temp 97.9(TE); Pulse Ox 99% on R/A; Pain 0/10; rb1 13:08 BP 130 / 64; Pulse 82; Resp 17; Temp 97.3(TE); Pulse Ox 99% on R/A; Pain 0/10; rb1 09:13 Body Mass Index 20.20 (45.36 kg, 149.86 cm) rb1 ED Course: 09:09 Patient has correct armband on for positive identification. Placed in gown. Bed in low rb1 position. Call light in reach. Side rails up X2. documentation specialist on. Pulse ox on. NIBP on. Warm blanket given. 09:09 Accessed PICC line. Left upper arm. rb1 09:18 Patient arrived in ED. iw 09:21 Lydia Blackwell, RN is Primary Nurse. rb1 09:23 Misha Louis MD is Attending Physician. lenan 09:49 Triage completed. iw 09:49 Arm band placed on. iw 10:07 XRAY Chest (1 view) In Process Unspecified. EDMS 10:09 EKG done, by ED staff, reviewed by Misha Louis MD. dh3 10:14 CT completed. Patient tolerated procedure well. Patient moved to CT via stretcher. jg6 Patient moved back from CT. 10:20 CT Head Brain wo Cont In Process Unspecified. EDMS 10:20 CT Stone Protocol In Process Unspecified. EDMS 10:55 Missed attempt(s): 20 gauge in right antecubital area. Bleeding controlled, band aid dh3 applied, catheter tip intact. 11:00 Initial lab(s) drawn, by nd, sent to lab. Inserted saline lock: 22 gauge in right 3 antecubital area, using aseptic technique. Blood collected. 11:00 First set of blood cultures drawn by me. dh3 11:54 Daniels, Lior, MD is Hospitalizing Provider. leann 14:05 No provider procedures requiring assistance completed. Patient admitted, IV remains in rb1 place. Administered Medications: 11:00 Drug: NS 0.9% 250 ml Route: IV; Rate: bolus; Site: right upper arm; rb1 11:16 Follow up: IV Status: Completed infusion rb1 11:00 Drug: NS 0.9% 1000 ml Route: IV; Rate: 125 ml/hr; Site: right upper arm; rb1 14:05 Follow up: IV Status: Infusion continued upon admission rb1 11:25 Drug: foLIC Acid 1 mg Route: IVPB; Site: right upper arm; rb1 12:12 Follow up: Response: No adverse reaction; IV Status: Completed infusion rb1 12:46 Drug: Clindamycin 600 mg Route: IVPB; Infused Over: 30 mins; Site: right upper arm; rb1 13:12 Follow up: Response: No adverse reaction; IV Status: Completed infusion rb1 13:00 Not Given (Other Intervention Used): Cathflo Activase 2 mg IV Thrombolytics once; into iw each catheter lumen, may repeat once 13:14 Drug: vancoMYCIN 1 grams Route: IVPB; Infused Over: 2 hrs; Site: right upper arm; rb1 14:05 Follow up: Response: No adverse reaction; IV Status: Infusion continued upon admission rb1 Point of Care Testing: Blood Glucose: 09:23 Blood Glucose: 131 mg/dL; rb1 Ranges: Outcome: 11:56 Decision to Hospitalize by Provider. leann 14:05 Patient left the ED. rb1 14:05 Admitted to Med/surg accompanied by tech, family with patient, via stretcher, room 206, rb1 with chart, Report called to SUNDAR Mena 14:05 Condition: stable 14:05 Instructed on the need for admit. Signatures: Dispatcher [employer] Misha Devlin MD MD cha Williams, Irene, RN RN iw Lydia Blackwell RN RN [facility] Stefania Rodriguez [facility] Olivia Bonilla6 Corrections: (The following items were deleted from the chart) 09:51 09:30 Presenting complaint: EMS states: family reports AMS today, drowsy, pt currently iw on Merrem IV antibiotics for ESBL in urine, was recently discharged two days ago iw 09:51 09:30 Presenting complaint: EMS states: family reports AMS today, drowsy, pt currently iw on Merrem IV antibiotics for ESBL in urine, was recently discharged two days ago, pt oriented to person and place, awakens easily to verbal stimuli iw
[2018-09-27] MEDS ORDERED: CLINDAMYCIN 600MG/D5W 600 MG/50 ML BAG IV ONE (12:42)
[2018-09-27] MEDS ORDERED: VANCOMYCIN/NS 1 gm 1 GM/250 ML BAG IV ONE (12:45)
[2018-09-27] MEDS ORDERED: WATER FOR INJ,STERILE 10 ML IV SCH (12:45)
[2018-09-27] MEDS ORDERED: ALTEPLASE 2 MG/VIAL IV SCH (12:45)
[2018-09-27 12:54] LABS: Urine Blood NEGATIVE (NEG); Urine Glucose NEGATIVE (NEG); Urine Protein 1+ (NEG); Urine Specific Gravity 1.015 (1.005-1.030)
[2018-09-27 13:36] LABS: AST/SGOT 20 U/L (15-37); Bilirubin Direct 0.1 mg/dL (0-0.2); Magnesium 1.7 mg/dL (1.8-2.4); Potassium 3.6 mmol/L (3.5-5.1)
[2018-09-27 13:41] LABS: BUN Blood Urea Nitrogen 8 mg/dL (7-18); Bicarbonate 28 mmol/L (21-32); Glucose Level 138 mg/dL (74-106); Sodium Level 133 mmol/L (136-145)
[2018-09-27 13:42] LABS: ALT/SGPT 15 U/L (12-78); Albumin 2.2 g/dL (3.4-5.0); Alkaline Phosphatase 96 U/L (45-117); Bilirubin Total 0.4 mg/dL (0.2-1.0); Protein, Total 6.1 g/dL (6.4-8.2)
[2018-09-27 13:43] LABS: Lipase 61 U/L (73-393); NT PRO-BNP 1118 pg/mL (<125); Troponin (Emerg Dept Use Only) < 0.02 ng/mL (0.0-0.045)
--- NOTE | 2018-09-27 13:54 | HP ---
Date of Admission: 09/27/2018 Chief Complaint: Altered mental status and fever. History Of Present Illness: This is a 67-year-old female patient, who was admitted to the hospital w ith altered mental status due to infection in the right groin wound with organism Klebsiella as well as E. coli, which was ESBL. The patient was admitted to the hospital on 09/21/2018. IV meropenem wa s started which was a culture specific antibiotic. The patient's altered mental status problem resol niya within about 24 hours or so after IV meropenem was started, and she continued to remain stable, a febrile. Her white count was elevated during last hospital admission to 15,000, and it came down to normal at 10,000, with IV meropenem. PICC line was placed and after arrangements completed, she was discharged to go home with arrangements for home IV antibiotic meropenem to be continued for 10 days. The patient left the hospital on 09/25/2018 and yesterday, which is 09/26/2018, she had unremarkabl e day. She was back to her normal self as the patient's described, did not have any fever, a te well, and did her normal day-to-day activity like her normal self. She went to bed around 9 o'nadine ck last night without any complaints. This morning around 7 o'clock or so when patient's tri ed to wake her up, the patient was not waking up. She would barely open her eyes, would not communic ate and had fever up to 101 degrees Fahrenheit at home. She was extremely weak, not able to get out of bed, and with all this change in condition, ambulance was called and the patient was brought into emergency room. I saw her in the ER this morning. The patient's 2 daughters and were at bed side. The patient did open her eyes and spoke few words, able to recognize me with my name. No vomi ting. No diarrhea. No other complaints reported by family members. Allergies: NO KNOWN ALLERGIES. Medications: List reviewed. Review of Systems: Constitutional: As mentioned above. SALES SUPPORT REP: As mentioned above. All other systems reviewed and negative. Social History: Positive for smoking. Use of alcohol negative. Family History: Not pertinent. Past Surgical History: Significant for hysterectomy, left zylwy-xkf-xrtk amputation done in June of this year due to peripheral vascular disease. Past Medical History: Significant for hypertension, hyperlipidemia, type 2 diabetes mellitus, march ry artery disease, peripheral vascular disease, which was determined to be inoperable during angiogra m this year in May 2018, and subsequently she had left above-knee amputation. Depression, gastroes ophageal reflux disease, anemia due to chronic GI blood loss, COPD, carotid artery stenosis, lung can cer with metastatic disease to liver. The patient is undergoing treatment at [facility]. Physical Examination: Vital Signs: When she first arrived to emergency room, temperature 98.5, pulse 83, respiratory rate 17, blood pressure 127/56. Weight 45.36 kg, height 4 feet 11 inches. General: The patient has altered mental status. She is very weak appearing, not in any respiratory distress. Lying in bed with her eyes closed. Upon verbal command, she does open her eyes for a brie f moment. HEENT: Head atraumatic, normocephalic. Conjunctivae nonerythematous. Sclerae white. Mouth, no thr ush or edema noted. Ears/Nose, no mass, lesion, discharge noted. Neck: Supple. No JVD, lymph nodes, bruit, thyromegaly noted. Lungs: Bilateral good equal air entry. Clear to auscultation. No rhonchi. No rales. Heart: Normal heart sounds, no murmur or gallop. Abdomen: Soft, bowel sounds normal. No guarding, rigidity, tenderness, mass, hepatosplenomegaly, dis tention, or bruit noted. Extremities: Left leg status post below-knee amputation with a very small open wound, which has a wo und packing present, which was not removed, but when I examined it last time, it was just few millime ters in size, clean area. Surrounding skin appears normal. No discharge, bleeding. Left upper extr emity has a PICC line present, which was placed during last hospital admission and insertion site and surrounding area appears normal with dressing intact. The patient's right groin has a small wound w ith some yellowish colored tissue at the base. When I first saw it about a week ago or so korin parr from that time until today, it is approximately 50% smaller today compared to before. No dischar ge. No bleeding. Skin: No rash, ulcer, cellulitis. Lymphatics: No lymph node enlargement in neck, supraclavicular, infraclavicular region. Neuro: No focal neurological deficit. Chest: Unremarkable. External Genitalia: Deferred. Rectal: Deferred. Laboratory Data: White count today 16.4, hemoglobin 12.1, platelets 302. Chemistry pending as initi al specimen was hemolyzed and assembler seat had a hard time drawing blood because of the patient's joey y poor IV access. Chest x-ray, 6 cm left lung opacity. CAT scan of the brain without contrast, exte nsive bilateral low density area in the periventricular deep and subcortical white matter. CAT scan of abdomen per stone protocol done in the emergency room today shows no evidence of kidney stone, 6 c m left lower lobe opacity noted today. Last time it was on 09/21/2018. There is a 2 cm linear opaqu e structure in the stomach and as per my discussion with radiologist during last admission, this was likely due to Endoclip. Impression: 1.Postobstructive pneumonia. 2.Lung cancer with metastatic disease to liver. 3.Infected right groin wound, organism Klebsiella and Escherichia coli, extended-spectrum beta-lacta enmanuel. 4.Iron deficiency anemia, due to chronic gastrointestinal blood loss. 5.Hyponatremia, chronic. 6.Hypertension. 7.Hyperlipidemia. 8.Peripheral vascular disease. 9.Type 2 diabetes mellitus. 10.Coronary artery disease. 11.Carotid artery stenosis. 12.Chronic obstructive pulmonary disease. 13.Gastroesophageal reflux disease. 14.Depression. Plan: Admit the patient to hospital for further evaluation and management of this problem. The zehra ent is appropriate for inpatient and is expected to spend 2 midnights in hospital. We will go ahead and use SCD for DVT prophylaxis as the patient has a tendency bleed with worsening of pneumonia as pe r information that I have learned from family member during last hospital admission, so we will not u se any heparin or Lovenox type of product. We will go ahead and continue meropenem, add vancomycin a nd clindamycin. Nebulizer treatment will be used. We will go ahead and give nutritional supplement like Glucerna. Monitor fingerstick blood sugar with insulin sliding scale for diabetes management an d nurses had trouble drawing blood or flushing PICC line, so Cathflo was ordered. Once we re-establi shed PICC line patency, then we can draw blood from PICC line as the patient needs some basic blood w ork done or after some IV fluid hydration we might be able to get some blood drawn. Details were dis cussed with family member at bedside. We also discussed code status and the patient is full code as per decision made by the patient and family. CALISTA/TELLO Voice ID: [id number]
[2018-09-27] MEDS ORDERED: ALBUTEROL 2.5 MG/3 ML NEB SOL NEB PRN (14:28)
[2018-09-27] MEDS ORDERED: ACETAMINOPHEN 500 MG TAB PO PRN (14:28)
[2018-09-27] MEDS ORDERED: IPRATROPIUM BROM 0.5MG/2.5ML NEB PRN (14:28)
[2018-09-27] MEDS ORDERED: D50W 25 GM/50 ML SYRINGE IV PRN (14:28)
[2018-09-27] MEDS ORDERED: ONDANSETRON 4 MG/2 ML VIAL IV PRN (14:28)
[2018-09-27] MEDS ORDERED: Meropenem 500 MG VIAL IV SCH (14:28)
[2018-09-27] MEDS ORDERED: GLUCAGON 1 MG/VIAL IM PRN (14:28)
[2018-09-27] MEDS ORDERED: CETIRIZINE HCL 5 MG TABLET PO PRN (14:54)
[2018-09-27 15:04] VITALS: BMI 20.2
[2018-09-27] MEDS: NA CHLORIDE 0.9% 1,000 ML IV SCH (15:15)
[2018-09-27] MEDS: INSULIN -REGULAR HUMAN 50 UNIT/0.5 ML ML SQ SCH ×2 (16:06→21:00)
[2018-09-27] MEDS: CLINDAMYCIN INJ 600 MG in NA CHLORIDE 0.9% 50 ML IV SCH (16:15)
[2018-09-27] MEDS: METFORMIN HCL 500 MG TAB PO SCH (16:15)
[2018-09-27] MEDS ORDERED: Meropenem 1000 MG/VIAL IV SCH (21:00)
[2018-09-27] MEDS: Meropenem 1,000 MG in NA CHLORIDE 0.9% 100 ML IV SCH (21:19)
[2018-09-27] MEDS: PANTOPRAZOLE 40MG TABLET PO SCH (21:20)
[2018-09-27] MEDS: MAGNESIUM OXIDE 400 MG TAB PO SCH (21:20)
[2018-09-27] MEDS: GABAPENTIN 400 MG CAP PO SCH (21:20)
[2018-09-27] MEDS: ATORVASTATIN 40 MG TAB PO SCH (21:20)
[2018-09-27] MEDS: SODIUM CHLORIDE 1 GM TAB PO SCH (21:20)
[2018-09-27] MEDS: GLUCERNA SHAKE 237 ML CAN PO SCH (21:22)
[2018-09-27] MEDS: predniSONE 5 MG TAB PO SCH (21:25)
[2018-09-28] MEDS: CLINDAMYCIN INJ 600 MG in NA CHLORIDE 0.9% 50 ML IV SCH ×3 (00:18→17:45)
[2018-09-28] MEDS: VANCOMYCIN/NS 1 gm 1 GM/250 ML BAG IVPB SCH ×2 (00:59→13:09)
[2018-09-28] MEDS: NA CHLORIDE 0.9% 1,000 ML IV SCH ×3 (01:12→13:08)
[2018-09-28] MEDS: HYDROCODONE/APAP 5/325 MG TAB PO PRN ×2 (02:41→17:43)
[2018-09-28 05:02] LABS: Absolute Lymphocytes (CBC) 0.5 K/uL (0.7-4.9); Basophils % 0.1 % (0-1.3); Eosinophils % 0.1 % (0-4.4); Hematocrit 28.3 % (36.0-45.0); Lymphocytes % 4.1 % (15.3-44.8); Monocytes % 4.5 % (3.3-12.3); RBC Red Blood Cell Count 2.89 M/uL (3.86-4.86)
[2018-09-28 05:29] LABS: BUN Blood Urea Nitrogen 8 mg/dL (7-18); Bicarbonate 25 mmol/L (21-32); Glucose Level 153 mg/dL (74-106); Magnesium 1.6 mg/dL (1.8-2.4); NT PRO-BNP 1163 pg/mL (<125); Potassium 3.7 mmol/L (3.5-5.1); Sodium Level 133 mmol/L (136-145)
[2018-09-28] MEDS ORDERED: POTASSIUM CL SA 10 MEQ TAB PO ONE (06:07)
[2018-09-28] MEDS ORDERED: MAGNESIUM SULFATE 1 gm IVPB 1 GM/100 ML BAG IV ONE (06:08)
[2018-09-28] MEDS: INSULIN -REGULAR HUMAN 50 UNIT/0.5 ML ML SQ SCH ×4 (07:26→21:00)
[2018-09-28] MEDS: VITAMIN D 1000 UNIT TAB PO SCH (08:09)
[2018-09-28] MEDS: FERROUS SULFATE 325 MG TAB PO SCH (08:10)
[2018-09-28] MEDS: METFORMIN HCL 500 MG TAB PO SCH ×2 (08:10→17:43)
[2018-09-28] MEDS: GABAPENTIN 400 MG CAP PO SCH ×3 (08:10→20:41)
[2018-09-28] MEDS: FOLIC ACID 1 MG TABLET PO SCH (08:10)
[2018-09-28] MEDS: MAGNESIUM OXIDE 400 MG TAB PO SCH ×2 (08:11→20:39)
[2018-09-28] MEDS: SITAGLIPTIN PHOS 100 MG TAB PO SCH (08:11)
[2018-09-28] MEDS: PANTOPRAZOLE 40MG TABLET PO SCH ×2 (08:11→20:40)
[2018-09-28] MEDS: SODIUM CHLORIDE 1 GM TAB PO SCH ×3 (08:11→20:39)
[2018-09-28] MEDS: predniSONE 5 MG TAB PO SCH ×2 (08:11→20:41)
--- NOTE | 2018-09-28 08:14 | RAD REPORT ---
EXAM DESCRIPTION: [place] Single View09/28/2018 6:59 am CLINICAL HISTORY: Chest pain COMPARISON: September 27, 2018 FINDINGS: Overall no significant change in the bilateral pulmonary opacities. Heart is normal size. Such venous line remains place IMPRESSION: Stable bilateral pulmonary opacities
[2018-09-28] MEDS: Meropenem 1,000 MG in NA CHLORIDE 0.9% 100 ML IV SCH ×2 (08:22→20:39)
[2018-09-28] MEDS: FLUTICASONE 50MCG NASAL SPRAY NAS SCH (08:23)
[2018-09-28] MEDS: GLUCERNA SHAKE 237 ML CAN PO SCH ×2 (08:24→20:48)
[2018-09-28] MEDS: HOME MED 1 EA UNK (Umeclidinium Brm/Vilanterol Tr [Anoro Ellipta 62.5-25 Mcg Inh] 1 PUFF) IH SCH (08:25)
--- NOTE | 2018-09-28 08:56 | EKG ---
Test Date: 2018-09-27 Test Time: 10:07:00 Door Assembler: BEKA MEASUREMENT RESULTS: Intervals: Rate: 83 PA: 164 QRSD: 148 QT: 392 QTc: 460 [place]: P: 68 PA: 164 QRS: -19 T: 52 INTERPRETIVE STATEMENTS: Normal sinus rhythm Possible Left atrial enlargement Right bundle branch block Septal infarct, age undetermined Abnormal ECG Compared to ECG 09/21/2018 10:09:35 Myocardial infarct finding now present Electronically Signed On 09-28-18 08:53:16 CDT by Antione Cm
[2018-09-28] MEDS ORDERED: MONTELUKAST 10 MG TAB PO SCH (09:00)
[2018-09-28 13:38] LABS: Urine Appearance CLEAR; Urine Bilirubin NEGATIVE (NEG); Urine Blood NEGATIVE (NEG); Urine Color YELLOW; Urine Glucose NEGATIVE (NEG); Urine Protein NEGATIVE (NEG); Urine Specific Gravity <=1.005 (1.005-1.030); Urine Urobilinogen 0.2 mg/dL (0.2-1.0)
[2018-09-28 13:41] LABS: Urine Microscopic Reflex NO UMIC
--- NOTE | 2018-09-28 16:44 | EKG ---
Test Date: 2018-09-28 Test Time: 08:36:23 Machine Ii Trimmer: ANA MEASUREMENT RESULTS: Intervals: Rate: 65 ND: 190 QRSD: 156 QT: 470 QTc: 488 [place]: P: 54 ND: 190 QRS: 1 T: 36 INTERPRETIVE STATEMENTS: Normal sinus rhythm Right bundle branch block Abnormal ECG Compared to ECG 09/27/2018 10:07:00 Myocardial infarct finding no longer present Electronically Signed On 09-28-18 16:41:53 CDT by Antione Cm
--- NOTE | 2018-09-28 16:49 | PN ---
Date of Progress Note: 09/28/2018 Subjective: The patient was seen this morning for followup. No new complaints or problems reported. Vital signs reviewed. She is feeling much better. Her altered mental status has resolved. She is back to her usual self again, awake, alert, smiling, answering questions appropriately. Objective: Vital Signs: Reviewed. HEENT: Unremarkable. Lungs: Bilateral good equal air entry. Presence of some rales noted in left lower lung field and so me wheezing in both lower lung talbert. Not using any accessory muscles of respiration. Heart: Sounds normal. Abdomen: Soft. Bowel sounds normal. No guarding, rigidity, tenderness, or distention. Extremities: No leg edema. The patient is complaining of some sensitivity of skin over right heel a nd I did examine that yesterday and today. There is no evidence of any decubitus, but skin is sensit shavonne to touch and when I saw her today, her heel was already offloaded with help of a pillow and I did explain it to her and family member who was in the room that it is very important for her to continu e to keep her heel offloaded all the time and this is likely due to pressure on that skin while lying in bed as she has been spending lot of time being ill in the hospital. We will continue to monitor that. At this point, there is no redness or any open area. Skin appears normal, but it is sensitive to touch. Laboratory Data: White count 11.9, hemoglobin 9.9, platelets 241. Sodium 133, potassium 3.7, chlori de 101, bicarb 25, BUN 8, creatinine 0.37, glucose 153, magnesium 1.6. Impression: 1.Pneumonia, likely postobstructive pneumonia. 2.Lung cancer with metastatic disease to liver. 3.Anemia, due to iron deficiency, due to chronic gastrointestinal blood loss. 4.Hypomagnesemia. 5.Chronic obstructive pulmonary disease. Plan: We will continue current antibiotic, continue vancomycin, clindamycin, and meropenem. We will replace electrolytes per protocol and Social Service to help make arrangements for the patient to go to [facility] where she was in the past and consultation was requested for Social Serv ice to assist the patient with that. I will see her tomorrow for followup. CALISTA/MODL Voice ID: [id number] Report ID: [id number]
[2018-09-28] MEDS: ATORVASTATIN 40 MG TAB PO SCH (20:40)
[2018-09-28] MEDS: MONTELUKAST 10 MG TAB PO SCH (20:40)
[2018-09-29] MEDS: CLINDAMYCIN INJ 600 MG in NA CHLORIDE 0.9% 50 ML IV SCH ×3 (01:00→16:12)
[2018-09-29] MEDS: VANCOMYCIN/NS 1 gm 1 GM/250 ML BAG IVPB SCH ×2 (01:22→13:09)
[2018-09-29 06:13] LABS: Absolute Lymphocytes (CBC) 0.5 K/uL (0.7-4.9); Basophils % 0.3 % (0-1.3); Eosinophils % 0.2 % (0-4.4); Hematocrit 28.8 % (36.0-45.0); Lymphocytes % 4.1 % (15.3-44.8); MPV 8.1 fL (7.6-11.3); Monocytes % 4.6 % (3.3-12.3); RBC Red Blood Cell Count 2.94 M/uL (3.86-4.86)
[2018-09-29 06:30] LABS: BUN Blood Urea Nitrogen 7 mg/dL (7-18); Bicarbonate 26 mmol/L (21-32); Glucose Level 140 mg/dL (74-106); Magnesium 1.6 mg/dL (1.8-2.4); Potassium 3.8 mmol/L (3.5-5.1); Sodium Level 132 mmol/L (136-145)
[2018-09-29] MEDS: INSULIN -REGULAR HUMAN 50 UNIT/0.5 ML ML SQ SCH ×4 (07:30→21:00)
[2018-09-29] MEDS: FLUTICASONE 50MCG NASAL SPRAY NAS SCH (09:00)
[2018-09-29] MEDS: predniSONE 5 MG TAB PO SCH ×2 (09:00→21:12)
[2018-09-29] MEDS: METFORMIN HCL 500 MG TAB PO SCH ×2 (09:00→16:12)
[2018-09-29] MEDS: VITAMIN D 1000 UNIT TAB PO SCH (09:00)
[2018-09-29] MEDS: HOME MED 1 EA UNK (Umeclidinium Brm/Vilanterol Tr [Anoro Ellipta 62.5-25 Mcg Inh] 1 PUFF) IH SCH (09:00)
[2018-09-29] MEDS: SITAGLIPTIN PHOS 100 MG TAB PO SCH (09:00)
[2018-09-29] MEDS: GABAPENTIN 400 MG CAP PO SCH ×3 (09:01→21:12)
[2018-09-29] MEDS: FOLIC ACID 1 MG TABLET PO SCH (09:01)
[2018-09-29] MEDS: MAGNESIUM OXIDE 400 MG TAB PO SCH ×2 (09:01→21:11)
[2018-09-29] MEDS: FERROUS SULFATE 325 MG TAB PO SCH (09:01)
[2018-09-29] MEDS: PANTOPRAZOLE 40MG TABLET PO SCH ×2 (09:01→21:12)
[2018-09-29] MEDS: GLUCERNA SHAKE 237 ML CAN PO SCH ×2 (09:02→21:13)
[2018-09-29] MEDS: SODIUM CHLORIDE 1 GM TAB PO SCH ×3 (09:02→21:12)
[2018-09-29] MEDS: Meropenem 1,000 MG in NA CHLORIDE 0.9% 100 ML IV SCH ×2 (09:05→21:30)
[2018-09-29] MEDS ORDERED: MAGNESIUM HYDROXIDE 8% 30 ML PO ONE (09:12)
--- NOTE | 2018-09-29 10:32 | PN ---
Date of Progress Note: 09/29/2018 Subjective: The patient was seen this morning for followup. She was sitting in the bed, eating her breakfast, overall feeling better. Denies any specific complaints. Upon further questioning, kiran francois reports that her skin sensitivity from right heel area has improved with offloading of the heel and overall that area feels better she reports today compared to yesterday. She did get out of the bed yesterday and sat in the chair she reports. Objective: Vital Signs: Reviewed. HEENT: Unremarkable. Lungs: Clear to auscultation except some minimum rales noted in bilateral lower lung talbert. Not us ing any accessory muscles of respiration. Heart: Sounds normal. Abdomen: Soft, bowel sounds normal. No guarding, rigidity, tenderness, or distention. Extremities: No leg edema. Labs: White count 11.3, hemoglobin 9.7, platelets 247. Sodium 132, potassium 3.8, chloride 100, bic arb 26, BUN 7, creatinine 0.42, glucose 140, magnesium 1.6. Culture remains negative so far. Impression: 1.Pneumonia, postobstructive pneumonia. 2.Lung cancer with metastatic disease to liver. 3.Iron deficiency anemia. 4.Hypomagnesemia. 5.Peripheral vascular disease. Plan: We will continue current medications, continue current antibiotics. The patient has responded well. Social Service is trying to help make arrangements for the disposition for patient to go to [facility] facility in [place], and hopefully by Monday, which is day after tomorrow, we might be able to discharge her once we get approval from insurance company. The patient has not had a bowel movem ent since she has been in hospital, so we will go ahead and order milk of magnesia 1 time dose today, and we will go ahead and plan to repeat chest x-ray tomorrow jarvis phillips. CALISTA/MODL Voice ID: [id number] Report ID: [id number]
[2018-09-29] MEDS ORDERED: MAGNESIUM SULFATE 1 gm IVPB 1 GM/100 ML BAG IV ONE (21:00)
[2018-09-29] MEDS ORDERED: POTASSIUM CL SA 10 MEQ TAB PO ONE (21:00)
[2018-09-29] MEDS: MONTELUKAST 10 MG TAB PO SCH (21:12)
[2018-09-29] MEDS: ATORVASTATIN 40 MG TAB PO SCH (21:12)
[2018-09-29] MEDS: ZOLPIDEM TARTRATE 5 MG TABLET PO PRN (21:30)
[2018-09-30] MEDS: VANCOMYCIN/NS 1 gm 1 GM/250 ML BAG IVPB SCH ×2 (00:03→13:48)
[2018-09-30] MEDS: CLINDAMYCIN INJ 600 MG in NA CHLORIDE 0.9% 50 ML IV SCH ×3 (00:03→16:57)
[2018-09-30 06:53] LABS: Absolute Lymphocytes (CBC) 0.5 K/uL (0.7-4.9); Basophils % 0.2 % (0-1.3); Eosinophils % 0.3 % (0-4.4); Hematocrit 30.4 % (36.0-45.0); Lymphocytes % 4.3 % (15.3-44.8); MPV 8.4 fL (7.6-11.3); Monocytes % 4.4 % (3.3-12.3); RBC Red Blood Cell Count 3.13 M/uL (3.86-4.86)
[2018-09-30 07:15] LABS: BUN Blood Urea Nitrogen 8 mg/dL (7-18); Bicarbonate 27 mmol/L (21-32); Glucose Level 111 mg/dL (74-106); Magnesium 2.1 mg/dL (1.8-2.4); Potassium 4.3 mmol/L (3.5-5.1); Sodium Level 132 mmol/L (136-145)
[2018-09-30] MEDS: INSULIN -REGULAR HUMAN 50 UNIT/0.5 ML ML SQ SCH ×4 (07:30→21:00)
--- NOTE | 2018-09-30 07:51 | RAD REPORT ---
EXAM DESCRIPTION: RAD - Chest Single View - 09/30/2018 6:52 am CLINICAL HISTORY: Pneumonia COMPARISON: September 28, September 27, September 23, September 18, June 04 ; December 2017 TECHNIQUE: AP portable chest image was obtained 0645 hours . FINDINGS: Lung volumes are relatively low but similar to comparison. Right perihilar and right midlu ng film opacities are not clearly different from prior study. Left perihilar and left midlung field m ass density is similar or perhaps fractionally improved. Any interval change is minimal. Right-sided Port-A-Cath and left-sided central line remain in place. Heart and vasculature are normal. No measura ble pleural effusion and no pneumothorax. No acute bony abnormality seen. No acute aortic findings browne spected. IMPRESSION: Moderate right-side and large left-side perihilar and mid lung field opacities are not s ubstantially different from September 28 imaging. Left findings may be fractionally improved. Lung opacities date back to at least May 2017. No CT chest imaging is available for correlation. Th is could be post infectious/post therapy scarring. Residual or recurrent pneumonia superimposed on sc arring would be possible. Malignant etiologies cannot be excluded though there is no evidence for growth over approximately 8 m onths. The Port-A-Cath and central line are in place without available history as to what is being tr eated.
[2018-09-30] MEDS: Meropenem 1,000 MG in NA CHLORIDE 0.9% 100 ML IV SCH ×2 (08:59→21:33)
[2018-09-30] MEDS: HOME MED 1 EA UNK (Umeclidinium Brm/Vilanterol Tr [Anoro Ellipta 62.5-25 Mcg Inh] 1 PUFF) IH SCH (09:00)
[2018-09-30] MEDS: FLUTICASONE 50MCG NASAL SPRAY NAS SCH (09:00)
[2018-09-30] MEDS: VITAMIN D 1000 UNIT TAB PO SCH (09:03)
[2018-09-30] MEDS: FOLIC ACID 1 MG TABLET PO SCH (09:03)
[2018-09-30] MEDS: FERROUS SULFATE 325 MG TAB PO SCH (09:03)
[2018-09-30] MEDS: GABAPENTIN 400 MG CAP PO SCH ×3 (09:03→21:33)
[2018-09-30] MEDS: MAGNESIUM OXIDE 400 MG TAB PO SCH ×2 (09:04→21:32)
[2018-09-30] MEDS: METFORMIN HCL 500 MG TAB PO SCH ×2 (09:04→16:03)
[2018-09-30] MEDS: SODIUM CHLORIDE 1 GM TAB PO SCH ×3 (09:04→21:32)
[2018-09-30] MEDS: PANTOPRAZOLE 40MG TABLET PO SCH ×2 (09:04→21:33)
[2018-09-30] MEDS: GLUCERNA SHAKE 237 ML CAN PO SCH ×2 (09:04→21:32)
[2018-09-30] MEDS: SITAGLIPTIN PHOS 100 MG TAB PO SCH (09:07)
[2018-09-30] MEDS: predniSONE 5 MG TAB PO SCH ×3 (09:07→21:33)
--- NOTE | 2018-09-30 13:45 | PN ---
Date of Progress Note: 09/30/2018 Subjective: The patient was seen this morning for followup. She was lying in bed, not in any distre ss. Denied any complaints this morning when I saw her and reported that she was feeling fine. Objective: Vital Signs: Reviewed. HEENT: Unremarkable. Lungs: Bilateral good equal air entry. Not in any respiratory distress. Was noted to have some whe ezing and crackles in the left lower lung field, especially with the coughing. She is not able to co ugh up any mucus. Heart: Sounds normal. Abdomen: Soft. Bowel sounds normal. No guarding, rigidity, tenderness, or distention. Extremities: No leg edema. Right heel skin [facility] has resolved. The skin color and appearance are normal. There is no open wound and her heel is being offloaded all the time. Right groin wound is appearing even smal ler than what it did when she was admitted to hospital, this time on 09/27/2018. Laboratory Data: White count 12.3, hemoglobin 10.2, platelets 293. Sodium 132, potassium 4.3, chlor misti 100, bicarb 27, BUN 8, creatinine 0.31, glucose 111, magnesium 2.1. Chest x-ray from today shows improvement in her left lung opacity. Impression: 1.Pneumonia, postobstructive. 2.Lung cancer with metastatic disease to liver. 3.Iron deficiency anemia, due to chronic gastrointestinal blood loss. 4.Hyponatremia, chronic. 5.Peripheral vascular disease. Plan: We will go ahead and continue current antibiotics. The patient seems to be responding well to antibiotic that she is currently on. Cultures remain negative. We will go ahead and have chest per cussion therapy with nebulizer treatment to see if that assist her with clearing of any pulmonary con gestion that she may have with this pneumonia problem. Meanwhile, other current medical management w ill be continued and I will see her tomorrow for followup. Social Service is working on disposition. CALISTA/MODL Voice ID: [id number] Report ID: [id number]
[2018-09-30] MEDS: HYDROCODONE/APAP 5/325 MG TAB PO PRN (13:59)
[2018-09-30] MEDS: ALBUTEROL 2.5 MG/3 ML NEB SOL NEB SCH ×2 (14:00→20:00)
[2018-09-30] MEDS: ATORVASTATIN 40 MG TAB PO SCH (21:32)
[2018-09-30] MEDS: MONTELUKAST 10 MG TAB PO SCH (21:32)
[2018-09-30] MEDS: ZOLPIDEM TARTRATE 5 MG TABLET PO PRN (21:34)
[2018-10-01] MEDS: CLINDAMYCIN INJ 600 MG in NA CHLORIDE 0.9% 50 ML IV SCH ×3 (00:34→16:38)
[2018-10-01] MEDS: VANCOMYCIN/NS 1 gm 1 GM/250 ML BAG IVPB SCH ×2 (01:08→12:04)
[2018-10-01] MEDS: ALBUTEROL 2.5 MG/3 ML NEB SOL NEB SCH ×4 (01:20→20:00)
[2018-10-01 05:51] LABS: Absolute Lymphocytes (CBC) 0.6 K/uL (0.7-4.9); Basophils % 0.1 % (0-1.3); Eosinophils % 0.3 % (0-4.4); Hematocrit 29.4 % (36.0-45.0); Monocytes % 4.8 % (3.3-12.3); RBC Red Blood Cell Count 2.99 M/uL (3.86-4.86)
[2018-10-01 06:02] LABS: BUN Blood Urea Nitrogen 10 mg/dL (7-18); Bicarbonate 27 mmol/L (21-32); Glucose Level 103 mg/dL (74-106); Potassium 4.1 mmol/L (3.5-5.1); Sodium Level 134 mmol/L (136-145)
[2018-10-01 07:14] LABS: Anisocytosis 1+; Blood Morphology Comment NOTED (NOT SEEN); Ovalocytes 1+; Platelet Estimate ADEQ; Urine White Blood Cell Casts OK
[2018-10-01] MEDS: INSULIN -REGULAR HUMAN 50 UNIT/0.5 ML ML SQ SCH ×4 (07:30→21:00)
[2018-10-01] MEDS: METFORMIN HCL 500 MG TAB PO SCH ×2 (08:51→16:37)
[2018-10-01] MEDS: FOLIC ACID 1 MG TABLET PO SCH (08:51)
[2018-10-01] MEDS: SODIUM CHLORIDE 1 GM TAB PO SCH ×3 (08:51→21:27)
[2018-10-01] MEDS: FERROUS SULFATE 325 MG TAB PO SCH (08:51)
[2018-10-01] MEDS: PANTOPRAZOLE 40MG TABLET PO SCH ×2 (08:51→21:28)
[2018-10-01] MEDS: GABAPENTIN 400 MG CAP PO SCH ×3 (08:51→21:28)
[2018-10-01] MEDS: predniSONE 5 MG TAB PO SCH (08:51)
[2018-10-01] MEDS: MAGNESIUM OXIDE 400 MG TAB PO SCH ×2 (08:51→21:28)
[2018-10-01] MEDS: Meropenem 1,000 MG in NA CHLORIDE 0.9% 100 ML IV SCH ×2 (08:52→21:30)
[2018-10-01] MEDS: FLUTICASONE 50MCG NASAL SPRAY NAS SCH (08:53)
[2018-10-01] MEDS: GLUCERNA SHAKE 237 ML CAN PO SCH ×2 (08:53→21:30)
[2018-10-01] MEDS: HOME MED 1 EA UNK (Umeclidinium Brm/Vilanterol Tr [Anoro Ellipta 62.5-25 Mcg Inh] 1 PUFF) IH SCH (08:54)
[2018-10-01] MEDS: VITAMIN D 1000 UNIT TAB PO SCH (08:55)
[2018-10-01] MEDS: SITAGLIPTIN PHOS 100 MG TAB PO SCH (09:44)
[2018-10-01] MEDS: ATORVASTATIN 40 MG TAB PO SCH (21:28)
[2018-10-01] MEDS: MONTELUKAST 10 MG TAB PO SCH (21:29)
[2018-10-01] MEDS: ZOLPIDEM TARTRATE 5 MG TABLET PO PRN (21:29)
[2018-10-01] MEDS ORDERED: NA CHLORIDE 0.9% 500 ML ONE (21:37)
[2018-10-02] MEDS: CLINDAMYCIN INJ 600 MG in NA CHLORIDE 0.9% 50 ML IV SCH ×3 (00:30→17:29)
--- NOTE | 2018-10-02 00:42 | PN ---
Date of Progress Note: 10/01/2018 Subjective: The patient was seen this morning for followup. No new complaints or problems reported by the patient. Her was present with her at bedside. She is awake, alert, back to her john l usual self for last few days during this hospitalization. Objective: Vital Signs: Reviewed. HEENT: Unremarkable. Lungs: Clear to auscultation except minimal rales noted in lower lung talbert on both side. Not usin g any accessory muscles of respiration. Heart: Sounds normal. Abdomen: Soft. Bowel sounds normal. No guarding, rigidity, tenderness, distention. Extremities: No leg edema. Laboratory Data: Sodium 134, potassium 4.1, chloride 102, bicarb 27, BUN 10, creatinine 0.32, glucos e 103. White count 12.8, hemoglobin 9.9, platelets 286. Impression: 1.Pneumonia, post obstructive. 2.Lung cancer with metastatic disease to liver. 3.Anemia, due to chronic GI blood loss, iron deficiency anemia. Plan: We will continue current antibiotics. The patient's condition has improved. We are waiting or Social Service to get approval from insurance company for discharge planning. Meanwhile, we will continue current therapy here. We will repeat blood work tomorrow and nurse today informed me that t he patient was taking prednisone 5 mg twice a day and yesterday evening she refused the evening dose because she informed nursing staff that her oncologist from [place] wanted her to wean off the pr ednisone, so we will reduce the dose of prednisone to 5 mg once a day. I did confirm with the patien alessandro and her about Endoclip that was placed in [place] as a part of endoscopy workup for GI bleeding problem earlier this year. This is what we have seen on the CAT scan. CALISTA/MODL Voice ID: [id number] Report ID: [id number]
[2018-10-02] MEDS: VANCOMYCIN/NS 1 gm 1 GM/250 ML BAG IVPB SCH (01:00)
[2018-10-02] MEDS: ALBUTEROL 2.5 MG/3 ML NEB SOL NEB SCH ×3 (01:59→14:56)
[2018-10-02 04:57] LABS: Absolute Lymphocytes (CBC) 0.6 K/uL (0.7-4.9); Eosinophils % 0.3 % (0-4.4); Hematocrit 27.9 % (36.0-45.0); Lymphocytes % 4.5 % (15.3-44.8); Monocytes % 4.1 % (3.3-12.3); RBC Red Blood Cell Count 2.85 M/uL (3.86-4.86)
[2018-10-02 05:11] LABS: BUN Blood Urea Nitrogen 7 mg/dL (7-18); Bicarbonate 29 mmol/L (21-32); Glucose Level 99 mg/dL (74-106); Potassium 3.6 mmol/L (3.5-5.1); Sodium Level 135 mmol/L (136-145)
[2018-10-02] MEDS: INSULIN -REGULAR HUMAN 50 UNIT/0.5 ML ML SQ SCH ×3 (07:30→17:29)
[2018-10-02] MEDS ORDERED: POTASSIUM CL SA 10 MEQ TAB PO ONE (09:00)
[2018-10-02] MEDS ORDERED: predniSONE 5 MG TAB PO SCH (09:00)
[2018-10-02] MEDS: HOME MED 1 EA UNK (Umeclidinium Brm/Vilanterol Tr [Anoro Ellipta 62.5-25 Mcg Inh] 1 PUFF) IH SCH (09:00)
[2018-10-02] MEDS: Meropenem 1,000 MG in NA CHLORIDE 0.9% 100 ML IV SCH (09:37)
[2018-10-02] MEDS: FERROUS SULFATE 325 MG TAB PO SCH (09:39)
[2018-10-02] MEDS: GABAPENTIN 400 MG CAP PO SCH ×2 (09:39→14:59)
[2018-10-02] MEDS: MAGNESIUM OXIDE 400 MG TAB PO SCH (09:39)
[2018-10-02] MEDS: VITAMIN D 1000 UNIT TAB PO SCH (09:39)
[2018-10-02] MEDS: SODIUM CHLORIDE 1 GM TAB PO SCH ×2 (09:39→14:59)
[2018-10-02] MEDS: PANTOPRAZOLE 40MG TABLET PO SCH (09:39)
[2018-10-02] MEDS: FOLIC ACID 1 MG TABLET PO SCH (09:39)
[2018-10-02] MEDS: SITAGLIPTIN PHOS 100 MG TAB PO SCH (09:39)
[2018-10-02] MEDS: METFORMIN HCL 500 MG TAB PO SCH ×2 (09:39→17:31)
[2018-10-02] MEDS: FLUTICASONE 50MCG NASAL SPRAY NAS SCH (09:42)
[2018-10-02] MEDS ORDERED: VANCOMYCIN/NS 1 gm 1 GM/250 ML BAG IVPB SCH (10:00)
[2018-10-02] MEDS: HYDROCODONE/APAP 5/325 MG TAB PO PRN (10:11)
[2018-10-02] MEDS: GLUCERNA SHAKE 237 ML CAN PO SCH (10:11)
[2018-10-02] MEDS ORDERED: ALTEPLASE 2 MG/VIAL IV ONE (14:00)
[2018-10-02] MEDS ORDERED: WATER FOR INJ,STERILE 10 ML IV ONE (14:00)
[2018-10-02 16:18] VITALS: BP 129/64; TEMP 98.4
[2018-10-02 16:21] VITALS: O2SAT 98
--- NOTE | 2018-10-03 20:45 | DS ---
Date of Discharge: 10/02/2018 Disposition: The patient was transferred to [facility] in [place]. Physical Examination: HEENT: Examination unremarkable. Lungs: Clear to auscultation. Heart: Sounds normal. Abdomen: Soft. Bowel sounds normal. No guarding, rigidity, tenderness, or distention. Extremities: No leg edema. Discharge Medications And Instructions: 1.Continue all current medications including antibiotics. IV antibiotics to be given for 7-10 days and IV antibiotics that currently she is on is IV vancomycin, IV clindamycin and IV meropenem. CBC, chem-7 and vancomycin trough level with every third dose. 2.Flush PICC line per protocol, change PICC line dressing per protocol. 3.Wound care dressing changes daily to left leg stump and right groin. 4.Offload heel all the time. Hospital Course: A 67-year-old female patient who was admitted to the hospital with fever and altere d mental status. Please see dictated H and P for more information. After patient was evaluated in [facility] ER, she was admitted to the hospital. She was diagnosed as having postobstructive pneumonia invol ving her left lung. She was getting IV meropenem at home, but in spite of that, she started to have fever and her white count went up, so she was admitted to the hospital. We continued her meropenem t hat she needs for infected right groin wound and pyelonephritis. We added vancomycin and clindamycin for her postobstructive pneumonia. Overall, her condition improved. White count came down from [id number] to [id number] range. The patient became afebrile. Her altered mental status, resolved and we co nsulted social service to assist the patient to go to [facility] where she had stayed b [facility] after her amputation surgery and the patient wanted to go there, so once all arrangements compl eted today, the patient was discharged in stable condition. Her repeat chest x-ray shows improvement in pneumonia. Final Diagnoses: 1.Postobstructive pneumonia, left lung. 2.Lung cancer with metastatic disease to liver. 3.Infected right groin wound, organism Klebsiella and Escherichia coli, extended-spectrum beta-lacta enmanuel. 4.Left leg infected wound, organism pseudomonas. 5.Iron deficiency anemia, due to chronic gastrointestinal blood loss. 6.Hyponatremia, chronic. 7.Hypertension. 8.Hyperlipidemia. 9.Peripheral vascular disease. 10.Type 2 diabetes mellitus. 11.Coronary artery disease. 12.Carotid artery stenosis. 13.Chronic obstructive pulmonary disease. 14.Gastroesophageal reflux disease. 15.Depression. Laboratory Data: Initial white count upon admission 16.4, hemoglobin 12.1, platelets 302. Last whit e count today 12.9, hemoglobin 9.3, platelets 280. Yesterday white count was 12.8. Last chemistry t sammy; sodium 135, potassium 3.6, chloride 101, bicarb 29, BUN 7, creatinine 0.33, glucose 99. CALISTA/MODL Voice ID: [id number] Report ID: [id number]
== END 2018-10-02 20:30 | DRG 194 ==
LOC: ER 09:16 → ERHOLD 11:59 → 2ND 13:31 → 4TH 09-28 22:00
PROVIDERS: ADMIT Internal Medicine; ATTEND Internal Medicine
DX: J18.9 Pneumonia, unspecified organism (principal); C34.90 Malignant neoplasm of unspecified part of unspecified bronchus or lung; J44.0 Chronic obstructive pulmonary disease with (acute) lower respiratory infection; C78.7 Secondary malignant neoplasm of liver and intrahepatic bile duct; K92.2 Gastrointestinal hemorrhage, unspecified; E87.1 Hypo-osmolality and hyponatremia; D50.8 Other iron deficiency anemias; I10 Essential (primary) hypertension; E78.5 Hyperlipidemia, unspecified; E11.51 Type 2 diabetes mellitus with diabetic peripheral angiopathy without gangrene; I25.10 Atherosclerotic heart disease of native coronary artery without angina pectoris; K21.9 Gastro-esophageal reflux disease without esophagitis; F32.9 Major depressive disorder, single episode, unspecified; S31.103A Unspecified open wound of abdominal wall, right lower quadrant without penetration into peritoneal cavity, initial encounter; B96.20 Unspecified Escherichia coli [E. coli] as the cause of diseases classified elsewhere; B96.1 Klebsiella pneumoniae [K. pneumoniae] as the cause of diseases classified elsewhere; Z16.12 Extended spectrum beta lactamase (ESBL) resistance; E83.42 Hypomagnesemia; Z89.512 Acquired absence of left leg below knee
CPT/HCPCS: 36415; 70450; 71045; 74176; 76377; 80048; 80076; 80202; 81003; 82962; 83605; 83690; 83735; 83880; 84145; 84484; 85025; 85610; 87040; 87070; 87077; 87086; 87088; 87186; 87205; 93005; 94667; 94760; 96361; 96365; 96367; 97110; 97163; 97530; 97542; 99285; J2997; J3370; J3475; J7030; J7512

== ENCOUNTER 2018-11-01 08:55 | Inpatient (IN) | payer BC, OTHER ==
--- OUTSIDE RECORDS SUMMARY | 2018-11-01 09:00 | XMS REPORT | Clinical Summary ---
:1950 Author Organization [facility] Address [address] [place] [address] Care Team Providers Name Role Phone Lior [...] Gastrointestinal hemorrhage with melena 07/03/2018 Atherosclerosis [place] artery of left lower extremity with intermittent [...] Surgery MD Bro 07/11/19 Surgery Cardiothoracic Tej, Azhra, RIGHT GROIN EXPLORATION, 19 Surgery RIGHT GROIN GRAFT EXCISION, RIGHT GROIN WOUND VAC PLACEMENT 07/05/19 Anesthesia Gastroenterology Luc, 19 Event Yosef Thompson MD 07/05/19 Surgery Gastroenterology Cade Delgado MD ESOPHAGOGASTRODUODENOSCOPY 19 (EGD) 07/04/19 [facility] Internal [place] Martin Gastrointestinal hemorrhage with melena [...] General Surgery Priscilla May 19 Event Santino, QUALITY CONTROL CLERK 06/13/19 Surgery Procedural Jay Left heart cath w lv gram 19 Cardiology MD Valentín cors [20807 (CPT)] 06/12/19 [facility] Avery, PVD (peripheral vascular disease) (HCC) (Primary Dx); 19 - Encounter Medicine Arben Thayer MD Atherosclerosis [place] artery of left lower extremity with intermittent claudication (HCC); 06/20/19 Nathaniel Wynne, Ischemia of extremity 19 06/12/19 Office Visit Cardiovascular Luke Taylor PAD (peripheral artery disease) (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 06/12/19 Prep for Cardiovascular Maxim Atherosclerosis [place] artery of left lower extremity with intermittent claudication (HCC) (Primary Dx) ; 19 Surgery Sherri, SUNDAR Ischemia of extremity 06/12/19 Orders Only Cardiovascular Maxim Atherosclerosis [place] artery of left lower extremity with intermittent claudication (HCC) (Primary Dx) ; 19 SUNDAR Polanco Ischemia of extremity after 10/31/2017 Social History Tobacco Use Types Packs/Day Years [...] VACCINE 10/25/2018 01/15/2018 Implants Implanted Type Area Automated Cutting Machine Operator Device Shelf Model / Identifier Expiration Serial / Date Lot Patch Photofix Bovine Pericardium Sz 0.8cm X 8cm Tapred - Sx - [id number] Cardiovascular Left: [employer] 01/29/2020 [id number] / Implanted: Qty: 1 on 06/13/2018 by Luke Taylor MD Implants N/A X / [id number] Clip Ligtng Weck Hemoclip Plus W/ Tape Ti Sm Strngpnt - [id number] Medical Clips N/A: WECK CLOSURE [id number] / Implanted: 07/10/2018 (Quantity not on file) for Internal Use N/A SYSTEMS / Clip Ligtng Weck Hemoclip Plus W/ Tape Ti Sm Strngpnt - [id number] Medical Clips N/A: WECK CLOSURE [id number] / Implanted: 07/10/2018 (Quantity not on file) for Internal Use N/A SYSTEMS / Clip Ligtng Weck Hemoclip Plus W/ Tape Ti Lg - [id number] Medical Clips N/A: TELEFLEX [id number] / Implanted: 07/10/2018 (Quantity not on file) for Internal Use N/A MEDICAL / Clip Resolution 360 Mr Cndtl 235cm 2.8mm 11mm Opening - [id number] Surgical N /A: C ENDOSCOPY [id number] / Implanted: 07/04/2018 (Quantity not on file) Implants; N/A / Expanders; Extenders; Surgical Wires [place] Perph Vasclr Ptfe 1.2x10cm 1.65mm - [id number] Vascular Graft N/A: BARD 03/23/2023 [id number] / Implanted: 07/10/2018 (Quantity not on file) N/A PERIPHERAL / VASCULAR [id number] Graft Vasclr Propaten Thn-Wl Strtch Rmvbl Ringed 49n51tl 8mm - [id number] - [id number] Vascular Graft N/A: W L GORE 10/06/2021 [id number] / Implanted: Qty: 1 on 07/10/2018 by Zahra Burnham MD N/A [id number] / [id number] Port A Cath Chest Procedures Procedure Name [...] AM CDT Procedure Note - Toni Lao - 07/10/2018 10:56 AM CDT Arterial line [...] the procedure well with no immediate complications CO AN ELECTIVE ENDOTRACHEAL AIRWAY Routine 07/10/2018 10:55 AM CDT Procedure Note - Toni Lao - 07/10/2018 10:55 AM CDT Airway Performed by: Toni Lao CRNA Authorized by: Olivia Rollins MD Location: OR Urgency: Elective Difficult Airway: No Anesthesiologist: Olivia Rollins MD Resident/QUALITY CONTROL CLERK/AA: Toni Lao CRNA Performed by: resident/QUALITY CONTROL CLERK/AA Preoxygenated with 100% O2: Yes C-spine Precautions [...] MD Resident/JAY/AA: Priscilla May CRNA Performed by: Resident/QUALITY CONTROL CLERK/AA Pre-procedure: patient identified, IV checked, site and [...] the procedure well with no immediate complications CO AN ELECTIVE ENDOTRACHEAL AIRWAY Routine 06/13/2018 3:16 PM CDT Procedure Note - Prakash Reese MD - 06/13/2018 3:16 PM CDT Airway Date/Time: 06/13/2018 2:40 PM Performed by: Prakash Reese MD Authorized by: Prakash Reese MD Location: OR Urgency: Elective Difficult Airway: No Anesthesiologist: Prakash Reese MD Resident/QUALITY CONTROL CLERK/AA: Priscilla Mya CRNA Performed by: resident/QUALITY CONTROL CLERK/AA Preoxygenated with 100% O2: Yes C-spine Precautions [...] SPECTRAL COLOR DOPPLER procedure are in the (07732) results section. ESTIMATED GFR Routine 06/12/2018 11:35 [...] GLUCOSE Routine 06/11/2018 4:53 PM CDT after 10/31/2017 Results B natriuretic peptide (08/31/2018 5:18 PM CDT) BNP 207 (H) 0 - 100 pg/mL [facility] Specimen Performing Organization Address City/State/Zipcode Phone Number [facility] DEPARTMENT OF PATHOLOGY AND [address] [place] [phone] GENOMIC MEDICINE [facility] [address] [place] [address] XR Chest 1 Vw Portable (08/31/2018 5:15 [...] are mildly demineralized. HMRM-SPHYAAL Performing Organization Address [facility] Phone Number [facility] [address] [place] [address] Estimated GFR (08/31/2018 3:25 PM CDT)Only the most recent of25 resultswithin the time period is included. [facility] Estimated GFR >=90 mL/min/1.73 [place] [facility] Comment: [address] CatergoryUnitsInterpretation G1 >=90 Normal or high G2 60-89Mildly decreased V1r78-84Ghvecs to moderately decreased Q9v54-30Gfcjpwvpki to severely decreased G4 15-29Severely decreased G5 <15Kidney failure The eGFR was calculated using the Chronic Kidney Disease Epidemiology Collaboration (CKD-EPI) equation. Interpretation is based on recommendations of the National Kidney Foundation-Kidney Disease Outcomes Quality Initiative (NKF-KDOQI) published in 2014. Specimen Plasma specimen Performing Organization Address [facility] Phone Number [facility] DEPARTMENT OF PATHOLOGY AND [address] [place] [address] [address] [address] Troponin (08/31/2018 3:25 PM CDT)Only the most recent of2 resultswithin the time period is included. [facility] Troponin 0.017 0.000 - 0.040 [facility] Comment: ng/mL [facility] changed methodology effective: 07/31/2018 at 10:00 am The new method has a 99th percentile cutoff of 0.040 ng/mL Specimen Plasma specimen Performing Organization Address [facility] Phone Number [facility] DEPARTMENT OF PATHOLOGY AND [address] [place] [phone] [place] [address] Partial thromboplastin time, activated (08/31/2018 3:25 PM CDT)Only the most recent of8 resultswithin the time period is included. Pathologist [facility] PTT 34.9 23.0 - 36.0 [facility] Comment: [facility] PTT therapeutic range for unfractionated heparin is 61.0-112.0 seconds which corresponds to Anti-Xa 0.3-0.7 U/ml. Specimen Blood Performing Organization Address City/[facility] Phone Number [facility] DEPARTMENT OF PATHOLOGY AND [address] [place] [address] Prothrombin time with INR (08/31/2018 3:25 PM CDT)Only the most recent of8 resultswithin the time period is included. [facility] Prothrombin time 14.0 11.5 - 14.5 [facility] INR 1.1 [place] Comment: [facility] The International Normalized Ratio (INR) is a therapeutic HOSPITAL monitoring tool for patients who are stable on oral anticoagulant therapy. An INR of 2.0-3.0 is suggested for deep vein thrombosis/pulmonary embolism. Specimen Blood Performing Organization Address City/[facility] Phone Number [facility] DEPARTMENT OF PATHOLOGY AND [address] [place] [phone] [place] [phone] CBC with platelet and differential (08/31/2018 3:25 PM CDT)Only the most recent of22 resultswithin the time period is included. Pathologist [facility] WBC 12.34 (H) 4.50 - 11.00 [facility] RBC 3.31 (L) 4.20 - 5.50 [facility] HGB 10.9 (L) 12.0 - 16.0 [facility] g/dL [facility] HCT 34.1 (L) 37.0 - 47.0 % [facility] MCV 103.0 (H) 82.0 - 100.0 [facility] MCH 32.9 27.0 - 34.0 pg [facility] MCHC 32.0 31.0 - 37.0 [facility] g/dL HOSPITAL RDW - SD 55.8 (H) 37.0 - 55.0 fL [facility] MPV 10.5 8.8 - 13.2 fL [facility] Platelet count 262 150 - 400 k/uL [facility] Nucleated RBC 0.00 /100 WBC [facility] Neutrophils 91.6 (H) 39.0 - 69.0 % [facility] Lymphocytes 3.0 (L) 25.0 - 45.0 % [facility] Monocytes 4.2 0.0 - 10.0 % [facility] Eosinophils 0.2 0.0 - 5.0 % [facility] Basophils 0.4 0.0 - 1.0 % [facility] Immature granulocytes 0.6Comment: 0.0 - 1.0 % [facility] "[facility] granulocytes" (promyelocytes , myelocytes, metamyelocytes ) Specimen Blood Performing Organization Address City/State/Zipcode Phone Number [facility] DEPARTMENT OF PATHOLOGY AND [address] [place] [address] [address] Comprehensive metabolic panel (08/31/2018 3:25 PM CDT)Only the most recent of13 resultswithin the time period is included. Sodium 130 (L) 135 - 148 [facility] mEq/L [facility] Potassium 3.7 3.5 - 5.0 [facility] mEq/L [facility] Chloride 93 (L) 98 - 112 mEq/L [facility] CO2 20 (L) 24 - 31 mEq/L [facility] Anion gap 17@ANIO (H) 7 - 15 mEq/L [facility] BUN 12 8 - 23 mg/dL [facility] Creatinine 0.63 0.50 - 0.90 [facility] mg/dL HOSPITAL Glucose 244 (H) 65 - 99 mg/dL [facility] Calcium 9.2 8.8 - 10.2 [facility] mg/dL [facility] Protein 7.5 6.3 - 8.3 g/dL [facility] Comment: HOSPITAL 4.6-7.0 g/dL 1 week 4.4-7.6 g/dL 7 months-1year5.1-7.3 g/dL 1-2 years5.6-7.5 g/dL >3 years6.0-8.0 g/dL 18-150 6.3-8.3 g/dL Albumin 3.0 (L) 3.5 - 5.0 g/dL [facility] A/G ratio 0.7 0.7 - 3.8 [facility] Alkaline phosphatase 105 (H) 35 - 104 U/L [facility] AST 19 10 - 35 U/L [facility] ALT 9 5 - 50 U/L [facility] Total bilirubin 0.3 0.0 - 1.2 [facility] mg/dL [facility] Specimen Plasma specimen Performing Organization Address City/[facility] Phone Number [facility] DEPARTMENT OF PATHOLOGY AND [address] [place] [address] [address] [address] ECG 12 lead (08/31/2018 2:34 PM CDT)Only the most recent of6 resultswithin the time period is included. Ventricular rate 91 [facility] Atrial rate 91 [facility] MUSE CO interval 170 [facility] MUSE QRSD interval 152 [facility] QT interval 400 [facility] QTC interval 492 [facility] MUSE P axis 1 80 [facility] QRS axis 1 5 [facility] T wave axis 36 [facility] EKG impression Normal sinus rhythm-Right bundle branch block-Abnormal ECG-In automated comparison with ECG of 13-JUL-2018 10:16,-Criteria for Septal infarct are no longer present-T wave inversion more evident in Anterior leads- Electronically Signed By Xavi Pleitez MD [facility] MUSE ([id number]) on 09/02/2018 4:29:18 PM Specimen Narrative Performed At Performing Organization Address City/[facility]/Zipcode Phone Number [facility] MUSE [address] [place] [address] POC glucose (07/14/2018 12:08 PM CDT)Only the most recent of78 resultswithin the time period is included. Pathologist [facility] POC glucose 133 (H) 65 - 99 mg/dL [facility] Comment: [facility] Notified RN Meter ID: [id number] Inspector Balance Wheel Motion: Miah Soto Specimen Performing Organization Address City/State/Zipcode Phone Number [facility] DEPARTMENT OF PATHOLOGY AND [address] [place] [phone] [place] [phone] Magnesium level (07/14/2018 5:00 AM CDT)Only the most recent of17 resultswithin the time period is included. Magnesium 1.4 (L) 1.6 - 2.4 mg/dL [facility] Specimen Plasma specimen Performing Organization Address City/[facility] Phone Number [facility] DEPARTMENT OF PATHOLOGY AND [address] [place] [address] Hemoglobin & hematocrit (07/12/2018 8:59 PM CDT)Only the most recent of3 resultswithin the time period is included. HGB 9.6 (L) 12.0 - 16.0 g/dL [facility] HCT 29.2 (L) 37.0 - 47.0 % [facility] Specimen Performing Organization Address [facility] Phone Number [facility] DEPARTMENT OF PATHOLOGY AND [address] [place] [address] [address] Prepare RBC, 2 Units (07/12/2018 10:40 AM CDT)Only the most recent of5 resultswithin the time period is included. Product name Red Blood Cells [facility] 1, [facility] Unit number [id number] [facility] Product code [id number] [facility] Dispense status Transfused [facility] Blood expiration [facility] Blood type code 5100 [facility] Blood type O POSITIVE [facility] Product name Red Blood Cells [facility], [facility] Unit number [id number] [facility] Product code [id number] [facility] Dispense status Transfused [facility] Blood expiration [id number] [facility] Blood type [facility] 5100 [facility] Blood type O POSITIVE [facility] Specimen Blood Performing Organization Address [facility] [place] [facility] Phone Number [facility] DEPARTMENT OF PATHOLOGY AND [address] [place] [address] [place] [address] Type and screen (07/12/2018 10:40 AM CDT)Only the most recent of4 resultswithin the time period is included. ABO grouping O [facility] Rh type POS [facility] Antibody screen (gel) NEG [facility] Specimen Blood Performing Organization Address [facility] [place] [facility] Phone Number [facility] DEPARTMENT OF PATHOLOGY AND [address] [place] [phone] [address] Smear review (07/12/2018 6:11 AM CDT)Only the most recent of9 resultswithin the time period is included. Platelet slide review Kimberly slt decr [facility] Anisocytosis Moderate [facility] Basophilic stippling Occasional [facility] Ovalocytes Moderate [facility] Garett cells Moderate (A) [facility] Specimen Performing Organization Address [facility] Phone Number [facility] DEPARTMENT OF PATHOLOGY AND [address] [place] [address] Phosphorus level (07/12/2018 6:11 AM CDT)Only the most recent of5 resultswithin the time period is included. Phosphorus 2.8 2.4 - 4.5 mg/dL [facility] Specimen Plasma specimen Performing Organization Address [facility] Phone Number [facility] DEPARTMENT OF PATHOLOGY AND [address] [place] [phone] [address] Ionized calcium (07/12/2018 6:11 AM CDT)Only the most recent of3 resultswithin the time period is included. pH 7.66 [facility] Ionized calcium 1.07 (L) 1.11 - 1.32 [facility] mmol/L HOSPITAL Specimen Plasma specimen Performing Organization Address [facility] [place] [facility] Phone Number [facility] DEPARTMENT OF PATHOLOGY AND [address] [place] [phone] [address] Basic metabolic panel (07/11/2018 12:07 AM CDT)Only the most recent of12 resultswithin the time period is included. Sodium 134 (L) 135 - 148 mEq/L [facility] Potassium 3.9 3.5 - 5.0 mEq/L [facility] Chloride 106 98 - 112 mEq/L [facility] CO2 18 (L) 24 - 31 mEq/L [facility] Anion gap 10@ANIO 7 - 15 mEq/L [facility] BUN 17 8 - 23 mg/dL [facility] Creatinine 0.61 0.50 - 0.90 mg/dL [facility] Glucose 245 (H) 65 - 99 mg/dL [facility] Calcium 8.2 (L) 8.8 - 10.2 mg/dL [facility] Specimen Plasma specimen Performing Organization Address City/[facility] Phone Number [facility] DEPARTMENT OF PATHOLOGY AND [address] [place] [address] Ionized calcium, arterial (07/10/2018 4:30 PM CDT)Only the most recent of9 resultswithin the time period is included. Ionized calcium, 1.16 1.11 - 1.32 [facility] arterial mmol/L HOSPITAL Specimen Blood Performing Organization Address [facility] [place] [facility] Phone Number [facility] DEPARTMENT OF PATHOLOGY AND [address] [place] [address] Arterial blood gas (07/10/2018 4:30 PM CDT)Only the most recent of2 resultswithin the time period is included. pH, arterial 7.36 7.35 - 7.45 [facility] pCO2, arterial 35 35 - 45 mmHg [facility] pO2, arterial 135 (H) 80 - 90 mmHg [facility] Bicarbonate, 19.7 (L) 21.0 - 28.0 [facility] mmol/L HOSPITAL Base excess, -5 (L) -2 - 2 mEq/L [facility] O2 saturation, 99 95 - 100 % [facility] Specimen Blood Performing Organization Address City/[facility] Phone Number [facility] DEPARTMENT OF PATHOLOGY AND [address] [place] [address] Sodium level, syringe (07/10/2018 3:03 PM CDT)Only the most recent of8 resultswithin the time period is included. Sodium, syringe 134 (L) 135 - 148 mEq/L [facility] Specimen Blood Performing Organization Address City/[facility]/Zipcode Phone Number [facility] DEPARTMENT OF PATHOLOGY AND [address] [place] [phone] Potassium, syringe (07/10/2018 3:03 PM CDT)Only the most recent of8 resultswithin the time period is included. Potassium, syringe 3.9 3.5 - 5.0 mEq/L [facility] Specimen Blood Performing Organization Address [facility] [place] [facility] Phone Number [facility] DEPARTMENT OF PATHOLOGY AND [address] [place] [phone] Hemoglobin, syringe (07/10/2018 3:03 PM CDT)Only the most recent of8 resultswithin the time period is included. Hemoglobin, syringe 9.3 (L) 12.0 - 16.0 g/dL [facility] Specimen Blood Performing Organization Address [facility] [place] [facility] Phone Number [facility] DEPARTMENT OF PATHOLOGY AND [address] [place] [address] Glucose level, syringe (07/10/2018 3:03 PM CDT)Only the most recent of8 resultswithin the time period is included. Glucose, syringe 183 (H) 65 - 99 mg/dL [facility] Specimen Blood Performing Organization Address City/[facility]/Zipcode Phone Number [facility] DEPARTMENT OF PATHOLOGY AND [address] [place] [address] Arterial blood gas, corrected (07/10/2018 3:03 PM CDT)Only the most recent of8 resultswithin the time period is included. pH, arterial 7.32 (L) 7.35 - 7.45 [facility] pCO2, arterial 36 35 - 45 mmHg [facility] pO2, arterial 255 (H) 80 - 90 mmHg [facility] Temperature, Celsius 37.0 Degrees C [facility] O2 saturation, 100 95 - 100 % [facility] arterial HOSPITAL pH, arterial 7.32 [facility] pCO2, arterial [address] [facility] HOSPITAL pO2, arterial 255 mmHg [facility] Base excess, arterial -7 (L) -2 - 2 mEq/L [facility] Specimen Blood Performing Organization Address [facility] [place] [facility] Phone Number [facility] DEPARTMENT OF PATHOLOGY AND [address] [place] [phone] Activated clotting time (07/10/2018 3:00 PM CDT)Only the most recent of13 resultswithin the time period is included. Activated clotting 86 (L) 96 - 152 sec [facility] Comment: HOSPITAL Meter ID: [id number] Inspector Balance Wheel Motion: Shilo Muñoz Specimen Performing Organization Address [facility] Phone Number [facility] DEPARTMENT OF PATHOLOGY AND [address] [place] [phone] Fungus smear (07/10/2018 2:31 PM CDT)Only the most recent of2 resultswithin the time period is included. Fungus smear No fungi observed. [facility] Comment: HOSPITAL Specimen Information Specimen Source: Tissue Specimen Site: RIGHT FEMORAL FRAFT Specimen Tissue Performing Organization Address [facility] [place] [facility] Phone Number [facility] DEPARTMENT OF PATHOLOGY AND [address] [place] [phone] AFB culture (07/10/2018 2:31 PM CDT)Only the most recent of2 resultswithin the time period is included. AFB culture No growth after 6 weeks of incubation. [facility] isolate Comment: HOSPITAL Specimen Information Specimen Source: Tissue Specimen Site: RIGHT FEMORAL FRAFT Specimen Tissue Performing Organization Address City/[facility] [place] Phone Number [facility] DEPARTMENT OF PATHOLOGY AND [address] [place] [address] Tissue culture (07/10/2018 2:31 PM CDT)Only the most recent of2 resultswithin the time period is included. Tissue culture No growth after 3 days. [facility] isolate Comment: [facility]ITAL Specimen Information Specimen Source: Tissue Specimen Site: RIGHT FEMORAL FRAFT Specimen Tissue Performing Organization Address City/[facility] Phone Number [facility] DEPARTMENT OF PATHOLOGY AND [address] [place] [id number] [place] [address] Gram stain (07/10/2018 2:31 PM CDT)Only the most recent of5 resultswithin the time period is included. Gram stain isolate Rare WBC's [facility] No organisms seen HOSPITAL Comment: Specimen Information Specimen Source: Tissue Specimen Site: RIGHT FEMORAL FRAFT Specimen Tissue Performing Organization Address [facility] [place] [facility] Phone Number [facility] DEPARTMENT OF PATHOLOGY AND [address] [place] [address] AFB stain (07/10/2018 2:31 PM CDT)Only the most recent of2 resultswithin the time period is included. AFB stain No acid fast bacilli (AFB) seen. [facility] Comment: HOSPITAL Specimen Information Specimen Source: Tissue Specimen Site: RIGHT FEMORAL FRAFT Specimen Tissue Performing Organization Address [facility] [place] [facility] [place] Phone Number [facility] DEPARTMENT OF PATHOLOGY AND [address] [place] [id number] [place] [address] Fungus culture (07/10/2018 2:31 PM CDT)Only the most recent of2 resultswithin the time period is included. Fungus culture No growth after 4 weeks of incubation. [facility] isolate Comment: HOSPITAL Specimen Information Specimen Source: Tissue Specimen Site: RIGHT FEMORAL FRAFT Specimen Tissue - Other- Detailed Description Required Performing Organization Address City/[facility]/Zipcode Phone Number [facility] DEPARTMENT OF PATHOLOGY AND [address] [place] [phone] [place] [phone] Anaerobic culture (07/10/2018 2:31 PM CDT)Only the most recent of2 resultswithin the time period is included. Anaerobic culture No anaerobic organisms isolated. [place] [facility] isolate Comment: HOSPITAL Specimen Information Specimen Source: Tissue Specimen Site: RIGHT FEMORAL FRAFT Specimen Tissue - Other- Detailed Description Required Performing Organization Address City/State/Zipcode Phone Number [facility] DEPARTMENT OF PATHOLOGY AND [address] [place] [address] Transfuse RBC (07/10/2018 1:40 PM CDT)Only the most recent of6 resultswithin the time period is included.Urine culture (07/10/2018 7:54 AM CDT)Only the most recent of3 resultswithin the time period is included. Urine culture Mixed michael <=10-3 col/cc [facility] isolate Comment: HOSPITAL Specimen Information Specimen Source: Urine Specimen Site: Catheterized Specimen Urine - Catheterized Performing Organization Address City/[facility] Phone Number [facility] DEPARTMENT OF PATHOLOGY AND [address] [place] [address] Urinalysis screen and microscopy, with reflex to culture (07/10/2018 5:02 AM CDT)Only the most recent of3 resultswithin the time period is included. Specimen site Catheterized [facility] Color, UA Straw [facility] Appearance, UA Clear [facility] Specific gravity, UA 1.006 1.001 - 1.035 [facility] pH, UA 7.0 5.0 - 8.5 [facility] Protein, UA Negative Negative [facility] Glucose, UA Negative Negative [facility] Ketones, UA Negative Negative [facility] Bilirubin, UA Negative Negative [facility] Blood, UA Large (A) Negative [facility] Nitrite, UA Negative Negative [facility] Urobilinogen, UA <2.0 <2.0 [facility] Leukocyte esterase, Small (A) Negative [facility] Epithelial cells, UA 1 /HPF [facility] Round epithelial <1 0 - 1 /HPF [facility] cells, HOSPITAL WBC, UA 11 (H) 0 - 4 /HPF [facility] RBC, UA <1 0 - 5 /HPF [facility] Bacteria, UA None seen None seen [facility] Yeast, UA Many (A) [facility] Yeast with None seen [facility] pseudohyphae, HOSPITAL Amorphous crystals Few [facility] Specimen Urine Performing Organization Address City/[facility]/Zipcode Phone Number [facility] DEPARTMENT OF PATHOLOGY AND [address] [place] [address] [address] [place] Hepatic (07/09/2018 4:03 PM CDT) Specimen Narrative Performed At EXAMINATION:US HEPATIC [facility] CLINICAL HISTORY:Hepatitis (non A) COMPARISON:None. TECHNIQUE:Ultrasound evaluation of the liver. IMPRESSION: LIVER:No focal lesions.Normal echogenicity. BILIARY:Common bile duct measures 6 mm, upper normal caliber. Gallbladder is mildly distended without evidence of stones. VASCULATURE:Portal vein is patent and normal in size. PERITONEUM:No ascites in the right upper quadrant. [id number] Procedure Note Hm Interface, Radiology Results Incoming [...] No ascites in the right upper quadrant. [id number]-[id number] Performing Organization Address [facility] [place] [facility]/Zipcode Phone Number [facility] [address] [place] [address] Occult blood, stool (07/09/2018 8:50 AM CDT)Only the most recent of3 resultswithin the time period is included. Occult blood, Negative for occult blood. [facility] stool Comment: HOSPITAL Specimen Information Specimen Source: Stool Specimen Site: Nonpreserved Specimen Stool - Nonpreserved Performing Organization Address City/State/Zipcode Phone Number [facility] DEPARTMENT OF PATHOLOGY AND [address] [place] [address] [address] CTA Abdominal Aorta And Bilateral Iliofemoral Runoff [...] with occlusion at the bifurcation and bilateral [place] common iliac arteries extending distally. The patient [...] is again recommended for further evaluation. [place] right femoral arteries demonstrate a moderate amount of atherosclerotic calcifications but are patent to the level of the ankle-foot. The patient is status post left dulsc-job-jbqj amputation. [place] left femoral profundus demonstrates a moderate amount [...] further evaluation. 2.Patient is status post left iruty-kjx-ntmw amputation. 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 3.Partially visualized right breast demonstrates subareolar nodularity. Correlate findings with most recent mammography report. If not performed within the last year, repeat mammographic imaging is recommended. 4.Additional chronic findings as listed. 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 The patient [...] is again recommended for further evaluation. [place] right femoral arteries demonstrate a moderate amount of atherosclerotic calcifications but are patent to the level of the ankle-foot. The patient is status post left cpakz-fqq-wmxb amputation. [place] left femoral profundus demonstrates a moderate amount [...] evaluation. 2. Patient is status post left ycfdh-jla-rqgv amputation. 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 3. Partially visualized right breast demonstrates subareolar nodularity. Correlate findings with most recent mammography report. If not performed within the last year, repeat mammographic imaging is recommended. 4. Additional chronic findings as listed. [facility]-[id number] [facility] Organization Address City/State/Zipcode Phone Number RAD[facility] [address] [facility] [place] [address] Us duplex arterial lower extremity (07/08/2018 10:34 AM CDT)Only the most recent of2 resultswithin the time period is included. Specimen Narrative Performed At [facility] Vascular Ultrasound Laboratory Lower Extremity Arterial Duplex Report [id number] [facility], [facility] [address], [place] [address] Pat.Name:Teresa MENDEZ.ID:[id number] .Date: 07/08/2018 Refer.MD:EAGLE LOPEZ MD Exam Time: 9:42:00 AMStudy Type:LE Arterial DOBAge:1950,67YSex: FEMALE Sonogrphr: Quinn Reynolds RVSPat. Stat.:Inpatient Room:P30-53OlkpQje: , [facility] - 4: [address]64 Echo Event ID:[id number] Order ID:[id number] Reason for Study:Right groin pain and swelling; [...] Ultrasound Laboratory Lower Extremity Arterial Duplex Report [id number] [facility] [address] [id number] Pat.Name: [place] MENDEZ.ID: [id number] .Date: 07/08/2018 Refer.MD: EAGLE LOPEZ MD Exam Time: 9:42:00 AM Study Type:LE Arterial Age: 9 1950,67Y Sex: FEMALE Sonogrphr: LU Matthew Pat. Stat.:Inpatient Room: [address] Vol: , CPT - 4: [address] Echo Event ID:[id number] Order ID: [id number] Reason for Study:Right groin pain and swelling; [...] 07/08/2018 02:06 PM Ryan Cox MD, RPVI Performing Organization Address City/State/Zipcode Phone Number CUP[facility] [address] [place] [address] CT Chest Wo Contrast (07/08/2018 7:38 AM CDT) Specimen Narrative Performed At EXAMINATION: CT CHEST WO CONTRAST [facility] CLINICAL HISTORY: r o PNA vs [...] settings do not demonstrate any destructive lesions. [facility]-[id number] Procedure Note [facility], Radiology Results Incoming - 07/08/2018 8:01 AM [...] settings do not demonstrate any destructive lesions. [facility]-[id number] Performing Organization Address City/State/Zipcode Phone Number [facility] [address] [place] [address] CT Abdomen Pelvis Wo Contrast (07/07/2018 7:18 PM CDT) Specimen Narrative Performed At EXAMINATION:CT ABDOMEN PELVIS WO CONTRAST [facility] CLINICAL HISTORY:r o retroperitoneal hemarrhage TECHNIQUE: Multiple [...] at 07/07/2018 11:31 PM who verbalized understanding. [facility]-[id number] Procedure Note Interface, Radiology Results Incoming - [...] at 07/07/2018 11:31 PM who verbalized understanding. [facility]-[id number] Performing Organization Address City/State/Zipcode Phone Number [facility] [address] [place] [address] Surgical pathology request (07/04/2018 1:32 PM CDT)Only the most recent of2 resultswithin the time period is included. [facility] DEPARTMENT OF PATHOLOGY AND GENOMIC MEDICINE Surgical pathology See link below [facility] DEPARTMENT OF report for PDF Lab PATHOLOGY AND Report GENOMIC MEDICINE Result status This is Final [facility] DEPARTMENT OF Report for PATHOLOGY AND [id number] GENOMIC MEDICINE Specimen Performing Organization Address City/State/Zipcode Phone Number [facility] DEPARTMENT OF PATHOLOGY AND [address] [place] [address] MEDICINE Manual differential (07/04/2018 4:20 AM CDT) [facility] Manual differential PERFORMED [facility] Neutrophils 85.0 (H) 39.0 - 69.0 % [facility] Lymphocytes 5.0 (L) 25.0 - 45.0 % [facility] Monocytes 10.0 0.0 - 10.0 % [facility] Eosinophils 0.0 0.0 - 5.0 % [facility] Basophils 0.0 0.0 - 1.0 % [facility] Metamyelocytes 0 % [facility] Promyelocytes 0 % [facility] Platelet slide review Kimberly adequate [facility] Anisocytosis Moderate [facility] Specimen Performing Organization Address City/[facility] Phone Number [facility] DEPARTMENT OF PATHOLOGY AND [address] [place] [address] Heparin PF4 antibody (IgG) (06/15/2018 4:48 AM CDT) [facility] Heparin PF4 Ab OD 0.072 0.000 - 0.399 [facility] Heparin PF4 Ab, IgG Negative Negative [facility] Specimen Blood Performing Organization Address City/State/Zipcode Phone Number [facility] DEPARTMENT OF PATHOLOGY AND [address] [place] [phone] [place] [address] Anti Xa, unfractionated (06/15/2018 2:35 AM CDT)Only the most recent of7 resultswithin the time period is included. Pathologist [facility] Anti Xa, 0.23Comment: U/mL [place] unfractionated Therapeutic Range: EVANGELICAL SUGAR 0.30 - 0.70 U/mL [facility] Specimen Blood Performing Organization Address City/[facility]/Zipcode Phone Number [facility] DEPARTMENT OF PATHOLOGY [address] [place] [address] AND GENOMIC MEDICINE [place] [facility] [place] [address] [place] [address] HOSPITAL OR [place] < 1 Hour (06/13/2018 7:22 PM CDT) Specimen Narrative Performed At OR [place] 1 HOUR [facility] CLINICAL HISTORY: IMPRESSION: Fluoroscopy was provided. No radiologist present.Please see procedure report for discussion of procedure, findings and fluoroscopic time. [id number] Procedure Note Interface, Radiology Results Incoming - 06/13/2018 7:33 PM CDT OR [place] 1 HOUR CLINICAL HISTORY: IMPRESSION: Fluoroscopy was provided. No radiologist present. Please see procedure report for discussion of procedure, findings and fluoroscopic time. [id number] Performing Organization Address [facility] [place] [facility] Phone Number [facility] [address] [place] [address] Cv cleaning laborer procedure (06/12/2018 4:49 PM CDT) Specimen Narrative Performed At Procedure(s): Sleep.FMO Left heart cath w lv gram cors [...] Discussed with Dr Garza Performing Organization Address City/[facility]/Zipcode Phone Number UEIS [address] [place] [address] Sodium level, urine, random (06/12/2018 12:43 PM CDT)Only the most recent of2 resultswithin the time period is included. Total volume, urine [address] [facility] Urine sodium 74 mEq/L [facility] concentration [facility] Urine sodium excretion 4Comment: [facility] Varies with [place] diet. HOSPITAL Specimen Urine Performing Organization Address City/[facility]/Zipcode Phone Number [facility] DEPARTMENT OF PATHOLOGY [address] [place] [address] [place] [address] HOSPITAL Osmolality, urine (06/12/2018 12:43 PM CDT)Only the most recent of2 resultswithin the time period is included. Osmolality, urine 239 50 - 1,400 mOsm/kg [facility] Specimen Urine Performing Organization Address City/[facility]/Zipcode Phone Number [facility] DEPARTMENT OF PATHOLOGY [address] [place] [address] Echocardiogram complete w contrast and 3D [...] cm2 SYNGO AoV Area, VTI 2.53 cm2 SYNGO AoV Vmax 0.94 m/s HM SYNGO [...] Organization Address City/State/Zipcode Phone Number SYN[facility] [address] [place] [address] Sodium level (06/12/2018 11:35 AM CDT) Sodium 120 (LL) 135 - 148 mEq/L [facility] Comment: [facility] Final results called to and read back by Tiffany Wu/Hetal 06/12/201812: 13 OST Specimen Plasma specimen Performing Organization Address [facility] [place] [facility]/Zipcode Phone Number [facility] DEPARTMENT OF PATHOLOGY [address] [place] [address] Osmolality, serum (06/12/2018 11:35 AM CDT) Osmolality 256 (L) 275 - 295 mOsm/kg [facility] Specimen Blood Performing Organization Address [facility] [place] [facility]/Zipcode Phone Number [facility] DEPARTMENT OF PATHOLOGY [phone] [place] [address] ECG Pre/Post Op (06/12/2018 6:45 AM CDT) Ventricular rate 77 [facility] Atrial rate 77 [facility] CO interval 176 [facility] QRSD interval 138 [facility] QT interval 428 [facility] QTC interval 484 [facility] P axis 1 75 [facility] QRS axis 1 -15 [facility] T wave axis 47 [facility] EKG impression Normal sinus [facility] rhythm-Right bundle branch block-Abnormal ECG-No previous ECGs available-Electronicall y Signed By Shaheen GONSALEZ, Napoleon (2024) on 06/14/2018 4:45:25 AM Specimen Narrative Performed At Performing Organization Address [facility] Centercode Phone Number [facility] MUSE [address] [place] [address] after 10/31/2017 Advance Directives Patient has advance care planning documents, and code status on file. For more information, please contact:Gene Charlton[address] [place] [address] Code Status Date Activated Date Inactivated Comments Full Code 07/04/2018 12:36 PM 07/14/2018 9:20 PM Code Status decision reached by: Patient
--- OUTSIDE RECORDS SUMMARY | 2018-11-01 09:01 | XMS REPORT ---
:1950 Author Organization [facility] Address [address] [place] [address] [address] [place] [address] Care Team Providers Name Role Phone Unavailable Unavailable Unavailable Payers Payer Name Policy Type Policy Number Effective Date Expiration Date Problems This patient has no known problems. Allergies, Adverse Reactions, Alerts Allergy Name Allergy Status Severity Reaction(s) Onset Inactive Treating Comments Type Date Date Clinician No Known DA Active U Allergies 07-25 00:00: 00 No Known Drug DA Active U Intolerances - 00:00: 00 Medications This patient has no known medications. Results Test Description Test Time Test Comments Text Results Atomic Results Result Comments - [facility] 2018-10-18 FAX: Sophia Kennedy MD [phone] Camps: PM St: LOW 14:33:00 REG EXT W Name: CONSUELO MENDEZ [facility] [place] : WO 1950 Age/S: 67/F [address] Unit #: CONT [id number] Loc: [place] [address] Phys: Sophia Dolan MD Acct: [id number] Dis Date: Status: REG REF PHONE #: [phone] Exam Date: 10/18/2018 1308 FAX #: Reason: OSTEOMYYELITIS EXAMS: CPT: [id number] [place] [address] EXAM: MRI left thigh without and with contrast Dictation location: B2 INDICATION: Osteomyelitis COMPARISON: None TECHNIQUE: Precontrast coronal STIR, axial PD fat-sat and STIR, and sagittal PD fat-sat and T1 and postcontrast coronal, axial, and sagittal T1 fat-sat sequences of the left thigh were performed after 9 mL IV MultiHance. Estimated GFR is greater than 60. DISCUSSION: There is motion artifact on the sagittal T1 sequence which significantly limits evaluation. No other T1 precontrast sequences were obtained, which significantly limits evaluation for osteomyelitis. Osseous structures: There is nonspecific mild increased signal at the distal end of the femoral stump, without evidence of enhancement. The femur is otherwise unremarkable. Soft tissues: There is mild edema at the distal end of the thigh stump. The presence or absence of enhancement is indeterminate due to inhomogeneous fat saturation, but enhancement is likely due to be minimal. IMPRESSION: 1. Evaluation for osteomyelitis is significantly limited without adequate precontrast T1 imaging, as detailed above. There is nonspecific mild edema at the distal end of the femoral stump, without obvious enhancement, and without edema in the adjacent diaphysis. This is probably not due to osteomyelitis. Repeat 3 plane T1 imaging of the distal end of the thigh/femur could be performed if there is persistent high clinical concern for osteomyelitis. 2. Nonspecific mild soft tissue edema at the distal end of the stump. Evaluation for enhancement is somewhat limited due to inhomogeneous fat saturation, but cellulitis, if present, appears at most mild and localized to the distal end of the stump. No fluid collection is identified. PAGE 1 Signed Report (CONTINUED) FAX: Sophia Kennedy MD [phone] Camps: EZEKIEL St: REG --------- Name: CONSUELO MENDEZ : 1950 Age/S: 67/F [address] Unit # : [id number] Loc: [place] [address] Phys : Sophia Kennedy MD Acct : [id number] Dis Date: Status: REG REF PHONE #: [phone] Exam Date: 10/18/2018 1304 FAX #: Reason: OSTEOMYYELITIS EXAMS: CPT: [id number] [place] [address] <Continued> at 1433 Reported and signed by: Sravan Miller M.D. CC: Sophia Kennedy MD Technologist: Juan Jose Villalobos, RT(R)(MR) Transcribed Date/Time/By: 10/18/2018 (3538) :[email or web address] Orig Print D/T: S: 10/18/2018 (8933) PAGE 2 Signed Report GLUCOSE BEDSIDE TESTING 2018-08-01 16:50:00 Test Item Value Reference Range Comments GLUCOSE BEDSIDE TESTING (test code=GLUBED) 144 mg/dL 70-110 GLUCOSE BEDSIDE [id number] 12:12:00 Test Item Value Reference Range Comments GLUCOSE BEDSIDE TESTING (test code=GLUBED) 128 mg/dL 70-110 GLUCOSE BEDSIDE [id number] 07:56:00 Test Item Value Reference Range Comments GLUCOSE BEDSIDE TESTING (test code=GLUBED) 105 mg/dL 70-110 GLUCOSE BEDSIDE [id number] 20:53:00 Test Item Value Reference Range Comments GLUCOSE BEDSIDE TESTING (test code=GLUBED) 157 mg/dL 70-110 GLUCOSE BEDSIDE [id number] 17:15:00 Test Item Value Reference Range Comments GLUCOSE BEDSIDE TESTING (test code=GLUBED) 190 mg/dL 70-110 GLUCOSE BEDSIDE [id number] 11:57:00 Test Item Value Reference Range Comments GLUCOSE BEDSIDE TESTING (test code=GLUBED) 121 mg/dL 70-110 GLUCOSE BEDSIDE [id number] 08:12:00 Test Item Value Reference Range Comments GLUCOSE BEDSIDE TESTING (test code=GLUBED) 120 mg/dL 70-110 BASIC METABOLIC [id number] 05:25:00 Test Item Value Reference Range Comments [...] (test code=CA) 7.9 MG/DL 8.5-10.1 CBC W/AUTO [id number] 04:53:00 Test Item Value Reference Range Comments [...] (test code=MDIFF) NO DIFF/SCN CRITERIA GLUCOSE BEDSIDE [id number] 20:48:00 Test Item Value Reference Range Comments GLUCOSE BEDSIDE TESTING (test code=GLUBED) 183 mg/dL 70-110 GLUCOSE BEDSIDE [id number] 17:46:00 Test Item Value Reference Range Comments GLUCOSE BEDSIDE TESTING (test code=GLUBED) 153 mg/dL 70-110 GLUCOSE BEDSIDE [id number] 12:16:00 Test Item Value Reference Range Comments GLUCOSE BEDSIDE TESTING (test code=GLUBED) 231 mg/dL 70-110 - XR CHEST 2 [id number] 10:00:00 Name: CONSUELO MENDEZ [place] : 1950 Age/S: 67 / F [address] Unit #: [id number] Loc: [place] [address] Phys: Bea Childers MD Acct: [id number] Dis Date: Status: ADM IN PHONE #: [phone] Exam Date: 07/30/2018 0958 FAX #: Reason: pneumonia, lung ca EXAMS: CPT: [id number] XR CHEST 2 V 68754 Fluoro Time: DAP (Gy m2): Air Kerma [...] PAGE 1 Signed Report Name: CONSUELO MENDEZ [place] : 1950 Age/S: 67 / F [address] Unit #: [id number] Loc: [place] [address] Phys: Bea Childers MD Acct: [id number] Dis Date : Status: ADM IN PHONE #: [phone] Exam Date: 07/30/2018 09 FAX #: Reason: pneumonia, lung ca EXAMS: CPT : [id number] XR CHEST 2 V 87125 Fluoro Time: DAP (Gy m2): Air Kerma (mGy): < Continued> Technologist: Yoandy Brar, RT(R)(CT) Trnscb Date/Time: 07/30/2018 (1000) t.[email or web address].PMT Orig Print D/T: S: 07/30/2018 (1003) PAGE 2 Signed ReportGLUCOSE BEDSIDE [id number] 07:56:00 Test Item Value Reference Range Comments GLUCOSE BEDSIDE TESTING (test code=GLUBED) 78 mg/dL 70-110 GLUCOSE BEDSIDE [id number] 20:05:00 Test Item Value Reference Range Comments GLUCOSE BEDSIDE TESTING (test code=GLUBED) 82 mg/dL 70-110 GLUCOSE BEDSIDE [id number] 17:04:00 Test Item Value Reference Range Comments GLUCOSE BEDSIDE TESTING (test code=GLUBED) 152 mg/dL 70-110 GLUCOSE BEDSIDE [id number] 11:44:00 Test Item Value Reference Range Comments GLUCOSE BEDSIDE TESTING (test code=GLUBED) 80 mg/dL 70-110 CBC W/AUTO [id number] 11:03:00 Test Item Value Reference Range Comments [...] CONSISTANT code=MDIFF) WITH AUTO DIFFERENTIAL. BASIC METABOLIC [id number] 09:34:00 Test Item Value Reference Range Comments [...] (test code=CA) 8.1 MG/DL 8.5-10.1 CBC W/AUTO [id number] 09:27:00 Test Item Value Reference Range Comments [...] REQUIRED (test code=MDIFF) DIFF/SCN CRITERIA GLUCOSE BEDSIDE [id number] 07:33:00 Test Item Value Reference Range Comments GLUCOSE BEDSIDE TESTING (test code=GLUBED) 87 mg/dL 70-110 VANCOMYCIN [id number] 01:34:00 Test Item Value Reference Range Comments VANCOMYCIN TROUGH (test code=VANCT) 5.9 mcG/ML 5-15 GLUCOSE BEDSIDE [id number] 19:40:00 Test Item Value Reference Range Comments GLUCOSE BEDSIDE TESTING (test code=GLUBED) 129 mg/dL 70-110 GLUCOSE BEDSIDE [id number] 18:04:00 Test Item Value Reference Range Comments GLUCOSE BEDSIDE TESTING (test code=GLUBED) 143 mg/dL 70-110 GLUCOSE BEDSIDE [id number] 11:29:00 Test Item Value Reference Range Comments GLUCOSE BEDSIDE TESTING (test code=GLUBED) 188 mg/dL 70-110 GLUCOSE BEDSIDE [id number] 07:51:00 Test Item Value Reference Range Comments GLUCOSE BEDSIDE TESTING (test code=GLUBED) 112 mg/dL 70-110 GLUCOSE BEDSIDE [id number] 20:00:00 Test Item Value Reference Range Comments GLUCOSE BEDSIDE TESTING (test code=GLUBED) 161 mg/dL 70-110 GLUCOSE BEDSIDE [id number] 16:40:00 Test Item Value Reference Range Comments GLUCOSE BEDSIDE TESTING (test code=GLUBED) 170 mg/dL 70-110 GLUCOSE BEDSIDE [id number] 11:49:00 Test Item Value Reference Range Comments GLUCOSE BEDSIDE TESTING (test code=GLUBED) 163 mg/dL 70-110 GLUCOSE BEDSIDE [id number] 07:37:00 Test Item Value Reference Range Comments GLUCOSE BEDSIDE TESTING (test code=GLUBED) 156 mg/dL 70-110 CBC W/AUTO [id number] 06:30:00 Test Item Value Reference Range Comments [...] CONSISTANT code=MDIFF) WITH AUTO DIFFERENTIAL. BASIC METABOLIC [id number] 05:36:00 Test Item Value Reference Range Comments [...] (test code=CA) 7.9 MG/DL 8.5-10.1 CBC W/AUTO [id number] 05:20:00 Test Item Value Reference Range Comments [...] (test code=MDIFF) NO DIFF/SCN CRITERIA GLUCOSE BEDSIDE [id number] 20:10:00 Test Item Value Reference Range Comments GLUCOSE BEDSIDE TESTING (test code=GLUBED) 254 mg/dL 70-110 GLUCOSE BEDSIDE [id number] 16:51:00 Test Item Value Reference Range Comments GLUCOSE BEDSIDE TESTING (test code=GLUBED) 290 mg/dL 70-110 GLUCOSE BEDSIDE [id number] 12:14:00 Test Item Value Reference Range Comments GLUCOSE BEDSIDE TESTING (test code=GLUBED) 248 mg/dL 70-110 GLUCOSE BEDSIDE [id number] 08:46:00 Test Item Value Reference Range Comments GLUCOSE BEDSIDE TESTING (test code=GLUBED) 237 mg/dL 70-110 BASIC METABOLIC [id number] 07:54:00 Test Item Value Reference Range Comments [...] code=CA) 8.5 MG/DL 8.5-10.1 Completed by Nursing: [id number] 07:54:00 Test Item Value Reference Range Comments TROPONIN-I (test 1.430 NG/ML 0.000-0.045 Negative: </=0.045 Positive: code=TROPI) >/=0.046 Correlation with serial results, other cardiac markers, and clinical findings is necessary to determine the clinical significance of this result. Quantitative results using different methodologies should not be compared to one another as numerical results may varyby method. Completed by Nursing: LONDONBC W/AUTO [id number] 07:38:00 Test Item Value Reference Range Comments [...] CONSISTANT code=MDIFF) WITH AUTO DIFFERENTIAL. BASIC METABOLIC [id number] 07:36:00 Test Item Value Reference Range Comments [...] (test code=CA) MG/DL 8.5-10.1 Completed by Nursing: [id number] 07:36:00 Test Item Value Reference Range Comments TROPONIN-I (test 1.430 NG/ML 0.000-0.045 Negative: </=0.045 Positive: code=TROPI) >/=0.046 Correlation with serial results, other cardiac markers, and clinical findings is necessary to determine the clinical significance of this result. Quantitative results using different methodologies should not be compared to one another as numerical results may varyby method. Completed by Nursing: NAILA W/AUTO [id number] 07:07:00 Test Item Value Reference Range Comments [...] REQUIRED (test code=MDIFF) DIFF/SCN CRITERIA CBC W/AUTO [id number] 06:46:00 Test Item Value Reference Range Comments [...] CONSISTANT code=MDIFF) WITH AUTO DIFFERENTIAL. BASIC METABOLIC [id number] 06:07:00 Test Item Value Reference Range Comments [...] (test code=CA) 6.8 MG/DL 8.5-10.1 CBC W/AUTO [id number] 06:00:00 Test Item Value Reference Range Comments [...] MANUAL DIFF REQUIRED (test code=MDIFF) DIFF/SCN CRITERIA [id number] 01:26:00 Test Item Value Reference Range Comments TROPONIN-I (test 2.330 NG/ML 0.000-0.045 Negative: </=0.045 Positive: code=TROPI) >/=0.046 Correlation with serial results, other cardiac markers, and clinical findings is necessary to determine the clinical significance of this result. Quantitative results using different methodologies should not be compared to one another as numerical results may varyby method. Completed by Nursing: NOLACTIC [id number] 01:08:00 Test Item Value Reference Range Comments LACTIC ACID (test code=LACT) 1.0 mmol/L 0.4-2.0 UA RFLX MICR CULT IF [id number] 22:53:00 Test Item Value Reference Range Comments [...] Indication for Culture: Delirium No Other SourceTROPONIN- [id number] 22:24:00 Test Item Value Reference Range Comments TROPONIN-I (test 2.060 NG/ML 0.000-0.045 Negative: </=0.045 Positive: code=TROPI) >/=0.046 Correlation with serial results, other cardiac markers, and clinical findings is necessary to determine the clinical significance of this result. Quantitative results using different methodologies should not be compared to one another as numerical results may varyby method. Completed by Nursing: EMILIANO RFLX MICR CULT IF [id number] 22:04:00 Test Item Value Reference Range Comments [...] Delirium No Other Source- CT CHEST W/ [id number] 21:31:00 Name: CONSUELO MENDEZ [place] : 1950 Age/S: 67 / F [address] [address] Unit #: [id number] Loc: [place] [address] Phys: Heavenly Reyes MD Acct: [id number] Dis Date: Status: ADM IN PHONE #: [phone] Exam Date: 07/25/20183 FAX #: Reason: SEPSIS EXAMS: CPT: [id number] CT CHEST W/CONTRAST 48073 Location:T[address] , 07/25/18 TECHNIQUE: Chest CT with IV contrast was performed on a helical scanner. Patient given 75 mL of Isovue 300 for contrast scanning from thoracic inlet through diaphragms. Direct 5 mm contiguous axial slice thickness acquired . Theexamination was conducted on a [facility] at helical CT scanner utilizing low-dose radiation technique. [...] MENDEZ : 1950 Age/S: 67 / F [address] [address] Unit #: [id number] Loc: [place] [address] Phys: Heavenly Reyes MD Acct: [id number] Dis Date: Status: ADM IN PHONE #: [phone] Exam Date: 07/25/20182107 FAX #: Reason: SEPSIS EXAMS: CPT: [id number] CT CHEST W/CONTRAST 11230 <Continued> at 2130 Reported and signed by: Ameena Oswald M.D. CC: Ashutosh Myles MD; Tracey SANCHEZ; Heavenly Reyes MD; Sophia Kennedy MD Technologist:COY MEADOWS RT(R)(CT)(MR) CTDI: DLP : Trnscb Date/Time: 07/25/2018 (2130) [email or web address] Orig Print D/T: S: 07/25/2018 (2133) CTDI: DLP: PAGE 2 Signed ReportTROPONIN I [id number] 21:14:00 Test Item Value Reference Range Comments TROPONIN I RAPID (test 0.14 ng/mL 0.00-0.08 Results above 0.08 are code=TROPIRAP) consistent with NACB IFCCCommittee recommendations to use the 99th percentile of anormal population as a reference decision-limit. - The use of serial sampling and testingprotocol is arecommended practice.- An elevated troponinlevel alone is often not sufficientfor diagnosis of myocardial infraction. CBC W/AUTO [id number] 20:11:00 Test Item Value Reference Range Comments [...] WITH AUTO DIFFERENTIAL. - XR CHEST 1 [id number] 20:00:00 Name: CONSUELO MENDEZ : 1950 Age/S: 67 / F [address] [facility] Unit #: [id number] Loc: [place] [address] Phys: Alex Sheffield MD Acct: [id number] Dis Date: Status: REG ER PHONE #: [phone] Exam Date: 07/25/20181917 FAX #: Reason: Suspected Sepsis EXAMS: CPT: [id number] XR CHEST 1 V 22564 Fluoro Time: DAP (Gy m2): Air Kerma (mGy): Single View Chest. Location: B2 Clinical Indication: 67-year-old with sepsis Comparison: None [...] PAGE 1 Signed Report Name: CONSUELO MENDEZ : 1950 Age/S: 67 / F [address] [place] [address] Unit #: [id number] Loc: [place] [address] Phys: Alex Sheffield MD Acct: [id number] Dis Date: Status: REG ER PHONE #: [phone] Exam Date: 07/25 FAX #: Reason: Suspected Sepsis EXAMS: CPT:[id number] XR CHEST 1 V 96597 Fluoro Time: DAP (Gy m2): Air Kerma (mGy): <Continued> Technologist: Zulma Crowley, RT(R)(CT)(MRI) Trnscb Date/Time: 07/25/2018 (1999) [email or web address] OrigPrint D/T: S: 07/25/2018 (2002) PAGE 2 Signed Report- CT HEAD/BRAIN W/O [id number] 19:43:00 Name: CONSUELO MENDEZ : 1950 Age/S: 67 / F [address] [address] Unit #: [id number] Loc: [place] [address] Phys: Alex Sheffield MD Acct: [id number] Dis Date : Status: REG ER PHONE #: [phone] Exam Date: 07/25/20181911 FAX #: Reason: AMS EXAMS: CPT: [id number] CT HEAD/BRAIN W /O CONT 33679 EXAM: CT Head without contrast Location code:J9 [...] CC: Alex Sheffield MD; Sophia Arndt Technologist:Zulma Crowley RT( R)(CT)(MRI) CTDI: DLP: Trnscb Date/Time: 07/25/2018(1942) MelindaRR16 Orig Print D/T: S: 07/25/2018 (1945) CTDI : DLP: PAGE 1 Signed ReportCBC W/AUTO [id number] 19:15:00 Test Item Value Reference Range Comments [...] REQUIRED (test code=MDIFF) DIFF/SCN CRITERIA LACTIC ACID [id number] 19:15:00 Test Item Value Reference Range Comments LACTIC ACID POC (test code=LACTP) 1.21 MMOL/L 0.90-1.70 COMPREHENSIVE METABOLIC [id number] 19:03:00 Test Item Value Reference Range Comments [...] (test 158 Unit/L 45-117 code=ALKP) CBC W/AUTO [id number] 19:27:00 Test Item Value Reference Range Comments [...] CONSISTANT code=MDIFF) WITH AUTO DIFFERENTIAL. CBC W/AUTO [id number] 18:32:00 Test Item Value Reference Range Comments [...] DIFF/SCN CRITERIA - CT ABD PELVIS W/O [id number] 13:51:00 Name: CONSUELO MENDEZ [facility] : 1950 Age/S: 67 / F [address] [address] Unit #: [id number] Loc: [place] [address] Phys: Sophia Kennedy MD Acct: [id number] Dis Date: Status : REG REF PHONE #: [phone] Exam Date: 07/01/2018 1326 FAX #: Reason: R/O RETRO PERITONEAL BLEED EXAMS: CPT: [id number] CT ABD PELVIS W/O CONT 31194 NoncontrastCT of the abdomen and pelvis CLINICAL [...] Signed Report ( CONTINUED) Name: CONSUELO MENDEZ : 1950 Age/S: 67 / F [address] [address] Unit #: [id number] Loc: [place] [address] Phys: Sophia Kennedy MD Acct: [id number] Dis Date: Status: REG REF PHONE #: [phone] Exam Date: 07/01/2018 1326 FAX #: Reason: R/O RETRO PERITONEAL BLEED EXAMS: CPT: [id number] CT ABD PELVIS W/O CONT 31076 <Continued> 1. Aortobiiliac bypass graft. 2. Marked bladder distention measuring over 12 cm. 3. 3 cm lobulated fluid collection within the right groin may represent hematoma or pseudoaneurysm. Correlation with Doppler ultrasound may be appropriate. 4. Lower lobe pulmonary interstitial fibrosis at 1351 Reported and signed by: Oneida Sexton M.D. CC: Sophia Kennedy MD Technologist:Cecilia Anderson RT(R)(CT) CTDI: DLP : Trnscb Date/Time: 07/01/2018 (1351) t.CARLOS Orig Print D/T: S: 07/01/2018 (5864) CTDI: DLP: PAGE 2 [facility]igned Report[facility] W/AUTO [id number] 22:11:00 Test Item Value Reference Range Comments [...] REQUIRED (test code=MDIFF) NO DIFF/SCN CRITERIA RBC [id number] 22:11:00 Test Item Value Reference Range Comments POIKILOCYTOSIS (test code=POIK) TRACE ON SCAN NONE ANISOCYTOSIS (test code=ANISO) 1+ NONE ELLIPTOCYTES (test code=ELL) TRACE ON SCAN NONE NINI CELLS (test code=BUR) TRACE ON SCAN NONE CBC W/AUTO [id number] 22:10:00 Test Item Value Reference Range Comments [...] (test code=MDIFF) NO DIFF/SCN CRITERIA CBC W/AUTO [id number] 22:10:00 Test Item Value Reference Range Comments [...]
--- NOTE | 2018-11-01 10:36 | RAD REPORT ---
EXAM DESCRIPTION: Anabella Single View11/01/2018 10:29 am CLINICAL HISTORY: Chest pain COMPARISON: September 2018 FINDINGS: Worsening opacification of the left lung. No significant change in the right lung opaciti es. Heart is normal size. Central venous and PICC lines remain in place IMPRESSION: Worsening opacification left lung probably representing a combination of mass and atelec tasis
[2018-11-01] MEDS ORDERED: ONDANSETRON 4 MG/2 ML VIAL ONE (10:54)
[2018-11-01] MEDS ORDERED: MORPHINE 2 MG/ML SYR ONE (10:54)
[2018-11-01 11:07] LABS: Absolute Lymphocytes (CBC) 0.4 K/uL (0.7-4.9)
[2018-11-01 11:25] LABS: Basophils % 0.2 % (0-1.3); Hematocrit 21.9 % (36.0-45.0); Lymphocytes % 1.8 % (15.3-44.8); MPV 7.9 fL (7.6-11.3); RBC Red Blood Cell Count 2.25 M/uL (3.86-4.86)
[2018-11-01 11:26] LABS: Protime INR 1.13
[2018-11-01 11:36] LABS: CKMB Creatine Kinase MB < 1.0 ng/mL (0.3-3.6); Creatine Phosphokinase 9 U/L (26-192); Lipase 31 U/L (73-393)
[2018-11-01 11:38] LABS: ALT/SGPT 10 U/L (12-78); AST/SGOT 12 U/L (15-37); Albumin 1.8 g/dL (3.4-5.0); Alkaline Phosphatase 133 U/L (45-117); BUN Blood Urea Nitrogen 9 mg/dL (7-18); Bicarbonate 23 mmol/L (21-32); Bilirubin Direct 0.2 mg/dL (0-0.2); Bilirubin Total 0.3 mg/dL (0.2-1.0); Glucose Level 105 mg/dL (74-106); Magnesium 1.5 mg/dL (1.8-2.4); NT PRO-BNP 2267 pg/mL (<125); Potassium 3.3 mmol/L (3.5-5.1); Sodium Level 137 mmol/L (136-145); Troponin (Emerg Dept Use Only) < 0.02 ng/mL (0.0-0.045)
--- NOTE | 2018-11-01 12:31 | RAD REPORT ---
EXAM DESCRIPTION: [facility]11/01/2018 11:54 am CLINICAL HISTORY: Right leg pain and swelling. COMPARISON: None. FINDINGS: Right common femoral, superficial femoral, popliteal and right posterior tibial veins are compressible and demonstrate augmentation. Doppler demonstrates good flow. IMPRESSION: No evidence of deep venous thrombosis involving the right lower extremity.
[2018-11-01 12:37] LABS: Urine Bacteria <20 /HPF (<20); Urine RBC <5 /HPF (NONE SEEN)
[2018-11-01 12:38] LABS: Urine Culture Reflex Order NOT NEEDED
[2018-11-01 12:51] LABS: Urine Blood NEGATIVE (NEG); Urine Glucose NEGATIVE (NEG); Urine Protein TRACE (NEG); Urine Specific Gravity 1.015 (1.005-1.030)
--- NOTE | 2018-11-01 12:53 | ER ---
Nurse's Notes [facility] Name: Jamaica Perez Age: 68 yrs Sex: Female : 1950 Arrival Date: 11/01/2018 Time: 09:04 Bed 14 Private MD: Diagnosis: Weakness;Anemia, unspecified Presentation: 11/01 09:11 Presenting complaint: EMS states: Pt w/ PICC line in place for antibiotics , Vancomycin ph and Zosyn, line flushes well but unable to draw labs this morning for Vancomycin level so medicine not given. Family also reports that pt has been weak and lethargic x 3 days, hx of leg amputation, UTI and lung cancer stage 4. Transition of care: patient was not received from another setting of care. Onset of symptoms was November 01, 2018. Risk Assessment: Do you want to hurt yourself or someone else? Patient reports no desire to harm self or others. Initial Sepsis Screen: Does the patient meet any 2 criteria? Altered Mental Status. Does the patient have a suspected source of infection? Yes: Dysuria/Frequency/Urgency/UTI Skin breakdown/wound. Care prior to arrival: None. 09:11 Method Of Arrival: EMS: [facility] ph 09:11 Acuity: LIV 3 ph Historical: - Allergies: 09:22 PENICILLINS; ph - Home Meds: 09:22 Anoro Ellipta 62.5-25 mcg/actuation inhalation dsdv 1 puff once daily [Active]; ph atorvastatin 40 mg Oral tab 1 tab at bedtime [Active]; Ambrose Aspirin 325 mg Oral tab 1 tab once daily [Active]; bisacodyl 5 mg Oral TbEC 1 tab [Active]; ferrous sulfate 325 mg (65 mg iron) Oral TbEC daily [Active]; fluticasone 50 mcg/actuation nasal spsn 1 spray once daily [Active]; gabapentin 400 mg Oral cap 1 cap 3 times per day [Active]; folic acid 1 mg Oral tab 1 tab once daily [Active]; hydrocodone-acetaminophen 5-325 mg Oral tab 1 tab every 6 hours as needed for pain [Active]; isosorbide mononitrate 30 mg Oral Tb24 1 tab once daily [Active]; levocetirizine 5 mg Oral tab 1 tab once daily [Active]; Januvia 100 mg Oral tab 1 tab once daily [Active]; losartan 100 mg Oral tab 1 tab once daily [Active]; metformin 500 mg Oral Tb24 1 tab 2 times per day [Active]; magnesium oxide 400 mg Oral tab 400 mg twice a day [Active]; metoprolol tartrate 25 mg Oral tab 1 tab once daily [Active]; Fn-Htip-Sexclkf 133 mg Oral tab [Active]; montelukast 10 mg Oral tab 1 tab once daily [Active]; nitroglycerin 0.4 mg SL subl 1 tab [Active]; ondansetron HCl 8 mg Oral tab 1 tab every 8 hours [Active]; pantoprazole 40 mg Oral TbEC 1 tab 2 times per day [Active]; prednisone 5 mg Oral tab 1 tab 2 times per day [Active]; ProAir HFA 90 mcg/actuation inhalation HFAA 1 puff every 4 hours [Active]; prochlorperazine maleate 10 mg Oral tab [Active]; sodium chloride 1 gram Oral tab three times a day [Active]; Vitamin D Oral [Active]; zolpidem 5 mg Oral tab 1 tab once daily [Active]; - PMHx: 09:22 Diabetes - NIDDM; DVT; Hyperlipidemia; Hypertension; lung cancer- finished chemo and ph radiation, now undergoing immunotherapy; Sepsis; stents in legs; - PSHx: 09:22 Left BKA; Left AKA; skin grafts; ph - Immunization history:: Adult Immunizations unknown. - Social history:: Smoking status: Patient/guardian denies using tobacco. - Ebola Screening: : No symptoms or risks identified at this time. Screenin:39 Abuse screen: Denies threats or abuse. Denies injuries from another. Nutritional ph screening: No deficits noted. Tuberculosis screening: No symptoms or risk factors identified. Fall Risk No fall in past 12 months (0 pts). Secondary diagnosis (15 points) impaired mobility, IV access (20 points). Ambulatory Aid- None/Bed Rest/Nurse Assist (0 pts). Gait- Weak (10 pts.). Mental Status- Oriented to own ability (0 pts). Total Goldberg Fall Scale indicates High Risk Score (45 or more points). Fall prevention measures have been instituted. Side Rails Up X 2 Placed Close to Nursing Station Frequent Obs/Assessments Occuring Family Present and informed to notify staff if the need to leave the bedside As available patient and family educated on Fall Prevention Program and Strategies. Assessment: 09:44 General: Appears in no apparent distress. uncomfortable, slender, well groomed, ph Behavior is cooperative, drowsy, quiet. Pain: Complains of pain in back and left leg. Neuro: Level of Consciousness is awake, obeys commands, confused, lethargic, Oriented to person, place. Cardiovascular: Denies chest pain, Capillary refill < 3 seconds in bilateral fingers Patient's skin is warm and dry. Respiratory: Airway is patent Respiratory effort is even, unlabored, Respiratory pattern is regular, symmetrical. GI: Patient currently denies diarrhea, nausea, vomiting, Parent/caregiver reports the patient having bloating. Derm: Skin is fragile, is thin, Skin is pink, warm \T\ dry. Wound noted R groin, L leg. Musculoskeletal: Amputation of Left AKA Circulation, motion, and sensation intact. Range of motion: intact in all extremities. 10:50 Reassessment: Patient appears in no apparent distress at this time. Patient and/or ph family updated on plan of care and expected duration. Pain level reassessed. Pt awake but drowsy, oriented x 3, medicated for pain prior to being taken for US via stretcher. 12:09 General: Appears in no apparent distress. comfortable, Behavior is calm, cooperative, aj appropriate for age. Neuro: Respiratory: Airway is patent Respiratory effort is even, unlabored, Respiratory pattern is regular, symmetrical. Derm: Skin is intact, is healthy with good turgor, Skin is pink, warm \T\ dry. normal, Wound noted left leg. Vital Signs: 09:16 BP 119 / 49; Pulse 82; Resp 18; Temp 98.4; Pulse Ox 95% on R/A; ph 10:15 BP 122 / 58; Pulse 85; Resp 18; Pulse Ox 97% on R/A; ph 12:49 BP 114 / 54; Pulse 80; Resp 16; Pulse Ox 97% on R/A; aj ED Course: 09:04 Patient arrived in ED. ph 09:09 Marcello Spivey MD is Attending Physician. kdr 09:16 Triage completed. ph 09:38 Patient has correct armband on for positive identification. Placed in gown. Bed in low ph position. Call light in reach. Side rails up X2. Pulse ox on. NIBP on. Door closed. Noise minimized. Warm blanket given. Pillow given. Head of bed elevated. Cleaned of incontinence. 09:40 Patient placed in an exam room, on a stretcher. ph 09:40 Flushed left PICC line with 5 ml normal saline both ports flush easily, unable to ph aspirate blood. 10:28 X-ray completed. Portable x-ray completed in exam room. Patient tolerated procedure mh1 well. 10:37 XRAY Chest (1 view) In Process Unspecified. EDMS 10:40 Inserted saline lock: 22 gauge in right antecubital area, using aseptic technique. ph Blood collected. 10:53 EKG done, by neurodiagnostic tech. reviewed by Marcello Spivey MD. sm3 11:00 Initial lab(s) drawn, by fl, sent to lab. First set of blood cultures drawn by fl, ph Second set of blood cultures drawn by fl. 11:02 Nena Rosa, RN is Primary Nurse. aj 11:23 US Extremity Venous Unilateral Ltd In Process Unspecified. EDMS 11:28 Notified ED physician of a critical lab result(s). HGB 7.2, HCT 21.9. hb 12:11 Straight cath inserted, using sterile technique, 16 Fr. Specimen obtained. Returned aj clear yellow urine. Patient tolerated well. 12:51 Satinder Daniels MD is Hospitalizing Provider. kdr 14:06 Report given to Daina KWOK. aj 14:06 No provider procedures requiring assistance completed. Patient admitted, IV remains in aj place. intact. Administered Medications: 10:58 Drug: Zofran 4 mg Route: IVP; Site: right antecubital; ph 12:13 Follow up: Response: No adverse reaction aj 11:00 Drug: morphine 1 mg {Note: initial RASS 1.} Route: IVP; Site: right antecubital; ph 12:12 Follow up: Response: Pain is decreased aj Outcome: 12:52 Decision to Hospitalize by Provider. kdr 14:06 Admitted to Med/surg accompanied by tech. aj 14:06 Condition: good 14:06 Instructed on the need for admit. 14:29 Patient left the ED. jb1 Signatures: Dispatcher [employer] EDMS Rolando Medel jb1 Nena Rosa, RN RN aj Marcello Spivey MD MD [facility] Radha Armando 1 Deana Huntley RN RN ph Torie Alamo RN RN hb Daisy Young sm3
--- NOTE | 2018-11-01 12:54 | EDPHYS ---
Physician Documentation [facility] Name: Jamaica Perez Age: 68 yrs Sex: Female : 1950 Arrival Date: 11/01/2018 Time: 09:04 Bed 14 Private MD: ED Physician Marcello Spivey HPI: 11/01 10:30 This 68 yrs old Female presents to ER via EMS with complaints of General kdr Weakness - Problem w/ PICC line. 10:30 The patient has been feeling generally weak and tired. Family reports that she has had kdr numerous infections (UTI/pneumonia), has healing wounds on her left AKA and right groin wounds, she also has swelling to the right lower extremity. Onset: The symptoms/episode began/occurred gradually, at an unknown time. Severity of symptoms: At their worst the symptoms were mild. It is unknown whether or not the patient has had similar symptoms in the past. The patient has been recently seen by a physician: the patient's primary care provider. Historical: - Allergies: 09:22 PENICILLINS; ph - Home Meds: 09:22 Anoro Ellipta 62.5-25 mcg/actuation inhalation dsdv 1 puff once daily [Active]; ph atorvastatin 40 mg Oral tab 1 tab at bedtime [Active]; Ambrose Aspirin 325 mg Oral tab 1 tab once daily [Active]; bisacodyl 5 mg Oral TbEC 1 tab [Active]; ferrous sulfate 325 mg (65 mg iron) Oral TbEC daily [Active]; fluticasone 50 mcg/actuation nasal spsn 1 spray once daily [Active]; gabapentin 400 mg Oral cap 1 cap 3 times per day [Active]; folic acid 1 mg Oral tab 1 tab once daily [Active]; hydrocodone-acetaminophen 5-325 mg Oral tab 1 tab every 6 hours as needed for pain [Active]; isosorbide mononitrate 30 mg Oral Tb24 1 tab once daily [Active]; levocetirizine 5 mg Oral tab 1 tab once daily [Active]; Januvia 100 mg Oral tab 1 tab once daily [Active]; losartan 100 mg Oral tab 1 tab once daily [Active]; metformin 500 mg Oral Tb24 1 tab 2 times per day [Active]; magnesium oxide 400 mg Oral tab 400 mg twice a day [Active]; metoprolol tartrate 25 mg Oral tab 1 tab once daily [Active]; Pn-Ilty-Acgdaxx 133 mg Oral tab [Active]; montelukast 10 mg Oral tab 1 tab once daily [Active]; nitroglycerin 0.4 mg SL subl 1 tab [Active]; ondansetron HCl 8 mg Oral tab 1 tab every 8 hours [Active]; pantoprazole 40 mg Oral TbEC 1 tab 2 times per day [Active]; prednisone 5 mg Oral tab 1 tab 2 times per day [Active]; ProAir HFA 90 mcg/actuation inhalation HFAA 1 puff every 4 hours [Active]; prochlorperazine maleate 10 mg Oral tab [Active]; sodium chloride 1 gram Oral tab three times a day [Active]; Vitamin D Oral [Active]; zolpidem 5 mg Oral tab 1 tab once daily [Active]; - PMHx: 09:22 Diabetes - NIDDM; DVT; Hyperlipidemia; Hypertension; lung cancer- finished chemo and ph radiation, now undergoing immunotherapy; Sepsis; stents in legs; - PSHx: 09:22 Left BKA; Left AKA; skin grafts; ph - Immunization history:: Adult Immunizations unknown. - Social history:: Smoking status: Patient/guardian denies using tobacco. - Ebola Screening: : No symptoms or risks identified at this time. ROS: 10:30 Constitutional: Negative for fever, chills, and weight loss, Eyes: Negative for injury, kdr pain, redness, and discharge, Neck: Negative for injury, pain, and swelling, Cardiovascular: Negative for chest pain, palpitations, and edema, Respiratory: Negative for shortness of breath, cough, wheezing, and pleuritic chest pain, Abdomen/GI: Negative for abdominal pain, nausea, vomiting, diarrhea, and constipation, Back: Negative for injury and pain, : Negative for injury, bleeding, discharge, and swelling, Psych: Negative for depression, anxiety, suicide ideation, homicidal ideation, and hallucinations, Allergy/Immunology: Negative for hives, rash, and allergies, Endocrine: Negative for neck swelling, polydipsia, polyuria, polyphagia, and marked weight changes, Hematologic/Lymphatic: Negative for swollen nodes, abnormal bleeding, and unusual bruising. 10:30 MS/extremity: Positive for Left AKA with well healing wound on stump, right groin wound healing well with no apparent infection. The right leg is warm with 2+ pedial edema up to the knee. Exam: 10:48 Constitutional: This is a well developed, well nourished patient who is awake, alert, kdr and in no acute distress. Head/Face: Normocephalic, atraumatic. Eyes: Pupils equal round and reactive to light, extra-ocular motions intact. Lids and lashes normal. Conjunctiva and sclera are non-icteric and not injected. Cornea within normal limits. Periorbital areas with no swelling, redness, or edema. Neck: Trachea midline, no thyromegaly or masses palpated, and no cervical lymphadenopathy. Supple, full range of motion without nuchal rigidity, or vertebral point tenderness. No Meningismus. Chest/axilla: Normal chest wall appearance and motion. Nontender with no deformity. No lesions are appreciated. Cardiovascular: Regular rate and rhythm with a normal S1 and S2. No gallops, murmurs, or rubs. Normal PMI, no JVD. No pulse deficits. Respiratory: Lungs have equal breath sounds bilaterally, clear to auscultation and percussion. No rales, rhonchi or wheezes noted. No increased work of breathing, no retractions or nasal flaring. Abdomen/GI: Soft, non-tender, with normal bowel sounds. No distension or tympany. No guarding or rebound. No evidence of tenderness throughout. Back: No spinal tenderness. No costovertebral tenderness. Full range of motion. Neuro: Awake and alert, GCS 15, oriented to person, place, time, and situation. Cranial nerves II-XII grossly intact. Motor strength 5/5 in all extremities. Sensory grossly intact. Cerebellar exam normal. Normal gait. Psych: Awake, alert, with orientation to person, place and time. Behavior, mood, and affect are within normal limits. 10:48 Musculoskeletal/extremity: Swelling to right leg to her knee - 3+. 10:48 Skin: Heeling wounds on right groin and left AKA stump. Vital Signs: 09:16 BP 119 / 49; Pulse 82; Resp 18; Temp 98.4; Pulse Ox 95% on R/A; ph 10:15 BP 122 / 58; Pulse 85; Resp 18; Pulse Ox 97% on R/A; ph 12:49 BP 114 / 54; Pulse 80; Resp 16; Pulse Ox 97% on R/A; aj MDM: 10:48 Data reviewed: vital signs, nurses notes, lab test result(s), radiologic studies. kdr Counseling: I had a detailed discussion with the patient and/or guardian regarding: the historical points, exam findings, and any diagnostic results supporting the discharge/admit diagnosis, lab results, radiology results, the need for outpatient follow up, the need for further work-up and treatment in the hospital. 12:52 Patient medically screened. kdr 08 09:59 Order name: Basic Metabolic Panel; Complete Time: 11:54 kdr 08 09:59 Order name: CBC with Diff; Complete Time: 14:39 kdr 08 09:59 Order name: LFT's; Complete Time: 11:54 kdr 08 09:59 Order name: Magnesium; Complete Time: 11:54 kdr 11/01 09:59 Order name: NT PRO-BNP; Complete Time: 11:54 kdr 11/01 09:59 Order name: PT-INR; Complete Time: 11:54 kdr 11/01 09:59 Order name: Troponin (emerg Dept Use Only); Complete Time: 11:54 kdr 08 10:22 Order name: Blood Culture Adult (2) kdr 0808 10:22 Order name: Ckmb; Complete Time: 11:54 kdr 0808 10:22 Order name: CPK; Complete Time: 11:54 kdr 0808 10:22 Order name: Lactate; Complete Time: 11:54 kdr 08/08 10:22 Order name: Lipase; Complete Time: 11:54 kdr 0808 10:22 Order name: Procalcitonin; Complete Time: 11:54 kdr 08 10:22 Order name: Ptt, Activated; Complete Time: 11:54 kdr 11/01 09:59 Order name: XRAY Chest (1 view); Complete Time: 11:54 kdr 11/01 09:59 Order name: EKG; Complete Time: 10:01 kdr 08 09:59 Order name: Cardiac monitoring; Complete Time: 11:07 kdr 0808 09:59 Order name: EKG - Nurse/Tech; Complete Time: 11:07 kdr 0808 09:59 Order name: IV Saline Lock; Complete Time: 11:07 kdr 08 09:59 Order name: Labs collected and sent; Complete Time: 11:07 kdr 08/08 10:22 Order name: Urine Microscopic Only; Complete Time: 12:52 kdr 11/01 10:22 Order name: Urine Culture kdr 11/01 10:23 Order name: Vancomycin,Trough; Complete Time: 11:54 kdr 11/01 10:48 Order name: US Extremity Venous Unilateral Ltd; Complete Time: 12:52 kdr 11/01 12:27 Order name: Urine Dipstick--Ancillary (enter results); Complete Time: 12:52 ms 11/01 12:48 Order name: Type And Screen aj 11/01 13:24 Order name: Packed RBC Leukored EDMS 11/01 13:33 Order name: CBC Smear Scan; Complete Time: 14:39 EDMS 11/01 09:59 Order name: O2 Per Protocol; Complete Time: 11:07 kdr 11/01 09:59 Order name: O2 Sat Monitoring; Complete Time: 11:10 kdr 11/01 10:22 Order name: Accucheck; Complete Time: 11:07 kdr 11/01 10:22 Order name: IV Saline Lock - Large Bore; Complete Time: 11:07 kdr 11/01 10:22 Order name: Urine Dipstick-Ancillary (obtain specimen); Complete Time: 12:13 kdr 11/01 10:22 Order name: Misc. Order: Flush PIC line; Complete Time: 11:07 kdr Administered Medications: 10:58 Drug: Zofran 4 mg Route: IVP; Site: right antecubital; ph 12:13 Follow up: Response: No adverse reaction aj 11:00 Drug: morphine 1 mg {Note: initial RASS 1.} Route: IVP; Site: right antecubital; ph 12:12 Follow up: Response: Pain is decreased aj Disposition: 11/01/18 12:52 Hospitalization ordered by Satinder Daniels for Inpatient Admission. Preliminary diagnosis are Weakness, Anemia, unspecified. - Bed requested for Telemetry/MedSurg (Inpatient). - Status is Inpatient Admission. jb1 - Condition is Fair. - Problem is an acute exacerbation. - Symptoms have improved. UTI on Admission? No Signatures: Dispatcher [employer] EDMS Rolando Medel jb1 Marcello Spivey MD MD kdr Solis, Maria ms Hall, Patricia, RN RN ph Nena Rosa RN Corrections: (The following items were deleted from the chart) 13:47 12:52 Hospitalization Ordered by A Frances GONSALEZ for Inpatient Admission. Preliminary ms diagnosis is Weakness; Anemia, unspecified. Bed requested for Telemetry/MedSurg (Inpatient). Status is Inpatient Admission. Condition is Fair. Problem is an acute exacerbation. Symptoms have improved. UTI on Admission? No. kdr 14:29 13:47 11/01/2018 12:52 Hospitalization Ordered by A Frances GONSALEZ for Inpatient Admission. jb1 Preliminary diagnosis is Weakness; Anemia, unspecified. Bed requested for Telemetry/MedSurg (Inpatient). Status is Inpatient Admission. Condition is Fair. Problem is an acute exacerbation. Symptoms have improved. UTI on Admission? No. ms
[2018-11-01 13:33] LABS: Anisocytosis 1+; Blood Morphology Comment NOTED (NOT SEEN); Ovalocytes 1+; Platelet Estimate INCR; Urine White Blood Cell Casts OK
[2018-11-01] MEDS ORDERED: ONDANSETRON 4 MG/2 ML VIAL IV PRN (14:15)
[2018-11-01] MEDS: ACETAMINOPHEN 500 MG TAB PO PRN ×2 (14:57→22:56)
[2018-11-01] MEDS: D5 0.45 NS 1,000 ML IV SCH (14:57)
--- NOTE | 2018-11-01 16:28 | EKG ---
Test Date: 2018-11-01 Test Time: 10:46:03 Clinical Pharmacy Specialist: YONIS MEASUREMENT RESULTS: Intervals: Rate: 84 DC: 178 QRSD: 146 QT: 414 QTc: 489 [place]: P: 67 DC: 178 QRS: 16 T: 14 INTERPRETIVE STATEMENTS: Normal sinus rhythm Right bundle branch block Abnormal ECG Compared to ECG 09/28/2018 08:36:23 No significant changes Electronically Signed On 11-01-18 16:25:47 CDT by Antione Cm
[2018-11-01 16:31] VITALS: BMI 18.6
[2018-11-01] MEDS ORDERED: NA CHLORIDE 0.9% 250 ML ONE ×2 (19:45→22:42)
[2018-11-01] MEDS ORDERED: POLYETHYL GLY 3350 17 GM/DOSE PO PRN (19:55)
[2018-11-01] MEDS ORDERED: LEVOCETIRIZINE DIHYDROCHLORIDE 5 MG PO PRN (19:55)
[2018-11-01] MEDS ORDERED: ZOLPIDEM TARTRATE 5 MG TABLET PO PRN (19:55)
[2018-11-01] MEDS ORDERED: SOD CHLORIDE IV SCH (20:00)
[2018-11-01] MEDS ORDERED: [UNRECOGNIZED DRUG - OTHER] IV SCH (20:00)
[2018-11-01] MEDS ORDERED: VANCOMYCIN IV SCH (20:00)
[2018-11-01] MEDS ORDERED: ATORVASTATIN 40 MG TAB PO SCH (21:00)
[2018-11-01] MEDS: METOPROLOL TAR 25 MG TAB PO SCH (21:00)
[2018-11-01] MEDS: PANTOPRAZOLE 40MG TABLET PO SCH (21:00)
[2018-11-01] MEDS ORDERED: MAGNESIUM OXIDE 400 MG TAB PO SCH (21:00)
[2018-11-01] MEDS ORDERED: VANCOMYCIN 750 MG in NA CHLORIDE 0.9% 250 ML IVPB SCH (22:30)
[2018-11-01] MEDS ORDERED: VANCOMYCIN 500 MG/VIAL ONE (22:43)
[2018-11-02] MEDS ORDERED: NA CHLORIDE 0.9% 250 ML ONE (00:09)
--- NOTE | 2018-11-02 02:18 | HP ---
Date of Admission: 11/01/2018 Chief Complaint: Right leg swelling and feeling sleepy. History Of Present Illness: A 68-year-old female patient with metastatic lung cancer, who has been going to [facility] for her cancer treatment, has been having lot of problem with infection lately. Patient was admitted 2 times to our hospital within last month and a half or so. First time she was admitted was due to infected wound in the right groin and left amputation stump area and wound culture had grown resistant gram-negative bacteria, Klebsiella and E coli , which was ESBL. She was given IV antibiotic therapy, and subsequently, she was admitted to the hospital on 09/27/2018 with postobstructive pneumonia. After her second admission, she was actually sent to [facility] in [place] as per patient's family's request, and at that facility, she spent almost 2 weeks or so, and during that entire time while she was there, she was on IV antibiotic, vancomycin and another antibiotic. Patient was released to come home last week and she has a PICC line in place and she came home with IV Zosyn and IV vancomycin. Home health started following her. She was asked to follow up with Dr. Kohler at [facility] and she came in to see me yesterday with her daughter. When I saw her yesterday, I was concerned about her overall health. She was extremely somnolent. During entire office visit time, she kept on sleeping. She would wake up, open her eye, say 1 or 2 words and go back to sleep. This is how she was appearing at home prior to her last 2 hospital admissions when she had concerns about infections and every time we admitted her and started her on antibiotic, her altered mental status had resolved. So, this is how she was acting yesterday at the office and she also had significant edema of right lower extremity, so I recommended to patient and her daughter who was at the office that she should come to the emergency room upon leaving my office for further evaluation and management. Daughter who was at the office was willing to bring her here. Some other family member she was talking on the phone were not agreeable to go to the emergency room as I understand, and she went home. As per my discussion with the patient's today, he had discussion with all the 4 children and they decided that they will bring her to the emergency room this morning and they did. After she was evaluated, she was admitted to the hospital. Allergies: NO KNOWN ALLERGIES. Medications: List reviewed. Review of Systems: Constitutional: As mentioned above. Cardiovascular: As mentioned above. All other systems reviewed and negative. Social History: Significant for smoking. Use of alcohol negative. Family History: Not pertinent. Past Surgical History: Significant for hysterectomy, left below-knee amputation done in June of this year because of peripheral vascular disease. Past Medical History: Significant for hypertension, hyperlipidemia, type 2 diabetes mellitus, coronary artery disease, and peripheral vascular, which was determined to be inoperable during angiogram done this year in May 2018, subsequently she had left below-knee amputation. Depression, gastroesophageal reflux disease, anemia due to chronic GI blood loss, COPD, carotid artery stenosis, lung cancer with metastatic disease to liver. Physical Examination: Vital Signs: Initial vital signs in emergency room, temperature 98.4, pulse 82 , respiratory rate 18, blood pressure 119/49, oxygen saturation 95%. Height 4 feet 11 inches, weight 94 pounds. General: Patient is sleeping, arousable. After speaking 1 or 2 words, she goes back to sleep. HEENT: Head atraumatic, normocephalic. Conjunctivae nonerythematous. Sclerae white. Mouth, no thrush or edema noted. Ears/Nose, no mass, lesion, discharge noted. Neck: Supple. No JVD, lymph nodes, bruit, thyromegaly noted. Lungs: Bilateral good equal air entry. Clear to auscultation. No rhonchi. No rales. Heart: Normal heart sounds, no murmur or gallop. Abdomen: Soft, bowel sounds normal. No guarding, rigidity, tenderness, mass, hepatosplenomegaly, distention, or bruit noted. Extremities: Left leg status post below-knee amputation with small about 3-4 mm round and 3-4 mm deep wound. Clean base. No discharge. No bleeding. Surrounding skin normal. Right lower extremity has about grade 2 pedal edema, which is better today compared to yesterday. Right groin wound that was noted during last hospital admission has almost completely healed. Skin: No rash, ulcer, cellulitis. Lymphatics: No lymph node enlargement in neck, supraclavicular, infraclavicular region. Neuro: No focal neurological deficit. Chest: Unremarkable. External Genitalia: Deferred. Rectal: Deferred. Laboratory Data: White count is 18.9, hemoglobin 7.2, platelets 562. Procalcitonin 1.03. Lipase 31. Sodium 137, potassium 3.3, chloride 105, bicarb 23, BUN 9, creatinine 0.50, glucose 105, magnesium 1.5. Liver function tests unremarkable except alkaline phosphatase 133. Troponin less than 0.02. ProBNP 2267. Lactic acid 2.0. Urinalysis; no evidence of any infection, trace protein. EKG; normal sinus rhythm, right bundle-branch block. Chest x-ray, worsening opacification of left lung representing combination of mass and atelectasis. Venous Doppler of right lower extremity negative for DVT. Impression: 1. Postobstructive pneumonia, left lung. 2. Lung cancer with metastatic disease to liver. 3. Anemia due to chronic gastrointestinal blood loss. 4. Hypokalemia. 5. Hypomagnesemia. 6. Hypertension. 7. Coronary artery disease. 8. Hyperlipidemia. 9. Type 2 diabetes mellitus. 10. Carotid artery stenosis. 11. Chronic obstructive pulmonary disease. 12. Gastroesophageal reflux disease. 13. Depression. Plan: Admit patient to hospital for further evaluation and management of this problem. Patient is appropriate for inpatient and is expected to spend 2 midnights in the hospital. Home medications will be continued per order. Patient has prior history of GI bleed and chronic gastrointestinal blood loss causing anemia. She has had endoscopy workup in the past. No need for any endoscopy workup at this point. We will give 2 units of blood transfusion, follow up on hemoglobin after blood transfusion, and if she needs any further blood transfusion, we will consider that. Because of her GI bleeding problem, she is not a candidate for any anticoagulation therapy. We will continue her empiric antibiotic vancomycin and I will consider changing antibiotics to Levaquin and clindamycin. I had a long discussion with patient's outside the patient's room today about overall prognosis that I am concerned the way she has been having in last month to 2 months. Her overall prognosis is very poor. We also discussed about advanced directive, and when the patient' s condition improves and mental status improves, will communicate with her and he will let me know what patient's decision is. Until that time, she will remain full code. Patient has been in and out of hospital for last month and a half to 2 months and she has almost constantly remained on antibiotics in last month and a half or so and she continues to have fluctuating white count the way we have noticed it during this hospitalization. She has not shown consistent improvement to allow her to stay outside the hospital and she just came home about a week ago and now she is back in the hospital, so I am definitely concerned about her overall situation. I did talk to patient's about that. I also suggested that it will be best if [facility] will accept her where they can provide her further treatment and I will try to contact her oncologist, Dr. Schmitt, tomorrow and requests transfer. Patient's is agreeable for transfer if [facility] will accept her. She has appointment to see Dr. Schmitt a week from tomorrow, and if [facility] does not accept her, then she should try to keep that appointment. I will see her tomorrow morning for followup. CALISTA/TELLO Voice ID: [id number]
[2018-11-02] MEDS: D5 0.45 NS 1,000 ML IV SCH (04:16)
[2018-11-02] MEDS ORDERED: CLINDAMYCIN IV 150 MG/ML (6 mL) VIAL ONE (05:01)
[2018-11-02 05:03] LABS: Absolute Lymphocytes (CBC) 0.3 K/uL (0.7-4.9); Basophils % 0.1 % (0-1.3); Hematocrit 32.1 % (36.0-45.0); Lymphocytes % 2.1 % (15.3-44.8); MPV 7.9 fL (7.6-11.3); RBC Red Blood Cell Count 3.55 M/uL (3.86-4.86)
[2018-11-02] MEDS ORDERED: NA CHLORIDE 0.9% 50 ML ONE (05:04)
[2018-11-02] MEDS: ACETAMINOPHEN 500 MG TAB PO PRN (05:06)
[2018-11-02 05:09] LABS: BUN Blood Urea Nitrogen 7 mg/dL (7-18); Bicarbonate 25 mmol/L (21-32); Glucose Level 143 mg/dL (74-106); Sodium Level 135 mmol/L (136-145)
[2018-11-02] MEDS: CLINDAMYCIN INJ 300 MG in NA CHLORIDE 0.9% 50 ML IV SCH ×3 (05:11→18:18)
[2018-11-02] MEDS ORDERED: GLUCAGON 1 MG/VIAL IM PRN (06:25)
[2018-11-02] MEDS ORDERED: D50W 25 GM/50 ML SYRINGE IV PRN (06:25)
[2018-11-02] MEDS ORDERED: POTASSIUM CL SA 10 MEQ TAB PO ONE ×2 (06:38→16:00)
[2018-11-02 06:49] LABS: Magnesium 1.5 mg/dL (1.8-2.4)
[2018-11-02] MEDS: NA CHLORIDE 0.9% 1,000 ML IV SCH (07:07)
--- NOTE | 2018-11-02 07:23 | PN ---
Date of Progress Note: 11/02/2018 Subjective: Patient was seen this morning for followup. No new complaints or problems reported by betsy choco. She was sleeping, arousable, appeared more awake, more alert when she woke up, talked to me just for 5-10 seconds and as I kept on talking to her, she fell back to sleep. While she was awake a nd talking to me, she reported that she was feeling better, denied any other complaints. Objective: Vital Signs: Reviewed. HEENT: Examination unremarkable. Lungs: Clear to auscultation. Not in any distress. Heart: Sounds normal. Abdomen: Soft. Bowel sounds normal. No guarding, rigidity, tenderness, or distention. Extremities: Right leg edema present, but significantly better than day before yesterday and better than yesterday. Today, her leg edema is trace. Laboratory Data: White count this morning 16.2, hemoglobin 11, platelets 527. Sodium 135, potassium 3, chloride 101, bicarb 25, BUN 7, creatinine 0.39, glucose 143. Impression: 1.Postobstructive pneumonia. 2.Lung cancer with metastatic disease to liver. 3.Chronic obstructive pulmonary disease. 4.Hypertension. 5.Coronary artery disease. 6.Type 2 diabetes mellitus. 7.Hypokalemia. 8.Hypomagnesemia. 9.Anemia, iron deficiency, due to chronic gastrointestinal blood loss. Plan: Patient's hemoglobin is much better this morning after 2 units of blood transfusion there is n o need for any further blood transfusion. White count is slightly better today than yesterday. We w ill continue current antibiotic, which is vancomycin, Levaquin, and clindamycin. Blood culture is pe nding from yesterday. We will continue current diet order, diabetes will be managed with sliding sca le insulin and Tradjenta. Replace electrolyte per protocol. We will repeat blood work tomorrow and will try to reach out to patient's oncologist at [facility]. CAT scan of the chest without contrast will be done today for further evaluation of abnormality noted on the chest x-ray. CALISTA/MODL Voice ID: [id number] Report ID: [id number]
[2018-11-02] MEDS: INSULIN -REGULAR HUMAN 50 UNIT/0.5 ML ML SQ SCH ×4 (07:30→22:16)
--- NOTE | 2018-11-02 08:45 | RAD REPORT ---
EXAM DESCRIPTION: CT - Thorax Wo Con - 11/02/2018 8:04 am CLINICAL HISTORY: Lung cancer, postobstructive pneumonia, chemotherapy and radiation, patient compla ining of chest pain and shortness of breath COMPARISON: Portable chest November 01, CT chest April 2015 TECHNIQUE: Axial 5 mm thick images of the chest were obtained without IV contrast. All CT scans are performed using dose optimization technique as appropriate and may include automated exposure control or mA/KV adjustment according to patient size. FINDINGS: Patient has a baseline of significant emphysema. Right hemithorax is generally hyper expan ded. There is a slight reduction in volume on the left that is likely related to prior therapy. In the posterior right lower lobe interstitial thickening is present. More consolidated opacification is present surrounding the bronchus intermedius. A 3 centimeter air-filled cystic cavity is present in this region. The 2016 study showed a 17 millimeter mass in this region. There is some general incr ease in soft tissues surrounding the right mainstem bronchus compared to 2016. On a noncontrast study it is difficult to separate soft tissue mass from arterial structures. Right lung field findings ananda milo have the appearance of pneumonia. Residual or recurrent tumor and postobstructive pneumonia on the right remain possibilities. Circumferential pleural thickening is seen in the left apex extending to the left suprahilar region. No posttherapy imaging is available for comparison to assess any progression or stability of the find ings in this region. Very large masslike consolidation fills the volume reduced left lower lobe from the hilum into the po sterior base. Numerous air bronchograms are present. There is a large amount of soft tissue surroundi ng the left upper lobe and left lower lobe bronchi. The air bronchograms are seen diverging around a 6 centimeter heterogeneous mass. There is a small amount of pleural fluid in the left base. The large mass could be tumor, necrotic tissue and in part complex loculated pleural collection. Patient had a 2.5 centimeter malignant appearing mass in this region in 2016. Left sided findings match the clinic al history of postobstructive pneumonia. Increased soft tissue in the subcarinal region is suspicious. Small nonspecific mediastinal lymph nod es are present. No gross aortic or pulmonary artery finding suspected. No pericardial effusion. No chest wall mass or abnormal axillary lymphadenopathy. IMPRESSION: Extensive airspace consolidation filling the left lower lobe along with a 6 centimeter h eterogeneous mass. Significant soft tissue is present surrounding the left upper lobe and left lower lobe bronchi. The left hilum and left lower lobe findings are most likely postobstructive pneumonia and malignancy. Circumferential pleural thickening in the left apex extending along the medial margin to the hilum. N o comparison imaging available post therapy. This could be stabilized post therapy scarring, residual tumor or a combination. Prominent soft tissue around the right lower lobe bronchus intermedius with interstitial and alveolar opacities in the right lower lobe. These findings appear primarily to be pneumonia. Residual or recu rrent tumor certainly possible given the presence of a mass in this region in 2016.
[2018-11-02] MEDS ORDERED: FLUTICASONE 50MCG NASAL SPRAY NAS SCH (09:00)
[2018-11-02] MEDS: METOPROLOL TAR 25 MG TAB PO SCH (09:00)
[2018-11-02] MEDS ORDERED: FERROUS SULFATE 325 MG TAB PO SCH (09:00)
[2018-11-02] MEDS ORDERED: MONTELUKAST 10 MG TAB PO SCH (09:00)
[2018-11-02] MEDS ORDERED: FOLIC ACID 1 MG TABLET PO SCH (09:00)
[2018-11-02] MEDS ORDERED: Magnesium Sulfate 2gm IVPB 2 G/50 ML BAG IV ONE (09:00)
[2018-11-02] MEDS: PANTOPRAZOLE 40MG TABLET PO SCH (09:00)
[2018-11-02] MEDS: Levofloxacin500mg IV 500 MG/100 ML BAG IV SCH (09:13)
[2018-11-02] MEDS: MONTELUKAST 10 MG PO SCH (10:26)
[2018-11-02] MEDS: ACETAMINOPHEN 500 MG PO PRN ×4 (10:26→22:12)
[2018-11-02] MEDS: PANTOPRAZOLE 40 MG PO SCH ×2 (10:28→22:10)
[2018-11-02] MEDS: CHOLECALCIFEROL 2000 UNIT PO SCH (10:28)
[2018-11-02] MEDS: FERROUS SULFATE 325 MG PO SCH (10:28)
[2018-11-02] MEDS: LINAGLIPTIN 5 MG PO SCH (10:29)
[2018-11-02] MEDS: MAGNESIUM OXIDE 400 MG PO SCH ×2 (10:30→22:10)
[2018-11-02] MEDS: FOLIC ACID 1 MG PO SCH (10:30)
[2018-11-02] MEDS: METOPROLOL TARTRATE 25 MG PO SCH ×2 (10:30→22:09)
[2018-11-02] MEDS: FLUTICASONE PROPIONATE NASAL SPRAY NAS SCH (10:31)
[2018-11-02] MEDS: LACTOBACILLUS/ACIDOPHILUS TAB PO SCH (10:52)
[2018-11-02] MEDS: VANCOMYCIN 750 MG in NA CHLORIDE 0.9% 150 ML IVPB SCH ×2 (11:59→22:15)
[2018-11-02] MEDS: ATORVASTATIN 40 MG PO SCH (22:10)
[2018-11-03] MEDS: CLINDAMYCIN INJ 300 MG in NA CHLORIDE 0.9% 50 ML IV SCH ×4 (00:36→17:15)
[2018-11-03] MEDS: ACETAMINOPHEN 500 MG PO PRN ×4 (02:16→21:55)
[2018-11-03 06:08] LABS: Absolute Lymphocytes (CBC) 0.4 K/uL (0.7-4.9); Basophils % 0.1 % (0-1.3); Lymphocytes % 2.1 % (15.3-44.8); MPV 8.1 fL (7.6-11.3); RBC Red Blood Cell Count 3.22 M/uL (3.86-4.86)
[2018-11-03 06:34] LABS: BUN Blood Urea Nitrogen 7 mg/dL (7-18); Bicarbonate 23 mmol/L (21-32); Glucose Level 166 mg/dL (74-106); Magnesium 1.7 mg/dL (1.8-2.4); Potassium 3.5 mmol/L (3.5-5.1); Sodium Level 132 mmol/L (136-145)
[2018-11-03] MEDS: INSULIN -REGULAR HUMAN 50 UNIT/0.5 ML ML SQ SCH ×4 (07:30→21:52)
[2018-11-03] MEDS ORDERED: POTASSIUM CL SA 10 MEQ TAB PO ONE ×2 (07:56→09:00)
[2018-11-03] MEDS ORDERED: MAGNESIUM SULFATE 1 gm IVPB 1 GM/100 ML BAG IV ONE (09:00)
[2018-11-03] MEDS: METOPROLOL TARTRATE 25 MG PO SCH ×2 (09:44→21:53)
[2018-11-03] MEDS: MAGNESIUM OXIDE 400 MG PO SCH ×2 (09:45→21:52)
[2018-11-03] MEDS: PANTOPRAZOLE 40 MG PO SCH ×2 (09:45→21:53)
[2018-11-03] MEDS: FERROUS SULFATE 325 MG PO SCH (09:48)
[2018-11-03] MEDS: MONTELUKAST 10 MG PO SCH (09:48)
[2018-11-03] MEDS: FOLIC ACID 1 MG PO SCH (09:49)
[2018-11-03] MEDS: LINAGLIPTIN 5 MG PO SCH (09:50)
[2018-11-03] MEDS: CHOLECALCIFEROL 2000 UNIT PO SCH (09:50)
[2018-11-03] MEDS: FLUTICASONE PROPIONATE NASAL SPRAY NAS SCH (09:52)
[2018-11-03] MEDS: LACTOBACILLUS/ACIDOPHILUS TAB PO SCH (09:53)
[2018-11-03] MEDS: Levofloxacin500mg IV 500 MG/100 ML BAG IV SCH (09:53)
[2018-11-03] MEDS: VANCOMYCIN 750 MG in NA CHLORIDE 0.9% 150 ML IVPB SCH (10:58)
[2018-11-03] MEDS: TRAMADOL HCL 50 MG TAB PO PRN (15:49)
[2018-11-03] MEDS: NA CHLORIDE 0.9% 1,000 ML IV SCH (16:20)
--- NOTE | 2018-11-03 16:36 | PN ---
Date of Progress Note: 11/03/2018 Subjective: Patient was seen this morning for followup. She was lot more awake, alert compared to l ast couple of days. During my entire visit today, her mental status was normal. She did not fall ba ck to sleep like the way she did for previous 2 or 3 days. Objective: Vital Signs: Reviewed. General: Denies any complaints this morning. HEENT: Unremarkable. Lungs: Clear to auscultation. No wheezing. Not in respiratory distress. Heart: Sounds normal. Abdomen: Soft. Bowel sounds normal. No guarding, rigidity, tenderness, or distention. Extremities: No leg edema. Laboratory Data: Sodium 132, potassium 3.5, chloride 100, bicarb 23, BUN 7, creatinine 0.37, glucose 166. Magnesium 1.7. White count is 19.6 today, hemoglobin 9.9, platelets 463. Yesterday, white co unt was 16.2; day before it was 18.9. Procalcitonin level from this morning pending. CAT scan of the chest done yesterday without contrast shows extensive airspace consolidation feeling the left lower lobe along with 6 cm mass. Left hilum and left lower lobe findings, most likely postobstructive pneumonia and malignancy. Circumferential pleural thickening in the left apex extending along the medial margin of the hilum. Prominent soft tissue of the right lower lobe bronchus intermedius with interstitial and alveolar opacity of the rig ht lower lobe likely due to pneumonia; residual or recurrent malignancy is possible in decision. Impression: 1.Postobstructive pneumonia. 2.Lung cancer with metastatic disease to liver. 3.Coronary artery disease. 4.Iron deficiency anemia, due to chronic gastrointestinal blood loss. 5.Type 2 diabetes mellitus. 6.Hypertension. Plan: We will continue current antibiotic. The patient clinically has shown significant improvement in last 24 to 48 hours, even though white count has gone up today compared to yesterday. Clinically , she has shown significant improvement, so what we will do is follow up on procalcitonin level as lo ng as procalcitonin level is not going up, probably we will not consider changing antibiotic at this point. We will repeat blood work again tomorrow. No need for any blood transfusion at this point. We will start chest physical therapy in the form of percussion after nebulizer treatment, and details of CT scan finding, and treatment plan discussed with the patient. Yesterday, I did leave a message for patient's oncologist, Dr. Rosas, at [facility] for her to call me back and when she calls me, we w ill discuss details with her and we will request transfer to [facility], but I was told yesterday th at transfer request was denied by [facility]. Meanwhile, we will continue to treat her at our [facility] it and if her condition improves, then we will discharge her to go home with her followup at [facility] next week on Monday that she has appointment. CALISTA/MODL Voice ID: [id number] Report ID: [id number]
[2018-11-03] MEDS: ALBUTEROL 2.5 MG/3 ML NEB SOL NEB SCH (20:00)
[2018-11-03] MEDS: ATORVASTATIN 40 MG PO SCH (21:53)
[2018-11-03] MEDS: VANCOMYCIN/NS 1 gm 1 GM/250 ML BAG IV SCH (21:59)
[2018-11-04] MEDS: CLINDAMYCIN INJ 300 MG in NA CHLORIDE 0.9% 50 ML IV SCH ×4 (00:11→17:13)
[2018-11-04] MEDS: ALBUTEROL 2.5 MG/3 ML NEB SOL NEB SCH ×4 (02:00→20:30)
[2018-11-04 05:45] LABS: Absolute Lymphocytes (CBC) 0.4 K/uL (0.7-4.9); Basophils % 1.3 % (0-1.3); Hematocrit 27.3 % (36.0-45.0); Lymphocytes % 2.5 % (15.3-44.8); RBC Red Blood Cell Count 3.03 M/uL (3.86-4.86)
[2018-11-04 06:00] LABS: BUN Blood Urea Nitrogen 7 mg/dL (7-18); Bicarbonate 25 mmol/L (21-32); Glucose Level 122 mg/dL (74-106); Potassium 3.3 mmol/L (3.5-5.1); Sodium Level 132 mmol/L (136-145)
[2018-11-04] MEDS: NA CHLORIDE 0.9% 1,000 ML IV SCH (06:17)
[2018-11-04] MEDS: INSULIN -REGULAR HUMAN 50 UNIT/0.5 ML ML SQ SCH ×4 (07:30→21:00)
[2018-11-04] MEDS: TRAMADOL HCL 50 MG TAB PO PRN ×2 (08:56→13:13)
[2018-11-04] MEDS: LACTOBACILLUS/ACIDOPHILUS TAB PO SCH (08:58)
[2018-11-04] MEDS: Levofloxacin500mg IV 500 MG/100 ML BAG IV SCH (08:58)
[2018-11-04] MEDS: MAGNESIUM OXIDE 400 MG PO SCH ×3 (09:00→21:00)
[2018-11-04] MEDS ORDERED: POTASSIUM CL SA 10 MEQ TAB PO ONE (09:00)
[2018-11-04] MEDS: FOLIC ACID 1 MG PO SCH (09:00)
[2018-11-04] MEDS ORDERED: MAGNESIUM SULFATE 1 gm IVPB 1 GM/100 ML BAG IV ONE (09:00)
[2018-11-04] MEDS: PANTOPRAZOLE 40 MG PO SCH ×3 (09:00→21:00)
[2018-11-04] MEDS: CHOLECALCIFEROL 2000 UNIT PO SCH (09:01)
[2018-11-04] MEDS: METOPROLOL TARTRATE 25 MG PO SCH ×3 (09:02→21:00)
[2018-11-04] MEDS: MONTELUKAST 10 MG PO SCH (09:04)
[2018-11-04] MEDS: FLUTICASONE PROPIONATE NASAL SPRAY NAS SCH (09:05)
[2018-11-04] MEDS: FERROUS SULFATE 325 MG PO SCH (09:06)
[2018-11-04] MEDS: LINAGLIPTIN 5 MG PO SCH (09:06)
[2018-11-04] MEDS: VANCOMYCIN/NS 1 gm 1 GM/250 ML BAG IV SCH ×2 (11:17→23:00)
[2018-11-04] MEDS: NICOTINE 14 MG/PAT TD SCH (13:13)
--- NOTE | 2018-11-04 16:38 | PN ---
Date of Progress Note: 11/04/2018 Subjective: Patient was seen this morning for followup. She was lying in bed. Denied any specific complaints. Awake, alert, but her memory is still not good as I was asking her about nebulizer treat ment and she did not remember getting any nebulizer treatment with chest percussion, which was ordere d. I have confirmed with the nursing staff that she did receive this treatment, but she does not rem ember any of those. Has some cough, chest congestion. She is coughing up some mucus, but could not tell me what color it looks like. Objective: Vital Signs: Reviewed. HEENT: Unremarkable. Lungs: Bilateral good, equal air entry. Presence of some rhonchi noted, especially after coughing, not in any respiratory distress. Heart: Sounds normal. Abdomen: Soft. Bowel sounds normal. No guarding, rigidity, tenderness, distention. Extremities: Right leg edema has resolved. Laboratory Data: White count 17.9, hemoglobin 9.3, platelets 441. Sodium 132, potassium 3.3, chlori de 101, bicarb 25, BUN 7, creatinine 0.36, glucose 122. Impression: 1.Postobstructive pneumonia. 2.Lung cancer with metastatic disease to liver. 3.Chronic obstructive pulmonary disease. 4.Hypertension. 5.Coronary artery disease. 6.Anemia due to chronic gastrointestinal blood loss. Plan: Continue current medications, continue current antibiotics, and repeat blood work tomorrow. W steven count is better today than yesterday. Hemoglobin is low but stable. Continue nebulizer treatment with chest percussion per ord er. CALISTA/MODL Voice ID: [id number] Report ID: [id number]
[2018-11-04] MEDS ORDERED: HYDROMORPHONE HCL 1 MG/ML INJ IV PRN (18:55)
[2018-11-04] MEDS: ATORVASTATIN 40 MG PO SCH ×2 (19:49→21:00)
[2018-11-05] MEDS: CLINDAMYCIN INJ 300 MG in NA CHLORIDE 0.9% 50 ML IV SCH ×4 (00:01→17:24)
[2018-11-05] MEDS: ALBUTEROL 2.5 MG/3 ML NEB SOL NEB SCH ×4 (01:20→20:30)
[2018-11-05 06:27] LABS: BUN Blood Urea Nitrogen 8 mg/dL (7-18); Bicarbonate 22 mmol/L (21-32); Glucose Level 115 mg/dL (74-106); Magnesium 1.7 mg/dL (1.8-2.4); Potassium 3.7 mmol/L (3.5-5.1); Sodium Level 131 mmol/L (136-145)
[2018-11-05 06:28] LABS: Absolute Lymphocytes (CBC) 0.4 K/uL (0.7-4.9); Basophils % 0.3 % (0-1.3); Hematocrit 26.2 % (36.0-45.0); Lymphocytes % 1.6 % (15.3-44.8); MPV 8.1 fL (7.6-11.3); RBC Red Blood Cell Count 2.89 M/uL (3.86-4.86)
[2018-11-05] MEDS: INSULIN -REGULAR HUMAN 50 UNIT/0.5 ML ML SQ SCH ×4 (07:30→21:00)
[2018-11-05] MEDS ORDERED: MAGNESIUM HYDROXIDE 8% 30 ML PO PRN (07:48)
[2018-11-05] MEDS ORDERED: KCL 20 MEQ/100 mL IVPB 20 MEQ/100 ML BAG IV SCH (09:00)
[2018-11-05] MEDS: MONTELUKAST 10 MG PO SCH (09:00)
[2018-11-05] MEDS ORDERED: MAGNESIUM SULFATE 1 gm IVPB 1 GM/100 ML BAG IV ONE (09:00)
[2018-11-05] MEDS: Levofloxacin500mg IV 500 MG/100 ML BAG IV SCH (09:48)
[2018-11-05] MEDS: TRAMADOL HCL 50 MG TAB PO PRN ×2 (09:50→20:58)
[2018-11-05] MEDS: LACTOBACILLUS/ACIDOPHILUS TAB PO SCH (09:51)
[2018-11-05] MEDS: PANTOPRAZOLE 40 MG PO SCH ×2 (09:51→20:59)
[2018-11-05] MEDS: NICOTINE 14 MG/PAT TD SCH (09:51)
[2018-11-05] MEDS: METOPROLOL TARTRATE 25 MG PO SCH ×2 (09:52→20:59)
[2018-11-05] MEDS: FLUTICASONE PROPIONATE NASAL SPRAY NAS SCH (09:54)
[2018-11-05] MEDS: FERROUS SULFATE 325 MG PO SCH (09:54)
[2018-11-05] MEDS: FOLIC ACID 1 MG PO SCH (09:55)
[2018-11-05] MEDS: MAGNESIUM OXIDE 400 MG PO SCH ×2 (09:55→21:00)
[2018-11-05] MEDS: CHOLECALCIFEROL 2000 UNIT PO SCH (09:55)
[2018-11-05] MEDS: LINAGLIPTIN 5 MG PO SCH (09:56)
--- NOTE | 2018-11-05 10:12 | RAD REPORT ---
EXAM DESCRIPTION: Head Brain Wo Cont EXAM DESCRIPTION: Head Brain Wo Cont CLINICAL HISTORY: 68 years Female AMS COMPARISON: CT head without contrast dated 09/27/2018 TECHNIQUE: Contiguous axial images of the brain were obtained without the administration of intraven ous contrast.This exam was performed according to our departmental dose-optimization program which in cludes use of Automated Exposure Control, adjustment of the mA and/or kV according to patient size an d/or use of iterative reconstruction technique. Findings: Brain: No acute intracranial hemorrhage. No extra-axial collection. No mass effect or herniation. U nchanged prominence of the sulci and cisterns Advanced confluent periventricular and subcortical whit e matter hypodensity is noted. Ventricles: Allowing for underlying cerebral volume loss, ventricular size appears within normal limi ts. Globes and orbits: No acute abnormality. Bones: No acute osseous finding. Paranasal sinuses: Paranasal sinuses are clear. Mastoid air cells: Unchanged bilateral mastoid effusions, right greater than left. Soft tissues: Within normal limits IMPRESSION: No acute intracranial hemorrhage, hydrocephalus or herniation. Stable cerebral volume loss and advanced chronic small vessel ischemic changes. If persistent clinica l concern for acute ischemia, consider MRI brain without contrast for further evaluation. Electronically signed by: Raymon Champagne DO 11/05/2018 1:53 AM CDT Due to temporary technical issues with the PACS/Fluency reporting system, reports are being signed by the in house radiologist as a courtesy to ensure prompt reporting. The interpreting radiologist is f ully responsible for the content of the report.
[2018-11-05 10:29] LABS: Anisocytosis 1+; Blood Morphology Comment NOTED (NOT SEEN); Platelet Estimate INCR
--- NOTE | 2018-11-05 10:40 | EKG ---
Test Date: 2018-11-05 Test Time: 08:20:55 Pug Machine Operator: ANA MEASUREMENT RESULTS: Intervals: Rate: 88 MO: 162 QRSD: 146 QT: 382 QTc: 462 [place]: P: 63 MO: 162 QRS: -12 T: 10 INTERPRETIVE STATEMENTS: Normal sinus rhythm Right bundle branch block Abnormal ECG Compared to ECG 11/01/2018 10:46:03 No significant changes Electronically Signed On 11-05-18 10:39:04 CDT by Lucas Foster
--- NOTE | 2018-11-05 11:13 | RAD REPORT ---
EXAM DESCRIPTION: RAD - Chest Single View - 11/05/2018 10:54 am CLINICAL HISTORY: Pneumonia COMPARISON: November 01 chest film, November 02 CT chest TECHNIQUE: AP portable chest image was obtained 1054 hours . FINDINGS: Lung volumes are low accentuating already prominent interstitial pattern. Prominent right perihilar lung markings are not substantially different from comparison. Perihilar and left mid lung field opacification is fractionally improved from November 01. Left costophrenic angle blunting has prog ressed. Prior CT study showed mass density that could be a true mass lesion or dense loculated pleura l fluid. The current finding may reflect a small amount of new free pleural fluid. Right-sided Port-A-Cath remains in place. Left-sided PICC line is present unchanged in position. Heart and vasculature are normal. No pneumothorax. No acute bony abnormality seen. No acute aortic f indings suspected. IMPRESSION: Left lung field infiltrative changes fractionally improved from November 01. Suspected new small left pleural effusion.
[2018-11-05] MEDS: VANCOMYCIN/NS 1 gm 1 GM/250 ML BAG IV SCH (11:56)
[2018-11-05 18:18] VITALS: O2SAT 94
[2018-11-05] MEDS: ATORVASTATIN 40 MG PO SCH (20:59)
[2018-11-05 21:51] VITALS: BP 166/75; TEMP 98.3
--- NOTE | 2018-11-06 08:42 | DS ---
Date of Discharge: 11/05/2018 Disposition: Discharged to go to [facility]. Physical Examination: HEENT: Unremarkable. Lungs: Clear to auscultation except occasional rhonchi, not in respiratory distress. Heart: Sounds normal. Abdomen: Soft. Bowel sounds normal. No guarding, rigidity, tenderness, or distention. Extremities: No leg edema. Laboratory Data: Chemistry this morning; sodium 131, potassium 3.7, chloride 98, bicarb 22, BUN 8, c reatinine 0.41 glucose 115, magnesium 1.7. White count upon admission was 18.9, hemoglobin 7.2, plat elets 562. The patient received 2 units of PRBC blood transfusion. Her white count has then dropped down to 16.2 on 11/02/2018 with hemoglobin 11. On 11/03/2018, white count went up to 19.6, then yes terday dropped down to 17.9 and today went up to 22,000. Hospital Course: This is a 68-year-old female patient admitted to the hospital with leg edema and so mnolence, altered mental status. Please see dictated H and P for more information. After patient wa s evaluated in the ER, she was admitted to the hospital. Venous Doppler of the leg was negative for DVT. Chest x-ray indicated possibility of pneumonia and we started treating her with IV vancomycin a nd Levaquin and clindamycin was given to her. We also gave her oxygen nebulizer treatment and chest percussion therapy. As we continued this antibiotic therapy, her clinical condition has improved, he r mental status has improved, Procalcitonin level improved, but her white count continues to fluctuat e as mentioned above. Last night, she had altered mental status during nighttime and CAT scan of the head was done, which was negative for any acute interval changes. This morning, repeat chest x-ray shows slight improvement in her pneumonia. Her cultures have been remained negative this time. Her overall prognosis is poor. I have discussed with the patient's and multiple other family mem bers today regarding this. I did reach out to her oncologist's Dr. Sophie Rosas and all the details were discussed with her that patient has been in hospital for last [id number]-half to two months except only for about 1 week that she was able to stay home. Otherwise, she has spent most of the time in [facility] with antibiotics and all the details about last 2 hospital admissions at our facility plu s her stay at [facility] in [place] and this hospital stay. All the details were disc ussed with Dr. Rosas and I did request her to see if we can transfer her to [facility] under her care a nd as we do not have any Infectious Disease specialist and I am not sure that her current problem how much is due to infection, how much is due to lung cancer or combination of both and Dr. Rosas understan ds and she is willing to assist with the acceptance of the patient and she will evaluate her for and provide further management. The patient was accepted in the ED. She will be transferred via ground ambulance for further management. Final Diagnoses: 1.Postobstructive pneumonia. 2.Lung cancer with metastatic disease to liver. 3.Iron-deficiency anemia, due to chronic gastrointestinal blood loss. 4.Leg edema, resolved. 5.Carotid artery stenosis. 6.Coronary artery disease. 7.Hypertension. 8.Hyperlipidemia. 9.Diabetes mellitus, type 2. 10.Toxic encephalopathy, improved. 11.Peripheral vascular disease, status post left above-knee amputation. 12.Chronic obstructive pulmonary disease. CALISTA/MODL Voice ID: [id number] Report ID: [id number]
== END 2018-11-05 23:36 | disposition short-term general hospital (02) | DRG 193 ==
LOC: ER 08:55 → ERHOLD 13:26 → 4TH 14:05
PROVIDERS: ADMIT Internal Medicine; ATTEND Internal Medicine
PROC: 30233N1 Transfusion of Nonautologous Red Blood Cells into Peripheral Vein, Percutaneous Approach (ICD-10-PCS; principal; 2018-11-01)
DX: J18.8 Other pneumonia, unspecified organism (principal); E43 Unspecified severe protein-calorie malnutrition; G92 Toxic encephalopathy; C34.90 Malignant neoplasm of unspecified part of unspecified bronchus or lung; C78.7 Secondary malignant neoplasm of liver and intrahepatic bile duct; Z68.1 Body mass index [BMI] 19.9 or less, adult; K92.2 Gastrointestinal hemorrhage, unspecified; D50.0 Iron deficiency anemia secondary to blood loss (chronic); R60.9 Edema, unspecified; I65.29 Occlusion and stenosis of unspecified carotid artery; I25.10 Atherosclerotic heart disease of native coronary artery without angina pectoris; I10 Essential (primary) hypertension; E78.5 Hyperlipidemia, unspecified; E11.9 Type 2 diabetes mellitus without complications; I73.9 Peripheral vascular disease, unspecified; J44.9 Chronic obstructive pulmonary disease, unspecified; E87.6 Hypokalemia; E83.42 Hypomagnesemia; R40.0 Somnolence; Z89.612 Acquired absence of left leg above knee
CPT/HCPCS: 36415; 36430; 51702; 70450; 71045; 71250; 80048; 80076; 80202; 81003; 81015; 82550; 82553; 82962; 83605; 83690; 83735; 83880; 84132; 84145; 84484; 85025; 85610; 85730; 86850; 86900; 86901; 87040; 87086; 87088; 93005; 93971; 94640; 94667; 96374; 96375; 99285; J1170; J2270; J2405; J3370; J3475; J7030; P9016